=== PATIENT | female | born 1955 | race Caucasian/White ===

== ENCOUNTER 2018-10-18 16:36 | Inpatient (IN) | payer MEDICAID ==
[2018-10-18 16:42] VITALS: BMI 29.2
--- NOTE | 2018-10-18 17:07 | C.PDOC ---
History Of Present Illness 63 year old female with a history of HTN, HLD, and CABG presents to the emergency department with complaints of chest pain, cough, and congestion, which she describes as burning for the last 3 days. Patient denies fever and other com plaints. Patient reports a negative stress test two years ago, but [facility] recommended angiography as she has recurrent cp Time Seen by Provider: 10/18/18 16:49 Chief Complaint (Nursing): Chest Pain History Per: Patient History/Exam Limitations: no limitations Onset/Duration Of Symptoms: Days (3) Associated Symptoms: Cough, Nasal Congestion, Other (chest pain). denies: Fever, Chills Past Medical History Reviewed: Historical Data, Nursing Documentation, Vital Signs Vital Signs: Last Vital Signs Temp 98.2 F 10/18/18 16:42 Pulse 71 10/18/18 16:42 Resp 20 10/18/18 16:42 BP 140/79 10/18/18 16:42 Pulse Ox 99 10/18/18 16:42 - Medical History PMH: CAD, HTN, Hypercholesterolemia Denies: Chronic Kidney Disease Surgical History: CABG (Triple Bypass), Coronary Stent Family History: States: No Known Family Hx - Social History Hx Tobacco Use: No Hx Alcohol Use: No Hx Substance Use: No - Immunization History Hx Tetanus Toxoid Vaccination: No Hx Influenza Vaccination: No Hx Pneumococcal Vaccination: No Review Of Systems Except As Marked, All Systems Reviewed And Found Negative. Constitutional: Negative for: Fever, Chills ENT: Positive for: Nose Congestion Cardiovascular: Positive for: Chest Pain Respiratory: Positive for: Cough Gastrointestinal: Negative for: Nausea, Vomiting, Abdominal Pain Physical Exam - Physical Exam Appears: Non-toxic, No Acute Distress Skin: Normal Color, Warm, Dry Head: Atraumatic, Normacephalic Eye(s): bilateral: Normal Inspection, PERRL, EOMI Oral Mucosa: Moist Neck: Normal, Supple Chest: Symmetrical, No Tenderness Cardiovascular: Rhythm Regular, No Murmur Respiratory: Normal Breath Sounds, No Rales, No Rhonchi, No Wheezing Gastrointestinal/Abdominal: Soft, No Tenderness, No Guarding, No Rebound Extremity: Normal ROM Neurological/Psych: Oriented x3, Normal Speech, Normal Cognition ED Course And Treatment - Laboratory Results Result Diagrams: 10/18/18 17:13 10/18/18 17:13 ECG: Interpreted By Me Interpretation Of ECG: Normal sinus rhythm at 75bpm. Nonspecific ST/T wave changes, new from prior 2014 EKG. O2 Sat by Pulse Oximetry: 99 (RA) Pulse Ox Interpretation: Normal Medical Decision Making Medical Decision Making: Plan: EKG Chemistry Hematology CXR Flu Swab Urinalysis ekg with changes since previous. as per pt due for angiography- pain atypical, howver will obs given ekg changes and possible requirement for cath. accpeted dr langford. asa givne. Disposition - Disposition Disposition: HOSPITALIZED Disposition Time: 21:24 Condition: STABLE - Clinical Impression Clinical Impression: Chest pain - Scribe Statement The provider has reviewed the documentation as recorded by the Scribe (Jeffery [email or web address]) Provider Attestation: All medical record entries made by the Scribe were at my direction and personally dictated by me. I have reviewed the chart and agree that the record accurately reflects my personal performance of the history, physical exam, medical decision making, and the department course for this patient. I have also personally directed, reviewed, and agree with the discharge instructions and disposition.
[2018-10-18 17:20] LABS: BASO # 0.1 K/uL (0.0-0.2); BASO % 0.8 % (0.0-2.0); EOS # 0.1 K/uL (0.0-0.7); EOS % 1.3 % (0.0-4.0); HEMOGLOBIN 12.3 g/dL (11.0-16.0); LYMPH # 3.3 K/uL (1.0-4.3); LYMPH % 43.8 % (20.0-40.0); MEAN CELL VOLUME 89.2 fL (81.0-99.0); MEAN CORPUSCULAR HGB CONC 33.6 g/dL (33.0-37.0); MEAN PLATELET VOLUME 9.4 fL (7.2-11.7); MONO # 0.5 K/uL (0.0-0.8); MONO % 7.2 % (0.0-10.0); NEUT # 3.5 K/uL (1.8-7.0); NEUT % 46.9 % (50.0-75.0); NRBC % 0.1 % (0.0-2.0); RBC 4.08 Mil/uL (3.80-5.20); RED CELL DISTRIBUTION WIDTH 13.1 % (11.5-14.5); WHITE BLOOD COUNT 7.5 K/uL (4.8-10.8)
[2018-10-18 17:37] LABS: INR 1.1; PROTHROMBIN TIME 11.5 SECONDS (9.7-12.2)
[2018-10-18 18:04] LABS: ALB/GLOB RATIO 1.5 (1.0-2.1); ALBUMIN 4.5 g/dL (3.5-5.0); ALT/SGPT 25 U/L (9-52); AST/SGOT 22 U/L (14-36); B-TYPE NATRIURETIC PEPTIDE 227 pg/mL (0-900); BLOOD UREA NITROGEN 14 mg/dL (7-17); CALCIUM 9.2 mg/dl (8.6-10.4); GFR NON-AFRICAN AMERICAN > 60
[2018-10-18 18:13] LABS: SQUAMOUS EPITHIAL 3 /hpf (0-5); URINE AMORPHOUS SEDIMENT MODERATE /ul (<OCC); URINE BILIRUBIN NEGATIVE (NEGATIVE); URINE BLOOD NEGATIVE (NEGATIVE); URINE CLARITY Hazy (Clear); URINE COLOR Yellow (YELLOW); URINE GLUCOSE (UA) NORMAL (Normal); URINE LEUKOCYTE ESTERASE NEG Leu/uL (Negative); URINE PROTEIN NEGATIVE (NEGATIVE); URINE UROBILINOGEN NORMAL mg/dL (0.2-1.0)
--- NOTE | 2018-10-18 18:19 | RAD ---
Date of service: 10/18/2018 HISTORY: chest pain COMPARISON: Portable chest 05/20/2014. FINDINGS: LUNGS: No active pulmonary disease. PLEURA: No significant pleural effusion identified, no pneumothorax apparent. CARDIOVASCULAR: Post CABG changes reiterated. Cardiac silhouette appears stable. No pulmonary vascular congestion. Noncalcified aneurysmal thoracic aorta appreciated. OSSEOUS STRUCTURES: Scoliotic thoracic spinal deformity reiterated. VISUALIZED UPPER ABDOMEN: Normal. OTHER FINDINGS: None. IMPRESSION: No interval acute cardiopulmonary disease appreciated. Post CABG changes reiterated. Scoliotic thoracic spinal deformity again evident.
[2018-10-18] MEDS ORDERED: guaiFENesin 100 mg/5 ml Syrup UD PO STA (19:02)
[2018-10-18] MEDS ORDERED: guaiFENesin 100 mg/5 ml Syrup UD ONE (19:11)
[2018-10-18] MEDS ORDERED: Albuterol-Ipratrop 3 mg / 0.5 (3 ml) UD INH PRN (21:18)
[2018-10-18] MEDS ORDERED: Home Med 1 UNIT (Atorvastatin Calcium [Atorvastatin Calcium] 80 MG) PO SCH (22:00)
[2018-10-18 23:17] LABS: CK-MB 0.42 ng/mL (0.0-3.38)
[2018-10-19 07:58] LABS: CK-MB 0.42 ng/mL (0.0-3.38)
[2018-10-19] MEDS: Promethazine 12.5 mg/10 ml Syrup PO PRN (08:52)
[2018-10-19] MEDS: Oxycodone/Acetaminophen 5/325 mg Tab PO PRN ×2 (08:52→16:43)
[2018-10-19] MEDS: Enoxaparin 40 mg Syringe SC SCH (09:55)
--- NOTE | 2018-10-19 16:47 | CP.PCM.HP ---
Past Patient History - Infectious Disease Hx of Infectious Diseases: None - Past Medical History & Family History Past Medical History?: Yes - Past Social History Smoking Status: Never Smoked - CARDIAC Hx Hypercholesterolemia: Yes Hx Hypertension: Yes - PULMONARY Hx Respiratory Disorders: No - NEUROLOGICAL Hx Neurological Disorder: No - HEENT Hx HEENT Problems: No Other/Comment: Difficulty opening eyes once in a while but vision is fine - RENAL Hx Chronic Kidney Disease: No - ENDOCRINE/METABOLIC Hx Endocrine Disorders: No - HEMATOLOGICAL/ONCOLOGICAL Hx Blood Disorders: No - INTEGUMENTARY Hx Dermatological Problems: No - MUSCULOSKELETAL/RHEUMATOLOGICAL Hx Falls: No - GASTROINTESTINAL Hx Gastrointestinal Disorders: No - GENITOURINARY/GYNECOLOGICAL Hx Genitourinary Disorders: No - PSYCHIATRIC Hx Substance Use: No - SURGICAL HISTORY Hx Coronary Artery Bypass Graft: Yes (Triple Bypass) Hx Coronary Stent: Yes - ANESTHESIA Hx Anesthesia: Yes Hx Anesthesia Reactions: No Hx Malignant Hyperthermia: No Meds Allergies/Adverse Reactions: Allergies Allergy/AdvReac Type Severity Reaction Status Date / Time No Known Allergies Allergy Verified 10/18/18 16:42 Results - Vital Signs Recent Vital Signs: Last Vital Signs Temp 98.1 F 10/19/18 07:00 Pulse 63 10/19/18 07:40 Resp 20 10/19/18 07:00 BP 132/73 10/19/18 09:54 Pulse Ox 99 10/19/18 09:00 - Labs Result Diagrams: 10/18/18 17:13 10/18/18 17:13 Labs: Laboratory Results - last 24 hr 10/18/18 10/18/18 10/18/18 17:13 17:13 17:13 WBC 7.5 RBC 4.08 Hgb 12.3 Hct 36.4 MCV 89.2 MCH 30.0 MCHC 33.6 RDW 13.1 Plt Count 194 MPV 9.4 Neut % (Auto) 46.9 L Lymph % (Auto) 43.8 H [place] % (Auto) 7.2 Eos % (Auto) 1.3 Baso % (Auto) 0.8 Neut # (Auto) 3.5 Lymph # (Auto) 3.3 [place] # (Auto) 0.5 Eos # (Auto) 0.1 Baso # (Auto) 0.1 PT 11.5 INR 1.1 APTT 30 Sodium 140 Potassium 4.0 Chloride 107 Carbon Dioxide 24 Anion Gap 13 BUN 14 Creatinine 0.8 Est GFR ( Amer) > 60 Est GFR (Non-Af Amer) > 60 Random Glucose 90 Calcium 9.2 Total Bilirubin 0.3 AST 22 ALT 25 Alkaline Phosphatase 65 Total Creatine Kinase CK-MB (Mass) Troponin I < 0.0120 NT-Pro-B Natriuret Pep 227 Total Protein 7.4 Albumin 4.5 Globulin 2.9 Albumin/Globulin Ratio 1.5 Urine Color Urine Clarity Urine pH Ur Specific [place] Urine Protein Urine Glucose (UA) Urine Ketones Urine Blood Urine Nitrate Urine Bilirubin Urine Urobilinogen Ur Leukocyte Esterase Urine WBC (Auto) Urine RBC (Auto) Ur Squamous Epith Cells Amorphous Sediment Influenza Typ A,B (EIA) 10/18/18 10/18/18 10/18/18 17:29 17:29 22:49 WBC RBC Hgb Hct MCV MCH MCHC RDW Plt Count MPV Neut % (Auto) Lymph % (Auto) [place] % (Auto) Eos % (Auto) Baso % (Auto) Neut # (Auto) Lymph # (Auto) [place] # (Auto) Eos # (Auto) Baso # (Auto) PT INR APTT Sodium Potassium Chloride Carbon Dioxide Anion Gap BUN Creatinine Est GFR ( Amer) Est GFR (Non-Af Amer) Random Glucose Calcium Total Bilirubin AST ALT Alkaline Phosphatase Total Creatine Kinase 57 CK-MB (Mass) 0.42 Troponin I < 0.0120 NT-Pro-B Natriuret Pep Total Protein Albumin Globulin Albumin/Globulin Ratio Urine Color Yellow Urine Clarity Hazy Urine pH 7.0 Ur Specific [place] 1.020 Urine Protein Negative Urine Glucose (UA) Normal Urine Ketones Negative Urine Blood Negative Urine Nitrate Negative Urine Bilirubin Negative Urine Urobilinogen Normal Ur Leukocyte Esterase Neg Urine WBC (Auto) 2 Urine RBC (Auto) 1 Ur Squamous Epith Cells 3 Amorphous Sediment Moderate H Influenza Typ A,B (EIA) Negative for flu a/b 10/19/18 07:19 WBC RBC Hgb Hct MCV MCH MCHC RDW Plt Count MPV Neut % (Auto) Lymph % (Auto) [place] % (Auto) Eos % (Auto) Baso % (Auto) Neut # (Auto) Lymph # (Auto) [place] # (Auto) Eos # (Auto) Baso # (Auto) PT INR APTT Sodium Potassium Chloride Carbon Dioxide Anion Gap BUN Creatinine Est GFR ( Amer) Est GFR (Non-Af Amer) Random Glucose Calcium Total Bilirubin AST ALT Alkaline Phosphatase Total Creatine Kinase 61 CK-MB (Mass) 0.42 Troponin I < 0.0120 NT-Pro-B Natriuret Pep Total Protein Albumin Globulin Albumin/Globulin Ratio Urine Color Urine Clarity Urine pH Ur Specific [place] Urine Protein Urine Glucose (UA) Urine Ketones Urine Blood Urine Nitrate Urine Bilirubin Urine Urobilinogen Ur Leukocyte Esterase Urine WBC (Auto) Urine RBC (Auto) Ur Squamous Epith Cells Amorphous Sediment Influenza Typ A,B (EIA)
[2018-10-20] MEDS: Enoxaparin 40 mg Syringe SC SCH (10:41)
[2018-10-20] MEDS: Promethazine 12.5 mg/10 ml Syrup PO PRN (10:59)
--- NOTE | 2018-10-20 13:03 | CP.PCM.PN ---
Subjective - Date & Time of Evaluation Date of Evaluation: 10/20/18 Time of Evaluation: 13:03 Objective - Vital Signs/Intake and Output Vital Signs (last 24 hours): Temp Pulse Resp BP Pulse Ox 98.6 F 77 20 143/72 95 10/20/18 07:00 10/20/18 10:42 10/20/18 10:42 10/20/18 10:41 10/20/18 10:42 - Medications Medications: Current Medications Acetaminophen (Tylenol 325mg Tab) 650 mg PO Q6 PRN PRN Reason: Pain, mild to moderate (1-7) Last Admin: 10/19/18 21:20 Dose: 650 mg Albuterol/Ipratropium (Duoneb 3 Mg/0.5 Mg (3 Ml) Ud) 3 ml INH RQ6 PRN PRN Reason: Cough Aspirin (Aspirin Chewable) 81 mg PO DAILY [facility] Last Admin: 10/20/18 10:41 Dose: 81 mg Enoxaparin Sodium (Lovenox) 40 mg SC DAILY [facility] Last Admin: 10/20/18 10:41 Dose: 40 mg Fenofibrate (Tricor) 145 mg PO HS [facility] Last Admin: 10/19/18 21:17 Dose: 145 mg Isosorbide Mononitrate (Imdur Er) 30 mg PO DAILY [facility] Last Admin: 10/20/18 10:41 Dose: 30 mg Losartan Potassium (Cozaar) 25 mg PO DAILY [facility] Last Admin: 10/20/18 10:41 Dose: 25 mg Metoprolol Tartrate (Lopressor) 25 mg PO BID [facility] Last Admin: 10/20/18 10:41 Dose: 25 mg Oxycodone/Acetaminophen (Percocet 5/325 Mg Tab) 1 tab PO Q8H PRN PRN Reason: Pain, severe (8-10) Stop: 10/22/18 00:53 Last Admin: 10/19/18 16:43 Dose: 1 tab Promethazine HCl (Phenergan Syrup) 12.5 mg PO Q8 PRN PRN Reason: Cough Last Admin: 10/20/18 10:59 Dose: 12.5 mg Rosuvastatin Calcium (Crestor) 40 mg PO [facility] Last Admin: 10/19/18 21:17 Dose: 40 mg - Labs Labs: 10/18/18 17:13 10/18/18 17:13 PT 11.5 SECONDS (9.7-12.2) 10/18/18 17:13 INR 1.1 10/18/18 17:13 APTT 30 SECONDS (21-34) 10/18/18 17:13
[2018-10-20] MEDS: Oxycodone/Acetaminophen 5/325 mg Tab PO PRN (16:25)
--- NOTE | 2018-10-21 08:25 | CP.PCM.PN ---
Subjective - Date & Time of Evaluation Date of Evaluation: 10/21/18 Time of Evaluation: 23:43 - Subjective Subjective: Igor Adam DO PGY1 - Internal Medicine [employer] - Cardiology Note for Dr. Olguin 63F w/ a PMH of HTN, HLD, who presented w/ c/o Chest pain. Patient is describing that symptoms of chest pain are pressure-like sensation along with severe dyspnea on exertion with minimal activity of with radiation of discomfort radiating down her left arm. Symptoms according to her progressively worsened over the course of last 1 year Upon evaluation this morning, Pt. complaining of chest burning and epigastric pain w/ eating. Patient reported decreased appetite lately as well. Past Medical History : Glaucoma, Angina, Heart trouble, HTN, HLD Surgical History: Bypass surgery 1999 Family History Father: Mother: no family hx of [place] father- heart attack and passed at the age of 52 brother-heart attack and passed at the age of 38. Social History Tobacco Use: No Drugs/Alcohol: No Allergies N.K.D.A. Home Rx: [id number] QD, Toprol XL 25 QD, Vascepa, Imdur, Losartan 25 QD, Atorvastatin 80 QD, Fenofibrate 200mg QD Objective - Vital Signs/Intake and Output Vital Signs (last 24 hours): Temp Pulse Resp BP Pulse Ox 98 F 93 H 20 115/62 97 10/21/18 07:00 10/21/18 07:41 10/21/18 07:00 10/21/18 07:00 10/21/18 07:00 Intake and Output: 10/21/18 10/21/18 06:59 18:59 Intake Total 400 Balance 400 - Medications Medications: Current Medications Acetaminophen (Tylenol 325mg Tab) 650 mg PO Q6 PRN PRN Reason: Pain, mild to moderate (1-7) Last Admin: 10/19/18 21:20 Dose: 650 mg Albuterol/Ipratropium (Duoneb 3 Mg/0.5 Mg (3 Ml) Ud) 3 ml INH RQ6 PRN PRN Reason: Cough Aspirin (Aspirin Chewable) 81 mg PO DAILY [facility] Last Admin: 10/20/18 10:41 Dose: 81 mg Enoxaparin Sodium (Lovenox) 40 mg SC DAILY [facility] Last Admin: 10/20/18 10:41 Dose: 40 mg Fenofibrate (Tricor) 145 mg PO HS [facility] Last Admin: 10/20/18 21:17 Dose: 145 mg Isosorbide Mononitrate (Imdur Er) 30 mg PO DAILY [facility] Last Admin: 10/20/18 10:41 Dose: 30 mg Losartan Potassium (Cozaar) 25 mg PO DAILY [facility] Last Admin: 10/20/18 10:41 Dose: 25 mg Metoprolol Tartrate (Lopressor) 25 mg PO BID [facility] Last Admin: 10/20/18 17:52 Dose: Not Given Oxycodone/Acetaminophen (Percocet 5/325 Mg Tab) 1 tab PO Q8H PRN PRN Reason: Pain, severe (8-10) Stop: 10/22/18 00:53 Last Admin: 10/20/18 16:25 Dose: 1 tab Promethazine HCl (Phenergan Syrup) 12.5 mg PO Q8 PRN PRN Reason: Cough Last Admin: 10/20/18 10:59 Dose: 12.5 mg Rosuvastatin Calcium (Crestor) 40 mg PO [facility] Last Admin: 10/20/18 21:17 Dose: 40 mg - Labs Labs: 10/18/18 17:13 10/18/18 17:13 PT 11.5 SECONDS (9.7-12.2) 10/18/18 17:13 INR 1.1 10/18/18 17:13 APTT 30 SECONDS (21-34) 10/18/18 17:13 - Constitutional Appears: Well
[2018-10-21] MEDS: Omega-3-Acid Ethyl Esters 1 GM Cap PO SCH ×2 (09:38→18:27)
[2018-10-21] MEDS: Pantoprazole 40 mg EC Tab PO SCH (09:38)
[2018-10-21] MEDS: Enoxaparin 40 mg Syringe SC SCH (09:38)
[2018-10-21] MEDS: Promethazine 12.5 mg/10 ml Syrup PO PRN ×2 (09:43→21:04)
[2018-10-21 14:20] LABS: BLOOD UREA NITROGEN 14 mg/dL (7-17); CALCIUM 9.5 mg/dl (8.6-10.4); GFR NON-AFRICAN AMERICAN > 60
[2018-10-21 14:24] LABS: BASO % 0.6 % (0.0-2.0); EOS # 0.2 K/uL (0.0-0.7); EOS % 2.3 % (0.0-4.0); HEMOGLOBIN 12.2 g/dL (11.0-16.0); LYMPH # 3.6 K/uL (1.0-4.3); LYMPH % 47.6 % (20.0-40.0); MEAN CELL VOLUME 89.2 fL (81.0-99.0); MEAN CORPUSCULAR HEMOGLOBIN 29.4 pg (27.0-31.0); MEAN CORPUSCULAR HGB CONC 32.9 g/dL (33.0-37.0); MEAN PLATELET VOLUME 10.2 fL (7.2-11.7); MONO # 0.3 K/uL (0.0-0.8); MONO % 4.6 % (0.0-10.0); NEUT # 3.4 K/uL (1.8-7.0); NEUT % 44.9 % (50.0-75.0); RBC 4.17 Mil/uL (3.80-5.20); RED CELL DISTRIBUTION WIDTH 12.8 % (11.5-14.5); WHITE BLOOD COUNT 7.5 K/uL (4.8-10.8)
[2018-10-21] MEDS: Oxycodone/Acetaminophen 5/325 mg Tab PO PRN (18:28)
--- NOTE | 2018-10-21 19:12 | CP.PCM.PN ---
Subjective - Date & Time of Evaluation Date of Evaluation: 10/21/18 Time of Evaluation: 19:12 - Subjective Subjective: Patient is seen and examined No events overnight Complaints of cough and chest tightness Objective - Vital Signs/Intake and Output Vital Signs (last 24 hours): Temp Pulse Resp BP Pulse Ox 98.1 F 68 20 111/70 98 10/21/18 15:00 10/21/18 16:00 10/21/18 15:00 10/21/18 18:27 10/21/18 15:00 - Medications Medications: Current Medications Acetaminophen (Tylenol 325mg Tab) 650 mg PO Q6 PRN PRN Reason: Pain, mild to moderate (1-7) Last Admin: 10/19/18 21:20 Dose: 650 mg Albuterol/Ipratropium (Duoneb 3 Mg/0.5 Mg (3 Ml) Ud) 3 ml INH RQ6 PRN PRN Reason: Cough Aspirin (Aspirin Chewable) 81 mg PO DAILY [facility] Last Admin: 10/21/18 09:38 Dose: 81 mg Ezetimibe (Zetia) 10 mg PO DAILY [facility] Last Admin: 10/21/18 09:38 Dose: 10 mg Enoxaparin Sodium (Lovenox) 40 mg SC DAILY [facility] Last Admin: 10/21/18 09:38 Dose: 40 mg Influenza Virus Vaccine (Flucelvax Quad [id number] Syr) 60 mcg IM .ONCE ONE Stop: 10/23/18 12:01 Isosorbide Mononitrate (Imdur Er) 30 mg PO DAILY [facility] Last Admin: 10/21/18 09:38 Dose: 30 mg Losartan Potassium (Cozaar) 25 mg PO DAILY [facility] Last Admin: 10/21/18 09:38 Dose: 25 mg Metoprolol Tartrate (Lopressor) 25 mg PO BID [facility] Last Admin: 10/21/18 18:27 Dose: 25 mg [id number] Ethyl Esters (Lovaza) 1 gm PO BID [facility] Last Admin: 10/21/18 18:27 Dose: 1 gm Oxycodone/Acetaminophen (Percocet 5/325 Mg Tab) 1 tab PO Q8H PRN PRN Reason: Pain, severe (8-10) Stop: 10/22/18 00:53 Last Admin: 10/21/18 18:28 Dose: 1 tab Pantoprazole Sodium (Protonix Ec Tab) 40 mg PO DAILY [facility] Last Admin: 10/21/18 09:38 Dose: 40 mg Pneumococcal Polyvalent Vaccine (Pneumovax 23 Vaccine) 0.5 ml IM .ONCE ONE Stop: 10/23/18 12:01 Promethazine HCl (Phenergan Syrup) 12.5 mg PO Q8 PRN PRN Reason: Cough Last Admin: 10/21/18 09:43 Dose: 12.5 mg Rosuvastatin Calcium (Crestor) 40 mg PO HS [facility] Last Admin: 10/20/18 21:17 Dose: 40 mg - Labs Labs: 10/21/18 14:02 10/21/18 14:02 PT 11.5 SECONDS (9.7-12.2) 10/18/18 17:13 INR 1.1 10/18/18 17:13 APTT 30 SECONDS (21-34) 10/18/18 17:13 - Head Exam Head Exam: NORMAL INSPECTION - Eye Exam Eye Exam: Normal appearance - ENT Exam ENT Exam: Mucous Membranes Moist - Respiratory Exam Respiratory Exam: Clear to Ausculation Bilateral - Cardiovascular Exam Cardiovascular Exam: REGULAR RHYTHM, +S1, +S2 - GI/Abdominal Exam GI & Abdominal Exam: Soft, Normal Bowel Sounds - Extremities Exam Extremities Exam: Normal Inspection - Neurological Exam Neurological Exam: Alert, Oriented x3 - Psychiatric Exam Psychiatric exam: Normal Affect, Normal Mood Assessment and Plan (1) Asthma Status: Acute (2) Chest pain Status: Acute (3) HTN (hypertension) Status: Acute - Assessment and Plan (Free Text) Plan: Cardiac workup in progress BP control Continue current care DVT/GI prophylaxis
--- NOTE | 2018-10-22 00:03 | CP.PCM.CON ---
<Igor Adam - Last Filed: 10/22/18 00:04> History of Present Illness - History of Present Illness History of Present Illness: Igor Adam DO PGY1 - Internal Medicine Life Underwriter - Cardiology Note for Dr. Olguin 63F w/ a PMH of HTN, HLD, who presented w/ c/o Chest pain. Patient is describing that symptoms of chest pain are pressure-like sensation along with severe dyspnea on exertion with minimal activity of with radiation of discomfort radiating down her left arm. Symptoms according to her progressively worsened over the course of last 1 year Upon evaluation this morning, Pt. complaining of chest burning and epigastric pain w/ eating. Patient reported decreased appetite lately as well. No further complaints voiced on 12 system ROS Past Medical History : Glaucoma, Angina, Heart trouble, HTN, HLD Surgical History: Bypass surgery 1999 Family History Father: Mother: no family hx of [place] father- heart attack and passed at the age of 52 brother-heart attack and passed at the age of 38. Social History Tobacco Use: No Drugs/Alcohol: No Allergies N.K.D.A. Home Rx: asa81 QD, Toprol XL 25 QD, Vascepa, Imdur, Losartan 25 QD, Atorvastatin 80 QD, Fenofibrate 200mg QD Review of Systems - Review of Systems All systems: reviewed and no additional remarkable complaints except Review of Systems: as per HPI Past Patient History - Infectious Disease Hx of Infectious Diseases: None - Past Medical History & Family History Past Medical History?: Yes - Past Social History Smoking Status: Never Smoked - CARDIAC Hx Hypercholesterolemia: Yes Hx Hypertension: Yes - PULMONARY Hx Respiratory Disorders: No - NEUROLOGICAL Hx Neurological Disorder: No - HEENT Hx HEENT Problems: No Other/Comment: Difficulty opening eyes once in a while but vision is fine - RENAL Hx Chronic Kidney Disease: No - ENDOCRINE/METABOLIC Hx Endocrine Disorders: No - HEMATOLOGICAL/ONCOLOGICAL Hx Blood Disorders: No - INTEGUMENTARY Hx Dermatological Problems: No - MUSCULOSKELETAL/RHEUMATOLOGICAL Hx Falls: No - GASTROINTESTINAL Hx Gastrointestinal Disorders: No - GENITOURINARY/GYNECOLOGICAL Hx Genitourinary Disorders: No - PSYCHIATRIC Hx Substance Use: No - SURGICAL HISTORY Hx Coronary Artery Bypass Graft: Yes (Triple Bypass) Hx Coronary Stent: Yes - ANESTHESIA Hx Anesthesia: Yes Hx Anesthesia Reactions: No Hx Malignant Hyperthermia: No Meds Allergies/Adverse Reactions: Allergies Allergy/AdvReac Type Severity Reaction Status Date / Time No Known Allergies Allergy Verified 10/18/18 16:42 - Medications Medications: Current Medications Acetaminophen (Tylenol 325mg Tab) 650 mg PO Q6 PRN PRN Reason: Pain, mild to moderate (1-7) Last Admin: 10/19/18 21:20 Dose: 650 mg Albuterol/Ipratropium (Duoneb 3 Mg/0.5 Mg (3 Ml) Ud) 3 ml INH RQ6 PRN PRN Reason: Cough Aspirin (Aspirin Chewable) 81 mg PO DAILY [facility] Last Admin: 10/21/18 09:38 Dose: 81 mg Ezetimibe (Zetia) 10 mg PO DAILY [facility] Last Admin: 10/21/18 09:38 Dose: 10 mg Enoxaparin Sodium (Lovenox) 40 mg SC DAILY [facility] Last Admin: 10/21/18 09:38 Dose: 40 mg Influenza Virus Vaccine (Flucelvax Quad 4539-1342 Syr) 60 mcg IM .ONCE ONE Stop: 10/23/18 12:01 Isosorbide Mononitrate (Imdur Er) 30 mg PO DAILY [facility] Last Admin: 10/21/18 09:38 Dose: 30 mg Losartan Potassium (Cozaar) 25 mg PO DAILY [facility] Last Admin: 10/21/18 09:38 Dose: 25 mg Metoprolol Tartrate (Lopressor) 25 mg PO BID [facility] Last Admin: 10/21/18 18:27 Dose: 25 mg Hzmzg-3-Jvbg Ethyl Esters (Lovaza) 1 gm PO BID [facility] Last Admin: 10/21/18 18:27 Dose: 1 gm Oxycodone/Acetaminophen (Percocet 5/325 Mg Tab) 1 tab PO Q8H PRN PRN Reason: Pain, severe (8-10) Stop: 10/22/18 00:53 Last Admin: 10/21/18 18:28 Dose: 1 tab Pantoprazole Sodium (Protonix Ec Tab) 40 mg PO DAILY [facility] Last Admin: 10/21/18 09:38 Dose: 40 mg Pneumococcal Polyvalent Vaccine (Pneumovax 23 Vaccine) 0.5 ml IM .ONCE ONE Stop: 10/23/18 12:01 Promethazine HCl (Phenergan Syrup) 12.5 mg PO Q8 PRN PRN Reason: Cough Last Admin: 10/21/18 21:04 Dose: 12.5 mg Rosuvastatin Calcium (Crestor) 40 mg PO HS [facility] Last Admin: 10/21/18 21:04 Dose: 40 mg Physical Exam - Constitutional Appears: Well, Non-toxic, No Acute Distress - Head Exam Head Exam: ATRAUMATIC, NORMOCEPHALIC - Eye Exam Eye Exam: EOMI, Normal appearance, PERRL - ENT Exam ENT Exam: Mucous Membranes Moist - Respiratory Exam Respiratory Exam: Clear to Auscultation Bilateral, NORMAL BREATHING PATTERN - Cardiovascular Exam Cardiovascular Exam: REGULAR RHYTHM, RRR, +S1, +S2 - GI/Abdominal Exam GI & Abdominal Exam: Normal Bowel Sounds, Soft. absent: Tenderness - Extremities Exam Extremities exam: Positive for: normal inspection, pedal pulses present (2+ DP BL ). Negative for: pedal edema - Neurological Exam Neurological exam: Alert, CN II-XII Intact, Oriented x3 - Psychiatric Exam Psychiatric exam: Normal Affect, Normal Mood - Skin Skin Exam: Dry, Intact, Normal Color, Warm Results - Vital Signs Recent Vital Signs: Last Vital Signs Temp 98.1 F 10/21/18 15:00 Pulse 68 10/21/18 16:00 Resp 20 10/21/18 15:00 BP 111/70 10/21/18 18:27 Pulse Ox 98 10/21/18 15:00 - Labs Result Diagrams: 10/21/18 14:02 10/21/18 14:02 Labs: Laboratory Results - last 24 hr 10/21/18 10/21/18 10/21/18 11:02 14:02 14:02 WBC 7.5 RBC 4.17 Hgb 12.2 Hct 37.2 MCV 89.2 MCH 29.4 MCHC 32.9 L RDW 12.8 Plt Count 204 MPV 10.2 Neut % (Auto) 44.9 L Lymph % (Auto) 47.6 H Mccracken % (Auto) 4.6 Eos % (Auto) 2.3 Baso % (Auto) 0.6 Neut # (Auto) 3.4 Lymph # (Auto) 3.6 Mccracken # (Auto) 0.3 Eos # (Auto) 0.2 Baso # (Auto) 0.0 Sodium 138 Potassium 4.0 Chloride 104 Carbon Dioxide 25 Anion Gap 14 BUN 14 Creatinine 0.8 Est GFR ( Amer) > 60 Est GFR (Non-Af Amer) > 60 Random Glucose 127 H D Hemoglobin A1c 6.4 Calcium 9.5 Assessment & Plan (1) HTN (hypertension) Status: Acute (2) Chest pain Status: Acute Priority: Medium (3) Coronary artery disease Status: Chronic Priority: Low (4) Hx of CABG Status: Chronic Priority: Low - Assessment and Plan (Free Text) Assessment: 63F w/ a PMH of HTN, HLD, who presented w/ c/o chest pain; chest pain has ischemic properties however patient is also exhibiting s/s acid reflux /gerd. Plan: Patient will require cardiac catheterization in future however given that her symptoms are concerning for acid reflux at this time; GI workup would be appreciated to r/o any ulceration. Patient can continue on Aspirin Zetia Cozaar Imdur Toprol Crestor Lovaza <Zachery Olguin - Last Filed: 10/29/18 23:18> Meds - Medications Medications: Current Medications Acetaminophen (Tylenol 325mg Tab) 650 mg PO Q6 PRN PRN Reason: Pain, mild to moderate (1-7) Last Admin: 10/26/18 15:43 Dose: 650 mg Amoxicillin (Amoxil 500 Mg Cap) 1,000 mg PO BID [facility]; Protocol Last Admin: 10/29/18 10:15 Dose: 1,000 mg Aspirin (Aspirin Chewable) 81 mg PO DAILY [facility] Last Admin: 10/29/18 10:15 Dose: 81 mg Clarithromycin (Biaxin Filmtab) 500 mg PO Q12H [facility]; Protocol Last Admin: 10/29/18 05:02 Dose: 500 mg Ezetimibe (Zetia) 10 mg PO DAILY [facility] Last Admin: 10/29/18 10:14 Dose: 10 mg Fluticasone/Vilanterol (Breo Ellipta 200-25 Mcg Inh) 1 puff INH RQD [facility] Last Admin: 10/29/18 07:46 Dose: 1 puff Isosorbide Mononitrate (Imdur Er) 30 mg PO DAILY [facility] Last Admin: 10/29/18 10:20 Dose: 30 mg Losartan Potassium (Cozaar) 25 mg PO DAILY [facility] Last Admin: 10/29/18 10:15 Dose: 25 mg Metoprolol Tartrate (Lopressor) 25 mg PO BID [facility] Last Admin: 10/29/18 10:14 Dose: 25 mg Nbnyt-9-Isqv Ethyl Esters (Lovaza) 1 gm PO BID [facility] Last Admin: 10/29/18 10:13 Dose: Not Given Pantoprazole Sodium (Protonix Ec Tab) 40 mg PO DAILY [facility] Last Admin: 10/29/18 10:13 Dose: 40 mg Potassium Chloride (K-Dur 20 Meq Er Tab) 40 meq PO BRK [facility] Last Admin: 10/29/18 08:04 Dose: 40 meq Promethazine HCl/Codeine (Phenergan/Codeine Oral Syrup) 10 ml PO Q8H PRN PRN Reason: Cough Last Admin: 10/29/18 10:15 Dose: 10 ml Rosuvastatin Calcium (Crestor) 40 mg PO HS [facility] Last Admin: 10/28/18 21:31 Dose: 40 mg Results - Vital Signs Recent Vital Signs: Last Vital Signs Temp 97.9 F 10/29/18 08:40 Pulse 89 10/29/18 08:40 Resp 20 10/29/18 08:40 BP 118/78 10/29/18 10:14 Pulse Ox 98 10/29/18 08:40 - Labs Result Diagrams: 10/26/18 08:00 10/26/18 08:00 Attending/Attestation - Attestation I have personally seen and examined this patient.: Yes I have fully participated in the care of the patient.: Yes I have reviewed all pertinent clinical information: Yes
[2018-10-22] MEDS: Enoxaparin 40 mg Syringe SC SCH (10:23)
[2018-10-22] MEDS: Omega-3-Acid Ethyl Esters 1 GM Cap PO SCH ×2 (10:23→17:53)
[2018-10-22] MEDS: Promethazine 12.5 mg/10 ml Syrup PO PRN (10:23)
[2018-10-22] MEDS: Pantoprazole 40 mg EC Tab PO SCH (10:24)
[2018-10-22] MEDS: Promethazine/Cod 6.25mg-10mg/5ml Syr UD PO PRN ×2 (13:18→21:36)
--- NOTE | 2018-10-22 15:31 | CP.PCM.PN ---
Subjective - Date & Time of Evaluation Date of Evaluation: 10/22/18 Time of Evaluation: 15:30 - Subjective Subjective: Patient is seen and examined No events overnight Complaints of cough and chest tightness Objective - Vital Signs/Intake and Output Vital Signs (last 24 hours): Temp Pulse Resp BP Pulse Ox 99.2 F 86 20 123/73 100 10/22/18 07:00 10/22/18 07:29 10/22/18 07:00 10/22/18 10:23 10/22/18 07:00 Intake and Output: 10/22/18 10/22/18 06:59 18:59 Intake Total 480 Balance 480 - Medications Medications: Current Medications Acetaminophen (Tylenol 325mg Tab) 650 mg PO Q6 PRN PRN Reason: Pain, mild to moderate (1-7) Last Admin: 10/22/18 10:28 Dose: 650 mg Albuterol/Ipratropium (Duoneb 3 Mg/0.5 Mg (3 Ml) Ud) 3 ml INH RQ6 PRN PRN Reason: Cough Aspirin (Aspirin Chewable) 81 mg PO DAILY [facility] Last Admin: 10/22/18 10:23 Dose: 81 mg Ezetimibe (Zetia) 10 mg PO DAILY [facility] Last Admin: 10/22/18 10:23 Dose: 10 mg Enoxaparin Sodium (Lovenox) 40 mg SC DAILY [facility] Last Admin: 10/22/18 10:23 Dose: 40 mg Fluticasone/Vilanterol (Breo Ellipta 200-25 Mcg Inh) 1 puff INH RQD [facility] Influenza Virus Vaccine (Flucelvax Quad 9900-1376 Syr) 60 mcg IM .ONCE ONE Stop: 10/23/18 12:01 Isosorbide Mononitrate (Imdur Er) 30 mg PO DAILY [facility] Last Admin: 10/22/18 10:23 Dose: 30 mg Losartan Potassium (Cozaar) 25 mg PO DAILY [facility] Last Admin: 10/22/18 10:23 Dose: 25 mg Metoclopramide HCl (Reglan) 5 mg IVP Q6H [facility] Last Admin: 10/22/18 13:18 Dose: 5 mg Metoprolol Tartrate (Lopressor) 25 mg PO BID [facility] Last Admin: 10/22/18 10:23 Dose: 25 mg Gcjcr-5-Nrxq Ethyl Esters (Lovaza) 1 gm PO BID [facility] Last Admin: 10/22/18 10:23 Dose: 1 gm Pantoprazole Sodium (Protonix Inj) 40 mg IVP Q12H [facility] Last Admin: 10/22/18 13:15 Dose: Not Given Pneumococcal Polyvalent Vaccine (Pneumovax 23 Vaccine) 0.5 ml IM .ONCE ONE Stop: 10/23/18 12:01 Promethazine HCl/Codeine (Phenergan/Codeine Oral Syrup) 10 ml PO Q8H PRN PRN Reason: Cough Last Admin: 10/22/18 13:18 Dose: 10 ml Rosuvastatin Calcium (Crestor) 40 mg PO HS [facility] Last Admin: 10/21/18 21:04 Dose: 40 mg - Labs Labs: 10/21/18 14:02 10/21/18 14:02 PT 11.5 SECONDS (9.7-12.2) 10/18/18 17:13 INR 1.1 10/18/18 17:13 APTT 30 SECONDS (21-34) 10/18/18 17:13 - Head Exam Head Exam: NORMAL INSPECTION - Eye Exam Eye Exam: Normal appearance - ENT Exam ENT Exam: Mucous Membranes Moist - Respiratory Exam Respiratory Exam: Clear to Ausculation Bilateral - Cardiovascular Exam Cardiovascular Exam: REGULAR RHYTHM, +S1, +S2 - GI/Abdominal Exam GI & Abdominal Exam: Soft, Normal Bowel Sounds - Extremities Exam Extremities Exam: Normal Inspection Assessment and Plan (1) Asthma Status: Acute (2) Chest pain Status: Acute (3) HTN (hypertension) Status: Acute - Assessment and Plan (Free Text) Plan: Cardiac workup in progress Peptic ulcer disease workup in progress And Brio Ellipta 200/25 mcg 1 puff daily Bronchodilators as needed DVT/GI prophylaxis
[2018-10-22 17:11] LABS: AMYLASE 79 U/L (30-110); LIPASE 134 U/L (23-300)
[2018-10-22 17:17] LABS: INR 1.2; PROTHROMBIN TIME 12.9 SECONDS (9.7-12.2)
--- NOTE | 2018-10-22 18:44 | CP.PCM.PN ---
Subjective - Date & Time of Evaluation Date of Evaluation: 10/22/18 Time of Evaluation: 09:00 - Subjective Subjective: clinically same Objective - Vital Signs/Intake and Output Vital Signs (last 24 hours): Temp Pulse Resp BP Pulse Ox 99.2 F 76 20 123/73 100 10/22/18 07:00 10/22/18 16:00 10/22/18 07:00 10/22/18 10:23 10/22/18 07:00 Intake and Output: 10/22/18 10/22/18 06:59 18:59 Intake Total 480 Balance 480 - Medications Medications: Current Medications Acetaminophen (Tylenol 325mg Tab) 650 mg PO Q6 PRN PRN Reason: Pain, mild to moderate (1-7) Last Admin: 10/22/18 10:28 Dose: 650 mg Albuterol/Ipratropium (Duoneb 3 Mg/0.5 Mg (3 Ml) Ud) 3 ml INH RQ6 PRN PRN Reason: Cough Aspirin (Aspirin Chewable) 81 mg PO DAILY [facility] Last Admin: 10/22/18 10:23 Dose: 81 mg Ezetimibe (Zetia) 10 mg PO DAILY [facility] Last Admin: 10/22/18 10:23 Dose: 10 mg Enoxaparin Sodium (Lovenox) 40 mg SC DAILY [facility] Last Admin: 10/22/18 10:23 Dose: 40 mg Fluticasone/Vilanterol (Breo Ellipta 200-25 Mcg Inh) 1 puff INH RQD [facility] Influenza Virus Vaccine (Flucelvax Quad 2674-2191 Syr) 60 mcg IM .ONCE ONE Stop: 10/23/18 12:01 Isosorbide Mononitrate (Imdur Er) 30 mg PO DAILY [facility] Last Admin: 10/22/18 10:23 Dose: 30 mg Losartan Potassium (Cozaar) 25 mg PO DAILY [facility] Last Admin: 10/22/18 10:23 Dose: 25 mg Metoclopramide HCl (Reglan) 5 mg IVP Q6H [facility] Last Admin: 10/22/18 17:53 Dose: 5 mg Metoprolol Tartrate (Lopressor) 25 mg PO BID [facility] Last Admin: 10/22/18 17:54 Dose: Not Given Itnqx-5-Ibgb Ethyl Esters (Lovaza) 1 gm PO BID [facility] Last Admin: 10/22/18 17:53 Dose: 1 gm Pantoprazole Sodium (Protonix Inj) 40 mg IVP Q12H [facility] Last Admin: 10/22/18 13:15 Dose: Not Given Pneumococcal Polyvalent Vaccine (Pneumovax 23 Vaccine) 0.5 ml IM .ONCE ONE Stop: 10/23/18 12:01 Promethazine HCl/Codeine (Phenergan/Codeine Oral Syrup) 10 ml PO Q8H PRN PRN Reason: Cough Last Admin: 10/22/18 13:18 Dose: 10 ml Rosuvastatin Calcium (Crestor) 40 mg PO HS [facility] Last Admin: 10/21/18 21:04 Dose: 40 mg - Labs Labs: 10/21/18 14:02 10/21/18 14:02 PT 12.9 SECONDS (9.7-12.2) H 10/22/18 16:50 INR 1.2 10/22/18 16:50 APTT 28 SECONDS (21-34) 10/22/18 16:50 - Constitutional Appears: Well - Head Exam Head Exam: ATRAUMATIC, NORMAL INSPECTION, NORMOCEPHALIC - Eye Exam Eye Exam: EOMI, Normal appearance, PERRL Pupil Exam: NORMAL ACCOMODATION, PERRL - ENT Exam ENT Exam: Mucous Membranes Moist, Normal Exam - Neck Exam Neck Exam: Full ROM, Normal Inspection. absent: Lymphadenopathy - Respiratory Exam Respiratory Exam: Decreased Breath Sounds - Cardiovascular Exam Cardiovascular Exam: REGULAR RHYTHM, +S1, +S2 - GI/Abdominal Exam GI & Abdominal Exam: Soft, Diminished Bowel Sounds - Rectal Exam Rectal Exam: Deferred
--- NOTE | 2018-10-22 19:47 | CARD ---
APPROVED REPORT Date of service: 10/18/2018 EKG Measurement Heart [id number] FL 130P13 [id number] <Conclusion> Normal sinus rhythm Incomplete right bundle branch block ST & T wave abnormality, consider lateral ischemia Abnormal ECG
--- NOTE | 2018-10-22 19:54 | CP.PCM.CON ---
History of Present Illness - History of Present Illness History of Present Illness: GI Fellow PGY4, Consult note. Patient is a 63F who speaks [place] only presenting with cough, congestion, vomiting, chest pain, acid reflux. She complains of these symptoms x 1 week. She states the vomiting is worst 10-15mins after she eats. She is constantly coughing during my exam. She denies taking NSAIDs, PPI. She does admit more dyspnea on exertion and diaphoresis recently. PMHx - CAD PSHx - CABG. Denies previous EGD, colonoscopy. FMHx - Denies GI related cancers. SocHx - Denies alcohol, smoking. 12pt ROS completed and negative except for above. Past Patient History - Infectious Disease Hx of Infectious Diseases: None - Past Medical History & Family History Past Medical History?: Yes - Past Social History Smoking Status: Never Smoked - CARDIAC Hx Hypercholesterolemia: Yes Hx Hypertension: Yes - PULMONARY Hx Respiratory Disorders: No - NEUROLOGICAL Hx Neurological Disorder: No - HEENT Hx HEENT Problems: No Other/Comment: Difficulty opening eyes once in a while but vision is fine - RENAL Hx Chronic Kidney Disease: No - ENDOCRINE/METABOLIC Hx Endocrine Disorders: No - HEMATOLOGICAL/ONCOLOGICAL Hx Blood Disorders: No - INTEGUMENTARY Hx Dermatological Problems: No - MUSCULOSKELETAL/RHEUMATOLOGICAL Hx Falls: No - GASTROINTESTINAL Hx Gastrointestinal Disorders: No - GENITOURINARY/GYNECOLOGICAL Hx Genitourinary Disorders: No - PSYCHIATRIC Hx Substance Use: No - SURGICAL HISTORY Hx Coronary Artery Bypass Graft: Yes (Triple Bypass) Hx Coronary Stent: Yes - ANESTHESIA Hx Anesthesia: Yes Hx Anesthesia Reactions: No Hx Malignant Hyperthermia: No Meds Allergies/Adverse Reactions: Allergies Allergy/AdvReac Type Severity Reaction Status Date / Time No Known Allergies Allergy Verified 10/18/18 16:42 - Medications Medications: Current Medications Acetaminophen (Tylenol 325mg Tab) 650 mg PO Q6 PRN PRN Reason: Pain, mild to moderate (1-7) Last Admin: 10/22/18 10:28 Dose: 650 mg Albuterol/Ipratropium (Duoneb 3 Mg/0.5 Mg (3 Ml) Ud) 3 ml INH RQ6 PRN PRN Reason: Cough Aspirin (Aspirin Chewable) 81 mg PO DAILY [facility] Last Admin: 10/22/18 10:23 Dose: 81 mg Ezetimibe (Zetia) 10 mg PO DAILY [facility] Last Admin: 10/22/18 10:23 Dose: 10 mg Enoxaparin Sodium (Lovenox) 40 mg SC DAILY [facility] Last Admin: 10/22/18 10:23 Dose: 40 mg Fluticasone/Vilanterol (Breo Ellipta 200-25 Mcg Inh) 1 puff INH RQD [facility] Influenza Virus Vaccine (Flucelvax Quad 2401-2628 Syr) 60 mcg IM .ONCE ONE Stop: 10/23/18 12:01 Isosorbide Mononitrate (Imdur Er) 30 mg PO DAILY [facility] Last Admin: 10/22/18 10:23 Dose: 30 mg Losartan Potassium (Cozaar) 25 mg PO DAILY [facility] Last Admin: 10/22/18 10:23 Dose: 25 mg Metoclopramide HCl (Reglan) 5 mg IVP Q6H [facility] Last Admin: 10/22/18 17:53 Dose: 5 mg Metoprolol Tartrate (Lopressor) 25 mg PO BID [facility] Last Admin: 10/22/18 17:54 Dose: Not Given Cvvzc-5-Tmcg Ethyl Esters (Lovaza) 1 gm PO BID [facility] Last Admin: 10/22/18 17:53 Dose: 1 gm Pantoprazole Sodium (Protonix Inj) 40 mg IVP Q12H [facility] Last Admin: 10/22/18 13:15 Dose: Not Given Pneumococcal Polyvalent Vaccine (Pneumovax 23 Vaccine) 0.5 ml IM .ONCE ONE Stop: 10/23/18 12:01 Promethazine HCl/Codeine (Phenergan/Codeine Oral Syrup) 10 ml PO Q8H PRN PRN Reason: Cough Last Admin: 10/22/18 13:18 Dose: 10 ml Rosuvastatin Calcium (Crestor) 40 mg PO HS [facility] Last Admin: 10/21/18 21:04 Dose: 40 mg Physical Exam - Constitutional Appears: Non-toxic, No Acute Distress - Head Exam Head Exam: ATRAUMATIC, NORMAL INSPECTION - ENT Exam ENT Exam: Mucous Membranes Moist, Normal Exam - Respiratory Exam Respiratory Exam: Clear to Auscultation Bilateral, NORMAL BREATHING PATTERN - Cardiovascular Exam Cardiovascular Exam: REGULAR RHYTHM, +S1, +S2 - GI/Abdominal Exam GI & Abdominal Exam: Normal Bowel Sounds, Soft. absent: Tenderness - Neurological Exam Neurological exam: Alert, Oriented x3 - Psychiatric Exam Psychiatric exam: Normal Affect, Normal Mood - Skin Skin Exam: Normal Color, Warm Results - Vital Signs Recent Vital Signs: Last Vital Signs Temp 99.2 F 10/22/18 07:00 Pulse 76 10/22/18 16:00 Resp 20 10/22/18 07:00 BP 123/73 10/22/18 10:23 Pulse Ox 100 10/22/18 07:00 - Labs Result Diagrams: 10/21/18 14:02 10/21/18 14:02 Labs: Laboratory Results - last 24 hr 10/22/18 10/22/18 16:50 16:50 PT 12.9 H INR 1.2 APTT 28 Amylase 79 Lipase 134 Assessment & Plan - Assessment and Plan (Free Text) Assessment: #Chest pain, SOB #GERD #Possible viral URI #CAD s/p CABG PLAN: -Labs reviewed. -I suspect viral URI given symptoms and acute onset. -Recommend symptom management, supportive care -Given history and complaints of chest pain, SOB, would agree with eventual cardiac evaluation. -Recommend EGD when respiratory status more stable and after cardiac evaluation. This can be done as an outpatient. -PPI for symptom management of GERD -Antiemetics -NPO, reassess tomorrow Case discussed with Dr. Powers - Date & Time Date: 10/22/18 Time: 19:56
--- NOTE | 2018-10-22 22:21 | CP.PCM.PN ---
<Igor Adam - Last Filed: 10/22/18 22:18> Subjective - Date & Time of Evaluation Date of Evaluation: 10/22/18 Time of Evaluation: 22:18 - Subjective Subjective: Igor Adam DO PGY1 - Internal Medicine Coordinator Of Placement - Cardiology Note for Dr. Olguin Patient was seen and examined at bedside this evening. Risks/Benefits of Cardiac Cath discussed w/ patient and son at bedside. Patient and son both agree and understand to risks of Cardiac Cath under conscious sedation. Patient has complaints of cough upon evaluation; GI considering to postpone endoscopy if patient does not improve. Objective - Vital Signs/Intake and Output Vital Signs (last 24 hours): Temp Pulse Resp BP Pulse Ox 99.2 F 76 20 123/73 100 10/22/18 07:00 10/22/18 16:00 10/22/18 07:00 10/22/18 10:23 10/22/18 07:00 - Medications Medications: Current Medications Acetaminophen (Tylenol 325mg Tab) 650 mg PO Q6 PRN PRN Reason: Pain, mild to moderate (1-7) Last Admin: 10/22/18 10:28 Dose: 650 mg Albuterol/Ipratropium (Duoneb 3 Mg/0.5 Mg (3 Ml) Ud) 3 ml INH RQ6 PRN PRN Reason: Cough Aspirin (Aspirin Chewable) 81 mg PO DAILY [facility] Last Admin: 10/22/18 10:23 Dose: 81 mg Ezetimibe (Zetia) 10 mg PO DAILY [facility] Last Admin: 10/22/18 10:23 Dose: 10 mg Enoxaparin Sodium (Lovenox) 40 mg SC DAILY [facility] Last Admin: 10/22/18 10:23 Dose: 40 mg Fluticasone/Vilanterol (Breo Ellipta 200-25 Mcg Inh) 1 puff INH RQD [facility] Influenza Virus Vaccine (Flucelvax Quad [id number] Syr) 60 mcg IM .ONCE ONE Stop: 10/23/18 12:01 Isosorbide Mononitrate (Imdur Er) 30 mg PO DAILY [facility] Last Admin: 10/22/18 10:23 Dose: 30 mg Losartan Potassium (Cozaar) 25 mg PO DAILY [facility] Last Admin: 10/22/18 10:23 Dose: 25 mg Metoclopramide HCl (Reglan) 5 mg IVP Q6H [facility] Last Admin: 10/22/18 17:53 Dose: 5 mg Metoprolol Tartrate (Lopressor) 25 mg PO BID [facility] Last Admin: 10/22/18 17:54 Dose: Not Given Eqjzm-8-Bioz Ethyl Esters (Lovaza) 1 gm PO BID [facility] Last Admin: 10/22/18 17:53 Dose: 1 gm Pantoprazole Sodium (Protonix Inj) 40 mg IVP DAILY [facility] Pneumococcal Polyvalent Vaccine (Pneumovax 23 Vaccine) 0.5 ml IM .ONCE ONE Stop: 10/23/18 12:01 Promethazine HCl/Codeine (Phenergan/Codeine Oral Syrup) 10 ml PO Q8H PRN PRN Reason: Cough Last Admin: 10/22/18 21:36 Dose: 10 ml Rosuvastatin Calcium (Crestor) 40 mg PO HS [facility] Last Admin: 10/22/18 21:36 Dose: 40 mg - Labs Labs: 10/21/18 14:02 10/21/18 14:02 PT 12.9 SECONDS (9.7-12.2) H 10/22/18 16:50 INR 1.2 10/22/18 16:50 APTT 28 SECONDS (21-34) 10/22/18 16:50 - Constitutional Appears: Well, Non-toxic, No Acute Distress - Head Exam Head Exam: ATRAUMATIC, NORMOCEPHALIC - Eye Exam Eye Exam: EOMI, Normal appearance, PERRL - ENT Exam ENT Exam: Mucous Membranes Moist - Respiratory Exam Respiratory Exam: Clear to Auscultation Bilateral, NORMAL BREATHING PATTERN - Cardiovascular Exam Cardiovascular Exam: REGULAR RHYTHM, RRR, +S1, +S2 - GI/Abdominal Exam GI & Abdominal Exam: Normal Bowel Sounds, Soft. absent: Tenderness - Extremities Exam Extremities exam: Positive for: normal inspection, pedal pulses present (2+ DP BL ). Negative for: pedal edema - Neurological Exam Neurological exam: Alert, CN II-XII Intact, Oriented x3 - Psychiatric Exam Psychiatric exam: Normal Affect, Normal Mood - Skin Skin Exam: Dry, Intact, Normal Color, Warm Assessment and Plan (1) HTN (hypertension) Status: Acute (2) Chest pain Status: Acute (3) Coronary artery disease Status: Chronic (4) Hx of CABG Status: Chronic - Assessment and Plan (Free Text) Plan: Will plan to have patient undergo cardiac cath if GI has NO FINDINGS of ACTIVE BLEEDING ULCER on endoscopy tomorrow morning Continue monitoring for s/s of cardiac ischemia Patient can continue on Aspirin Zetia Cozaar Imdur Toprol Crestor Lovaza <Zachery Olguin - Last Filed: 10/29/18 23:17> Objective - Vital Signs/Intake and Output Vital Signs (last 24 hours): Temp Pulse Resp BP Pulse Ox 97.9 F 89 20 118/78 98 10/29/18 08:40 10/29/18 08:40 10/29/18 08:40 10/29/18 10:14 10/29/18 08:40 - Medications Medications: Current Medications Acetaminophen (Tylenol 325mg Tab) 650 mg PO Q6 PRN PRN Reason: Pain, mild to moderate (1-7) Last Admin: 10/26/18 15:43 Dose: 650 mg Amoxicillin (Amoxil 500 Mg Cap) 1,000 mg PO BID [facility]; Protocol Last Admin: 10/29/18 10:15 Dose: 1,000 mg Aspirin (Aspirin Chewable) 81 mg PO DAILY [facility] Last Admin: 10/29/18 10:15 Dose: 81 mg Clarithromycin (Biaxin Filmtab) 500 mg PO Q12H [facility]; Protocol Last Admin: 10/29/18 05:02 Dose: 500 mg Ezetimibe (Zetia) 10 mg PO DAILY [facility] Last Admin: 10/29/18 10:14 Dose: 10 mg Fluticasone/Vilanterol (Breo Ellipta 200-25 Mcg Inh) 1 puff INH RQD [facility] Last Admin: 10/29/18 07:46 Dose: 1 puff Isosorbide Mononitrate (Imdur Er) 30 mg PO DAILY [facility] Last Admin: 10/29/18 10:20 Dose: 30 mg Losartan Potassium (Cozaar) 25 mg PO DAILY [facility] Last Admin: 10/29/18 10:15 Dose: 25 mg Metoprolol Tartrate (Lopressor) 25 mg PO BID [facility] Last Admin: 10/29/18 10:14 Dose: 25 mg Swluc-4-Ozsj Ethyl Esters (Lovaza) 1 gm PO BID [facility] Last Admin: 10/29/18 10:13 Dose: Not Given Pantoprazole Sodium (Protonix Ec Tab) 40 mg PO DAILY [facility] Last Admin: 10/29/18 10:13 Dose: 40 mg Potassium Chloride (K-Dur 20 Meq Er Tab) 40 meq PO BRK [facility] Last Admin: 10/29/18 08:04 Dose: 40 meq Promethazine HCl/Codeine (Phenergan/Codeine Oral Syrup) 10 ml PO Q8H PRN PRN Reason: Cough Last Admin: 10/29/18 10:15 Dose: 10 ml Rosuvastatin Calcium (Crestor) 40 mg PO HS [facility] Last Admin: 10/28/18 21:31 Dose: 40 mg - Labs Labs: 10/26/18 08:00 10/26/18 08:00 PT 12.9 SECONDS (9.7-12.2) H 10/22/18 16:50 INR 1.2 10/22/18 16:50 APTT 28 SECONDS (21-34) 10/22/18 16:50 Attending/Attestation - Attestation I have personally seen and examined this patient.: Yes I have fully participated in the care of the patient.: Yes I have reviewed all pertinent clinical information, including history, physical exam and plan: Yes
[2018-10-23] MEDS: Fluticasone-Vilanterol 200/25mcg Diskus INH SCH (08:27)
[2018-10-23] MEDS: Omega-3-Acid Ethyl Esters 1 GM Cap PO SCH ×2 (09:22→17:18)
[2018-10-23] MEDS: Enoxaparin 40 mg Syringe SC SCH (09:22)
[2018-10-23] MEDS ORDERED: Propofol 10 mg/ml Inj (20 ML) ONE (10:01)
[2018-10-23] MEDS ORDERED: Lidocaine Hydrochloride 5 ML INJ ONE (10:03)
[2018-10-23] MEDS: Lactated Ringer's 500 ML IV SCH ×2 (11:34→18:33)
[2018-10-23] MEDS ORDERED: Influenza Vaccine 60 mcg/0.5 mL SYR (4YR UP) IM ONE (12:00)
[2018-10-23] MEDS ORDERED: Pneumococcal 23-Valent Vaccine IM ONE (12:00)
[2018-10-23] MEDS ORDERED: metroNIDAZOLE IV 500 mg/100 ml 500 MG/100 ML BAG IVPB ONE (12:00)
--- NOTE | 2018-10-23 15:12 | CP.PCM.PN ---
Objective - Vital Signs/Intake and Output Vital Signs (last 24 hours): Temp Pulse Resp BP Pulse Ox 99.1 F 84 20 125/73 99 10/23/18 12:00 10/23/18 12:00 10/23/18 12:00 10/23/18 12:00 10/23/18 12:00 Intake and Output: 10/23/18 10/23/18 06:59 18:59 Intake Total 240 500 Balance 240 500 - Medications Medications: Current Medications Acetaminophen (Tylenol 325mg Tab) 650 mg PO Q6 PRN PRN Reason: Pain, mild to moderate (1-7) Last Admin: 10/23/18 00:12 Dose: 650 mg Albuterol/Ipratropium (Duoneb 3 Mg/0.5 Mg (3 Ml) Ud) 3 ml INH RQ6 PRN PRN Reason: Cough Aspirin (Aspirin Chewable) 81 mg PO DAILY [facility] Last Admin: 10/23/18 09:21 Dose: Not Given Ezetimibe (Zetia) 10 mg PO DAILY [facility] Last Admin: 10/23/18 09:22 Dose: Not Given Enoxaparin Sodium (Lovenox) 40 mg SC DAILY [facility] Last Admin: 10/23/18 09:22 Dose: Not Given Fluticasone/Vilanterol (Breo Ellipta 200-25 Mcg Inh) 1 puff INH RQD [facility] Last Admin: 10/23/18 08:27 Dose: 1 puff Lactated Ringer's (Lactated Ringer's 500ml) 500 mls @ 75 mls/hr IV .Q6H40M [facility] Last Admin: 10/23/18 11:34 Dose: 75 mls/hr Ceftriaxone Sodium 1 gm/ (Sodium Chloride) 100 mls @ 100 mls/hr IVPB ONCE ONE; Protocol Stop: 10/24/18 12:29 Isosorbide Mononitrate (Imdur Er) 30 mg PO DAILY [facility] Last Admin: 10/23/18 09:21 Dose: Not Given Losartan Potassium (Cozaar) 25 mg PO DAILY [facility] Last Admin: 10/23/18 09:21 Dose: Not Given Metoclopramide HCl (Reglan) 5 mg IVP Q6H [facility] Last Admin: 10/23/18 11:36 Dose: Not Given Metoprolol Tartrate (Lopressor) 25 mg PO BID [facility] Last Admin: 10/23/18 09:21 Dose: Not Given Tzlay-4-Lehj Ethyl Esters (Lovaza) 1 gm PO BID [facility] Last Admin: 10/23/18 09:22 Dose: Not Given Pantoprazole Sodium (Protonix Inj) 40 mg IVP DAILY [facility] Last Admin: 10/23/18 09:59 Dose: Not Given Pneumococcal Polyvalent Vaccine (Pneumovax 23 Vaccine) 0.5 ml IM .ONCE ONE Stop: 10/24/18 12:01 Promethazine HCl/Codeine (Phenergan/Codeine Oral Syrup) 10 ml PO Q8H PRN PRN Reason: Cough Last Admin: 10/22/18 21:36 Dose: 10 ml Rosuvastatin Calcium (Crestor) 40 mg PO HS [facility] Last Admin: 10/22/18 21:36 Dose: 40 mg - Labs Labs: 10/21/18 14:02 10/21/18 14:02 PT 12.9 SECONDS (9.7-12.2) H 10/22/18 16:50 INR 1.2 10/22/18 16:50 APTT 28 SECONDS (21-34) 10/22/18 16:50 Assessment and Plan (1) Asthma Status: Acute (2) Chest pain Status: Acute (3) HTN (hypertension) Status: Acute
[2018-10-23 16:11] LABS: BASO # 0.1 K/uL (0.0-0.2); BASO % 1.2 % (0.0-2.0); EOS % 0.1 % (0.0-4.0); HEMOGLOBIN 11.8 g/dL (11.0-16.0); LYMPH # 1.4 K/uL (1.0-4.3); LYMPH % 31.2 % (20.0-40.0); MEAN CELL VOLUME 88.8 fL (81.0-99.0); MEAN CORPUSCULAR HEMOGLOBIN 29.2 pg (27.0-31.0); MEAN CORPUSCULAR HGB CONC 32.9 g/dL (33.0-37.0); MEAN PLATELET VOLUME 9.4 fL (7.2-11.7); MONO # 0.4 K/uL (0.0-0.8); NEUT # 2.7 K/uL (1.8-7.0); NEUT % 59.5 % (50.0-75.0); NRBC % 0.1 % (0.0-2.0); RBC 4.04 Mil/uL (3.80-5.20); RED CELL DISTRIBUTION WIDTH 12.7 % (11.5-14.5); WHITE BLOOD COUNT 4.5 K/uL (4.8-10.8)
[2018-10-23 16:15] LABS: VENOUS BLOOD GAS BASE EXCESS -0.5 mmol/L (0.0-2.0); VENOUS BLOOD GAS PCO2 34 mmHg (40-60); VENOUS BLOOD GAS PO2 45 mm/Hg (30-55); VENOUS BLOOD PH 7.44 (7.32-7.43)
--- NOTE | 2018-10-23 16:39 | RAD ---
Date of service: 10/23/2018 PROCEDURE: CHEST RADIOGRAPH, 1 VIEW HISTORY: febrile COMPARISON: 10/18/2018 FINDINGS: LUNGS: Clear. PLEURA: No pneumothorax or pleural fluid seen. CARDIOVASCULAR: There is atherosclerotic calcification of the thoracic aorta normal heart size. Status post CABG. OSSEOUS STRUCTURES: Thoracic dextroscoliosis. VISUALIZED UPPER ABDOMEN: Normal. OTHER FINDINGS: None. IMPRESSION: No active disease.
[2018-10-23 17:17] LABS: ALB/GLOB RATIO 1.4 (1.0-2.1); ALBUMIN 4.3 g/dL (3.5-5.0); ALT/SGPT 37 U/L (9-52); AST/SGOT 47 U/L (14-36); BLOOD UREA NITROGEN 14 mg/dL (7-17); CALCIUM 8.9 mg/dl (8.6-10.4); GFR NON-AFRICAN AMERICAN > 60
[2018-10-23 19:28] LABS: SQUAMOUS EPITHIAL 3 /hpf (0-5); URINE BILIRUBIN NEGATIVE (NEGATIVE); URINE BLOOD NEGATIVE (NEGATIVE); URINE CLARITY Clear (Clear); URINE GLUCOSE (UA) NORMAL (Normal); URINE LEUKOCYTE ESTERASE NEG Leu/uL (Negative); URINE PROTEIN 1+ mg/dL (NEGATIVE)
[2018-10-23 19:29] LABS: URINE COLOR YELLOW (YELLOW)
--- NOTE | 2018-10-23 20:20 | CP.PCM.PN ---
Subjective - Date & Time of Evaluation Date of Evaluation: 10/23/18 Time of Evaluation: 09:45 - Subjective Subjective: clinically same Objective - Vital Signs/Intake and Output Vital Signs (last 24 hours): Temp Pulse Resp BP Pulse Ox 99.1 F 96 H 20 122/62 97 10/23/18 18:34 10/23/18 18:34 10/23/18 15:13 10/23/18 17:18 10/23/18 15:13 Intake and Output: 10/23/18 10/24/18 18:59 06:59 Intake Total 500 Balance 500 - Medications Medications: Current Medications Acetaminophen (Tylenol 325mg Tab) 650 mg PO Q6 PRN PRN Reason: Pain, mild to moderate (1-7) Last Admin: 10/23/18 15:23 Dose: 650 mg Albuterol/Ipratropium (Duoneb 3 Mg/0.5 Mg (3 Ml) Ud) 3 ml INH RQ6 PRN PRN Reason: Cough Aspirin (Aspirin Chewable) 81 mg PO DAILY [facility] Last Admin: 10/23/18 09:21 Dose: Not Given Ezetimibe (Zetia) 10 mg PO DAILY [facility] Last Admin: 10/23/18 09:22 Dose: Not Given Enoxaparin Sodium (Lovenox) 40 mg SC DAILY [facility] Last Admin: 10/23/18 09:22 Dose: Not Given Fluticasone/Vilanterol (Breo Ellipta 200-25 Mcg Inh) 1 puff INH RQD [facility] Last Admin: 10/23/18 08:27 Dose: 1 puff Lactated Ringer's (Lactated Ringer's 500ml) 500 mls @ 75 mls/hr IV .Q6H40M [facility] Last Admin: 10/23/18 18:33 Dose: Not Given Ceftriaxone Sodium 1 gm/ (Sodium Chloride) 100 mls @ 100 mls/hr IVPB ONCE ONE; Protocol Stop: 10/24/18 12:29 Isosorbide Mononitrate (Imdur Er) 30 mg PO DAILY [facility] Last Admin: 10/23/18 09:21 Dose: Not Given Losartan Potassium (Cozaar) 25 mg PO DAILY [facility] Last Admin: 10/23/18 09:21 Dose: Not Given Metoclopramide HCl (Reglan) 5 mg IVP Q6H [facility] Last Admin: 10/23/18 17:19 Dose: 5 mg Metoprolol Tartrate (Lopressor) 25 mg PO BID [facility] Last Admin: 10/23/18 17:18 Dose: 25 mg Jfisv-3-Fgxq Ethyl Esters (Lovaza) 1 gm PO BID [facility] Last Admin: 10/23/18 17:18 Dose: 1 gm Pantoprazole Sodium (Protonix Inj) 40 mg IVP DAILY [facility] Last Admin: 10/23/18 09:59 Dose: Not Given Pneumococcal Polyvalent Vaccine (Pneumovax 23 Vaccine) 0.5 ml IM .ONCE ONE Stop: 10/24/18 12:01 Promethazine HCl/Codeine (Phenergan/Codeine Oral Syrup) 10 ml PO Q8H PRN PRN Reason: Cough Last Admin: 10/22/18 21:36 Dose: 10 ml Rosuvastatin Calcium (Crestor) 40 mg PO HS [facility] Last Admin: 10/22/18 21:36 Dose: 40 mg - Labs Labs: 10/23/18 15:59 10/23/18 15:59 PT 12.9 SECONDS (9.7-12.2) H 10/22/18 16:50 INR 1.2 10/22/18 16:50 APTT 28 SECONDS (21-34) 10/22/18 16:50 - Constitutional Appears: Well - Head Exam Head Exam: ATRAUMATIC, NORMAL INSPECTION, NORMOCEPHALIC - Eye Exam Eye Exam: EOMI, Normal appearance, PERRL Pupil Exam: NORMAL ACCOMODATION, PERRL - ENT Exam ENT Exam: Mucous Membranes Moist, Normal Exam - Neck Exam Neck Exam: Full ROM, Normal Inspection. absent: Lymphadenopathy - Respiratory Exam Respiratory Exam: Decreased Breath Sounds - Cardiovascular Exam Cardiovascular Exam: REGULAR RHYTHM, +S1, +S2 - GI/Abdominal Exam GI & Abdominal Exam: Soft, Diminished Bowel Sounds - Rectal Exam Rectal Exam: Deferred
[2018-10-24] MEDS: Promethazine/Cod 6.25mg-10mg/5ml Syr UD PO PRN ×3 (00:25→18:17)
--- NOTE | 2018-10-24 00:40 | CP.PCM.PN ---
<Igor Adam - Last Filed: 10/24/18 00:37> Subjective - Date & Time of Evaluation Date of Evaluation: 10/24/18 Time of Evaluation: 00:37 - Subjective Subjective: Igor Adam DO PGY1 - Internal Medicine Supervisor Blasting - Cardiology Note for Dr. Olguin Patient seen this evening at bedside; son at bedside as well. patient underwent EGD this AM; overnight patient febrile; continued to spike fevers throughout the day. Upon evaluation at bedside patient complaining of cough/fevers/chills and fatigue. Has complaint of N/V w/ eating as well. No CP / SOB voiced during evaluation. Objective - Vital Signs/Intake and Output Vital Signs (last 24 hours): Temp Pulse Resp BP Pulse Ox 99.2 F 96 H 20 122/62 97 10/23/18 21:16 10/23/18 18:34 10/23/18 15:13 10/23/18 17:18 10/23/18 15:13 Intake and Output: 10/23/18 10/24/18 18:59 06:59 Intake Total 500 1100 Balance 500 1100 - Medications Medications: Current Medications Acetaminophen (Tylenol 325mg Tab) 650 mg PO Q6 PRN PRN Reason: Pain, mild to moderate (1-7) Last Admin: 10/23/18 15:23 Dose: 650 mg Aspirin (Aspirin Chewable) 81 mg PO DAILY [facility] Last Admin: 10/23/18 09:21 Dose: Not Given Ezetimibe (Zetia) 10 mg PO DAILY [facility] Last Admin: 10/23/18 09:22 Dose: Not Given Enoxaparin Sodium (Lovenox) 40 mg SC DAILY [facility] Last Admin: 10/23/18 09:22 Dose: Not Given Fluticasone/Vilanterol (Breo Ellipta 200-25 Mcg Inh) 1 puff INH RQD [facility] Last Admin: 10/23/18 08:27 Dose: 1 puff Lactated Ringer's (Lactated Ringer's 500ml) 500 mls @ 75 mls/hr IV .Q6H40M [facility] Last Admin: 10/23/18 18:33 Dose: Not Given Ceftriaxone Sodium 1 gm/ (Sodium Chloride) 100 mls @ 100 mls/hr IVPB ONCE ONE; Protocol Stop: 10/24/18 12:29 Isosorbide Mononitrate (Imdur Er) 30 mg PO DAILY [facility] Last Admin: 10/23/18 09:21 Dose: Not Given Losartan Potassium (Cozaar) 25 mg PO DAILY [facility] Last Admin: 10/23/18 09:21 Dose: Not Given Metoclopramide HCl (Reglan) 5 mg IVP Q6H [facility] Last Admin: 10/24/18 00:24 Dose: 5 mg Metoprolol Tartrate (Lopressor) 25 mg PO BID [facility] Last Admin: 10/23/18 17:18 Dose: 25 mg Cdubc-0-Qwsr Ethyl Esters (Lovaza) 1 gm PO BID [facility] Last Admin: 10/23/18 17:18 Dose: 1 gm Pantoprazole Sodium (Protonix Inj) 40 mg IVP DAILY [facility] Last Admin: 10/23/18 09:59 Dose: Not Given Pneumococcal Polyvalent Vaccine (Pneumovax 23 Vaccine) 0.5 ml IM .ONCE ONE Stop: 10/24/18 12:01 Promethazine HCl/Codeine (Phenergan/Codeine Oral Syrup) 10 ml PO Q8H PRN PRN Reason: Cough Last Admin: 10/24/18 00:25 Dose: 10 ml Rosuvastatin Calcium (Crestor) 40 mg PO HS [facility] Last Admin: 10/23/18 21:10 Dose: 40 mg - Labs Labs: 10/23/18 15:59 10/23/18 15:59 PT 12.9 SECONDS (9.7-12.2) H 10/22/18 16:50 INR 1.2 10/22/18 16:50 APTT 28 SECONDS (21-34) 10/22/18 16:50 - Constitutional Appears: Well, Non-toxic, No Acute Distress - Head Exam Head Exam: ATRAUMATIC, NORMOCEPHALIC - Eye Exam Eye Exam: EOMI, Normal appearance, PERRL - ENT Exam ENT Exam: Mucous Membranes Moist - Respiratory Exam Respiratory Exam: RML/RLL w/ diminished breath sounds; crackles on audculation - Cardiovascular Exam Cardiovascular Exam: REGULAR RHYTHM, RRR, +S1, +S2 - GI/Abdominal Exam GI & Abdominal Exam: Normal Bowel Sounds, Soft. absent: Tenderness - Extremities Exam Extremities exam: Positive for: normal inspection, pedal pulses present (2+ DP BL ). Negative for: pedal edema - Neurological Exam Neurological exam: Alert, CN II-XII Intact, Oriented x3 - Psychiatric Exam Psychiatric exam: Normal Affect, Normal Mood - Skin Skin Exam: Dry, Intact, Normal Color, Warm Assessment and Plan (1) HTN (hypertension) Status: Acute (2) Chest pain Status: Acute (3) Coronary artery disease Status: Chronic (4) Hx of CABG Status: Chronic - Assessment and Plan (Free Text) Plan: EGD showed no findings of active ulceration however unable to catheterize patient given fever w/ no clear source; Will postopone catheterization until Wednesday 10/25 Continue monitoring for s/s of cardiac ischemia Patient can continue on Aspirin Zetia Cozaar Imdur Toprol Crestor [facility] <Sharif,Zachery - Last Filed: 10/29/18 23:17> Objective - Vital Signs/Intake and Output Vital Signs (last 24 hours): Temp Pulse Resp BP Pulse Ox 97.9 F 89 20 118/78 98 10/29/18 08:40 10/29/18 08:40 10/29/18 08:40 10/29/18 10:14 10/29/18 08:40 - Medications Medications: Current Medications Acetaminophen (Tylenol 325mg Tab) 650 mg PO Q6 PRN PRN Reason: Pain, mild to moderate (1-7) Last Admin: 10/26/18 15:43 Dose: 650 mg Amoxicillin (Amoxil 500 Mg Cap) 1,000 mg PO BID [facility]; Protocol Last Admin: 10/29/18 10:15 Dose: 1,000 mg Aspirin (Aspirin Chewable) 81 mg PO DAILY [facility] Last Admin: 10/29/18 10:15 Dose: 81 mg Clarithromycin (Biaxin Filmtab) 500 mg PO Q12H [facility]; Protocol Last Admin: 10/29/18 05:02 Dose: 500 mg Ezetimibe (Zetia) 10 mg PO DAILY [facility] Last Admin: 10/29/18 10:14 Dose: 10 mg Fluticasone/Vilanterol (Breo Ellipta 200-25 Mcg Inh) 1 puff INH RQD [facility] Last Admin: 10/29/18 07:46 Dose: 1 puff Isosorbide Mononitrate (Imdur Er) 30 mg PO DAILY [facility] Last Admin: 10/29/18 10:20 Dose: 30 mg Losartan Potassium (Cozaar) 25 mg PO DAILY [facility] Last Admin: 10/29/18 10:15 Dose: 25 mg Metoprolol Tartrate (Lopressor) 25 mg PO BID [facility] Last Admin: 10/29/18 10:14 Dose: 25 mg Lldmk-6-Shke Ethyl Esters (Lovaza) 1 gm PO BID [facility] Last Admin: 10/29/18 10:13 Dose: Not Given Pantoprazole Sodium (Protonix Ec Tab) 40 mg PO DAILY [facility] Last Admin: 10/29/18 10:13 Dose: 40 mg Potassium Chloride (K-Dur 20 Meq Er Tab) 40 meq PO BRK [facility] Last Admin: 10/29/18 08:04 Dose: 40 meq Promethazine HCl/Codeine (Phenergan/Codeine Oral Syrup) 10 ml PO Q8H PRN PRN Reason: Cough Last Admin: 10/29/18 10:15 Dose: 10 ml Rosuvastatin Calcium (Crestor) 40 mg PO HS [facility] Last Admin: 10/28/18 21:31 Dose: 40 mg - Labs Labs: 10/26/18 08:00 10/26/18 08:00 PT 12.9 SECONDS (9.7-12.2) H 10/22/18 16:50 INR 1.2 10/22/18 16:50 APTT 28 SECONDS (21-34) 10/22/18 16:50 Attending/Attestation - Attestation I have personally seen and examined this patient.: Yes I have fully participated in the care of the patient.: Yes I have reviewed all pertinent clinical information, including history, physical exam and plan: Yes
[2018-10-24] MEDS: Lactated Ringer's 500 ML IV SCH ×2 (04:43→08:21)
[2018-10-24] MEDS: Fluticasone-Vilanterol 200/25mcg Diskus INH SCH (07:57)
--- NOTE | 2018-10-24 08:21 | CP.PCM.PN ---
<Igor Adam - Last Filed: 10/24/18 21:54> Subjective - Date & Time of Evaluation Date of Evaluation: 10/24/18 Time of Evaluation: 08:21 - Subjective Subjective: Igor Adam DO PGY1 - Internal Medicine Filler Spreader - Cardiology Note for Dr. Olguin Patient was seen and examined at bedside this morning Patient febrile overnight Cont complain of cough/ fatigue/ malaise and dec. appetite No complaint of CP/ SOB Objective - Vital Signs/Intake and Output Vital Signs (last 24 hours): Temp Pulse Resp BP Pulse Ox 98.5 F 73 20 129/72 96 10/24/18 07:00 10/24/18 07:00 10/24/18 07:00 10/24/18 07:00 10/24/18 07:00 Intake and Output: 10/24/18 10/24/18 06:59 18:59 Intake Total 1820 Balance 1820 - Medications Medications: Current Medications Acetaminophen (Tylenol 325mg Tab) 650 mg PO Q6 PRN PRN Reason: Pain, mild to moderate (1-7) Last Admin: 10/24/18 04:42 Dose: 650 mg Aspirin (Aspirin Chewable) 81 mg PO DAILY [facility] Last Admin: 10/23/18 09:21 Dose: Not Given Ezetimibe (Zetia) 10 mg PO DAILY [facility] Last Admin: 10/23/18 09:22 Dose: Not Given Enoxaparin Sodium (Lovenox) 40 mg SC DAILY [facility] Last Admin: 10/23/18 09:22 Dose: Not Given Fluticasone/Vilanterol (Breo Ellipta 200-25 Mcg Inh) 1 puff INH RQD [facility] Last Admin: 10/24/18 07:57 Dose: Not Given Lactated Ringer's (Lactated Ringer's 500ml) 500 mls @ 75 mls/hr IV .Q6H40M [facility] Last Admin: 10/24/18 08:21 Dose: Not Given Ceftriaxone Sodium 1 gm/ (Sodium Chloride) 100 mls @ 100 mls/hr IVPB ONCE ONE; Protocol Stop: 10/24/18 12:29 Isosorbide Mononitrate (Imdur Er) 30 mg PO DAILY [facility] Last Admin: 10/23/18 09:21 Dose: Not Given Losartan Potassium (Cozaar) 25 mg PO DAILY [facility] Last Admin: 10/23/18 09:21 Dose: Not Given Metoclopramide HCl (Reglan) 5 mg IVP Q6H [facility] Last Admin: 10/24/18 06:50 Dose: 5 mg Metoprolol Tartrate (Lopressor) 25 mg PO BID [facility] Last Admin: 10/23/18 17:18 Dose: 25 mg Ifagz-4-Ulos Ethyl Esters (Lovaza) 1 gm PO BID [facility] Last Admin: 10/23/18 17:18 Dose: 1 gm Pantoprazole Sodium (Protonix Inj) 40 mg IVP DAILY [facility] Last Admin: 10/23/18 09:59 Dose: Not Given Pneumococcal Polyvalent Vaccine (Pneumovax 23 Vaccine) 0.5 ml IM .ONCE ONE Stop: 10/24/18 12:01 Promethazine HCl/Codeine (Phenergan/Codeine Oral Syrup) 10 ml PO Q8H PRN PRN Reason: Cough Last Admin: 10/24/18 00:25 Dose: 10 ml Rosuvastatin Calcium (Crestor) 40 mg PO HS [facility] Last Admin: 10/23/18 21:10 Dose: 40 mg - Labs Labs: 10/23/18 15:59 10/23/18 15:59 PT 12.9 SECONDS (9.7-12.2) H 10/22/18 16:50 INR 1.2 10/22/18 16:50 APTT 28 SECONDS (21-34) 10/22/18 16:50 - Constitutional Appears: Well, Non-toxic, No Acute Distress - Head Exam Head Exam: ATRAUMATIC, NORMOCEPHALIC - Eye Exam Eye Exam: EOMI, Normal appearance, PERRL - ENT Exam ENT Exam: Mucous Membranes Moist - Respiratory Exam Respiratory Exam: RML/RLL w/ diminished breath sounds; crackles on auscultation - Cardiovascular Exam Cardiovascular Exam: REGULAR RHYTHM, RRR, +S1, +S2 - GI/Abdominal Exam GI & Abdominal Exam: Normal Bowel Sounds, Soft. absent: Tenderness - Extremities Exam Extremities exam: Positive for: normal inspection, pedal pulses present (2+ DP BL ). Negative for: pedal edema - Neurological Exam Neurological exam: Alert, CN II-XII Intact, Oriented x3 - Psychiatric Exam Psychiatric exam: Normal Affect, Normal Mood - Skin Skin Exam: Dry, Intact, Normal Color, Warm Assessment and Plan (1) HTN (hypertension) Status: Acute (2) Chest pain Status: Acute (3) Coronary artery disease Status: Chronic (4) Hx of CABG Status: Chronic - Assessment and Plan (Free Text) Plan: Blood Cx 2/2 negative x1 day UA w/o pyuria + squamous cells Afebrile throughout the day today ; no white count or lactic acid elevation yesterday Will plan for catheterization tomorrow (10/25) at 1500 if patient continues to show improvement Continue monitoring for s/s of cardiac ischemia Patient can continue on Aspirin Zetia Cozaar Imdur Toprol Crestor Josué <SharifZachery - Last Filed: 10/29/18 23:16> Objective - Vital Signs/Intake and Output Vital Signs (last 24 hours): Temp Pulse Resp BP Pulse Ox 97.9 F 89 20 118/78 98 10/29/18 08:40 10/29/18 08:40 10/29/18 08:40 10/29/18 10:14 10/29/18 08:40 - Medications Medications: Current Medications Acetaminophen (Tylenol 325mg Tab) 650 mg PO Q6 PRN PRN Reason: Pain, mild to moderate (1-7) Last Admin: 10/26/18 15:43 Dose: 650 mg Amoxicillin (Amoxil 500 Mg Cap) 1,000 mg PO BID [facility]; Protocol Last Admin: 10/29/18 10:15 Dose: 1,000 mg Aspirin (Aspirin Chewable) 81 mg PO DAILY [facility] Last Admin: 10/29/18 10:15 Dose: 81 mg Clarithromycin (Biaxin Filmtab) 500 mg PO Q12H [facility]; Protocol Last Admin: 10/29/18 05:02 Dose: 500 mg Ezetimibe (Zetia) 10 mg PO DAILY [facility] Last Admin: 10/29/18 10:14 Dose: 10 mg Fluticasone/Vilanterol (Breo Ellipta 200-25 Mcg Inh) 1 puff INH RQD [facility] Last Admin: 10/29/18 07:46 Dose: 1 puff Isosorbide Mononitrate (Imdur Er) 30 mg PO DAILY [facility] Last Admin: 10/29/18 10:20 Dose: 30 mg Losartan Potassium (Cozaar) 25 mg PO DAILY [facility] Last Admin: 10/29/18 10:15 Dose: 25 mg Metoprolol Tartrate (Lopressor) 25 mg PO BID [facility] Last Admin: 10/29/18 10:14 Dose: 25 mg Wuafk-7-Kffb Ethyl Esters (Lovaza) 1 gm PO BID [facility] Last Admin: 10/29/18 10:13 Dose: Not Given Pantoprazole Sodium (Protonix Ec Tab) 40 mg PO DAILY [facility] Last Admin: 10/29/18 10:13 Dose: 40 mg Potassium Chloride (K-Dur 20 Meq Er Tab) 40 meq PO BRK [facility] Last Admin: 10/29/18 08:04 Dose: 40 meq Promethazine HCl/Codeine (Phenergan/Codeine Oral Syrup) 10 ml PO Q8H PRN PRN Reason: Cough Last Admin: 10/29/18 10:15 Dose: 10 ml Rosuvastatin Calcium (Crestor) 40 mg PO HS [facility] Last Admin: 10/28/18 21:31 Dose: 40 mg - Labs Labs: 10/26/18 08:00 10/26/18 08:00 PT 12.9 SECONDS (9.7-12.2) H 10/22/18 16:50 INR 1.2 10/22/18 16:50 APTT 28 SECONDS (21-34) 10/22/18 16:50 Attending/Attestation - Attestation I have personally seen and examined this patient.: Yes I have fully participated in the care of the patient.: Yes I have reviewed all pertinent clinical information, including history, physical exam and plan: Yes
[2018-10-24] MEDS: Omega-3-Acid Ethyl Esters 1 GM Cap PO SCH (10:06)
[2018-10-24] MEDS: Enoxaparin 40 mg Syringe SC SCH (10:25)
--- NOTE | 2018-10-24 11:02 | PN ---
DATE: 10/24/2018 SUBJECTIVE: This 63-year-old female seen and examined in rounds post upper endoscopy without reported significant clinical changes. Reported active bleeding with left chest pain and discomfort. The patient was scheduled for cardiac with reported low grade fever before. No reported nausea, vomiting, or active GI bleeding. No significant complaint of shortness of breath, chest pain or palpitation. Entire chart is reviewed and most recent lab result showed normal CBC with AST of 47, CO2 content of 21. PHYSICAL EXAMINATION: GENERAL: A 63-year-old female with low grade temperature of 101.8, pulse 80, respiratory rate 20 to 22, blood pressure 118/70. HEENT: Showed mild dry oral mucoid membrane. Nonicteric sclerae. LUNGS: Few scattered crepitation. Decreased air entry at bases. HEART: S1 and S2. ABDOMEN: Soft with mild generalized tenderness. No mass or organomegaly. No rebound tenderness or guarding. EXTREMITIES: No significant clubbing, cyanosis or edema. STUDIO OPERATIONS MANAGER: No reported new neurological deficits, sensory or motor. IMPRESSION: 1. Chest pain. Cardiac versus noncardiac. 2. Recently diagnosed peptic ulcer disease with gastritis, distal esophagitis and medium size hiatus hernia, by upper endoscopy. 3. Fever of unknown origin. 4. Known history of hypertension, coronary artery disease, hyperlipidemia status post cardiac stent insertion as well as status post coronary artery bypass grafting. SUGGESTIONS: 1. I agree with your plan. 2. Blood culture x2. 3. Carafate liquid p.o. 4. Further recommendation to follow and cancer markers to be ordered including but not limited to CEA and CA-125. Ole Flores MD
[2018-10-24] MEDS ORDERED: Pneumococcal 23-Valent Vaccine IM ONE (12:00)
--- NOTE | 2018-10-24 14:58 | CP.PCM.PN ---
Subjective - Date & Time of Evaluation Date of Evaluation: 10/24/18 Time of Evaluation: 14:58 Objective - Vital Signs/Intake and Output Vital Signs (last 24 hours): Temp Pulse Resp BP Pulse Ox 98.5 F 96 H 20 130/70 96 10/24/18 07:00 10/24/18 09:03 10/24/18 07:00 10/24/18 10:08 10/24/18 07:00 Intake and Output: 10/24/18 10/24/18 06:59 18:59 Intake Total 1820 Balance 1820 - Medications Medications: Current Medications Acetaminophen (Tylenol 325mg Tab) 650 mg PO Q6 PRN PRN Reason: Pain, mild to moderate (1-7) Last Admin: 10/24/18 04:42 Dose: 650 mg Aspirin (Aspirin Chewable) 81 mg PO DAILY [facility] Last Admin: 10/24/18 10:07 Dose: 81 mg Ezetimibe (Zetia) 10 mg PO DAILY [facility] Last Admin: 10/24/18 10:25 Dose: 10 mg Enoxaparin Sodium (Lovenox) 40 mg SC DAILY [facility] Last Admin: 10/24/18 10:25 Dose: 40 mg Fluticasone/Vilanterol (Breo Ellipta 200-25 Mcg Inh) 1 puff INH RQD [facility] Last Admin: 10/24/18 07:57 Dose: Not Given Lactated Ringer's (Lactated Ringer's 500ml) 500 mls @ 75 mls/hr IV .Q6H40M [facility] Last Admin: 10/24/18 08:21 Dose: Not Given Isosorbide Mononitrate (Imdur Er) 30 mg PO DAILY [facility] Last Admin: 10/24/18 10:26 Dose: 30 mg Losartan Potassium (Cozaar) 25 mg PO DAILY [facility] Last Admin: 10/24/18 10:08 Dose: 25 mg Metoclopramide HCl (Reglan) 5 mg IVP Q6H [facility] Last Admin: 10/24/18 12:21 Dose: 5 mg Metoprolol Tartrate (Lopressor) 25 mg PO BID [facility] Last Admin: 10/24/18 10:08 Dose: 25 mg Rwvav-5-Jrch Ethyl Esters (Lovaza) 1 gm PO BID [facility] Last Admin: 10/24/18 10:06 Dose: 1 gm Pantoprazole Sodium (Protonix Inj) 40 mg IVP DAILY [facility] Last Admin: 10/24/18 10:06 Dose: 40 mg Promethazine HCl/Codeine (Phenergan/Codeine Oral Syrup) 10 ml PO Q8H PRN PRN Reason: Cough Last Admin: 10/24/18 10:07 Dose: 10 ml Rosuvastatin Calcium (Crestor) 40 mg PO HS [facility] Last Admin: 10/23/18 21:10 Dose: 40 mg - Labs Labs: 10/23/18 15:59 10/23/18 15:59 PT 12.9 SECONDS (9.7-12.2) H 10/22/18 16:50 INR 1.2 10/22/18 16:50 APTT 28 SECONDS (21-34) 10/22/18 16:50 Assessment and Plan (1) Asthma Status: Acute (2) Chest pain Status: Acute (3) HTN (hypertension) Status: Acute
--- NOTE | 2018-10-24 17:21 | CP.PCM.PN ---
Subjective - Date & Time of Evaluation Date of Evaluation: 10/24/18 Time of Evaluation: 10:00 - Subjective Subjective: clinically same Objective - Vital Signs/Intake and Output Vital Signs (last 24 hours): Temp Pulse Resp BP Pulse Ox 98.9 F 66 20 108/62 96 10/24/18 15:10 10/24/18 15:10 10/24/18 15:10 10/24/18 15:10 10/24/18 15:10 Intake and Output: 10/24/18 10/24/18 06:59 18:59 Intake Total 1820 Balance 1820 - Medications Medications: Current Medications Acetaminophen (Tylenol 325mg Tab) 650 mg PO Q6 PRN PRN Reason: Pain, mild to moderate (1-7) Last Admin: 10/24/18 04:42 Dose: 650 mg Aspirin (Aspirin Chewable) 81 mg PO DAILY [facility] Last Admin: 10/24/18 10:07 Dose: 81 mg Ezetimibe (Zetia) 10 mg PO DAILY [facility] Last Admin: 10/24/18 10:25 Dose: 10 mg Enoxaparin Sodium (Lovenox) 40 mg SC DAILY [facility] Last Admin: 10/24/18 10:25 Dose: 40 mg Fluticasone/Vilanterol (Breo Ellipta 200-25 Mcg Inh) 1 puff INH RQD [facility] Last Admin: 10/24/18 07:57 Dose: Not Given Lactated Ringer's (Lactated Ringer's 500ml) 500 mls @ 75 mls/hr IV .Q6H40M [facility] Last Admin: 10/24/18 08:21 Dose: Not Given Isosorbide Mononitrate (Imdur Er) 30 mg PO DAILY [facility] Last Admin: 10/24/18 10:26 Dose: 30 mg Losartan Potassium (Cozaar) 25 mg PO DAILY [facility] Last Admin: 10/24/18 10:08 Dose: 25 mg Metoclopramide HCl (Reglan) 5 mg IVP Q6H [facility] Last Admin: 10/24/18 12:21 Dose: 5 mg Metoprolol Tartrate (Lopressor) 25 mg PO BID [facility] Last Admin: 10/24/18 10:08 Dose: 25 mg Doxdo-9-Njyw Ethyl Esters (Lovaza) 1 gm PO BID [facility] Last Admin: 10/24/18 10:06 Dose: 1 gm Pantoprazole Sodium (Protonix Inj) 40 mg IVP DAILY [facility] Last Admin: 10/24/18 10:06 Dose: 40 mg Promethazine HCl/Codeine (Phenergan/Codeine Oral Syrup) 10 ml PO Q8H PRN PRN Reason: Cough Last Admin: 10/24/18 10:07 Dose: 10 ml Rosuvastatin Calcium (Crestor) 40 mg PO HS [facility] Last Admin: 10/23/18 21:10 Dose: 40 mg - Labs Labs: 10/23/18 15:59 10/23/18 15:59 PT 12.9 SECONDS (9.7-12.2) H 10/22/18 16:50 INR 1.2 10/22/18 16:50 APTT 28 SECONDS (21-34) 10/22/18 16:50 - Constitutional Appears: Well - Head Exam Head Exam: ATRAUMATIC, NORMAL INSPECTION, NORMOCEPHALIC - Eye Exam Eye Exam: EOMI, Normal appearance, PERRL Pupil Exam: NORMAL ACCOMODATION, PERRL - ENT Exam ENT Exam: Mucous Membranes Moist, Normal Exam - Neck Exam Neck Exam: Full ROM, Normal Inspection. absent: Lymphadenopathy - Respiratory Exam Respiratory Exam: Decreased Breath Sounds - Cardiovascular Exam Cardiovascular Exam: REGULAR RHYTHM, +S1, +S2 - GI/Abdominal Exam GI & Abdominal Exam: Soft, Diminished Bowel Sounds - Rectal Exam Rectal Exam: Deferred
--- NOTE | 2018-10-24 17:42 | CP.PCM.PN ---
Subjective - Date & Time of Evaluation Date of Evaluation: 10/24/18 Time of Evaluation: 17:37 - Subjective Subjective: Patient looking much better today. Less coughing. Tolerating diet. Objective - Vital Signs/Intake and Output Vital Signs (last 24 hours): Temp Pulse Resp BP Pulse Ox 98.9 F 66 20 108/62 96 10/24/18 15:10 10/24/18 15:10 10/24/18 15:10 10/24/18 15:10 10/24/18 15:10 Intake and Output: 10/24/18 10/24/18 06:59 18:59 Intake Total 1820 Balance 1820 - Medications Medications: Current Medications Acetaminophen (Tylenol 325mg Tab) 650 mg PO Q6 PRN PRN Reason: Pain, mild to moderate (1-7) Last Admin: 10/24/18 04:42 Dose: 650 mg Amoxicillin (Amoxil 500 Mg Cap) 1,000 mg PO BID [facility]; Protocol Aspirin (Aspirin Chewable) 81 mg PO DAILY [facility] Last Admin: 10/24/18 10:07 Dose: 81 mg Clarithromycin (Biaxin Filmtab) 500 mg PO Q12H [facility]; Protocol Ezetimibe (Zetia) 10 mg PO DAILY [facility] Last Admin: 10/24/18 10:25 Dose: 10 mg Enoxaparin Sodium (Lovenox) 40 mg SC DAILY [facility] Last Admin: 10/24/18 10:25 Dose: 40 mg Fluticasone/Vilanterol (Breo Ellipta 200-25 Mcg Inh) 1 puff INH RQD [facility] Last Admin: 10/24/18 07:57 Dose: Not Given Lactated Ringer's (Lactated Ringer's 500ml) 500 mls @ 75 mls/hr IV .Q6H40M [facility] Last Admin: 10/24/18 08:21 Dose: Not Given Isosorbide Mononitrate (Imdur Er) 30 mg PO DAILY [facility] Last Admin: 10/24/18 10:26 Dose: 30 mg Losartan Potassium (Cozaar) 25 mg PO DAILY [facility] Last Admin: 10/24/18 10:08 Dose: 25 mg Metoprolol Tartrate (Lopressor) 25 mg PO BID [facility] Last Admin: 10/24/18 10:08 Dose: 25 mg Zeult-8-Lslg Ethyl Esters (Lovaza) 1 gm PO BID [facility] Last Admin: 10/24/18 10:06 Dose: 1 gm Pantoprazole Sodium (Protonix Ec Tab) 40 mg PO DAILY [facility] Promethazine HCl/Codeine (Phenergan/Codeine Oral Syrup) 10 ml PO Q8H PRN PRN Reason: Cough Last Admin: 10/24/18 10:07 Dose: 10 ml Rosuvastatin Calcium (Crestor) 40 mg PO HS [facility] Last Admin: 10/23/18 21:10 Dose: 40 mg - Labs Labs: 10/23/18 15:59 10/23/18 15:59 PT 12.9 SECONDS (9.7-12.2) H 10/22/18 16:50 INR 1.2 10/22/18 16:50 APTT 28 SECONDS (21-34) 10/22/18 16:50 - Constitutional Appears: Non-toxic, No Acute Distress - Eye Exam Eye Exam: EOMI - Respiratory Exam Respiratory Exam: Clear to Ausculation Bilateral, NORMAL BREATHING PATTERN - Cardiovascular Exam Cardiovascular Exam: REGULAR RHYTHM, +S1, +S2 - GI/Abdominal Exam GI & Abdominal Exam: Soft, Normal Bowel Sounds. absent: Tenderness - Extremities Exam Extremities Exam: Normal Inspection. absent: Pedal Edema - Psychiatric Exam Psychiatric exam: Normal Affect, Normal Mood - Skin Skin Exam: Normal Color, Warm Assessment and Plan - Assessment and Plan (Free Text) Assessment: #H. Pylori #Chest pain, SOB #GERD #Possible viral URI #CAD s/p CABG PLAN: -s/p EGD 10/23/18. -Labs reviewed. -I suspect viral URI given symptoms and acute onset. -Recommend symptom management, supportive care -START triple therapy: amoxicillin, clarithromycin and PPI x 14 days. -H. pylori eradication testing 4 weeks after completion of Abx. Must be off PPI for at least 2 weeks. Case discussed with Dr. Powers
[2018-10-24] MEDS ORDERED: Bismuth Subsalicylate 262 mg Chew Tab PO SCH (18:00)
[2018-10-25] MEDS: Lactated Ringer's 500 ML IV SCH ×4 (02:00→15:20)
[2018-10-25] MEDS: Promethazine/Cod 6.25mg-10mg/5ml Syr UD PO PRN (09:52)
[2018-10-25] MEDS: Enoxaparin 40 mg Syringe SC SCH (09:53)
[2018-10-25] MEDS: Pantoprazole 40 mg EC Tab PO SCH (09:53)
[2018-10-25] MEDS: Omega-3-Acid Ethyl Esters 1 GM Cap PO SCH ×3 (09:55→19:24)
[2018-10-25] MEDS: Fluticasone-Vilanterol 200/25mcg Diskus INH SCH (11:06)
--- NOTE | 2018-10-25 14:48 | CP.PCM.PN ---
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 I was planning on speaking with her about her diagnosis of H. pylori, but this will have to wait until tomorrow. She appeared non distressed. She had no acute comlaints. She is tolerating diet. Objective - Vital Signs/Intake and Output Vital Signs (last 24 hours): Temp Pulse Resp BP Pulse Ox 98.6 F 71 20 104/60 98 10/25/18 07:00 10/25/18 08:45 10/25/18 07:00 10/25/18 09:54 10/25/18 07:00 - Medications Medications: Current Medications Acetaminophen (Tylenol 325mg Tab) 650 mg PO Q6 PRN PRN Reason: Pain, mild to moderate (1-7) Last Admin: 10/25/18 10:00 Dose: 650 mg Amoxicillin (Amoxil 500 Mg Cap) 1,000 mg PO BID [facility]; Protocol Last Admin: 10/25/18 09:54 Dose: 1,000 mg Aspirin (Aspirin Chewable) 81 mg PO DAILY [facility] Last Admin: 10/25/18 09:53 Dose: 81 mg Clarithromycin (Biaxin Filmtab) 500 mg PO Q12H [facility]; Protocol Last Admin: 10/25/18 05:45 Dose: 500 mg Ezetimibe (Zetia) 10 mg PO DAILY [facility] Last Admin: 10/25/18 09:53 Dose: 10 mg Enoxaparin Sodium (Lovenox) 40 mg SC DAILY [facility] Last Admin: 10/25/18 09:53 Dose: 40 mg Fluticasone/Vilanterol (Breo Ellipta 200-25 Mcg Inh) 1 puff INH RQD [facility] Last Admin: 10/25/18 11:06 Dose: 1 puff Lactated Ringer's (Lactated Ringer's 500ml) 500 mls @ 75 mls/hr IV .Q6H40M [facility] Last Admin: 10/25/18 10:03 Dose: Not Given Isosorbide Mononitrate (Imdur Er) 30 mg PO DAILY [facility] Last Admin: 10/25/18 09:55 Dose: 30 mg Losartan Potassium (Cozaar) 25 mg PO DAILY [facility] Last Admin: 10/25/18 09:56 Dose: 25 mg Metoprolol Tartrate (Lopressor) 25 mg PO BID [facility] Last Admin: 10/25/18 09:54 Dose: Not Given Unzua-3-Ztjo Ethyl Esters (Lovaza) 1 gm PO BID [facility] Last Admin: 10/25/18 09:55 Dose: 1 gm Pantoprazole Sodium (Protonix Ec Tab) 40 mg PO DAILY [facility] Last Admin: 10/25/18 09:53 Dose: 40 mg Promethazine HCl/Codeine (Phenergan/Codeine Oral Syrup) 10 ml PO Q8H PRN PRN Reason: Cough Last Admin: 10/25/18 09:52 Dose: 10 ml Rosuvastatin Calcium (Crestor) 40 mg PO HS [facility] Last Admin: 10/24/18 23:00 Dose: 40 mg - Labs Labs: 10/23/18 15:59 10/23/18 15:59 PT 12.9 SECONDS (9.7-12.2) H 10/22/18 16:50 INR 1.2 10/22/18 16:50 APTT 28 SECONDS (21-34) 10/22/18 16:50 - Constitutional Appears: Non-toxic, No Acute Distress - Eye Exam Eye Exam: EOMI, Normal appearance - Respiratory Exam Respiratory Exam: Clear to Ausculation Bilateral, NORMAL BREATHING PATTERN - Cardiovascular Exam Cardiovascular Exam: REGULAR RHYTHM, +S1, +S2 - GI/Abdominal Exam GI & Abdominal Exam: Soft, Normal Bowel Sounds. absent: Tenderness - Neurological Exam Neurological Exam: Alert, Awake, Oriented x3 - Psychiatric Exam Psychiatric exam: Normal Affect, Normal Mood Assessment and Plan - Assessment and Plan (Free Text) Assessment: #H. Pylori #Chest pain, SOB #GERD #Possible viral URI #CAD s/p CABG PLAN: -s/p EGD 10/23/18. H. pylori positive -Labs reviewed. -I suspect viral URI given symptoms and acute onset. -Recommend symptom management, supportive care -Triple therapy: amoxicillin, clarithromycin and PPI x 14 days. -H. pylori eradication testing 4 weeks after completion of Abx. Must be off PPI for at least 2 weeks. -Going for cath today. Case discussed with Dr. Powers
[2018-10-25] MEDS ORDERED: Verapamil 2 ML ONE (15:05)
[2018-10-25] MEDS ORDERED: Nitroglycerin 50mg in D5W 50 MG/250 ML BOTTLE IV ONE (15:06)
[2018-10-25] MEDS ORDERED: Midazolam 2 MG/2 ML VIAL ONE ×2 (15:15→15:28)
[2018-10-25] MEDS ORDERED: Iodixanol 320 MG/ML 100 ML BOTTLE IV ONE ×2 (15:31→15:33)
--- NOTE | 2018-10-25 17:45 | CP.PCM.PN ---
Subjective - Date & Time of Evaluation Date of Evaluation: 10/25/18 Time of Evaluation: 17:45 Objective - Vital Signs/Intake and Output Vital Signs (last 24 hours): Temp Pulse Resp BP Pulse Ox 98.6 F 71 20 104/60 98 10/25/18 07:00 10/25/18 08:45 10/25/18 07:00 10/25/18 09:54 10/25/18 07:00 - Medications Medications: Current Medications Acetaminophen (Tylenol 325mg Tab) 650 mg PO Q6 PRN PRN Reason: Pain, mild to moderate (1-7) Last Admin: 10/25/18 10:00 Dose: 650 mg Amoxicillin (Amoxil 500 Mg Cap) 1,000 mg PO BID [facility]; Protocol Last Admin: 10/25/18 09:54 Dose: 1,000 mg Aspirin (Aspirin Chewable) 81 mg PO DAILY [facility] Last Admin: 10/25/18 09:53 Dose: 81 mg Clarithromycin (Biaxin Filmtab) 500 mg PO Q12H [facility]; Protocol Last Admin: 10/25/18 05:45 Dose: 500 mg Ezetimibe (Zetia) 10 mg PO DAILY [facility] Last Admin: 10/25/18 09:53 Dose: 10 mg Enoxaparin Sodium (Lovenox) 40 mg SC DAILY [facility] Last Admin: 10/25/18 09:53 Dose: 40 mg Fluticasone/Vilanterol (Breo Ellipta 200-25 Mcg Inh) 1 puff INH RQD [facility] Last Admin: 10/25/18 11:06 Dose: 1 puff Lactated Ringer's (Lactated Ringer's 500ml) 500 mls @ 75 mls/hr IV .Q6H40M [facility] Last Admin: 10/25/18 15:20 Dose: Not Given Sodium Chloride (Sodium Chloride 0.9%) 1,000 mls @ 75 mls/hr IV .[id number] [facility] Isosorbide Mononitrate (Imdur Er) 30 mg PO DAILY [facility] Last Admin: 10/25/18 09:55 Dose: 30 mg Losartan Potassium (Cozaar) 25 mg PO DAILY [facility] Last Admin: 10/25/18 09:56 Dose: 25 mg Metoprolol Tartrate (Lopressor) 25 mg PO BID [facility] Last Admin: 10/25/18 09:54 Dose: Not Given Ahnzq-2-Nkge Ethyl Esters (Lovaza) 1 gm PO BID [facility] Last Admin: 10/25/18 09:55 Dose: 1 gm Pantoprazole Sodium (Protonix Ec Tab) 40 mg PO DAILY [facility] Last Admin: 10/25/18 09:53 Dose: 40 mg Promethazine HCl/Codeine (Phenergan/Codeine Oral Syrup) 10 ml PO Q8H PRN PRN Reason: Cough Last Admin: 10/25/18 09:52 Dose: 10 ml Rosuvastatin Calcium (Crestor) 40 mg PO HS [facility] Last Admin: 10/24/18 23:00 Dose: 40 mg - Labs Labs: 10/23/18 15:59 10/23/18 15:59 PT 12.9 SECONDS (9.7-12.2) H 10/22/18 16:50 INR 1.2 10/22/18 16:50 APTT 28 SECONDS (21-34) 10/22/18 16:50 Assessment and Plan (1) Asthma Status: Acute (2) Chest pain Status: Acute (3) HTN (hypertension) Status: Acute
--- NOTE | 2018-10-25 20:12 | CP.PCM.PN ---
Subjective - Date & Time of Evaluation Date of Evaluation: 10/25/18 Time of Evaluation: 09:45 - Subjective Subjective: clinically same Objective - Vital Signs/Intake and Output Vital Signs (last 24 hours): Temp Pulse Resp BP Pulse Ox 98.0 F 78 12 158/78 H 98 10/25/18 19:33 10/25/18 19:46 10/25/18 19:33 10/25/18 19:33 10/25/18 19:33 - Medications Medications: Current Medications Acetaminophen (Tylenol 325mg Tab) 650 mg PO Q6 PRN PRN Reason: Pain, mild to moderate (1-7) Last Admin: 10/25/18 10:00 Dose: 650 mg Amoxicillin (Amoxil 500 Mg Cap) 1,000 mg PO BID [facility]; Protocol Last Admin: 10/25/18 19:24 Dose: 1,000 mg Aspirin (Aspirin Chewable) 81 mg PO DAILY [facility] Last Admin: 10/25/18 09:53 Dose: 81 mg Clarithromycin (Biaxin Filmtab) 500 mg PO Q12H [facility]; Protocol Last Admin: 10/25/18 19:24 Dose: 500 mg Ezetimibe (Zetia) 10 mg PO DAILY [facility] Last Admin: 10/25/18 09:53 Dose: 10 mg Enoxaparin Sodium (Lovenox) 40 mg SC DAILY [facility] Last Admin: 10/25/18 09:53 Dose: 40 mg Fluticasone/Vilanterol (Breo Ellipta 200-25 Mcg Inh) 1 puff INH RQD [facility] Last Admin: 10/25/18 11:06 Dose: 1 puff Lactated Ringer's (Lactated Ringer's 500ml) 500 mls @ 75 mls/hr IV .[id number] [facility] Last Admin: 10/25/18 15:20 Dose: Not Given Sodium Chloride (Sodium Chloride 0.9%) 1,000 mls @ 75 mls/hr IV .[id number] [facility] Isosorbide Mononitrate (Imdur Er) 30 mg PO DAILY [facility] Last Admin: 10/25/18 09:55 Dose: 30 mg Losartan Potassium (Cozaar) 25 mg PO DAILY [facility] Last Admin: 10/25/18 09:56 Dose: 25 mg Metoprolol Tartrate (Lopressor) 25 mg PO BID [facility] Last Admin: 10/25/18 19:24 Dose: 25 mg Ipesh-2-Fwdd Ethyl Esters (Lovaza) 1 gm PO BID [facility] Last Admin: 10/25/18 19:24 Dose: 1 gm Pantoprazole Sodium (Protonix Ec Tab) 40 mg PO DAILY [facility] Last Admin: 10/25/18 09:53 Dose: 40 mg Promethazine HCl/Codeine (Phenergan/Codeine Oral Syrup) 10 ml PO Q8H PRN PRN Reason: Cough Last Admin: 10/25/18 09:52 Dose: 10 ml Rosuvastatin Calcium (Crestor) 40 mg PO HS [facility] Last Admin: 10/24/18 23:00 Dose: 40 mg - Labs Labs: 10/23/18 15:59 10/23/18 15:59 PT 12.9 SECONDS (9.7-12.2) H 10/22/18 16:50 INR 1.2 10/22/18 16:50 APTT 28 SECONDS (21-34) 10/22/18 16:50 - Constitutional Appears: Well - Head Exam Head Exam: ATRAUMATIC, NORMAL INSPECTION, NORMOCEPHALIC - Eye Exam Eye Exam: EOMI, Normal appearance, PERRL Pupil Exam: NORMAL ACCOMODATION, PERRL - ENT Exam ENT Exam: Mucous Membranes Moist, Normal Exam - Neck Exam Neck Exam: Full ROM, Normal Inspection. absent: Lymphadenopathy - Respiratory Exam Respiratory Exam: Decreased Breath Sounds - Cardiovascular Exam Cardiovascular Exam: REGULAR RHYTHM, +S1, +S2 - GI/Abdominal Exam GI & Abdominal Exam: Soft, Diminished Bowel Sounds - Rectal Exam Rectal Exam: Deferred
[2018-10-26] MEDS: Promethazine/Cod 6.25mg-10mg/5ml Syr UD PO PRN ×2 (00:29→17:32)
[2018-10-26] MEDS: Lactated Ringer's 500 ML IV SCH (05:20)
[2018-10-26] MEDS: Sodium Chloride 0.9% 1,000 ML IV SCH ×3 (06:28→19:00)
[2018-10-26] MEDS: Fluticasone-Vilanterol 200/25mcg Diskus INH SCH (08:02)
[2018-10-26 08:15] LABS: BASO % 0.3 % (0.0-2.0); EOS % 0.5 % (0.0-4.0); HEMOGLOBIN 11.1 g/dL (11.0-16.0); LYMPH % 54.4 % (20.0-40.0); MEAN CORPUSCULAR HEMOGLOBIN 30.4 pg (27.0-31.0); MEAN CORPUSCULAR HGB CONC 33.4 g/dL (33.0-37.0); MEAN PLATELET VOLUME 10.2 fL (7.2-11.7); MONO # 0.2 K/uL (0.0-0.8); MONO % 5.5 % (0.0-10.0); NEUT # 1.5 K/uL (1.8-7.0); NEUT % 39.3 % (50.0-75.0); NRBC % 0.1 % (0.0-2.0); RBC 3.64 Mil/uL (3.80-5.20); RED CELL DISTRIBUTION WIDTH 12.8 % (11.5-14.5); WHITE BLOOD COUNT 3.7 K/uL (4.8-10.8)
[2018-10-26 08:21] LABS: MEAN CELL VOLUME 90.9 fL (81.0-99.0)
[2018-10-26 08:22] LABS: ALB/GLOB RATIO 1.4 (1.0-2.1); ALBUMIN 3.6 g/dL (3.5-5.0); ALT/SGPT 31 U/L (9-52); AST/SGOT 38 U/L (14-36); BLOOD UREA NITROGEN 4 mg/dL (7-17); CALCIUM 8.3 mg/dl (8.6-10.4); GFR NON-AFRICAN AMERICAN > 60
--- NOTE | 2018-10-26 08:36 | VAS ---
DATE: 10/25/2018 INDICATIONS: Ms. Webber is a 63-year-old female, admitted for evaluation of symptoms of unstable angina. The patient has history of CABG, underwent a cardiac catheterization for evaluation of ongoing episodes of chest pain, unstable angina. PROCEDURE PERFORMED: Left catheterization with selective left and right coronary angiogram, left ventriculogram, selective LEVIN to LAD angiogram, left ventriculogram, 6-Congolese left radial arterial access, wrist band for hemostasis. ANGIOGRAPHIC FINDINGS: Left main artery is a large-sized that bifurcates into left anterior descending and left circumflex coronary artery. Left anterior descending artery is proximally 100% occluded. Left circumflex runs in the AV groove with a large-sized vessel proximal 50% stenosis and distal 85% , obtuse marginal branch has a proximal 90% stenosis, has collateralized flow feeding the right PDA vessel. RCA large-sized vessel has a proximal 95% stenosis and mid two tandem lesions 80% to 90% stenosis. Vein graft to the RCA and OM and diagonal are occluded. LEVIN is patent to left anterior descending artery. Left ventricular ejection fraction is about 50% to 55%. 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 All vein grafts are occluded. RECOMMENDATIONS: The patient is to undergo staged intervention of the distal circ and RCA in a staged fashion. Continue the patient on dual antiplatelet therapy. Guideline directed therapy for CAD. Zachery Olguin MD [facility]
[2018-10-26] MEDS: Pantoprazole 40 mg EC Tab PO SCH (10:39)
[2018-10-26] MEDS: Omega-3-Acid Ethyl Esters 1 GM Cap PO SCH ×2 (10:39→17:20)
[2018-10-26] MEDS: Enoxaparin 40 mg Syringe SC SCH (10:39)
--- NOTE | 2018-10-26 11:49 | CP.PCM.PN ---
Subjective - Date & Time of Evaluation Date of Evaluation: 10/26/18 Time of Evaluation: 10:00 - Subjective Subjective: clinically same Objective - Vital Signs/Intake and Output Vital Signs (last 24 hours): Temp Pulse Resp BP Pulse Ox 98.4 F 76 18 130/74 97 10/26/18 08:00 10/26/18 10:36 10/26/18 08:00 10/26/18 10:38 10/26/18 08:00 Intake and Output: 10/26/18 10/26/18 06:59 18:59 Intake Total 720 Balance 720 - Medications Medications: Current Medications Acetaminophen (Tylenol 325mg Tab) 650 mg PO Q6 PRN PRN Reason: Pain, mild to moderate (1-7) Last Admin: 10/25/18 10:00 Dose: 650 mg Amoxicillin (Amoxil 500 Mg Cap) 1,000 mg PO BID [facility]; Protocol Last Admin: 10/26/18 10:37 Dose: 1,000 mg Aspirin (Aspirin Chewable) 81 mg PO DAILY [facility] Last Admin: 10/26/18 10:38 Dose: 81 mg Clarithromycin (Biaxin Filmtab) 500 mg PO Q12H [facility]; Protocol Last Admin: 10/26/18 06:26 Dose: 500 mg Ezetimibe (Zetia) 10 mg PO DAILY [facility] Last Admin: 10/26/18 10:39 Dose: 10 mg Fluticasone/Vilanterol (Breo Ellipta 200-25 Mcg Inh) 1 puff INH RQD [facility] Last Admin: 10/26/18 08:02 Dose: 1 puff Sodium Chloride (Sodium Chloride 0.9%) 1,000 mls @ 75 mls/hr IV .[id number] [facility] Last Admin: 10/26/18 10:40 Dose: 75 mls/hr Isosorbide Mononitrate (Imdur Er) 30 mg PO DAILY [facility] Last Admin: 10/26/18 10:38 Dose: 30 mg Losartan Potassium (Cozaar) 25 mg PO DAILY [facility] Last Admin: 10/26/18 10:38 Dose: 25 mg Metoprolol Tartrate (Lopressor) 25 mg PO BID [facility] Last Admin: 10/26/18 10:38 Dose: 25 mg Thaef-1-Xusn Ethyl Esters (Lovaza) 1 gm PO BID [facility] Last Admin: 01/26/19 10:39 Dose: 1 gm Pantoprazole Sodium (Protonix Ec Tab) 40 mg PO DAILY [facility] Last Admin: 10/26/18 10:39 Dose: 40 mg Promethazine HCl/Codeine (Phenergan/Codeine Oral Syrup) 10 ml PO Q8H PRN PRN Reason: Cough Last Admin: 10/26/18 00:29 Dose: 10 ml Rosuvastatin Calcium (Crestor) 40 mg PO HS [facility] Last Admin: 10/25/18 21:58 Dose: 40 mg - Labs Labs: 10/26/18 08:00 10/26/18 08:00 PT 12.9 SECONDS (9.7-12.2) H 10/22/18 16:50 INR 1.2 10/22/18 16:50 APTT 28 SECONDS (21-34) 10/22/18 16:50 - Constitutional Appears: Well - Head Exam Head Exam: ATRAUMATIC, NORMAL INSPECTION, NORMOCEPHALIC - Eye Exam Eye Exam: EOMI, Normal appearance, PERRL Pupil Exam: NORMAL ACCOMODATION, PERRL - ENT Exam ENT Exam: Mucous Membranes Moist, Normal Exam - Neck Exam Neck Exam: Full ROM, Normal Inspection. absent: Lymphadenopathy - Respiratory Exam Respiratory Exam: Decreased Breath Sounds - Cardiovascular Exam Cardiovascular Exam: REGULAR RHYTHM, +S1, +S2 - GI/Abdominal Exam GI & Abdominal Exam: Soft, Diminished Bowel Sounds - Rectal Exam Rectal Exam: Deferred
[2018-10-26] MEDS: Potassium Chloride 20 mEq ER Tab PO SCH (15:43)
--- NOTE | 2018-10-26 19:33 | CP.PCM.PN ---
Subjective - Date & Time of Evaluation Date of Evaluation: 10/26/18 Time of Evaluation: 19:33 Objective - Vital Signs/Intake and Output Vital Signs (last 24 hours): Temp Pulse Resp BP Pulse Ox 98.4 F 76 18 94/60 L 97 10/26/18 08:00 10/26/18 10:36 10/26/18 08:00 10/26/18 19:15 10/26/18 08:00 - Medications Medications: Current Medications Acetaminophen (Tylenol 325mg Tab) 650 mg PO Q6 PRN PRN Reason: Pain, mild to moderate (1-7) Last Admin: 10/26/18 15:43 Dose: 650 mg Amoxicillin (Amoxil 500 Mg Cap) 1,000 mg PO BID [facility]; Protocol Last Admin: 10/26/18 17:21 Dose: 1,000 mg Aspirin (Aspirin Chewable) 81 mg PO DAILY [facility] Last Admin: 10/26/18 10:38 Dose: 81 mg Clarithromycin (Biaxin Filmtab) 500 mg PO Q12H [facility]; Protocol Last Admin: 10/26/18 17:21 Dose: 500 mg Ezetimibe (Zetia) 10 mg PO DAILY [facility] Last Admin: 10/26/18 10:39 Dose: 10 mg Fluticasone/Vilanterol (Breo Ellipta 200-25 Mcg Inh) 1 puff INH RQD [facility] Last Admin: 10/26/18 08:02 Dose: 1 puff Sodium Chloride (Sodium Chloride 0.9%) 1,000 mls @ 75 mls/hr IV .[id number] [facility] Last Admin: 10/26/18 10:40 Dose: 75 mls/hr Isosorbide Mononitrate (Imdur Er) 30 mg PO DAILY [facility] Last Admin: 10/26/18 10:38 Dose: 30 mg Losartan Potassium (Cozaar) 25 mg PO DAILY [facility] Last Admin: 10/26/18 10:38 Dose: 25 mg Metoprolol Tartrate (Lopressor) 25 mg PO BID [facility] Last Admin: 10/26/18 19:15 Dose: Not Given Kjgwd-1-Dpkw Ethyl Esters (Lovaza) 1 gm PO BID [facility] Last Admin: 10/26/18 17:20 Dose: 1 gm Pantoprazole Sodium (Protonix Ec Tab) 40 mg PO DAILY [facility] Last Admin: 10/26/18 10:39 Dose: 40 mg Potassium Chloride (K-Dur 20 Meq Er Tab) 40 meq PO BRK [facility] Last Admin: 10/26/18 15:43 Dose: 40 meq Promethazine HCl/Codeine (Phenergan/Codeine Oral Syrup) 10 ml PO Q8H PRN PRN Reason: Cough Last Admin: 10/26/18 17:32 Dose: 10 ml Rosuvastatin Calcium (Crestor) 40 mg PO HS [facility] Last Admin: 10/25/18 21:58 Dose: 40 mg - Labs Labs: 10/26/18 08:00 10/26/18 08:00 PT 12.9 SECONDS (9.7-12.2) H 10/22/18 16:50 INR 1.2 10/22/18 16:50 APTT 28 SECONDS (21-34) 10/22/18 16:50 Assessment and Plan (1) Asthma Status: Acute (2) Chest pain Status: Acute (3) HTN (hypertension) Status: Acute
[2018-10-27] MEDS: Potassium Chloride 20 mEq ER Tab PO SCH (07:46)
[2018-10-27] MEDS: Promethazine/Cod 6.25mg-10mg/5ml Syr UD PO PRN ×2 (07:46→21:55)
[2018-10-27] MEDS: Fluticasone-Vilanterol 200/25mcg Diskus INH SCH (08:46)
[2018-10-27] MEDS: Omega-3-Acid Ethyl Esters 1 GM Cap PO SCH ×2 (09:33→18:02)
[2018-10-27] MEDS: Pantoprazole 40 mg EC Tab PO SCH (09:33)
--- NOTE | 2018-10-27 10:45 | PN ---
DATE: 10/27/2018 LOCATION: 664, bed B. SUBJECTIVE: The patient is a 63-year-old female seen and examined early in rounds with recurrent complaint of productive cough, status post cardiac catheterization without actual chest pain, palpitation, significant shortness of breath, and no reported chills or fever. The entire chart is reviewed and today's lab results still pending; however, the patient had low white blood cells, low hematocrit with normal platelet count with low creatinine, low calcium as well as low total protein. Cancer markers are reported to be normal. PHYSICAL EXAMINATION: GENERAL: A 63-year-old female. VITAL SIGNS: Afebrile with pulse of 58, respiratory rate 20-22, blood pressure 108/64. HEENT: Showed pale dry oral mucous membrane. Nonicteric sclerae. LUNGS: Few scattered crepitation. Decreased air entry at bases. HEART: Positive S1 and S2. ABDOMEN: Soft with mild generalized tenderness. No mass or organomegaly. No rebound tenderness or guarding. EXTREMITIES: Without edema, clubbing, or cyanosis. IMPRESSION: 1. Re-exacerbation of peptic ulcer disease with esophagitis, small hiatal hernia and gastritis, postoperative Helicobacter pylori infection. 2. Re-exacerbation of bronchitis with known history of bronchial asthma and hypertension. 3. Mild anemia. SUGGESTION: 1. Agree with your plan. 2. May add Carafate p.o. 3. Guaiac occult stool daily x3. 4. Further recommendation to follow. Ole Flores MD
--- NOTE | 2018-10-27 14:16 | CP.PCM.PN ---
Subjective - Date & Time of Evaluation Date of Evaluation: 10/27/18 Time of Evaluation: 10:00 - Subjective Subjective: clinically same Objective - Vital Signs/Intake and Output Vital Signs (last 24 hours): Temp Pulse Resp BP Pulse Ox 98.3 F 79 18 118/75 98 10/27/18 07:55 10/27/18 11:16 10/27/18 07:55 10/27/18 11:16 10/27/18 07:55 - Medications Medications: Current Medications Acetaminophen (Tylenol 325mg Tab) 650 mg PO Q6 PRN PRN Reason: Pain, mild to moderate (1-7) Last Admin: 10/26/18 15:43 Dose: 650 mg Amoxicillin (Amoxil 500 Mg Cap) 1,000 mg PO BID [facility]; Protocol Last Admin: 10/27/18 09:32 Dose: 1,000 mg Aspirin (Aspirin Chewable) 81 mg PO DAILY [facility] Last Admin: 10/27/18 09:32 Dose: 81 mg Clarithromycin (Biaxin Filmtab) 500 mg PO Q12H [facility]; Protocol Last Admin: 10/27/18 05:48 Dose: 500 mg Ezetimibe (Zetia) 10 mg PO DAILY [facility] Last Admin: 10/27/18 09:34 Dose: 10 mg Fluticasone/Vilanterol (Breo Ellipta 200-25 Mcg Inh) 1 puff INH RQD [facility] Last Admin: 10/27/18 08:46 Dose: 1 puff Sodium Chloride (Sodium Chloride 0.9%) 1,000 mls @ 75 mls/hr IV .[id number] [facility] Last Admin: 10/26/18 19:00 Dose: Not Given Isosorbide Mononitrate (Imdur Er) 30 mg PO DAILY [facility] Last Admin: 10/27/18 11:17 Dose: 30 mg Losartan Potassium (Cozaar) 25 mg PO DAILY [facility] Last Admin: 10/27/18 11:17 Dose: 25 mg Metoprolol Tartrate (Lopressor) 25 mg PO BID [facility] Last Admin: 10/27/18 09:33 Dose: Not Given Osekc-1-Agup Ethyl Esters (Lovaza) 1 gm PO BID [facility] Last Admin: 10/27/18 09:33 Dose: 1 gm Pantoprazole Sodium (Protonix Ec Tab) 40 mg PO DAILY [facility] Last Admin: 10/27/18 09:33 Dose: 40 mg Potassium Chloride (K-Dur 20 Meq Er Tab) 40 meq PO BRK [facility] Last Admin: 10/27/18 07:46 Dose: 40 meq Promethazine HCl/Codeine (Phenergan/Codeine Oral Syrup) 10 ml PO Q8H PRN PRN Reason: Cough Last Admin: 10/27/18 07:46 Dose: 10 ml Rosuvastatin Calcium (Crestor) 40 mg PO HS [facility] Last Admin: 10/26/18 21:07 Dose: 40 mg - Labs Labs: 10/26/18 08:00 10/26/18 08:00 PT 12.9 SECONDS (9.7-12.2) H 10/22/18 16:50 INR 1.2 10/22/18 16:50 APTT 28 SECONDS (21-34) 10/22/18 16:50 - Constitutional Appears: Well - Head Exam Head Exam: ATRAUMATIC, NORMAL INSPECTION, NORMOCEPHALIC - Eye Exam Eye Exam: EOMI, Normal appearance, PERRL Pupil Exam: NORMAL ACCOMODATION, PERRL - ENT Exam ENT Exam: Mucous Membranes Moist, Normal Exam - Neck Exam Neck Exam: Full ROM, Normal Inspection. absent: Lymphadenopathy - Respiratory Exam Respiratory Exam: Decreased Breath Sounds - Cardiovascular Exam Cardiovascular Exam: REGULAR RHYTHM, +S1, +S2 - GI/Abdominal Exam GI & Abdominal Exam: Soft, Diminished Bowel Sounds - Rectal Exam Rectal Exam: Deferred
[2018-10-27 17:12] VITALS: RESP 20
[2018-10-27] MEDS: Sodium Chloride 0.9% 1,000 ML IV SCH (22:50)
[2018-10-28] MEDS: Potassium Chloride 20 mEq ER Tab PO SCH (08:32)
[2018-10-28] MEDS: Fluticasone-Vilanterol 200/25mcg Diskus INH SCH (10:08)
[2018-10-28] MEDS: Omega-3-Acid Ethyl Esters 1 GM Cap PO SCH ×2 (10:20→17:10)
[2018-10-28] MEDS: Pantoprazole 40 mg EC Tab PO SCH (10:22)
--- NOTE | 2018-10-28 18:11 | CP.PCM.PN ---
Subjective - Date & Time of Evaluation Date of Evaluation: 10/28/18 Time of Evaluation: 09:45 - Subjective Subjective: clinically same Objective - Vital Signs/Intake and Output Vital Signs (last 24 hours): Temp Pulse Resp BP Pulse Ox 98 F 75 20 110/63 97 10/28/18 15:00 10/28/18 15:00 10/28/18 15:00 10/28/18 17:11 10/28/18 15:00 - Medications Medications: Current Medications Acetaminophen (Tylenol 325mg Tab) 650 mg PO Q6 PRN PRN Reason: Pain, mild to moderate (1-7) Last Admin: 10/26/18 15:43 Dose: 650 mg Amoxicillin (Amoxil 500 Mg Cap) 1,000 mg PO BID [facility]; Protocol Last Admin: 10/28/18 17:09 Dose: 1,000 mg Aspirin (Aspirin Chewable) 81 mg PO DAILY [facility] Last Admin: 10/28/18 10:20 Dose: 81 mg Clarithromycin (Biaxin Filmtab) 500 mg PO Q12H [facility]; Protocol Last Admin: 10/28/18 17:11 Dose: 500 mg Ezetimibe (Zetia) 10 mg PO DAILY [facility] Last Admin: 10/28/18 10:20 Dose: 10 mg Fluticasone/Vilanterol (Breo Ellipta 200-25 Mcg Inh) 1 puff INH RQD [facility] Last Admin: 10/28/18 10:08 Dose: 1 puff Isosorbide Mononitrate (Imdur Er) 30 mg PO DAILY [facility] Last Admin: 10/28/18 10:20 Dose: 30 mg Losartan Potassium (Cozaar) 25 mg PO DAILY [facility] Last Admin: 10/28/18 10:22 Dose: 25 mg Metoprolol Tartrate (Lopressor) 25 mg PO BID [facility] Last Admin: 10/28/18 17:11 Dose: 25 mg Jiyra-7-Iclv Ethyl Esters (Lovaza) 1 gm PO BID [facility] Last Admin: 10/28/18 17:10 Dose: 1 gm Pantoprazole Sodium (Protonix Ec Tab) 40 mg PO DAILY [facility] Last Admin: 10/28/18 10:22 Dose: 40 mg Potassium Chloride (K-Dur 20 Meq Er Tab) 40 meq PO BRK [facility] Last Admin: 10/28/18 08:32 Dose: 40 meq Promethazine HCl/Codeine (Phenergan/Codeine Oral Syrup) 10 ml PO Q8H PRN PRN Reason: Cough Last Admin: 10/27/18 21:55 Dose: 10 ml Rosuvastatin Calcium (Crestor) 40 mg PO HS [facility] Last Admin: 10/27/18 21:55 Dose: 40 mg - Labs Labs: 10/26/18 08:00 10/26/18 08:00 PT 12.9 SECONDS (9.7-12.2) H 10/22/18 16:50 INR 1.2 10/22/18 16:50 APTT 28 SECONDS (21-34) 10/22/18 16:50
--- NOTE | 2018-10-28 21:45 | CP.PCM.PN ---
<Igor Adam - Last Filed: 10/28/18 21:48> Subjective - Date & Time of Evaluation Date of Evaluation: 10/28/18 Time of Evaluation: 21:39 - Subjective Subjective: Igor Adam DO PGY1 - Internal Medicine Propagation Worker - Cardiology Note for Dr. Olguin Patient was seen and examine at bedside this morning. No acute events reported overnight. Vitals and labs reviewed. Patient reports she is feeling much better today, she is only complaining of a mild cough at this time. Denied fevers, chills, chest pain and sob. Objective - Vital Signs/Intake and Output Vital Signs (last 24 hours): Temp Pulse Resp BP Pulse Ox 98 F 85 20 110/63 97 10/28/18 15:00 10/28/18 20:00 10/28/18 15:00 10/28/18 17:11 10/28/18 15:00 - Medications Medications: Current Medications Acetaminophen (Tylenol 325mg Tab) 650 mg PO Q6 PRN PRN Reason: Pain, mild to moderate (1-7) Last Admin: 10/26/18 15:43 Dose: 650 mg Amoxicillin (Amoxil 500 Mg Cap) 1,000 mg PO BID [facility]; Protocol Last Admin: 10/28/18 17:09 Dose: 1,000 mg Aspirin (Aspirin Chewable) 81 mg PO DAILY [facility] Last Admin: 10/28/18 10:20 Dose: 81 mg Clarithromycin (Biaxin Filmtab) 500 mg PO Q12H [facility]; Protocol Last Admin: 10/28/18 17:11 Dose: 500 mg Ezetimibe (Zetia) 10 mg PO DAILY [facility] Last Admin: 10/28/18 10:20 Dose: 10 mg Fluticasone/Vilanterol (Breo Ellipta 200-25 Mcg Inh) 1 puff INH RQD [facility] Last Admin: 10/28/18 10:08 Dose: 1 puff Isosorbide Mononitrate (Imdur Er) 30 mg PO DAILY [facility] Last Admin: 10/28/18 10:20 Dose: 30 mg Losartan Potassium (Cozaar) 25 mg PO DAILY [facility] Last Admin: 10/28/18 10:22 Dose: 25 mg Metoprolol Tartrate (Lopressor) 25 mg PO BID [facility] Last Admin: 10/28/18 17:11 Dose: 25 mg Lbduc-2-Uzma Ethyl Esters (Lovaza) 1 gm PO BID [facility] Last Admin: 10/28/18 17:10 Dose: 1 gm Pantoprazole Sodium (Protonix Ec Tab) 40 mg PO DAILY [facility] Last Admin: 10/28/18 10:22 Dose: 40 mg Potassium Chloride (K-Dur 20 Meq Er Tab) 40 meq PO BRK [facility] Last Admin: 10/28/18 08:32 Dose: 40 meq Promethazine HCl/Codeine (Phenergan/Codeine Oral Syrup) 10 ml PO Q8H PRN PRN Reason: Cough Last Admin: 10/27/18 21:55 Dose: 10 ml Rosuvastatin Calcium (Crestor) 40 mg PO HS [facility] Last Admin: 10/28/18 21:31 Dose: 40 mg - Labs Labs: 10/26/18 08:00 10/26/18 08:00 PT 12.9 SECONDS (9.7-12.2) H 10/22/18 16:50 INR 1.2 10/22/18 16:50 APTT 28 SECONDS (21-34) 10/22/18 16:50 - Constitutional Appears: Well, Non-toxic, No Acute Distress - Head Exam Head Exam: ATRAUMATIC, NORMOCEPHALIC - Eye Exam Eye Exam: EOMI, Normal appearance, PERRL - ENT Exam ENT Exam: Mucous Membranes Moist - Respiratory Exam Respiratory Exam: rml/rll/lll diminished with crackles - Cardiovascular Exam Cardiovascular Exam: REGULAR RHYTHM, RRR, +S1, +S2 - GI/Abdominal Exam GI & Abdominal Exam: Normal Bowel Sounds, Soft. absent: Tenderness - Extremities Exam Extremities exam: Positive for: normal inspection, pedal pulses present (2+ DP BL ). Negative for: pedal edema - Neurological Exam Neurological exam: Alert, CN II-XII Intact, Oriented x3 - Psychiatric Exam Psychiatric exam: Normal Affect, Normal Mood - Skin Skin Exam: Dry, Intact, Normal Color, Warm Assessment and Plan (1) HTN (hypertension) Status: Acute (2) Chest pain Status: Acute (3) Coronary artery disease Status: Chronic (4) Hx of CABG Status: Chronic - Assessment and Plan (Free Text) Plan: During cardiac cath on 10/25, patient was found to have severe [place] triple vessel disease w/ a patent graft from LEVIN to LAD She was determined to undergo staged intervention of RCA. Patient will be made NPO past MN except meds for staged cardiac cath of RCA on 10/29 w/ Dr. Olguin Continue monitoring for s/s of cardiac ischemia Patient can continue on Aspirin Zetia Cozaar Imdur Toprol Crestor Lovaza <Zachery Olguin - Last Filed: 10/29/18 23:16> Objective - Vital Signs/Intake and Output Vital Signs (last 24 hours): Temp Pulse Resp BP Pulse Ox 97.9 F 89 20 118/78 98 10/29/18 08:40 10/29/18 08:40 10/29/18 08:40 10/29/18 10:14 10/29/18 08:40 - Medications Medications: Current Medications Acetaminophen (Tylenol 325mg Tab) 650 mg PO Q6 PRN PRN Reason: Pain, mild to moderate (1-7) Last Admin: 10/26/18 15:43 Dose: 650 mg Amoxicillin (Amoxil 500 Mg Cap) 1,000 mg PO BID [facility]; Protocol Last Admin: 10/29/18 10:15 Dose: 1,000 mg Aspirin (Aspirin Chewable) 81 mg PO DAILY [facility] Last Admin: 10/29/18 10:15 Dose: 81 mg Clarithromycin (Biaxin Filmtab) 500 mg PO Q12H [facility]; Protocol Last Admin: 10/29/18 05:02 Dose: 500 mg Ezetimibe (Zetia) 10 mg PO DAILY [facility] Last Admin: 10/29/18 10:14 Dose: 10 mg Fluticasone/Vilanterol (Breo Ellipta 200-25 Mcg Inh) 1 puff INH RQD [facility] Last Admin: 10/29/18 07:46 Dose: 1 puff Isosorbide Mononitrate (Imdur Er) 30 mg PO DAILY [facility] Last Admin: 10/29/18 10:20 Dose: 30 mg Losartan Potassium (Cozaar) 25 mg PO DAILY [facility] Last Admin: 10/29/18 10:15 Dose: 25 mg Metoprolol Tartrate (Lopressor) 25 mg PO BID [facility] Last Admin: 10/29/18 10:14 Dose: 25 mg Tscya-0-Dwsn Ethyl Esters (Lovaza) 1 gm PO BID [facility] Last Admin: 10/29/18 10:13 Dose: Not Given Pantoprazole Sodium (Protonix Ec Tab) 40 mg PO DAILY [facility] Last Admin: 10/29/18 10:13 Dose: 40 mg Potassium Chloride (K-Dur 20 Meq Er Tab) 40 meq PO BRK [facility] Last Admin: 10/29/18 08:04 Dose: 40 meq Promethazine HCl/Codeine (Phenergan/Codeine Oral Syrup) 10 ml PO Q8H PRN PRN Reason: Cough Last Admin: 10/29/18 10:15 Dose: 10 ml Rosuvastatin Calcium (Crestor) 40 mg PO HS MIREYA Last Admin: 10/28/18 21:31 Dose: 40 mg - Labs Labs: 10/26/18 08:00 10/26/18 08:00 PT 12.9 SECONDS (9.7-12.2) H 10/22/18 16:50 INR 1.2 10/22/18 16:50 APTT 28 SECONDS (21-34) 10/22/18 16:50 Attending/Attestation - Attestation I have personally seen and examined this patient.: Yes I have fully participated in the care of the patient.: Yes I have reviewed all pertinent clinical information, including history, physical exam and plan: Yes
[2018-10-29] MEDS: Fluticasone-Vilanterol 200/25mcg Diskus INH SCH (07:46)
[2018-10-29] MEDS: Potassium Chloride 20 mEq ER Tab PO SCH (08:04)
[2018-10-29] MEDS: Pantoprazole 40 mg EC Tab PO SCH (10:13)
[2018-10-29] MEDS: Omega-3-Acid Ethyl Esters 1 GM Cap PO SCH (10:13)
[2018-10-29] MEDS: Promethazine/Cod 6.25mg-10mg/5ml Syr UD PO PRN (10:15)
--- NOTE | 2018-10-29 14:27 | CP.PCM.PN ---
Subjective - Date & Time of Evaluation Date of Evaluation: 10/29/18 Time of Evaluation: 10:00 - Subjective Subjective: clinically same Objective - Vital Signs/Intake and Output Vital Signs (last 24 hours): Temp Pulse Resp BP Pulse Ox 97.9 F 89 20 118/78 98 10/29/18 08:40 10/29/18 08:40 10/29/18 08:40 10/29/18 10:14 10/29/18 08:40 Intake and Output: 10/29/18 10/29/18 06:59 18:59 Intake Total 300 Balance 300 - Medications Medications: Current Medications Acetaminophen (Tylenol 325mg Tab) 650 mg PO Q6 PRN PRN Reason: Pain, mild to moderate (1-7) Last Admin: 10/26/18 15:43 Dose: 650 mg Amoxicillin (Amoxil 500 Mg Cap) 1,000 mg PO BID [facility]; Protocol Last Admin: 10/29/18 10:15 Dose: 1,000 mg Aspirin (Aspirin Chewable) 81 mg PO DAILY COUNT [facility]CLUDES [facility] Last Admin: 10/29/18 10:15 Dose: 81 mg Clarithromycin (Biaxin Filmtab) 500 mg PO Q12H COUNT [facility]CLUDES [facility]; Protocol Last Admin: 10/29/18 05:02 Dose: 500 mg Ezetimibe (Zetia) 10 mg PO DAILY COUNT [facility]CLUD[facility] Last Admin: 10/29/18 10:14 Dose: 10 mg Fluticasone/Vilanterol (Breo Ellipta 200-25 Mcg Inh) 1 puff INH RQD COUNT [facility]CLUDES [facility] Last Admin: 10/29/18 07:46 Dose: 1 puff Isosorbide Mononitrate (Imdur Er) 30 mg PO DAILY COUNT [facility]CLUD[facility] Last Admin: 10/29/18 10:20 Dose: 30 mg Losartan Potassium (Cozaar) 25 mg PO DAILY COUNT [facility] Last Admin: 10/29/18 10:15 Dose: 25 mg Metoprolol Tartrate (Lopressor) 25 mg PO BID COUNT [facility]CLUD[facility] Last Admin: 10/29/18 10:14 Dose: 25 mg Hovdq-1-Wdwb Ethyl Esters (Lovaza) 1 gm PO BID COUNT [facility]CLUDES [facility] Last Admin: 10/29/18 10:13 Dose: Not Given Pantoprazole Sodium (Protonix Ec Tab) 40 mg PO DAILY COUNT [facility]CLUDES [facility] Last Admin: 10/29/18 10:13 Dose: 40 mg Potassium Chloride (K-Dur 20 Meq Er Tab) 40 meq PO BRK COUNT [facility]CLUDES [facility] Last Admin: 10/29/18 08:04 Dose: 40 meq Promethazine HCl/Codeine (Phenergan/Codeine Oral Syrup) 10 ml PO Q8H PRN PRN Reason: Cough Last Admin: 10/29/18 10:15 Dose: 10 ml Rosuvastatin Calcium (Crestor) 40 mg PO HS COUNT [facility]CLUDES [facility] Last Admin: 10/28/18 21:31 Dose: 40 mg - Labs Labs: 10/26/18 08:00 10/26/18 08:00 PT 12.9 SECONDS (9.7-12.2) H 10/22/18 16:50 INR 1.2 10/22/18 16:50 APTT 28 SECONDS (21-34) 10/22/18 16:50 - Constitutional Appears: Well - Head Exam Head Exam: ATRAUMATIC, NORMAL INSPECTION, NORMOCEPHALIC - Eye Exam Eye Exam: EOMI, Normal appearance, PERRL Pupil Exam: NORMAL ACCOMODATION, PERRL - ENT Exam ENT Exam: Mucous Membranes Moist, Normal Exam - Neck Exam Neck Exam: Full ROM, Normal Inspection. absent: Lymphadenopathy - Respiratory Exam Respiratory Exam: Decreased Breath Sounds - Cardiovascular Exam Cardiovascular Exam: REGULAR RHYTHM, +S1, +S2 - GI/Abdominal Exam GI & Abdominal Exam: Soft, Diminished Bowel Sounds - Rectal Exam Rectal Exam: Deferred
[2018-10-30] MEDS: Fluticasone-Vilanterol 200/25mcg Diskus INH SCH (07:46)
[2018-10-30] MEDS: Potassium Chloride 20 mEq ER Tab PO SCH (08:30)
--- NOTE | 2018-10-30 09:58 | CP.PCM.PN ---
<Igor Adam - Last Filed: 10/30/18 14:26> Subjective - Date & Time of Evaluation Date of Evaluation: 10/30/18 Time of Evaluation: 12:00 - Subjective Subjective: Igor Adam DO PGY1 - Cardiology Note for Dr. Olguin Seen and evaluated bedside Patient tolerated cardiac cath well, no complaints voiced on examination. Vital signs stable Objective - Vital Signs/Intake and Output Vital Signs (last 24 hours): Temp Pulse Resp BP Pulse Ox 97.9 F 70 20 121/71 97 10/30/18 07:15 10/30/18 07:15 10/30/18 07:15 10/30/18 07:15 10/30/18 07:15 - Medications Medications: Current Medications Acetaminophen (Tylenol 325mg Tab) 650 mg PO Q6 PRN PRN Reason: Pain, mild to moderate (1-7) Last Admin: 10/26/18 15:43 Dose: 650 mg Amoxicillin (Amoxil 500 Mg Cap) 1,000 mg PO BID [facility]; Protocol Last Admin: 10/29/18 10:15 Dose: 1,000 mg Aspirin (Aspirin Chewable) 81 mg PO DAILY [facility] Last Admin: 10/29/18 10:15 Dose: 81 mg Clarithromycin (Biaxin Filmtab) 500 mg PO Q12H [facility]; Protocol Last Admin: 10/30/18 05:24 Dose: 500 mg Ezetimibe (Zetia) 10 mg PO DAILY [facility] Last Admin: 10/29/18 10:14 Dose: 10 mg Fluticasone/Vilanterol (Breo Ellipta 200-25 Mcg Inh) 1 puff INH RQD [facility] Last Admin: 10/30/18 07:46 Dose: 1 puff Isosorbide Mononitrate (Imdur Er) 30 mg PO DAILY [facility] Last Admin: 10/29/18 10:20 Dose: 30 mg Losartan Potassium (Cozaar) 25 mg PO DAILY [facility] Last Admin: 10/29/18 10:15 Dose: 25 mg Metoprolol Tartrate (Lopressor) 25 mg PO BID [facility] Last Admin: 10/29/18 10:14 Dose: 25 mg Qikaz-5-Vihp Ethyl Esters (Lovaza) 1 gm PO BID [facility] Last Admin: 10/29/18 10:13 Dose: Not Given Pantoprazole Sodium (Protonix Ec Tab) 40 mg PO DAILY [facility] Last Admin: 10/29/18 10:13 Dose: 40 mg Potassium Chloride (K-Dur 20 Meq Er Tab) 40 meq PO BRK [facility] Last Admin: 10/29/18 08:04 Dose: 40 meq Promethazine HCl/Codeine (Phenergan/Codeine Oral Syrup) 10 ml PO Q8H PRN PRN Reason: Cough Last Admin: 10/29/18 10:15 Dose: 10 ml Rosuvastatin Calcium (Crestor) 40 mg PO HS [facility] Last Admin: 10/28/18 21:31 Dose: 40 mg - Labs Labs: 10/26/18 08:00 10/26/18 08:00 PT 12.9 SECONDS (9.7-12.2) H 10/22/18 16:50 INR 1.2 10/22/18 16:50 APTT 28 SECONDS (21-34) 10/22/18 16:50 - Constitutional Appears: Well, Non-toxic, No Acute Distress - Head Exam Head Exam: ATRAUMATIC, NORMOCEPHALIC - Eye Exam Eye Exam: EOMI, PERRL Pupil Exam: NORMAL ACCOMODATION, PERRL - ENT Exam ENT Exam: Mucous Membranes Moist - Respiratory Exam Additional comments: diminished breath sounds in rml/ rll - Cardiovascular Exam Cardiovascular Exam: RRR, +S1, +S2 - GI/Abdominal Exam GI & Abdominal Exam: Soft. absent: Tenderness - Extremities Exam Extremities Exam: Normal Capillary Refill. absent: Pedal Edema - Neurological Exam Neurological Exam: Alert, Awake, Oriented x3 - Psychiatric Exam Psychiatric exam: Normal Affect, Normal Mood - Skin Skin Exam: Dry, Intact, Normal Color, Warm Assessment and Plan (1) HTN (hypertension) Status: Acute (2) Chest pain Status: Acute (3) Coronary artery disease Status: Chronic (4) Hx of CABG Status: Chronic - Assessment and Plan (Free Text) Plan: Tolerated cath well; no bleeding from R groin access site Continue aspirin Zetia Cozaar imdur Toprol Crestor Lovaza Once discharged she can follow up with Dr. Olguin as outpt in 1-2 weeks Further reccs per Dr. Olguin pending <Zachery Olguin - Last Filed: 10/30/18 19:14> Objective - Vital Signs/Intake and Output Vital Signs (last 24 hours): Temp Pulse Resp BP Pulse Ox 98.3 F 86 20 101/59 L 96 10/30/18 15:00 10/30/18 16:00 10/30/18 15:00 10/30/18 15:00 10/30/18 15:00 - Labs Labs: 10/30/18 13:50 10/30/18 13:50 PT 12.9 SECONDS (9.7-12.2) H 10/22/18 16:50 INR 1.2 10/22/18 16:50 APTT 28 SECONDS (21-34) 10/22/18 16:50 Attending/Attestation - Attestation I have personally seen and examined this patient.: Yes I have fully participated in the care of the patient.: Yes I have reviewed all pertinent clinical information, including history, physical exam and plan: Yes Notes (Text): 10/30/18 19:14 s/p LHCx with PCI of augustine LCx/OM bifurcation with V-stenting cont dapt cont bb,arb,statins outpt f/u for staged PCI of RCA in 2-3 weeks
[2018-10-30] MEDS: Omega-3-Acid Ethyl Esters 1 GM Cap PO SCH (10:09)
[2018-10-30] MEDS: Pantoprazole 40 mg EC Tab PO SCH (10:09)
[2018-10-30 13:58] LABS: BASO % 0.4 % (0.0-2.0); EOS # 0.1 K/uL (0.0-0.7); EOS % 0.8 % (0.0-4.0); HEMOGLOBIN 10.5 g/dL (11.0-16.0); LYMPH # 2.6 K/uL (1.0-4.3); LYMPH % 38.3 % (20.0-40.0); MEAN CELL VOLUME 91.7 fL (81.0-99.0); MEAN CORPUSCULAR HEMOGLOBIN 30.7 pg (27.0-31.0); MEAN CORPUSCULAR HGB CONC 33.4 g/dL (33.0-37.0); MEAN PLATELET VOLUME 10.2 fL (7.2-11.7); MONO # 0.8 K/uL (0.0-0.8); MONO % 12.2 % (0.0-10.0); NEUT # 3.2 K/uL (1.8-7.0); NEUT % 48.3 % (50.0-75.0); RBC 3.41 Mil/uL (3.80-5.20); RED CELL DISTRIBUTION WIDTH 12.7 % (11.5-14.5)
[2018-10-30 13:59] LABS: WHITE BLOOD COUNT 6.7 K/uL (4.8-10.8)
[2018-10-30 14:18] LABS: BLOOD UREA NITROGEN 10 mg/dL (7-17); CALCIUM 8.9 mg/dl (8.6-10.4); GFR NON-AFRICAN AMERICAN > 60
--- NOTE | 2018-10-30 16:29 | CP.PCM.PN ---
Subjective - Date & Time of Evaluation Date of Evaluation: 10/30/18 Time of Evaluation: 13:00 Objective - Vital Signs/Intake and Output Vital Signs (last 24 hours): Temp Pulse Resp BP Pulse Ox 97.9 F 70 20 121/67 97 10/30/18 07:15 10/30/18 07:15 10/30/18 07:15 10/30/18 10:09 10/30/18 07:15 - Medications Medications: Current Medications Acetaminophen (Tylenol 325mg Tab) 650 mg PO Q6 PRN PRN Reason: Pain, mild to moderate (1-7) Last Admin: 10/26/18 15:43 Dose: 650 mg Amoxicillin (Amoxil 500 Mg Cap) 1,000 mg PO BID [facility]; Protocol Last Admin: 10/30/18 10:10 Dose: 1,000 mg Aspirin (Aspirin Chewable) 81 mg PO DAILY [facility] Last Admin: 10/30/18 10:09 Dose: 81 mg Clarithromycin (Biaxin Filmtab) 500 mg PO Q12H [facility]; Protocol Last Admin: 10/30/18 05:24 Dose: 500 mg Ezetimibe (Zetia) 10 mg PO DAILY [facility] Last Admin: 10/30/18 10:11 Dose: 10 mg Fluticasone/Vilanterol (Breo Ellipta 200-25 Mcg Inh) 1 puff INH RQD [facility] Last Admin: 10/30/18 07:46 Dose: 1 puff Isosorbide Mononitrate (Imdur Er) 30 mg PO DAILY [facility] Last Admin: 10/30/18 10:09 Dose: 30 mg Losartan Potassium (Cozaar) 25 mg PO DAILY [facility] Last Admin: 10/30/18 10:09 Dose: 25 mg Metoprolol Tartrate (Lopressor) 25 mg PO BID [facility] Last Admin: 10/30/18 10:09 Dose: 25 mg Jjkhd-2-Wayl Ethyl Esters (Lovaza) 1 gm PO BID [facility] Last Admin: 10/30/18 10:09 Dose: 1 gm Pantoprazole Sodium (Protonix Ec Tab) 40 mg PO DAILY [facility] Last Admin: 10/30/18 10:09 Dose: 40 mg Potassium Chloride (K-Dur 20 Meq Er Tab) 40 meq PO BRK [facility] Last Admin: 10/30/18 08:30 Dose: 40 meq Promethazine HCl/Codeine (Phenergan/Codeine Oral Syrup) 10 ml PO Q8H PRN PRN Reason: Cough Last Admin: 10/29/18 10:15 Dose: 10 ml Rosuvastatin Calcium (Crestor) 40 mg PO HS [facility] Last Admin: 10/28/18 21:31 Dose: 40 mg - Labs Labs: 10/30/18 13:50 10/30/18 13:50 PT 12.9 SECONDS (9.7-12.2) H 10/22/18 16:50 INR 1.2 10/22/18 16:50 APTT 28 SECONDS (21-34) 10/22/18 16:50
[2018-10-30 16:44] VITALS: PULSE 86
[2018-10-30 17:46] VITALS: BP 101/59; TEMP 98.3; O2SAT 96
== END 2018-10-30 18:07 | disposition home or self-care (01) | DRG 125 ==
LOC: C.ER 16:36 → C.9E 18:09 → C.6T 22:12 → OBSVTOIN 10-20 11:30 → C.6T 10-23 22:58
PROVIDERS: ADMIT Internal Medicine Nephrology; ATTEND Internal Medicine Nephrology
PROC: 0DB88ZX Excision of Small Intestine, Via Natural or Artificial Opening Endoscopic, Diagnostic (ICD-10-PCS; 2018-10-23)
PROC: 4A023N7 Measurement of Cardiac Sampling and Pressure, Left Heart, Percutaneous Approach (ICD-10-PCS; principal; 2018-10-25)
PROC: B2111ZZ Fluoroscopy of Multiple Coronary Arteries using Low Osmolar Contrast (ICD-10-PCS; 2018-10-25)
PROC: B2151ZZ Fluoroscopy of Left Heart using Low Osmolar Contrast (ICD-10-PCS; 2018-10-25)
DX: I25.10 Atherosclerotic heart disease of native coronary artery without angina pectoris (principal); J20.9 Acute bronchitis, unspecified; D64.9 Anemia, unspecified; I10 Essential (primary) hypertension; E78.00 Pure hypercholesterolemia, unspecified; Z95.1 Presence of aortocoronary bypass graft; K44.9 Diaphragmatic hernia without obstruction or gangrene; K21.0 Gastro-esophageal reflux disease with esophagitis; K27.9 Peptic ulcer, site unspecified, unspecified as acute or chronic, without hemorrhage or perforation; B96.81 Helicobacter pylori [H. pylori] as the cause of diseases classified elsewhere; K29.70 Gastritis, unspecified, without bleeding; J45.909 Unspecified asthma, uncomplicated

== ENCOUNTER 2018-11-03 12:31 | Inpatient (IN) | payer MEDICAID, OTHER ==
[2018-11-03 12:31] VITALS: BMI 29.2
[2018-11-03] MEDS ORDERED: Nitroglycerin 2% Ointment Foilpak UD TOP STA ×2 (12:37→13:50)
[2018-11-03] MEDS ORDERED: Aspirin 325 mg EC Tablets PO STA (12:37)
[2018-11-03] MEDS ORDERED: Sodium Chloride 0.9% 500 ML IV ONE ×4 (12:52→18:45)
[2018-11-03 13:08] LABS: BASO % 0.6 % (0.0-2.0); EOS % 0.6 % (0.0-4.0); HEMOGLOBIN 11.2 g/dL (11.0-16.0); LYMPH % 35.9 % (20.0-40.0); MEAN CELL VOLUME 91.2 fL (81.0-99.0); MEAN CORPUSCULAR HEMOGLOBIN 30.1 pg (27.0-31.0); MEAN PLATELET VOLUME 9.9 fL (7.2-11.7); MONO # 0.7 K/uL (0.0-0.8); MONO % 8.1 % (0.0-10.0); NEUT # 4.5 K/uL (1.8-7.0); NEUT % 54.8 % (50.0-75.0); RBC 3.71 Mil/uL (3.80-5.20); RED CELL DISTRIBUTION WIDTH 13.3 % (11.5-14.5); WHITE BLOOD COUNT 8.2 K/uL (4.8-10.8)
[2018-11-03 13:10] LABS: INR 1.2; PROTHROMBIN TIME 12.6 SECONDS (9.7-12.2)
--- NOTE | 2018-11-03 13:22 | C.PDOC ---
History Of Present Illness 63 years old female with PMHx of CABG (20 years ago) and stent placement (1 week ago) presents to ED for complaints of left sided chest pain that began 1 hour ago. Patient describes pain as squeezing and radiating to neck. Denies SOB or any other complaints. Time Seen by Provider: 11/03/18 12:37 Chief Complaint (Nursing): Chest Pain History Per: Patient History/Exam Limitations: no limitations Onset/Duration Of Symptoms: Hrs Current Symptoms Are (Timing): Still Present Quality: Squeezing Modifying Factors: None Exacerbating Factors: None Alleviating Factors: None Recent travel outside of the [place]: No Past Medical History Reviewed: Historical Data, Nursing Documentation, Vital Signs Vital Signs: Last Vital Signs Temp 98.4 F 11/03/18 12:35 Pulse 71 11/03/18 12:35 Resp 14 11/03/18 12:55 BP 104/59 L 11/03/18 12:35 Pulse Ox 98 11/03/18 12:35 - Medical History PMH: CAD, HTN, Hypercholesterolemia Surgical History: CABG (Triple Bypass), Coronary Stent - [facility] Procedures EXCISION OF SMALL INTESTINE, ENDO, DIAGN (10/20/18) FLUOROSCOPY OF LEFT HEART USING LOW OSMOLAR CONTRAST (10/20/18) FLUOROSCOPY OF MULT COR ART USING L OSM CONTRAST (10/20/18) MEASURE OF CARDIAC SAMPL & PRESSURE, L HEART, PERC APPROACH (10/20/18) Family History: States: Unknown Family Hx - Social History Hx Tobacco Use: No Hx Alcohol Use: No Hx Substance Use: No - Immunization History Hx Tetanus Toxoid Vaccination: No Hx Influenza Vaccination: No Hx Pneumococcal Vaccination: Yes Review Of Systems Except As Marked, All Systems Reviewed And Found Negative. Constitutional: Negative for: Fever, Chills Cardiovascular: Positive for: Chest Pain (Left sided ) Respiratory: Negative for: Cough, Shortness of Breath Gastrointestinal: Negative for: Nausea, Vomiting, Abdominal Pain, Diarrhea Skin: Negative for: Rash Neurological: Negative for: Weakness, Numbness Physical Exam - Physical Exam Appears: Non-toxic, No Acute Distress, Other (Generalized weakness ) Skin: Normal Color, Warm, Dry, No Rash Head: Atraumatic, Normacephalic Eye(s): bilateral: Normal Inspection, PERRL, EOMI Oral Mucosa: Moist Neck: Normal ROM, Supple Chest: Symmetrical, No Tenderness Cardiovascular: Rhythm Regular, No Murmur Respiratory: Normal Breath Sounds, No Rales, No Rhonchi, No Wheezing Gastrointestinal/Abdominal: Bowel Sounds (ACtive ), Soft, No Tenderness, No Guarding, No Rebound Extremity: Normal ROM Extremity: Bilateral: Atraumatic, Normal Color And Temperature, Normal ROM Pulses: Left Radial: Normal, Right Radial: Normal Neurological/Psych: Oriented x3, Normal Speech, Other (No focal deficits ) Gait: Steady ED Course And Treatment - Laboratory Results Result Diagrams: 11/03/18 13:03 11/03/18 12:58 Lab Results: PT 12.6 SECONDS (9.7-12.2) H 11/03/18 12:58 INR 1.2 11/03/18 12:58 APTT 29 SECONDS (21-34) 11/03/18 12:58 O2 Sat by Pulse Oximetry: 98 (RA) Pulse Ox Interpretation: Normal - Other Rad CXR X-Ray: Viewed By Me, Read By Radiologist Interpretation: Date of service: 11/03/2018. HISTORY: chest pain. COMPARISON: Portable chest 10/23/2018. FINDINGS: LUNGS: No active pulmonary disease. PLEURA: No significant pleural effusion identified, no pneumothorax apparent. CARDIOVASCULAR: No aortic atherosclerotic calcification present. Cardiac silhouette stable in size with post CABG changes reiterated. No pulmonary vascular congestion. OSSEOUS STRUCTURES: Scoliotic thoracolumbar spinal deformity. VISUALIZED UPPER ABDOMEN: Normal. OTHER FINDINGS: None. IMPRESSION: No active disease. Medical Decision Making Medical Decision Making: Plan: * Aspirin * Nitroglycerine * IV Fluids * EKG * CXR * Blood work * O2 via nasal cannula EKG: * Normal sinus rhythm at 70 bpm * Incomplete Rbbb * T-wave inversions in v1 & v3 Progress: Spoke with Dr. Olguin which recommended to admit to PMD with chest pain. 14:00: Discussed with Dr. Olguin: aware of elevated troponin and patient having pain, states will admit for observation and no heparin drip for now. Disposition Discussed With : Ramirez Adam Doctor Will See Patient In The: Hospital Counseled Patient/Family Regarding: Studies Performed, Diagnosis - Disposition Disposition: HOSPITALIZED Disposition Time: 14:33 Condition: STABLE - Clinical Impression Clinical Impression: Chest pain, Coronary artery disease - Scribe Statement The provider has reviewed the documentation as recorded by the Roland Golden All medical record entries made by the Roland were at my direction and personally dictated by me. I have reviewed the chart and agree that the record accurately reflects my personal performance of the history, physical exam, medical decision making, and the department course for this patient. I have also personally directed, reviewed, and agree with the discharge instructions and disposition.
[2018-11-03 13:29] LABS: LDL CHOLESTEROL 114 mg/dL (0-129)
[2018-11-03 13:32] LABS: B-TYPE NATRIURETIC PEPTIDE 90.7 pg/mL (0-900)
[2018-11-03 13:41] LABS: ALB/GLOB RATIO 1.4 (1.0-2.1); ALBUMIN 4.3 g/dL (3.5-5.0); ALT/SGPT 41 U/L (9-52); AST/SGOT 49 U/L (14-36); BLOOD UREA NITROGEN 14 mg/dL (7-17); CALCIUM 9.8 mg/dl (8.6-10.4); GFR NON-AFRICAN AMERICAN > 60; HDL CHOLESTEROL 26 mg/dL (30-70)
[2018-11-03] MEDS ORDERED: Nitroglycerin 2% Ointment Foilpak UD TOP ONE (13:41)
--- NOTE | 2018-11-03 14:26 | RAD ---
Date of service: 11/03/2018 HISTORY: chest pain COMPARISON: Portable chest 10/23/2018. FINDINGS: LUNGS: No active pulmonary disease. PLEURA: No significant pleural effusion identified, no pneumothorax apparent. CARDIOVASCULAR: No aortic atherosclerotic calcification present. Cardiac silhouette stable in size with post CABG changes reiterated. No pulmonary vascular congestion. OSSEOUS STRUCTURES: Scoliotic thoracolumbar spinal deformity. VISUALIZED UPPER ABDOMEN: Normal. OTHER FINDINGS: None. IMPRESSION: No active disease.
--- NOTE | 2018-11-03 17:10 | CP.PCM.HP ---
Past Patient History - Infectious Disease Hx of Infectious Diseases: None - Past Medical History & Family History Past Medical History?: Yes - Past Social History Smoking Status: Never Smoked - CARDIAC Hx Hypercholesterolemia: Yes Hx Hypertension: Yes - PULMONARY Hx Respiratory Disorders: No - NEUROLOGICAL Hx Neurological Disorder: No - HEENT Hx HEENT Problems: No Other/Comment: Difficulty opening eyes once in a while but vision is fine - RENAL Hx Chronic Kidney Disease: No - ENDOCRINE/METABOLIC Hx Endocrine Disorders: No - HEMATOLOGICAL/ONCOLOGICAL Hx Blood Disorders: No - INTEGUMENTARY Hx Dermatological Problems: No - MUSCULOSKELETAL/RHEUMATOLOGICAL Hx Falls: No - GASTROINTESTINAL Hx Gastrointestinal Disorders: No - GENITOURINARY/GYNECOLOGICAL Hx Genitourinary Disorders: No - PSYCHIATRIC Hx Substance Use: No - SURGICAL HISTORY Hx Coronary Artery Bypass Graft: Yes (Triple Bypass) Hx Coronary Stent: Yes - ANESTHESIA Hx Anesthesia: Yes Hx Anesthesia Reactions: No Hx Malignant Hyperthermia: No Meds Allergies/Adverse Reactions: Allergies Allergy/AdvReac Type Severity Reaction Status Date / Time No Known Allergies Allergy Verified 10/18/18 16:42 Physical Exam - Constitutional Appears: Well - Head Exam Head Exam: ATRAUMATIC, NORMAL INSPECTION, NORMOCEPHALIC - Eye Exam Eye Exam: EOMI, Normal appearance, PERRL Pupil Exam: NORMAL ACCOMODATION, PERRL - ENT Exam ENT Exam: Mucous Membranes Moist, Normal Exam - Neck Exam Neck exam: Positive for: Normal Inspection - Respiratory Exam Respiratory Exam: Decreased Breath Sounds - Cardiovascular Exam Cardiovascular Exam: REGULAR RHYTHM, +S1, +S2 - GI/Abdominal Exam GI & Abdominal Exam: Diminished Bowel Sounds, Soft - Rectal Exam Rectal Exam: Deferred Results - Vital Signs Recent Vital Signs: Last Vital Signs Temp 98.4 F 11/03/18 12:35 Pulse 65 11/03/18 15:34 Resp 14 11/03/18 12:55 BP 114/62 11/03/18 15:34 Pulse Ox 97 11/03/18 15:34 - Labs Result Diagrams: 11/03/18 13:03 11/03/18 12:58 Labs: Laboratory Results - last 24 hr 11/03/18 11/03/18 11/03/18 12:58 12:58 13:03 WBC 8.2 RBC 3.71 L Hgb 11.2 Hct 33.8 L MCV 91.2 MCH 30.1 MCHC 33.0 RDW 13.3 Plt Count 269 MPV 9.9 Neut % (Auto) 54.8 Lymph % (Auto) 35.9 Carlton % (Auto) 8.1 Eos % (Auto) 0.6 Baso % (Auto) 0.6 Neut # (Auto) 4.5 Lymph # (Auto) 3.0 Carlton # (Auto) 0.7 Eos # (Auto) 0.0 Baso # (Auto) 0.0 PT 12.6 H INR 1.2 APTT 29 Sodium 136 Potassium 3.9 Chloride 101 Carbon Dioxide 25 Anion Gap 14 BUN 14 Creatinine 0.6 L Est GFR ( Amer) > 60 Est GFR (Non-Af Amer) > 60 Random Glucose 153 H Calcium 9.8 Total Bilirubin 1.3 AST 49 H D ALT 41 Alkaline Phosphatase 66 Troponin I 0.0760 NT-Pro-B Natriuret Pep 90.7 Total Protein 7.3 Albumin 4.3 Globulin 3.1 Albumin/Globulin Ratio 1.4 Triglycerides 153 H D Cholesterol 158 LDL Cholesterol Direct 114 HDL Cholesterol 26 L
[2018-11-03 20:35] LABS: CK-MB 33.5 ng/mL (0.0-3.38); TROPONIN I 2.54 ng/mL (0.00-0.120)
[2018-11-03] MEDS ORDERED: Heparin25000 units/250ml 1/2NS 25,000 UNITS/250 ML BAG IV PRN ×2 (20:50→21:01)
[2018-11-03] MEDS ORDERED: Home Med 1 UNIT (Atorvastatin Calcium [Atorvastatin Calcium] 80 MG) PO SCH (22:00)
[2018-11-04] MEDS ORDERED: Sodium Chloride 0.9% 500 ML IV STA (01:58)
[2018-11-04] MEDS ORDERED: Sodium Chloride 0.9% 500 ML IV SCH (02:00)
--- NOTE | 2018-11-04 02:00 | PCM.RRT ---
SENIOR CYTOGENETIC TECHNOLOGIST Nurses Assessment - Situation Date: 11/04/18 Time SENIOR CYTOGENETIC TECHNOLOGIST was called: 01:35 SENIOR CYTOGENETIC TECHNOLOGIST Responder Arrival Time:: 01:37 SENIOR CYTOGENETIC TECHNOLOGIST Location:: Med/Surg Room Number: 551A SENIOR CYTOGENETIC TECHNOLOGIST Reason for Call: Chest Pain (diaphoresis, vomiting x1. I was called to evaluate the pt for these symptoms. Pt complaining of back pain>chest pain. ), Looks Sicker SENIOR CYTOGENETIC TECHNOLOGIST Called By: RN, Patient/Family Request - IV IV Inserted during SENIOR CYTOGENETIC TECHNOLOGIST?: No IV Fluids Initiated During SENIOR CYTOGENETIC TECHNOLOGIST?: 1000mL NS bolus - Respiratory SENIOR CYTOGENETIC TECHNOLOGIST Delivery Method: Nasal Cannula @L/min (100% on 3L NC) - Diagnostic Test Ordered CT Scan: Yes (Chest/Abd/Pelv CTA) - Vital Signs Vital Signs: right arm BP 115/75 mmHg, left arm 96/61 mmHg. HR is 65, 100% spo2 on 3L NC. RR is 18 - Inés Coma Scale Coma Scale Eye Opening: Spontaneous Coma Scale Motor: Obeys Commands Movement Coma Scale Verbal: Oriented Coma Scale Total: 15 - Vital Signs at end of SENIOR CYTOGENETIC TECHNOLOGIST Vital Signs at end of SENIOR CYTOGENETIC TECHNOLOGIST: BP is 126/76. HR is 71. 100% on 3L NC. RR is 18 - Recommendations 5) SENIOR CYTOGENETIC TECHNOLOGIST Level of Care Recommendations: Transfer to ICU Notifications: Consultations (ICU, Dr. Missael Adam, will accept the pt.)
[2018-11-04 02:37] LABS: CK-MB 94.9 ng/mL (0.0-3.38); TROPONIN I 8.76 ng/mL (0.00-0.120)
[2018-11-04] MEDS ORDERED: Iodixanol 320 MG/ML 100 ML BOTTLE IV ONE (02:40)
[2018-11-04] MEDS ORDERED: Lactated Ringer's 1,000 ML IV ONE (02:57)
[2018-11-04] MEDS ORDERED: Sodium Chloride 0.9% 1,000 ML IV SCH (03:00)
[2018-11-04] MEDS ORDERED: Nitroglycerin 50mg in D5W 50 MG/250 ML BOTTLE IV SCH (03:15)
--- NOTE | 2018-11-04 03:30 | CP.PCM.CON ---
History of Present Illness - History of Present Illness History of Present Illness: Patient noted to have severe chest pain with diaphoresis. Chest pain described as sharp to dull, waxing and waning, no radiation, associated with nausea/vomitting. Patient was seen and examined at bedside. This is a 63 y/o female with recent h/o chest pain s/p PCI presents again with c/o chest pain. Patient has h/o CABG and suspect severe ASHD. EKG reveals ST wave inversion in V2, V3, V4, central supply manager was informed of the EKG changes. Code heart was called. PMHx - CAD PSHx - CABG. Denies previous EGD, colonoscopy. FMHx - Denies GI related cancers. SocHx - Denies alcohol, smoking. ROS: severe chest pain as per HPI, all other systems negative Review of Systems - Constitutional Constitutional: As Per HPI - Cardiovascular Cardiovascular: Chest Pain, Chest Pain at Rest, Chest Pain with Activity, Dyspnea. absent: Edema, Irregular Heart Rhythm, Leg Edema, Lightheadedness, Palpitations, Paroxysmal Nocturnal Dyspnea, Rapid Heart Rate, Slow Heart Rate, Syncope - Respiratory Respiratory: As Per HPI. absent: Wheezing, Pain on Inspiration, Excessive Mucous Production, Change in Mucous Color Past Patient History - Infectious Disease Hx of Infectious Diseases: None - Past Medical History & Family History Past Medical History?: Yes - Past Social History Smoking Status: Never Smoked - CARDIAC Hx Hypercholesterolemia: Yes Hx Hypertension: Yes - PULMONARY Hx Respiratory Disorders: No - NEUROLOGICAL Hx Neurological Disorder: No - HEENT Hx HEENT Problems: No Other/Comment: Difficulty opening eyes once in a while but vision is fine - RENAL Hx Chronic Kidney Disease: No - ENDOCRINE/METABOLIC Hx Endocrine Disorders: No - HEMATOLOGICAL/ONCOLOGICAL Hx Blood Disorders: No - INTEGUMENTARY Hx Dermatological Problems: No - MUSCULOSKELETAL/RHEUMATOLOGICAL Hx Falls: No - GASTROINTESTINAL Hx Gastrointestinal Disorders: No - GENITOURINARY/GYNECOLOGICAL Hx Genitourinary Disorders: No - PSYCHIATRIC Hx Substance Use: No - SURGICAL HISTORY Hx Coronary Artery Bypass Graft: Yes (Triple Bypass) Hx Coronary Stent: Yes - ANESTHESIA Hx Anesthesia: Yes Hx Anesthesia Reactions: No Hx Malignant Hyperthermia: No Meds Allergies/Adverse Reactions: Allergies Allergy/AdvReac Type Severity Reaction Status Date / Time No Known Allergies Allergy Verified 10/18/18 16:42 - Medications Medications: Current Medications Aspirin (Ecotrin) 325 mg PO DAILY [facility] Ezetimibe (Zetia) 10 mg PO DAILY [facility] Fluticasone/Vilanterol (Breo Ellipta 200-25 Mcg Inh) 1 puff INH RQD [facility] Heparin Sodium/Sodium Chloride (Heparin 11941 Units/250ml 1/2 Normal Saline) 25,000 units in 250 mls @ 8.709 mls/hr IV .Q24H PRN; Protocol PRN Reason: PROTOCOL Last Admin: 11/03/18 21:22 Dose: 12 units/kg/hr, 8.709 mls/hr Sodium Chloride (Sodium Chloride 0.9%) 500 mls @ 1,000 mls/hr IV .Q30M [facility] Sodium Chloride (Sodium Chloride 0.9%) 1,000 mls @ 75 mls/hr IV .[id number] [facility] Lactated Ringer's (Lactated Ringer's) 1,000 mls @ 1,000 mls/hr IV .Q1H ONE Stop: 11/04/18 03:56 Nitroglycerin/Dextrose (Nitroglycerin 50 Mg/250 Ml D5w) 50 mg in 250 mls @ 1.5 mls/hr IV .Q24H [facility]REYA; Protocol Metoprolol Tartrate (Lopressor) 25 mg PO BID [facility] Stheg-1-Ablx Ethyl Esters (Lovaza) 1 gm PO BID [facility] Pantoprazole Sodium (Protonix Ec Tab) 40 mg PO DAILY [facility] Rosuvastatin Calcium (Crestor) 40 mg PO HS [facility] Last Admin: 11/03/18 22:54 Dose: 40 mg Ticagrelor (Brilinta) 90 mg PO BID [facility] Physical Exam - Head Exam Head Exam: ATRAUMATIC, NORMAL INSPECTION, NORMOCEPHALIC - Eye Exam Eye Exam: EOMI - Respiratory Exam Respiratory Exam: Clear to Auscultation Bilateral, NORMAL BREATHING PATTERN - Cardiovascular Exam Cardiovascular Exam: REGULAR RHYTHM, +S1, +S2, Systolic Murmur - GI/Abdominal Exam GI & Abdominal Exam: Normal Bowel Sounds, Soft - Extremities Exam Extremities exam: Positive for: normal inspection - Neurological Exam Neurological exam: Alert, Oriented x3 - Skin Skin Exam: Normal Color, Warm Results - Vital Signs Recent Vital Signs: Last Vital Signs Temp 98.0 F 11/04/18 02:00 Pulse 71 11/04/18 02:00 Resp 18 11/04/18 02:00 BP 126/76 11/04/18 02:00 Pulse Ox 100 11/04/18 02:00 - Labs Result Diagrams: 11/03/18 13:03 11/03/18 12:58 Labs: Laboratory Results - last 24 hr 11/03/18 11/03/18 11/03/18 12:58 12:58 13:03 WBC 8.2 RBC 3.71 L Hgb 11.2 Hct 33.8 L MCV 91.2 MCH 30.1 MCHC 33.0 RDW 13.3 Plt Count 269 MPV 9.9 Neut % (Auto) 54.8 Lymph % (Auto) 35.9 Whitfield % (Auto) 8.1 Eos % (Auto) 0.6 Baso % (Auto) 0.6 Neut # (Auto) 4.5 Lymph # (Auto) 3.0 Whitfield # (Auto) 0.7 Eos # (Auto) 0.0 Baso # (Auto) 0.0 PT 12.6 H INR 1.2 APTT 29 Sodium 136 Potassium 3.9 Chloride 101 Carbon Dioxide 25 Anion Gap 14 BUN 14 Creatinine 0.6 L Est GFR ( Amer) > 60 Est GFR (Non-Af Amer) > 60 POC Glucose (mg/dL) Random Glucose 153 H Calcium 9.8 Total Bilirubin 1.3 AST 49 H D ALT 41 Alkaline Phosphatase 66 Total Creatine Kinase CK-MB (Mass) Troponin I 0.0760 NT-Pro-B Natriuret Pep 90.7 Total Protein 7.3 Albumin 4.3 Globulin 3.1 Albumin/Globulin Ratio 1.4 Triglycerides 153 H D Cholesterol 158 LDL Cholesterol Direct 114 HDL Cholesterol 26 L 11/03/18 11/03/18 11/04/18 18:46 19:41 01:39 WBC RBC Hgb Hct MCV MCH MCHC RDW Plt Count MPV Neut % (Auto) Lymph % (Auto) Whitfield % (Auto) Eos % (Auto) Baso % (Auto) Neut # (Auto) Lymph # (Auto) Whitfield # (Auto) Eos # (Auto) Baso # (Auto) PT INR APTT Sodium Potassium Chloride Carbon Dioxide Anion Gap BUN Creatinine Est GFR ( Amer) Est GFR (Non-Af Amer) POC Glucose (mg/dL) 135 H 174 H Random Glucose Calcium Total Bilirubin AST ALT Alkaline Phosphatase Total Creatine Kinase 459 H CK-MB (Mass) 33.5 H Troponin I 2.5400 H* NT-Pro-B Natriuret Pep Total Protein Albumin Globulin Albumin/Globulin Ratio Triglycerides Cholesterol LDL Cholesterol Direct HDL Cholesterol 11/04/18 11/04/18 02:02 02:47 WBC RBC Hgb Hct MCV MCH MCHC RDW Plt Count MPV Neut % (Auto) Lymph % (Auto) Whitfield % (Auto) Eos % (Auto) Baso % (Auto) Neut # (Auto) Lymph # (Auto) Whitfield # (Auto) Eos # (Auto) Baso # (Auto) PT INR APTT 87 H D Sodium Potassium Chloride Carbon Dioxide Anion Gap BUN Creatinine Est GFR ( Amer) Est GFR (Non-Af Amer) POC Glucose (mg/dL) Random Glucose Calcium Total Bilirubin AST ALT Alkaline Phosphatase Total Creatine Kinase 1050 H CK-MB (Mass) 94.9 H Troponin I 8.7600 H* NT-Pro-B Natriuret Pep Total Protein Albumin Globulin Albumin/Globulin Ratio Triglycerides Cholesterol LDL Cholesterol Direct HDL Cholesterol - EKG Data When Compared to Previous EKG: Significant Changes Interpretation: Acute Ischemia Assessment & Plan - Assessment and Plan (Free Text) Assessment: Acute Myocardial Infarction: etiology LAD/obtuse/Posterior descending, will benefit from early interventional, Dr. Olguin, notified, Code heart called -Brillinta loading, asa, loading, IV heparin last ptt 87, nitro ggt for pain free -monitor in ICU setting -PAtient's last bnp 90 -hold cozaar -continue lopressor -continue pud ppx -CT angio pending r/o dissection -Prognosis guarded as patient with severe ASHD. -CXR reveals slight congestion -continue to monitor -keep spo2 >92 -Keep MAP >65 -no indication for central line or intubation. -continue to monitor in ICU setting cc time 37 minutes d/w sons at bedside. - Date & Time Date: 11/04/18 Time: 03:36
[2018-11-04] MEDS ORDERED: Iodixanol 320 MG/ML 200 ML BOTTLE IV ONE ×2 (04:03→05:31)
[2018-11-04] MEDS ORDERED: Midazolam 2 MG/2 ML VIAL ONE ×2 (04:26→05:00)
[2018-11-04] MEDS ORDERED: Morphine 4 MG/ML VIAL ONE (04:50)
[2018-11-04] MEDS ORDERED: Amiodarone 150mg/3 ml vial ONE (05:15)
[2018-11-04] MEDS ORDERED: Eptifibatide 20 mg/10mL Inj IVP ONE (05:36)
[2018-11-04] MEDS: Nitroglycerin 50mg in D5W 50 MG/250 ML BOTTLE IV ONE (06:00)
[2018-11-04] MEDS ORDERED: Eptifibatide 0.75 mg/ml 75 MG/100 ML BOTTLE IV ONE (06:02)
[2018-11-04] MEDS: Fluticasone-Vilanterol 200/25mcg Diskus INH SCH (08:00)
[2018-11-04] MEDS ORDERED: Eptifibatide 0.75 mg/ml 75 MG/100 ML BOTTLE IV SCH (08:00)
--- NOTE | 2018-11-04 09:12 | RAD ---
Chest x-ray single frontal view HISTORY: Chest pain. COMPARISON: 11/03/2018 Findings: Biapical pleural thickening with upper lobe granulomatous changes. Diffuse increased interstitial lung markings. Moderate venous congestion. Status post median sternotomy and CABG. Multiple overlying wires and tubings. Cardiomegaly. Degenerative changes in the spine and shoulders. Impression: Biapical pleural thickening with upper lobe granulomatous changes. Diffuse increased interstitial lung markings. Moderate venous congestion. Status post median sternotomy and CABG. Multiple overlying wires and tubings. Cardiomegaly.
[2018-11-04] MEDS ORDERED: Losartan 12.5 MG TAB PO SCH (10:00)
[2018-11-04] MEDS ORDERED: Racepinephrine 2.25% Inhal Soln 0.5 ML UD INH ONE (10:11)
[2018-11-04 10:29] LABS: BASO % 0.1 % (0.0-2.0); EOS % 0.1 % (0.0-4.0); HEMOGLOBIN 10.1 g/dL (11.0-16.0); LYMPH # 0.9 K/uL (1.0-4.3); LYMPH % 9.3 % (20.0-40.0); MEAN CELL VOLUME 91.1 fL (81.0-99.0); MEAN CORPUSCULAR HEMOGLOBIN 30.8 pg (27.0-31.0); MEAN CORPUSCULAR HGB CONC 33.9 g/dL (33.0-37.0); MEAN PLATELET VOLUME 9.9 fL (7.2-11.7); MONO # 0.6 K/uL (0.0-0.8); MONO % 6.1 % (0.0-10.0); NEUT # 8.2 K/uL (1.8-7.0); NEUT % 84.4 % (50.0-75.0); PLATELET COUNT 195 K/uL (130-400); RBC 3.29 Mil/uL (3.80-5.20); RED CELL DISTRIBUTION WIDTH 13.1 % (11.5-14.5); WHITE BLOOD COUNT 9.8 K/uL (4.8-10.8)
[2018-11-04] MEDS: Pantoprazole 40 mg EC Tab PO SCH (10:30)
[2018-11-04] MEDS: Aspirin 325 mg EC Tablets PO SCH (10:55)
[2018-11-04 10:57] LABS: INR 1.2; PROTHROMBIN TIME 13.5 SECONDS (9.7-12.2)
[2018-11-04] MEDS: Omega-3-Acid Ethyl Esters 1 GM Cap PO SCH ×2 (10:57→18:46)
[2018-11-04 11:10] LABS: ALB/GLOB RATIO 1.3 (1.0-2.1); ALBUMIN 3.3 g/dL (3.5-5.0); ALT/SGPT 93 U/L (9-52); AST/SGOT 568 U/L (14-36); BLOOD UREA NITROGEN 15 mg/dL (7-17); CALCIUM 8.1 mg/dl (8.6-10.4); GFR NON-AFRICAN AMERICAN > 60
[2018-11-04 11:53] LABS: ANISOCYTOSIS SLIGHT; BANDS 1 % (0-2); LYMPHOCYTE 10 % (20-40); MONOCYTE 6 % (0-10); NEUTROPHIL 83 % (50-75); PLATELET ESTIMATE NORMAL (NORMAL); POIKILOCYTOSIS SLIGHT; TOTAL CELLS COUNTED 100
[2018-11-04 11:54] LABS: BURR CELLS SLIGHT; GIANT PLATELETS PRESENT; HYPOCHROMIC SLIGHT; LARGE PLATELETS PRESENT; OVALOCYTES SLIGHT; TARGET CELLS SLIGHT
[2018-11-04] MEDS ORDERED: Heparin25000 units/250ml 1/2NS 25,000 UNITS/250 ML BAG IV PRN (13:30)
--- NOTE | 2018-11-04 14:32 | RAD ---
Date of service: 11/04/2018 HISTORY: hemoptysis COMPARISON: 11/04/2018 at 3:22 a.m. FINDINGS: LUNGS: Ill-defined opacity right perihilar, representing interval change from earlier examination. Given the short time interval since the earlier examination, consider pulmonary edema. No left-sided infiltrate. PLEURA: Possible small right pleural effusion. No left pleural effusion. No pneumothorax. CARDIOVASCULAR: No aortic atherosclerotic calcification present. Normal heart size. Status post CABG. No definite congestive change. No pulmonary vascular congestion. OSSEOUS STRUCTURES: No significant abnormalities. VISUALIZED UPPER ABDOMEN: Normal. OTHER FINDINGS: None. IMPRESSION: Ill-defined opacity right perihilar. Possible small right pleural effusion. Possible pneumonia. Follow-up advised.
--- NOTE | 2018-11-04 16:16 | CP.CCUPN ---
CCU Subjective - Physician Review Subjective (Free Text): PGY-[address] Milvia Morris service Patient is seen and examined at bedside. Patient reports coughing blood, inside of mouth with bloody mucous observed. As per family, patient had previously vomited blood since she came to ICU bed. Patient denies shortness of breath, chest pain, abdominal pain. Patient on heparin drip and integrillin Critical Care Time Spent (in minutes): 40 CCU Objective - Vital Signs / Intake & Output Vital Signs (Last 4 hours): Vital Signs Temp Pulse Resp BP Pulse Ox 11/04/18 15:18 144/94 H 11/04/18 15:16 82 20 95 11/04/18 15:10 76 27 H 96 11/04/18 15:00 98.6 F 83 30 H 134/87 93 L 11/04/18 14:50 79 20 94 L 11/04/18 14:48 85 18 148/85 94 L 11/04/18 14:40 89 16 94 L 11/04/18 14:30 98.6 F 80 22 134/87 98 11/04/18 14:20 76 27 H 96 11/04/18 14:18 77 28 H 138/77 96 11/04/18 14:10 76 26 H 98 11/04/18 14:00 98.5 F 72 24 134/87 97 11/04/18 13:54 79 11/04/18 13:50 73 30 H 96 11/04/18 13:48 76 25 H 134/87 96 11/04/18 13:40 75 28 H 95 11/04/18 13:30 98.5 F 82 12 140/87 90 L 11/04/18 13:20 76 28 H 96 11/04/18 13:18 78 19 132/85 97 11/04/18 13:10 78 34 H 96 11/04/18 13:00 98.5 F 77 27 H 140/85 95 11/04/18 12:50 75 28 H 95 11/04/18 12:48 76 28 H 140/85 93 L 11/04/18 12:40 78 27 H 91 L 11/04/18 12:30 98.5 F 92 H 19 144/83 91 L 11/04/18 12:20 85 14 93 L 11/04/18 12:18 84 14 141/74 94 L Intake and Output (Last 8hrs): Intake & Output 11/04/18 11/04/18 11/04/18 06:59 14:59 22:59 Intake Total 146.6 418.2 124.2 Output Total 0 400 Balance 146.6 18.2 124.2 Weight 170 lb 154 lb 5.177 oz Intake: Intake, IV Amount 26.6 58.2 4.2 Left Antecubital 5 23.4 4.2 Left Wrist 11.6 34.8 Right Antecubital 10 Oral 120 360 120 Output: Urine 0 250 Urine, Voided 0 250 Stool 0 Emesis 150 Other: Voiding Method Bedpan # Voids Urine, Voided 1 - Physical Exam Head: Positive for: Atraumatic, Normocephalic Pupils: Positive for: PERRL Extroacular Muscles: Positive for: EOMI Conjunctiva: Positive for: Normal Mouth: Positive for: Moist Mucous Membranes, Other (bloody mucous observed on soft pallate ) Neck: Positive for: Normal Range of Motion Respiratory/Chest: Positive for: Good Air Exchange Cardiovascular: Positive for: Regular Rate and Rhythm, Normal S1, S2 Abdomen: Positive for: Normal Bowel Sounds Upper Extremity: Positive for: Normal Inspection. Negative for: Edema Lower Extremity: Positive for: Normal Inspection. Negative for: Edema Neurological: Positive for: CN II-XII Intact, Speech Normal Skin: Positive for: Warm, Dry, Normal Color Psychiatric: Positive for: Alert, Oriented x 3, Normal Insight, Normal Concentration, Anxious - Medications Active Medications: Active Medications Generic Name Dose Route Start Last Admin Trade Name Freq PRN Reason Stop Dose Admin Aspirin 325 mg 11/04/18 10:00 11/04/18 10:55 Ecotrin PO Not Given DAILY [facility] Ezetimibe 10 mg 11/04/18 10:00 11/04/18 10:40 Zetia PO Not Given DAILY [facility] Fluticasone/Vilanterol 1 puff 11/04/18 08:00 11/04/18 08:00 Breo Ellipta 200-25 Mcg Inh INH Not Given RQD [facility] Heparin Sodium/Sodium Chloride 25,000 units in 250 mls @ 8.709 mls/hr 11/03/18 21:01 11/03/18 21:22 Heparin 44199 Units/250ml 1/2 Normal Saline IV 12 units/kg/hr .Q24H PRN 8.709 mls/hr PROTOCOL Administration Protocol 12 UNITS/KG/HR Heparin Sodium/Sodium Chloride 25,000 units in 250 mls @ 4.2 mls/hr 11/04/18 13:30 11/04/18 13:00 Heparin 10788 Units/250ml 1/2 Normal Saline IV 6 units/kg/hr .Q24H PRN 4.2 mls/hr ADJUST RATE PER PROTOCOL Administration Protocol 6 UNITS/KG/HR Metoprolol Tartrate 25 mg 11/04/18 10:00 11/04/18 10:30 Lopressor PO Not Given BID MIREYA Hdvuz-8-Tuwk Ethyl Esters 1 gm 11/04/18 10:00 11/04/18 10:57 Lovaza PO Not Given BID [facility] Pantoprazole Sodium 40 mg 11/04/18 10:00 11/04/18 10:30 Protonix Ec Tab PO Not Given DAILY [facility] Rosuvastatin Calcium 40 mg 11/03/18 22:45 11/03/18 22:54 Crestor PO 40 mg HS [facility]REYA Administration Ticagrelor 90 mg 11/04/18 10:00 11/04/18 10:53 Brilinta PO Not Given BID MIREYA - Patient Studies Lab Studies: Lab Studies 11/04/18 11/04/18 11/04/18 Range/Units 10:17 10:17 10:17 WBC 9.8 (4.8-10.8) K/uL RBC 3.29 L (3.80-5.20) Mil/uL Hgb 10.1 L (11.0-16.0) g/dL Hct 29.9 L (34.0-47.0) % MCV 91.1 (81.0-99.0) fL MCH 30.8 (27.0-31.0) pg MCHC 33.9 (33.0-37.0) g/dL RDW 13.1 (11.5-14.5) % Plt Count 195 (130-400) K/uL MPV 9.9 (7.2-11.7) fL Neut % (Auto) 84.4 H (50.0-75.0) % Lymph % (Auto) 9.3 L (20.0-40.0) % Curry % (Auto) 6.1 (0.0-10.0) % Eos % (Auto) 0.1 (0.0-4.0) % Baso % (Auto) 0.1 (0.0-2.0) % Neut # (Auto) 8.2 H (1.8-7.0) K/uL Lymph # (Auto) 0.9 L (1.0-4.3) K/uL Curry # (Auto) 0.6 (0.0-0.8) K/uL Eos # (Auto) 0.0 (0.0-0.7) K/uL Baso # (Auto) 0.0 (0.0-0.2) K/uL Neutrophils % (Manual) 83 H (50-75) % Band Neutrophils % 1 (0-2) % Lymphocytes % (Manual) 10 L (20-40) % Monocytes % (Manual) 6 (0-10) % Platelet Estimate Normal (NORMAL) Large Platelets Present Giant Platelets Present Hypochromasia (manual) Slight Poikilocytosis (manual Slight Anisocytosis (manual) Slight Target Cells Slight Ovalocytes Slight Han Cells Slight PT 13.5 H (9.7-12.2) SECONDS INR 1.2 APTT 130 H* D (21-34) SECONDS Sodium 134 (132-148) mmol/L Potassium 3.9 (3.6-5.2) mmol/L Chloride 106 (98-107) mmol/L Carbon Dioxide 17 L (22-30) mmol/L Anion Gap 14 (10-20) BUN 15 (7-17) mg/dL Creatinine 0.6 L (0.7-1.2) mg/dL Est GFR ( Amer) > 60 Est GFR (Non-Af Amer) > 60 POC Glucose (mg/dL) (65-110) mg/dL Random Glucose 155 H (65-105) mg/dL Calcium 8.1 L (8.6-10.4) mg/dl Phosphorus 4.3 (2.5-4.5) mg/dL Magnesium 1.7 (1.6-2.3) mg/dL Total Bilirubin 0.9 (0.2-1.3) mg/dL AST 568 H D (14-36) U/L ALT 93 H D (9-52) U/L Alkaline Phosphatase 64 (38-126) U/L Total Creatine Kinase (30-135) U/L CK-MB (Mass) (0.0-3.38) ng/mL Troponin I (0.00-0.120) ng/mL Total Protein 5.8 L (6.3-8.3) g/dL Albumin 3.3 L D (3.5-5.0) g/dL Globulin 2.5 (2.2-3.9) gm/dL Albumin/Globulin Ratio 1.3 (1.0-2.1) 11/04/18 11/04/18 11/04/18 Range/Units 02:47 02:02 01:39 WBC (4.8-10.8) K/uL RBC (3.80-5.20) Mil/uL Hgb (11.0-16.0) g/dL Hct (34.0-47.0) % MCV (81.0-99.0) fL MCH (27.0-31.0) pg MCHC (33.0-37.0) g/dL RDW (11.5-14.5) % Plt Count (130-400) K/uL MPV (7.2-11.7) fL Neut % (Auto) (50.0-75.0) % Lymph % (Auto) (20.0-40.0) % Curry % (Auto) (0.0-10.0) % Eos % (Auto) (0.0-4.0) % Baso % (Auto) (0.0-2.0) % Neut # (Auto) (1.8-7.0) K/uL Lymph # (Auto) (1.0-4.3) K/uL Curry # (Auto) (0.0-0.8) K/uL Eos # (Auto) (0.0-0.7) K/uL Baso # (Auto) (0.0-0.2) K/uL Neutrophils % (Manual) (50-75) % Band Neutrophils % (0-2) % Lymphocytes % (Manual) (20-40) % Monocytes % (Manual) (0-10) % Platelet Estimate (NORMAL) Large Platelets Giant Platelets Hypochromasia (manual) Poikilocytosis (manual Anisocytosis (manual) Target Cells Ovalocytes Adams Cells PT (9.7-12.2) SECONDS INR APTT 87 H D (21-34) SECONDS Sodium (132-148) mmol/L Potassium (3.6-5.2) mmol/L Chloride (98-107) mmol/L Carbon Dioxide (22-30) mmol/L Anion Gap (10-20) BUN (7-17) mg/dL Creatinine (0.7-1.2) mg/dL Est GFR ( Amer) Est GFR (Non-Af Amer) POC Glucose (mg/dL) 174 H (65-110) mg/dL Random Glucose (65-105) mg/dL Calcium (8.6-10.4) mg/dl Phosphorus (2.5-4.5) mg/dL Magnesium (1.6-2.3) mg/dL Total Bilirubin (0.2-1.3) mg/dL AST (14-36) U/L ALT (9-52) U/L Alkaline Phosphatase (38-126) U/L Total Creatine Kinase 1050 H (30-135) U/L CK-MB (Mass) 94.9 H (0.0-3.38) ng/mL Troponin I 8.7600 H* (0.00-0.120) ng/mL Total Protein (6.3-8.3) g/dL Albumin (3.5-5.0) g/dL Globulin (2.2-3.9) gm/dL Albumin/Globulin Ratio (1.0-2.1) 11/03/18 11/03/18 Range/Units 19:41 18:46 WBC (4.8-10.8) K/uL RBC (3.80-5.20) Mil/uL Hgb (11.0-16.0) g/dL Hct (34.0-47.0) % MCV (81.0-99.0) fL MCH (27.0-31.0) pg MCHC (33.0-37.0) g/dL RDW (11.5-14.5) % Plt Count (130-400) K/uL MPV (7.2-11.7) fL Neut % (Auto) (50.0-75.0) % Lymph % (Auto) (20.0-40.0) % Curry % (Auto) (0.0-10.0) % Eos % (Auto) (0.0-4.0) % Baso % (Auto) (0.0-2.0) % Neut # (Auto) (1.8-7.0) K/uL Lymph # (Auto) (1.0-4.3) K/uL Curry # (Auto) (0.0-0.8) K/uL Eos # (Auto) (0.0-0.7) K/uL Baso # (Auto) (0.0-0.2) K/uL Neutrophils % (Manual) (50-75) % Band Neutrophils % (0-2) % Lymphocytes % (Manual) (20-40) % Monocytes % (Manual) (0-10) % Platelet Estimate (NORMAL) Large Platelets Giant Platelets Hypochromasia (manual) Poikilocytosis (manual Anisocytosis (manual) Target Cells Ovalocytes Adams Cells PT (9.7-12.2) SECONDS INR APTT (21-34) SECONDS Sodium (132-148) mmol/L Potassium (3.6-5.2) mmol/L Chloride (98-107) mmol/L Carbon Dioxide (22-30) mmol/L Anion Gap (10-20) BUN (7-17) mg/dL Creatinine (0.7-1.2) mg/dL Est GFR ( Amer) Est GFR (Non-Af Amer) POC Glucose (mg/dL) 135 H (65-110) mg/dL Random Glucose (65-105) mg/dL Calcium (8.6-10.4) mg/dl Phosphorus (2.5-4.5) mg/dL Magnesium (1.6-2.3) mg/dL Total Bilirubin (0.2-1.3) mg/dL AST (14-36) U/L ALT (9-52) U/L Alkaline Phosphatase (38-126) U/L Total Creatine Kinase 459 H (30-135) U/L CK-MB (Mass) 33.5 H (0.0-3.38) ng/mL Troponin I 2.5400 H* (0.00-0.120) ng/mL Total Protein (6.3-8.3) g/dL Albumin (3.5-5.0) g/dL Globulin (2.2-3.9) gm/dL Albumin/Globulin Ratio (1.0-2.1) Laboratory Results - last 24 hr 11/03/18 11/03/18 11/04/18 18:46 19:41 01:39 WBC RBC Hgb Hct MCV MCH MCHC RDW Plt Count MPV Neut % (Auto) Lymph % (Auto) Curry % (Auto) Eos % (Auto) Baso % (Auto) Neut # (Auto) Lymph # (Auto) Curry # (Auto) Eos # (Auto) Baso # (Auto) Neutrophils % (Manual) Band Neutrophils % Lymphocytes % (Manual) Monocytes % (Manual) Platelet Estimate Large Platelets Giant Platelets Hypochromasia (manual) Poikilocytosis (manual Anisocytosis (manual) Target Cells Ovalocytes Han Cells PT INR APTT Sodium Potassium Chloride Carbon Dioxide Anion Gap BUN Creatinine Est GFR ( Amer) Est GFR (Non-Af Amer) POC Glucose (mg/dL) 135 H 174 H Random Glucose Calcium Phosphorus Magnesium Total Bilirubin AST ALT Alkaline Phosphatase Total Creatine Kinase 459 H CK-MB (Mass) 33.5 H Troponin I 2.5400 H* Total Protein Albumin Globulin Albumin/Globulin Ratio 11/04/18 11/04/18 11/04/18 02:02 02:47 10:17 WBC 9.8 RBC 3.29 L Hgb 10.1 L Hct 29.9 L MCV 91.1 MCH 30.8 MCHC 33.9 RDW 13.1 Plt Count 195 MPV 9.9 Neut % (Auto) 84.4 H Lymph % (Auto) 9.3 L Curry % (Auto) 6.1 Eos % (Auto) 0.1 Baso % (Auto) 0.1 Neut # (Auto) 8.2 H Lymph # (Auto) 0.9 L Curry # (Auto) 0.6 Eos # (Auto) 0.0 Baso # (Auto) 0.0 Neutrophils % (Manual) 83 H Band Neutrophils % 1 Lymphocytes % (Manual) 10 L Monocytes % (Manual) 6 Platelet Estimate Normal Large Platelets Present Giant Platelets Present Hypochromasia (manual) Slight Poikilocytosis (manual Slight Anisocytosis (manual) Slight Target Cells Slight Ovalocytes Slight Adams Cells Slight PT INR APTT 87 H D Sodium Potassium Chloride Carbon Dioxide Anion Gap BUN Creatinine Est GFR ( Amer) Est GFR (Non-Af Amer) POC Glucose (mg/dL) Random Glucose Calcium Phosphorus Magnesium Total Bilirubin AST ALT Alkaline Phosphatase Total Creatine Kinase 1050 H CK-MB (Mass) 94.9 H Troponin I 8.7600 H* Total Protein Albumin Globulin Albumin/Globulin Ratio 11/04/18 11/04/18 10:17 10:17 WBC RBC Hgb Hct MCV MCH MCHC RDW Plt Count MPV Neut % (Auto) Lymph % (Auto) Curry % (Auto) Eos % (Auto) Baso % (Auto) Neut # (Auto) Lymph # (Auto) Curry # (Auto) Eos # (Auto) Baso # (Auto) Neutrophils % (Manual) Band Neutrophils % Lymphocytes % (Manual) Monocytes % (Manual) Platelet Estimate Large Platelets Giant Platelets Hypochromasia (manual) Poikilocytosis (manual Anisocytosis (manual) Target Cells Ovalocytes Adams Cells PT 13.5 H INR 1.2 APTT 130 H* D Sodium 134 Potassium 3.9 Chloride 106 Carbon Dioxide 17 L Anion Gap 14 BUN 15 Creatinine 0.6 L Est GFR ( Amer) > 60 Est GFR (Non-Af Amer) > 60 POC Glucose (mg/dL) Random Glucose 155 H Calcium 8.1 L Phosphorus 4.3 Magnesium 1.7 Total Bilirubin 0.9 AST 568 H D ALT 93 H D Alkaline Phosphatase 64 Total Creatine Kinase CK-MB (Mass) Troponin I Total Protein 5.8 L Albumin 3.3 L D Globulin 2.5 Albumin/Globulin Ratio 1.3 Radiology Impressions: Radiology Impressions Chest X-Ray 11/04/18 03:16 Impression: Biapical pleural thickening with upper lobe granulomatous changes. Diffuse increased interstitial lung markings. Moderate venous congestion. Status post median sternotomy and CABG. Multiple overlying wires and tubings. Cardiomegaly. Chest X-Ray 11/04/18 10:06 IMPRESSION: Ill-defined opacity right perihilar. Possible small right pleural effusion. Possible pneumonia. Follow-up advised. EKG/Cardiology Studies: Cardiology / EKG Studies 11/03/18 18:45 EKG [ELECTROCARDIOGRAM] Routine Comment: Mode Of Transportation: AMBULATORY Reason For Exam: chest 11/04/18 00:28 EKG [ELECTROCARDIOGRAM] Stat Comment: Mode Of Transportation: Reason For Exam: cp nstemi 11/04/18 02:48 EKG [ELECTROCARDIOGRAM] Stat Comment: Mode Of Transportation: Reason For Exam: chest pain Fingerstick Blood Sugar Results: 135 Critical Care Progress Note - Nutrition Nutrition: Nutrition Category Date Time Status 2gram [Heart Healthy Diet] [DIET] Diets 11/03/18 Dinner Active Assessment/Plan - Assessment and Plan (Free Text) Plan: Patient is a 63 year old female with pmhx of CABG (20 years ago), Stent a week ago, HTN, HLD, presenting with chest pain on left side, radiating to neck for 1 hour, elevated troponins, persistent CP, diaphoretic, vomiting, code HEART called, cardiac cath done, patient reported hemoptosys earlier today, held heparin, d/c integrilin. Neuro AAO x3 no acute issues Cardio troponin - 1st negative, 2nd and 3rd elevated 2.5 - 8.7 EKG - ST wave inversion in V2, V3, V4 most likely STEMI - CODE HEART cardiac cath early this morning - f/u official results placed on heparin gtt - held for 2 hours from 11am- 1pm heparin gtt low dose afterwards integrillin D/C f/u coags continue home meds - zetia, metoprolol, statin, ASA Dr Olguin- will follow up recs Resp hemoptysis, 2/2 to anticoagulation therapy held heparin - restarted on lower dose Racepinephrine x 1 dose continue Breo ellipta portable cxray 2/4- opacity right perihilar, possible small right pleural effusion rocephin 1gm Qdaily Promethecin for cough Duonebs Q8H GI protonix heart healthy diet Nephro no acute issues Heme Ptt 130 repeat coags held heparin for 2 hours restarted heparin again PPX DVT - heparin drip GI- protonix Plan discussed with Dr Alexandra Pope, PGY-1 - Date & Time Date: 11/04/18 Time: 09:00
[2018-11-04] MEDS: Promethazine 12.5 mg/10 ml Syrup PO PRN (18:02)
[2018-11-04] MEDS: Albuterol-Ipratrop 3 mg / 0.5 (3 ml) UD INH SCH (18:11)
[2018-11-04] MEDS: Heparin25000 units/250ml 1/2NS 25,000 UNITS/250 ML BAG IV PRN (19:00)
--- NOTE | 2018-11-04 19:59 | CARDCATH ---
PROCEDURE DATE: 11/04/2018 INDICATIONS: Ms. Webber is a 63-year-old female with history of CAD, CABG, status post angioplasty, stenting on the left circumflex OM last week at [facility] who presented with complaints of chest pain yesterday afternoon, she was ruled in for non-STEMI. The patient's initial EKG was electrically silent. Subsequently, at midnight she had a repeat EKG which again did not show any ST changes. Subsequently, a repeat EKG was done at 03:00 in the morning, at which time she had dynamic ST changes for which she was emergently brought to the lab intern for further evaluation and treatment for possible ST-elevation HI. PROCEDURE PERFORMED: Left heart catheterization with selective left and right coronary angiogram, left ventriculogram, PTCA of occluded left circumflex OM, in-sent acute stent thrombosis with use of 2.0 and 2.25 balloons, using balloon angioplasty of left circumflex OM in-stent acute stent thrombosis, intraaortic balloon pump placement. ANGIOGRAPHIC FINDINGS: Left main is a large-sized vessel, bifurcates into LAD and left circ. LAD is proximal 100% occluded with known patent LEVIN to LAD from prior cath last week. Left circumflex runs in AV groove has proximal stent 100% occlusion due to the collateral flow branch feeding into the distal right PDA. RCA proximal 80%, mid 90%, distal 100% occluded. Left ventricular ejection fraction was 40% to 45% with inferolateral hypokinesis. Left ventricular end-diastolic pressure was 40 mmHg. TECHNICAL INTERVENTION: An XB 3.5 guiding catheter was used to engage the left coronary system. Prowater wire used to negotiate into the obtuse marginal branch. Subsequently, a Runthrough wire was used to negotiate into the [place] left circumflex coronary artery. Successful balloon angioplasties of the OM, left circumflex arteries were done with tenriism of flow. EDP was obtained and intraaortic balloon pump was placed for unloading of the heart and diastolic augmentation of coronary flow. IMPRESSION: Successful balloon angioplasty, acute stent thrombosis of the circumflex obtuse marginal branch stent, intraaortic balloon pump placement. RECOMMENDATION: The patient is to be kept in the ICU for 24 to 48 hours. Balloon pump unloading of the heart. Continue dual-antiplatelet therapy 24 hours, Integrilin therapy. Zachery Olguin MD cc: Gian Adam MD MTDJose Guadalupe
--- NOTE | 2018-11-04 22:09 | CP.PCM.CON ---
History of Present Illness - History of Present Illness History of Present Illness: Consultation for evaluation of ACS / STEMI HPI: 63-year-old female with past medical history significant for CAD coronary artery bypass grafting who presented on Sunday afternoon with complaints of chest pain pressure-like sensation she was initially ruled in for non-ST elevation NM with electrically silent EKG. She continued to have intermittent bouts of chest pain a repeat EKG done at midnight on Sunday showed no dynamic ST changes subsequently she started becoming diaphoretic on 3 AM on Sunday morning at which time a repeat EKG showed diffuse ST depressions which were new and dynamic in nature for which she was emergently taken to the cardiac Systems Mgr because of recent history of stenting of the left circumflex and obtuse marginal branch last week at [facility]. On emergently taken to the catheter she wa s noted to have acute stent thrombosis which was successfully opened with a balloon angioplasty she was had because of an acute myocardial infarction and acutely damaged heart injury patient had left elevated left ventricular end- diastolic pressure for which intra-aortic balloon pump was used for unloading of the LV. Post IABP placement patient was transferred to the ICU at which time she was kept on IV heparin and IV Integrilin drip she was noted to have some bouts of hemoptysis with bright red blood and questionable hematemesis at which time Integrilin was DC'd coagulation profile was checked and PTT was noted to be high at 180 for which heparin was held for 2 hours and subsequently after the heparin had normalized down to 37 PTT heparin was restarted. Patient remained hemodynamically stable on the intra-aortic balloon pump with no need for pressor support. Review of Systems - Review of Systems Systems not reviewed;Unavailable: Acuity of Condition - Constitutional Constitutional: As Per HPI - EENT Eyes: As Per HPI Ears: As Per HPI Nose/Mouth/Throat: As Per HPI - Breasts Breasts: As Per HPI - Cardiovascular Cardiovascular: As Per HPI - Respiratory Respiratory: As Per HPI - Gastrointestinal Gastrointestinal: As Per HPI - Genitourinary Genitourinary: As Per HPI - Reproductive: Female Reproductive:Female: As Per HPI - Menstruation Menstruation: As Per HPI - Musculoskeletal Musculoskeletal: As Per HPI - Integumentary Integumentary: As Per HPI - Neurological Neurological: As Per HPI - Psychiatric Psychiatric: As Per HPI - Endocrine Endocrine: As Per HPI - Hematologic/Lymphatic Hematologic: As Per HPI Past Patient History - Infectious Disease Hx of Infectious Diseases: None - Past Medical History & Family History Past Medical History?: Yes - Past Social History Smoking Status: Never Smoked - CARDIAC Hx Hypercholesterolemia: Yes Hx Hypertension: Yes - PULMONARY Hx Respiratory Disorders: No - NEUROLOGICAL Hx Neurological Disorder: No - HEENT Hx HEENT Problems: No Other/Comment: Difficulty opening eyes once in a while but vision is fine - RENAL Hx Chronic Kidney Disease: No - ENDOCRINE/METABOLIC Hx Endocrine Disorders: No - HEMATOLOGICAL/ONCOLOGICAL Hx Blood Disorders: No - INTEGUMENTARY Hx Dermatological Problems: No - MUSCULOSKELETAL/RHEUMATOLOGICAL Hx Falls: No - GASTROINTESTINAL Hx Gastrointestinal Disorders: No - GENITOURINARY/GYNECOLOGICAL Hx Genitourinary Disorders: No - PSYCHIATRIC Hx Substance Use: No - SURGICAL HISTORY Hx Coronary Artery Bypass Graft: Yes (Triple Bypass) Hx Coronary Stent: Yes - ANESTHESIA Hx Anesthesia: Yes Hx Anesthesia Reactions: No Hx Malignant Hyperthermia: No Meds Allergies/Adverse Reactions: Allergies Allergy/AdvReac Type Severity Reaction Status Date / Time No Known Allergies Allergy Verified 10/18/18 16:42 - Medications Medications: Current Medications Albuterol/Ipratropium (Duoneb 3 Mg/0.5 Mg (3 Ml) Ud) 3 ml INH RQ8 [facility] Last Admin: 11/04/18 18:11 Dose: 3 ml Aspirin (Ecotrin) 325 mg PO DAILY [facility] Last Admin: 11/04/18 10:55 Dose: Not Given Ezetimibe (Zetia) 10 mg PO DAILY [facility] Last Admin: 11/04/18 10:40 Dose: Not Given Fluticasone/Vilanterol (Breo Ellipta 200-25 Mcg Inh) 1 puff INH RQD [facility] Last Admin: 11/04/18 08:00 Dose: Not Given Ceftriaxone Sodium 1 gm/ (Sodium Chloride) 100 mls @ 100 mls/hr IVPB Q24H [facility]; Protocol Last Admin: 11/04/18 18:00 Dose: 100 mls/hr Heparin Sodium/Sodium Chloride (Heparin 34078 Units/250ml 1/2 Normal Saline) 25,000 units in 250 mls @ 5.6 mls/hr IV .Q24H PRN; Protocol PRN Reason: ADJUST RATE PER PROTOCOL Metoprolol Tartrate (Lopressor) 25 mg PO BID [facility] Last Admin: 11/04/18 18:45 Dose: 25 mg Ybtjd-2-Gvfq Ethyl Esters (Lovaza) 1 gm PO BID [facility] Last Admin: 11/04/18 18:46 Dose: Not Given Pantoprazole Sodium (Protonix Ec Tab) 40 mg PO DAILY [facility] Last Admin: 11/04/18 10:30 Dose: Not Given Promethazine HCl (Phenergan Syrup) 12.5 mg PO Q6 PRN PRN Reason: Cough Last Admin: 11/04/18 18:02 Dose: 12.5 mg Rosuvastatin Calcium (Crestor) 40 mg PO HS [facility] Last Admin: 11/04/18 21:58 Dose: Not Given Ticagrelor (Brilinta) 90 mg PO BID [facility] Last Admin: 11/04/18 18:46 Dose: 90 mg Physical Exam - Constitutional Appears: Well - Head Exam Head Exam: ATRAUMATIC, NORMAL INSPECTION, NORMOCEPHALIC - Eye Exam Eye Exam: EOMI, Normal appearance, PERRL Pupil Exam: NORMAL ACCOMODATION, PERRL - ENT Exam ENT Exam: Mucous Membranes Moist, Normal Exam - Neck Exam Neck exam: Positive for: Normal Inspection - Respiratory Exam Respiratory Exam: Clear to Auscultation Bilateral, Rales, NORMAL BREATHING PATTERN - Cardiovascular Exam Cardiovascular Exam: REGULAR RHYTHM, RRR, +S1, +S2, Systolic Murmur - GI/Abdominal Exam GI & Abdominal Exam: Normal Bowel Sounds, Soft. absent: Tenderness - Extremities Exam Extremities exam: Positive for: normal inspection - Back Exam Back exam: NORMAL INSPECTION - Neurological Exam Neurological exam: Alert, CN II-XII Intact, Normal Gait, Oriented x3, Reflexes Normal - Psychiatric Exam Psychiatric exam: Normal Affect, Normal Mood - Skin Skin Exam: Dry, Intact, Normal Color, Warm Results - Vital Signs Recent Vital Signs: Last Vital Signs Temp 98.7 F 11/04/18 17:00 Pulse 80 11/04/18 21:48 Resp 38 H 11/04/18 22:02 BP 148/82 11/04/18 21:48 Pulse Ox 99 11/04/18 21:48 - Labs Result Diagrams: 11/04/18 10:17 11/04/18 10:17 Labs: Laboratory Results - last 24 hr 11/04/18 11/04/18 11/04/18 01:39 02:02 02:47 WBC RBC Hgb Hct MCV MCH MCHC RDW Plt Count MPV Neut % (Auto) Lymph % (Auto) Tift % (Auto) Eos % (Auto) Baso % (Auto) Neut # (Auto) Lymph # (Auto) Tift # (Auto) Eos # (Auto) Baso # (Auto) Neutrophils % (Manual) Band Neutrophils % Lymphocytes % (Manual) Monocytes % (Manual) Platelet Estimate Large Platelets Giant Platelets Hypochromasia (manual) Poikilocytosis (manual Anisocytosis (manual) Target Cells Ovalocytes [place] Cells PT INR APTT 87 H D Sodium Potassium Chloride Carbon Dioxide Anion Gap BUN Creatinine Est GFR ( Amer) Est GFR (Non-Af Amer) POC Glucose (mg/dL) 174 H Random Glucose Calcium Phosphorus Magnesium Total Bilirubin AST ALT Alkaline Phosphatase Total Creatine Kinase 1050 H CK-MB (Mass) 94.9 H Troponin I 8.7600 H* Total Protein Albumin Globulin Albumin/Globulin Ratio 11/04/18 11/04/18 11/04/18 10:17 10:17 10:17 WBC 9.8 RBC 3.29 L Hgb 10.1 L Hct 29.9 L MCV 91.1 MCH 30.8 MCHC 33.9 RDW 13.1 Plt Count 195 MPV 9.9 Neut % (Auto) 84.4 H Lymph % (Auto) 9.3 L Tift % (Auto) 6.1 Eos % (Auto) 0.1 Baso % (Auto) 0.1 Neut # (Auto) 8.2 H Lymph # (Auto) 0.9 L Tift # (Auto) 0.6 Eos # (Auto) 0.0 Baso # (Auto) 0.0 Neutrophils % (Manual) 83 H Band Neutrophils % 1 Lymphocytes % (Manual) 10 L Monocytes % (Manual) 6 Platelet Estimate Normal Large Platelets Present Giant Platelets Present Hypochromasia (manual) Slight Poikilocytosis (manual Slight Anisocytosis (manual) Slight Target Cells Slight Ovalocytes Slight [place] Cells Slight PT 13.5 H INR 1.2 APTT 130 H* D Sodium 134 Potassium 3.9 Chloride 106 Carbon Dioxide 17 L Anion Gap 14 BUN 15 Creatinine 0.6 L Est GFR ( Amer) > 60 Est GFR (Non-Af Amer) > 60 POC Glucose (mg/dL) Random Glucose 155 H Calcium 8.1 L Phosphorus 4.3 Magnesium 1.7 Total Bilirubin 0.9 AST 568 H D ALT 93 H D Alkaline Phosphatase 64 Total Creatine Kinase CK-MB (Mass) Troponin I Total Protein 5.8 L Albumin 3.3 L D Globulin 2.5 Albumin/Globulin Ratio 1.3 11/04/18 16:14 WBC RBC Hgb Hct MCV MCH MCHC RDW Plt Count MPV Neut % (Auto) Lymph % (Auto) Tift % (Auto) Eos % (Auto) Baso % (Auto) Neut # (Auto) Lymph # (Auto) Tift # (Auto) Eos # (Auto) Baso # (Auto) Neutrophils % (Manual) Band Neutrophils % Lymphocytes % (Manual) Monocytes % (Manual) Platelet Estimate Large Platelets Giant Platelets Hypochromasia (manual) Poikilocytosis (manual Anisocytosis (manual) Target Cells Ovalocytes [place] Cells PT INR APTT 37 H D Sodium Potassium Chloride Carbon Dioxide Anion Gap BUN Creatinine Est GFR ( Amer) Est GFR (Non-Af Amer) POC Glucose (mg/dL) Random Glucose Calcium Phosphorus Magnesium Total Bilirubin AST ALT Alkaline Phosphatase Total Creatine Kinase CK-MB (Mass) Troponin I Total Protein Albumin Globulin Albumin/Globulin Ratio Assessment & Plan (1) STEMI (ST elevation myocardial infarction) Assessment and Plan: integrilling dced 2' to hemoptysis cont IABP cont DAPT cont BB ICU monitoring x 24-48 hours Status: Acute (2) Cardiogenic shock Assessment and Plan: IABP support for LV unloading x 48 hours Status: Acute (3) Dyslipidemia Assessment and Plan: statins zetia vascepa Status: Acute (4) Hemoptysis Status: Acute (5) Coronary artery disease Status: Chronic Priority: Low (6) HTN (hypertension) Status: Acute (7) Hx of CABG Status: Chronic Priority: Low
[2018-11-05] MEDS: Albuterol-Ipratrop 3 mg / 0.5 (3 ml) UD INH SCH ×4 (00:15→23:40)
[2018-11-05] MEDS ORDERED: DiphenhydrAMINE 50 mg/ml Inj IVP STA (01:42)
[2018-11-05] MEDS: Promethazine 12.5 mg/10 ml Syrup PO PRN ×2 (02:24→09:00)
[2018-11-05 05:35] LABS: BASO % 0.3 % (0.0-2.0); HEMOGLOBIN 9.3 g/dL (11.0-16.0); LYMPH # 0.8 K/uL (1.0-4.3); LYMPH % 8.6 % (20.0-40.0); MEAN CELL VOLUME 90.7 fL (81.0-99.0); MEAN CORPUSCULAR HEMOGLOBIN 30.4 pg (27.0-31.0); MEAN CORPUSCULAR HGB CONC 33.6 g/dL (33.0-37.0); MEAN PLATELET VOLUME 10.1 fL (7.2-11.7); MONO # 0.4 K/uL (0.0-0.8); MONO % 4.3 % (0.0-10.0); NEUT # 8.4 K/uL (1.8-7.0); NEUT % 86.8 % (50.0-75.0); PLATELET COUNT 197 K/uL (130-400); RBC 3.05 Mil/uL (3.80-5.20); RED CELL DISTRIBUTION WIDTH 13.3 % (11.5-14.5); WHITE BLOOD COUNT 9.7 K/uL (4.8-10.8)
[2018-11-05 06:01] LABS: ALB/GLOB RATIO 1.4 (1.0-2.1); ALBUMIN 3.2 g/dL (3.5-5.0); ALT/SGPT 85 U/L (9-52); AST/SGOT 356 U/L (14-36); BLOOD UREA NITROGEN 27 mg/dL (7-17); CALCIUM 8.4 mg/dl (8.6-10.4); GFR NON-AFRICAN AMERICAN 56
[2018-11-05 06:27] LABS: LYMPHOCYTE 6 % (20-40); MONOCYTE 6 % (0-10); NEUTROPHIL 88 % (50-75); PLATELET ESTIMATE NORMAL (NORMAL); TOTAL CELLS COUNTED 100
[2018-11-05] MEDS: Fluticasone-Vilanterol 200/25mcg Diskus INH SCH (07:50)
[2018-11-05] MEDS: Pantoprazole 40 mg EC Tab PO SCH (09:01)
[2018-11-05] MEDS: Aspirin 325 mg EC Tablets PO SCH (09:01)
--- NOTE | 2018-11-05 09:59 | CARD ---
APPROVED REPORT Date of service: 11/03/2018 EKG Measurement Heart [id number] <Conclusion> Normal sinus rhythm Incomplete right bundle branch block Nonspecific ST and T wave abnormality Abnormal ECG
[2018-11-05] MEDS ORDERED: Sodium Chloride 0.9% 500 ML IV ONE (10:01)
[2018-11-05] MEDS: Omega-3-Acid Ethyl Esters 1 GM Cap PO SCH ×2 (10:20→18:17)
[2018-11-05] MEDS ORDERED: Etomidate 20 mg/10ml Inj IV ONE (11:35)
[2018-11-05] MEDS ORDERED: Propofol 10 mg/ml Inj (100 ml) IV ONE (11:35)
[2018-11-05] MEDS ORDERED: Propofol 10 mg/ml Inj (20 ML) ONE (11:49)
--- NOTE | 2018-11-05 12:02 | CARD ---
APPROVED REPORT Date of service: 11/04/2018 EXAM: Two-dimensional and M-mode echocardiogram with Doppler and color Doppler. INDICATION Chest Pain RISK FACTORS Hypertension Hyperlipidemia 2D DIMENSIONS IVSd0.7 (0.7-1.1cm)LVDd4.8 (3.9-5.9cm) PWd1.0 (0.7-1.1cm)LA Mkwqiz12 (18-58mL) LVDs3.6 (2.5-4.0cm)FS (%) 24.5 % LVEF (%)57.0 (>50%)LVEF (Kerr's)63.68 % M-Mode DIMENSIONS Left Atrium (MM)3.56 (2.5-4.0cm)IVSd0.91 (0.7-1.1cm) Aortic Root3.45 (2.2-3.7cm)LVDd5.27 (4.0-5.6cm) Aortic Cusp Exc.2.04 (1.5-2.0cm)PWd0.86 (0.7-1.1cm) FS (%) 30 %LVDs3.68 (2.0-3.8cm) LVEF (%)57 (>50%) Mitral Valve MV E Zkxfhayo42.5cm/sMV A Knskhfnc88.8cm/sE/A ratio1.8 TDI Lateral E' Peak V4.87cm/sMedial E' Peak V8.55cm/sE/Lateral E'13.9 E/Medial E'7.9 Tricuspid Valve TR Peak Zkjjcnzk864yt/sTR Peak [id number] <Conclusion> Technically very limited study Left ventricle: thickness: normal; size: normal; overall ejection fraction: 45%: diastolic filling pressures: normal Mitral valve: annulus: normal: leaflets: normal: excursion: normal; no significant trans-mitral gradient: mild incompetence: left atrium: normal Aortic valve: leaflets: normal: excursion: normal; no significant trans-aortic gradient: mild incompetence: aortic root: normal Right sided Structures: Pulmonary valve: normal; moderate incompetence; Tricuspid valve: normal; moderate incompetence: Intra-cardiac hemodynamics: pulmonary systolic pressures: 50mmHg; central venous pressures: normal No pericardial effusion
[2018-11-05] MEDS: Propofol 10 mg/ml 1,000 MG/100 ML VIAL IV PRN ×2 (12:51→18:23)
[2018-11-05 13:06] LABS: ABG ALLEN TEST POS; ARTERIAL BLOOD GAS HCO3 19.1 mmol/L (21-28); ARTERIAL BLOOD GAS O2 SAT 98.8 % (95-98); ARTERIAL BLOOD GAS PCO2 24 mm/Hg (35-45); ARTERIAL BLOOD GAS PH 7.41 (7.35-7.45); ARTERIAL BLOOD GAS PO2 187 mm/Hg (80-100); ARTERIAL BLOOD GAS TCO2 15.9 mmol/L (22-28)
[2018-11-05 13:45] LABS: TROPONIN I 74.9 ng/mL (0.00-0.120)
--- NOTE | 2018-11-05 14:05 | CP.PCM.PN ---
<Igor Adam - Last Filed: 11/05/18 14:02> Subjective - Date & Time of Evaluation Date of Evaluation: 11/05/18 Time of Evaluation: 14:02 - Subjective Subjective: Igor Adam DO PGY1 - Internal Medicine [employer] - Cardiology Note for Dr. Olguin Patient was seen and examined at bedside in ICU this afternoon. Patient reportedly anxious overnight w/ productive cough thick creamy secretion throughout night. This afternoon patient began showing s/s of hypoxemia. Intubated by ICU team; No HD instability noted; Pressures well maintained w/o use of pressors. IABP in place. Objective - Vital Signs/Intake and Output Vital Signs (last 24 hours): Temp Pulse Resp BP Pulse Ox 98.1 F 83 47 H 150/80 96 11/05/18 08:00 11/05/18 11:00 11/05/18 07:50 11/05/18 12:53 11/05/18 08:00 Intake and Output: 11/05/18 11/05/18 06:59 18:59 Intake Total 375.6 64 Output Total 2 0 Balance 373.6 64 - Medications Medications: Current Medications Albuterol/Ipratropium (Duoneb 3 Mg/0.5 Mg (3 Ml) Ud) 3 ml INH RQ8 [facility] Last Admin: 11/05/18 07:50 Dose: 3 ml Aspirin (Ecotrin) 325 mg PO DAILY [facility] Last Admin: 11/05/18 09:01 Dose: 325 mg Ezetimibe (Zetia) 10 mg PO DAILY [facility] Last Admin: 11/05/18 10:20 Dose: 10 mg Fluticasone/Vilanterol (Breo Ellipta 200-25 Mcg Inh) 1 puff INH RQD [facility] Last Admin: 11/05/18 07:50 Dose: 1 puff Furosemide (Lasix) 40 mg IVP Q12 [facility] Ceftriaxone Sodium 1 gm/ (Sodium Chloride) 100 mls @ 100 mls/hr IVPB Q24H [facility]; Protocol Last Admin: 11/04/18 18:00 Dose: 100 mls/hr Heparin Sodium/Sodium Chloride (Heparin 41840 Units/250ml 1/2 Normal Saline) 25,000 units in 250 mls @ 5.6 mls/hr IV .Q24H PRN; Protocol PRN Reason: ADJUST RATE PER PROTOCOL Last Titration: 11/05/18 00:00 Dose: 10 units/kg/hr, 7 mls/hr Propofol (Diprivan) 1,000 mg in 100 mls @ 2.1 mls/hr IV .Q24H PRN; Protocol PRN Reason: TITRATE PER MD ORDER Last Admin: 11/05/18 12:51 Dose: 30 mcg/kg/min, 12.6 mls/hr Metoprolol Tartrate (Lopressor) 25 mg PO BID [facility] Last Admin: 11/05/18 09:01 Dose: 25 mg Ztsto-5-Safr Ethyl Esters (Lovaza) 1 gm PO BID [facility] Last Admin: 11/05/18 10:20 Dose: 1 gm Pantoprazole Sodium (Protonix Ec Tab) 40 mg PO DAILY [facility] Last Admin: 11/05/18 09:01 Dose: 40 mg Promethazine HCl (Phenergan Syrup) 12.5 mg PO Q6 PRN PRN Reason: Cough Last Admin: 11/05/18 09:00 Dose: 12.5 mg Ticagrelor (Brilinta) 90 mg PO BID [facility] Last Admin: 11/05/18 09:01 Dose: 90 mg - Labs Labs: 11/05/18 05:31 11/05/18 05:31 PT 13.5 SECONDS (9.7-12.2) H 11/04/18 10:17 INR 1.2 11/04/18 10:17 APTT 45 SECONDS (21-34) H 11/05/18 12:44 - Constitutional Appears: Other (Sedated) - Head Exam Head Exam: ATRAUMATIC, NORMOCEPHALIC - Eye Exam Eye Exam: PERRL - ENT Exam Additional comments: ET tube in place - Respiratory Exam Respiratory Exam: Rhonchi - Cardiovascular Exam Cardiovascular Exam: +S1, +S2 - GI/Abdominal Exam GI & Abdominal Exam: Soft. absent: Tenderness - Extremities Exam Extremities Exam: Normal Capillary Refill - Neurological Exam Neurological Exam: absent: Awake - Skin Skin Exam: Dry, Intact, Warm Assessment and Plan (1) Cardiogenic shock Status: Acute (2) Dyslipidemia Status: Acute (3) STEMI (ST elevation myocardial infarction) Status: Acute (4) Coronary artery disease Status: Chronic (5) HTN (hypertension) Status: Acute (6) Hx of CABG Status: Chronic - Assessment and Plan (Free Text) Plan: Will continue to keep patient intubated at this time BNP ordered for 11/04 1999 ; Will trend w/ follow up BNP on 11/05 AM Will plan for removal of IABP tomorrow 11/05 pending BNP results ; and eventual extubation Start Lasix 40mg Q12 Continue Zetia Lovaza Metoprolol ASA Brilinta Heparin Drip Further reccs per Dr. Olguin <Zachery Olguin - Last Filed: 11/05/18 15:05> Objective - Vital Signs/Intake and Output Vital Signs (last 24 hours): Temp Pulse Resp BP Pulse Ox 99 F 79 23 132/60 100 11/05/18 12:00 11/05/18 14:18 11/05/18 14:18 11/05/18 14:18 11/05/18 14:18 Intake and Output: 11/05/18 11/05/18 06:59 18:59 Intake Total 375.6 359.6 Output Total 2 115 Balance 373.6 244.6 - Medications Medications: Current Medications Albuterol/Ipratropium (Duoneb 3 Mg/0.5 Mg (3 Ml) Ud) 3 ml INH RQ8 [facility] Last Admin: 11/05/18 07:50 Dose: 3 ml Aspirin (Ecotrin) 325 mg PO DAILY [facility] Last Admin: 11/05/18 09:01 Dose: 325 mg Ezetimibe (Zetia) 10 mg PO DAILY [facility] Last Admin: 11/05/18 10:20 Dose: 10 mg Fluticasone/Vilanterol (Breo Ellipta 200-25 Mcg Inh) 1 puff INH RQD [facility] Last Admin: 11/05/18 07:50 Dose: 1 puff Furosemide (Lasix) 40 mg IVP Q12 [facility] Ceftriaxone Sodium 1 gm/ (Sodium Chloride) 100 mls @ 100 mls/hr IVPB Q24H [facility]; Protocol Last Admin: 11/04/18 18:00 Dose: 100 mls/hr Heparin Sodium/Sodium Chloride (Heparin 76837 Units/250ml 1/2 Normal Saline) 25,000 units in 250 mls @ 5.6 mls/hr IV .Q24H PRN; Protocol PRN Reason: ADJUST RATE PER PROTOCOL Last Titration: 11/05/18 00:00 Dose: 10 units/kg/hr, 7 mls/hr Propofol (Diprivan) 1,000 mg in 100 mls @ 2.1 mls/hr IV .Q24H PRN; Protocol PRN Reason: TITRATE PER MD ORDER Last Titration: 11/05/18 14:12 Dose: 20 mcg/kg/min, 8.4 mls/hr Metoprolol Tartrate (Lopressor) 25 mg PO BID [facility] Last Admin: 11/05/18 09:01 Dose: 25 mg Iwmky-8-Suvc Ethyl Esters (Lovaza) 1 gm PO BID [facility] Last Admin: 11/05/18 10:20 Dose: 1 gm Pantoprazole Sodium (Protonix Ec Tab) 40 mg PO DAILY [facility] Last Admin: 11/05/18 09:01 Dose: 40 mg Promethazine HCl (Phenergan Syrup) 12.5 mg PO Q6 PRN PRN Reason: Cough Last Admin: 11/05/18 09:00 Dose: 12.5 mg Ticagrelor (Brilinta) 90 mg PO BID [facility] Last Admin: 11/05/18 09:01 Dose: 90 mg - Labs Labs: 11/05/18 05:31 11/05/18 05:31 PT 13.5 SECONDS (9.7-12.2) H 11/04/18 10:17 INR 1.2 11/04/18 10:17 APTT 45 SECONDS (21-34) H 11/05/18 12:44 Assessment and Plan (1) STEMI (ST elevation myocardial infarction) Status: Acute (2) Cardiogenic shock Status: Acute (3) Dyslipidemia Status: Acute (4) Hemoptysis Status: Acute (5) Coronary artery disease Status: Chronic (6) HTN (hypertension) Status: Acute (7) Hx of CABG Status: Chronic Attending/Attestation - Attestation I have personally seen and examined this patient.: Yes I have fully participated in the care of the patient.: Yes I have reviewed all pertinent clinical information, including history, physical exam and plan: Yes Notes (Text): 11/05/18 15:04 Respiratory failure requiring intubation cont vent support BP stable cont IABP cont dapt cont bb IV diuretic will wean off IABP tomorrow and plan for extubation Thurs/Fridday
--- NOTE | 2018-11-05 14:27 | RAD ---
Date of service: 11/05/2018 HISTORY: intubated COMPARISON: 11/04/2018 FINDINGS: LUNGS: Interval increase density and interval increase extension of the prior right perihilar airspace pathology; now right perihilar to right upper lobe affected. The pulmonary venous congestion believed present previously appears more confluent now with interval left upper lobe coalescent pulmonary edema as well. In each lung concomitant patchy infiltrates-part of the faint consolidative airspace process process also needs to be considered. Interval endotracheal tube insertion tip - approximately 3.5 to 4 cm cephalad to the ofelia PLEURA: No significant pleural effusion identified, no pneumothorax apparent. CARDIOVASCULAR: There is presence of aortic atherosclerotic calcification on x-ray. Cardiomegaly-similar Pulmonary venous congestion present-increased bilaterally Sternotomy and coronary artery bypass surgery OSSEOUS STRUCTURES: Dextroscoliosis similar. Midline sternotomy VISUALIZED UPPER ABDOMEN: Normal. OTHER FINDINGS: None IMPRESSION: Interval increasing pulmonary edema right lung greater than left. Interval insertion of endotracheal tube-tip appears satisfactory. Other findings as above.
--- NOTE | 2018-11-05 15:01 | CP.PCM.PN ---
Subjective - Date & Time of Evaluation Date of Evaluation: 11/05/18 Time of Evaluation: 13:00 - Subjective Subjective: clinically same Objective - Vital Signs/Intake and Output Vital Signs (last 24 hours): Temp Pulse Resp BP Pulse Ox 99 F 79 23 132/60 100 11/05/18 12:00 11/05/18 14:18 11/05/18 14:18 11/05/18 14:18 11/05/18 14:18 Intake and Output: 11/05/18 11/05/18 06:59 18:59 Intake Total 375.6 359.6 Output Total 2 115 Balance 373.6 244.6 - Medications Medications: Current Medications Albuterol/Ipratropium (Duoneb 3 Mg/0.5 Mg (3 Ml) Ud) 3 ml INH RQ8 [facility] Last Admin: 11/05/18 07:50 Dose: 3 ml Aspirin (Ecotrin) 325 mg PO DAILY [facility] Last Admin: 11/05/18 09:01 Dose: 325 mg Ezetimibe (Zetia) 10 mg PO DAILY [facility] Last Admin: 11/05/18 10:20 Dose: 10 mg Fluticasone/Vilanterol (Breo Ellipta 200-25 Mcg Inh) 1 puff INH RQD [facility] Last Admin: 11/05/18 07:50 Dose: 1 puff Furosemide (Lasix) 40 mg IVP Q12 [facility] Ceftriaxone Sodium 1 gm/ (Sodium Chloride) 100 mls @ 100 mls/hr IVPB Q24H MIREYA; Protocol Last Admin: 11/04/18 18:00 Dose: 100 mls/hr Heparin Sodium/Sodium Chloride (Heparin 40903 Units/250ml 1/2 Normal Saline) 25,000 units in 250 mls @ 5.6 mls/hr IV .Q24H PRN; Protocol PRN Reason: ADJUST RATE PER PROTOCOL Last Titration: 11/05/18 00:00 Dose: 10 units/kg/hr, 7 mls/hr Propofol (Diprivan) 1,000 mg in 100 mls @ 2.1 mls/hr IV .Q24H PRN; Protocol PRN Reason: TITRATE PER MD ORDER Last Titration: 11/05/18 14:12 Dose: 20 mcg/kg/min, 8.4 mls/hr Metoprolol Tartrate (Lopressor) 25 mg PO BID [facility] Last Admin: 11/05/18 09:01 Dose: 25 mg Nezgl-7-Daxl Ethyl Esters (Lovaza) 1 gm PO BID [facility] Last Admin: 11/05/18 10:20 Dose: 1 gm Pantoprazole Sodium (Protonix Ec Tab) 40 mg PO DAILY [facility] Last Admin: 11/05/18 09:01 Dose: 40 mg Promethazine HCl (Phenergan Syrup) 12.5 mg PO Q6 PRN PRN Reason: Cough Last Admin: 11/05/18 09:00 Dose: 12.5 mg Ticagrelor (Brilinta) 90 mg PO BID [facility] Last Admin: 11/05/18 09:01 Dose: 90 mg - Labs Labs: 11/05/18 05:31 11/05/18 05:31 PT 13.5 SECONDS (9.7-12.2) H 11/04/18 10:17 INR 1.2 11/04/18 10:17 APTT 45 SECONDS (21-34) H 11/05/18 12:44 - Constitutional Appears: Well - Head Exam Head Exam: ATRAUMATIC, NORMAL INSPECTION, NORMOCEPHALIC - Eye Exam Eye Exam: EOMI, Normal appearance, PERRL Pupil Exam: NORMAL ACCOMODATION, PERRL - ENT Exam ENT Exam: Mucous Membranes Moist, Normal Exam - Neck Exam Neck Exam: Full ROM, Normal Inspection. absent: Lymphadenopathy - Respiratory Exam Respiratory Exam: Decreased Breath Sounds - Cardiovascular Exam Cardiovascular Exam: REGULAR RHYTHM, +S1, +S2 - GI/Abdominal Exam GI & Abdominal Exam: Soft, Diminished Bowel Sounds - Rectal Exam Rectal Exam: Deferred
[2018-11-05 15:30] LABS: SQUAMOUS EPITHIAL 1 /hpf (0-5); URINE BILIRUBIN NEGATIVE (NEGATIVE); URINE CLARITY Clear (Clear); URINE COLOR Yellow (YELLOW); URINE GLUCOSE (UA) NORMAL (Normal); URINE LEUKOCYTE ESTERASE NEG Leu/uL (Negative); URINE PROTEIN NEGATIVE (NEGATIVE); URINE UROBILINOGEN NORMAL mg/dL (0.2-1.0)
[2018-11-05 15:33] LABS: URINE BLOOD 1+ (NEGATIVE)
--- NOTE | 2018-11-05 16:05 | CP.CCUPN ---
<Justin Mccauley S - Last Filed: 11/05/18 18:06> CCU Subjective - Physician Review Critical Care Time Spent (in minutes): 60 CCU Objective - Vital Signs / Intake & Output Vital Signs (Last 4 hours): Vital Signs Temp Pulse Resp BP Pulse Ox 11/05/18 17:00 90 11/05/18 16:00 100 F H 88 100 11/05/18 15:18 89 22 121/49 L 100 11/05/18 15:00 86 11/05/18 14:48 83 26 H 118/55 L 100 11/05/18 14:18 79 23 132/60 100 Intake and Output (Last 8hrs): Intake & Output 11/05/18 11/05/18 11/05/18 06:59 14:59 22:59 Intake Total 303.2 359.6 51.8 Output Total 1 115 40 Balance 302.2 244.6 11.8 Intake: IV 50 12.6 16.8 Intake, IV Amount 53.2 177.0 35.0 Left Antecubital 53.2 128.0 21.0 Left Wrist 49 14 Oral 200 170 Output: Urine 115 40 Urethral (Kelsey) 115 40 Urine, Voided 0 Urine/Stool Mix 1 Other: # Voids Urine, Voided 1 # Bowel Movements 1 1 - Medications Active Medications: Active Medications Generic Name Dose Route Start Last Admin Trade Name Freq PRN Reason Stop Dose Admin Albuterol/Ipratropium 3 ml 11/04/18 17:01 11/05/18 07:50 Duoneb 3 Mg/0.5 Mg (3 Ml) Ud INH 3 ml RQ8 MIREYA Administration Aspirin 325 mg 11/04/18 10:00 11/05/18 09:01 Ecotrin PO 325 mg DAILY MIREYA Administration Ezetimibe 10 mg 11/04/18 10:00 11/05/18 10:20 Zetia PO 10 mg DAILY MIREYA Administration Fluticasone/Vilanterol 1 puff 11/04/18 08:00 11/05/18 07:50 Breo Ellipta 200-25 Mcg Inh INH 1 puff RQD MIREYA Administration Furosemide 40 mg 11/05/18 22:00 Lasix IVP Q12 MIREYA Heparin Sodium/Sodium Chloride 25,000 units in 250 mls @ 5.6 mls/hr 11/04/18 17:03 11/05/18 00:00 Heparin 97993 Units/250ml 1/2 Normal Saline IV 10 units/kg/hr .Q24H PRN 7 mls/hr ADJUST RATE PER PROTOCOL Titration Protocol 8 UNITS/KG/HR Propofol 1,000 mg in 100 mls @ 2.1 mls/hr 11/05/18 11:52 11/05/18 16:47 Diprivan IV 30 mcg/kg/min .Q24H PRN 12.6 mls/hr TITRATE PER MD ORDER Titration Protocol 5 MCG/KG/MIN Metoprolol Tartrate 25 mg 11/04/18 10:00 11/05/18 09:01 Lopressor PO 25 mg BID MIREYA Administration Rxvyd-4-Kkna Ethyl Esters 1 gm 11/04/18 10:00 11/05/18 10:20 Lovaza PO 1 gm BID MIREYA Administration Pantoprazole Sodium 40 mg 11/04/18 10:00 11/05/18 09:01 Protonix Ec Tab PO 40 mg DAILY MIREYA Administration Promethazine HCl 12.5 mg 11/04/18 16:59 11/05/18 09:00 Phenergan Syrup PO 12.5 mg Q6 PRN Administration Cough Ticagrelor 90 mg 11/04/18 10:00 11/05/18 09:01 Brilinta PO 90 mg BID MIREYA Administration - Patient Studies Lab Studies: Microbiology Studies 11/04/18 05:55 MRSA Culture (Admit) - Final Nose MRSA NOT DETECTED Lab Studies 11/05/18 11/05/18 11/05/18 Range/Units 17:38 15:10 13:00 WBC 8.5 (4.8-10.8) K/uL RBC 2.84 L (3.80-5.20) Mil/uL Hgb 8.6 L (11.0-16.0) g/dL Hct 25.6 L (34.0-47.0) % MCV 90.4 (81.0-99.0) fL MCH 30.2 (27.0-31.0) pg MCHC 33.4 (33.0-37.0) g/dL RDW 13.5 (11.5-14.5) % Plt Count 172 (130-400) K/uL MPV 9.9 (7.2-11.7) fL Neut % (Auto) 71.3 (50.0-75.0) % Lymph % (Auto) 21.3 (20.0-40.0) % Slope % (Auto) 6.1 (0.0-10.0) % Eos % (Auto) 0.4 (0.0-4.0) % Baso % (Auto) 0.9 (0.0-2.0) % Neut # (Auto) 6.0 (1.8-7.0) K/uL Lymph # (Auto) 1.8 (1.0-4.3) K/uL [place] # (Auto) 0.5 (0.0-0.8) K/uL Eos # (Auto) 0.0 (0.0-0.7) K/uL Baso # (Auto) 0.1 (0.0-0.2) K/uL Neutrophils % (Manual) (50-75) % Lymphocytes % (Manual) (20-40) % Monocytes % (Manual) (0-10) % Platelet Estimate (NORMAL) APTT (21-34) SECONDS Puncture Site R/r pCO2 24 L (35-45) mm/Hg pO2 187 H (80-100) mm/Hg HCO3 19.1 L (21-28) mmol/L ABG pH 7.41 (7.35-7.45) ABG Total CO2 15.9 L (22-28) mmol/L ABG O2 Saturation 98.8 H (95-98) % ABG Base Excess -7.6 L (-2.0-3.0) mmol/L Mario Test Pos ABG Potassium 3.3 L (3.6-5.2) mmol/L A-a O2 Difference 496.0 mm/Hg Respiratory Index 2.7 Glucose 175 H (65-105) mg/dl Lactate 2.8 H (0.7-2.1) mmol/L Mechanical Rate 16 FiO2 100.0 % Tidal Volume 500 PEEP 5 Sodium 135.0 (132-148) mmol/L Potassium (3.6-5.2) mmol/L Chloride 107.0 (98-107) mmol/L Carbon Dioxide (22-30) mmol/L Anion Gap (10-20) BUN (7-17) mg/dL Creatinine (0.7-1.2) mg/dL Est GFR ( Amer) Est GFR (Non-Af Amer) Random Glucose (65-105) mg/dL Calcium (8.6-10.4) mg/dl Phosphorus (2.5-4.5) mg/dL Magnesium (1.6-2.3) mg/dL Total Bilirubin (0.2-1.3) mg/dL AST (14-36) U/L ALT (9-52) U/L Alkaline Phosphatase (38-126) U/L Troponin I (0.00-0.120) ng/mL NT-Pro-B Natriuret Pep (0-900) pg/mL Total Protein (6.3-8.3) g/dL Albumin (3.5-5.0) g/dL Globulin (2.2-3.9) gm/dL Albumin/Globulin Ratio (1.0-2.1) Arterial Blood Potassium 3.3 L (3.6-5.2) mmol/L Urine Color Yellow (YELLOW) Urine Clarity Clear (Clear) Urine pH 5.0 (5.0-8.0) Ur Specific [place] 1.014 (1.003-1.030) Urine Protein Negative (NEGATIVE) mg/dL Urine Glucose (UA) Normal (Normal) mg/dL Urine Ketones Negative (NEGATIVE) mg/dL Urine Blood 1+ H (NEGATIVE) Urine Nitrate Negative (NEGATIVE) Urine Bilirubin Negative (NEGATIVE) Urine Urobilinogen Normal (0.2-1.0) mg/dL Ur Leukocyte Esterase Neg (Negative) Elena/uL Urine WBC (Auto) 2 (0-5) /hpf Urine RBC (Auto) 4 H (0-3) /hpf Ur Squamous Epith Cells 1 (0-5) /hpf Hyaline Casts 3-5 H (0-2) /lpf 11/05/18 11/05/18 11/05/18 Range/Units 12:44 12:44 05:31 WBC (4.8-10.8) K/uL RBC (3.80-5.20) Mil/uL Hgb (11.0-16.0) g/dL Hct (34.0-47.0) % MCV (81.0-99.0) fL MCH (27.0-31.0) pg MCHC (33.0-37.0) g/dL RDW (11.5-14.5) % Plt Count (130-400) K/uL MPV (7.2-11.7) fL Neut % (Auto) (50.0-75.0) % Lymph % (Auto) (20.0-40.0) % Slope % (Auto) (0.0-10.0) % Eos % (Auto) (0.0-4.0) % Baso % (Auto) (0.0-2.0) % Neut # (Auto) (1.8-7.0) K/uL Lymph # (Auto) (1.0-4.3) K/uL [place] # (Auto) (0.0-0.8) K/uL Eos # (Auto) (0.0-0.7) K/uL Baso # (Auto) (0.0-0.2) K/uL Neutrophils % (Manual) (50-75) % Lymphocytes % (Manual) (20-40) % Monocytes % (Manual) (0-10) % Platelet Estimate (NORMAL) APTT 45 H 46 H D (21-34) SECONDS Puncture Site pCO2 (35-45) mm/Hg pO2 (80-100) mm/Hg HCO3 (21-28) mmol/L ABG pH (7.35-7.45) ABG Total CO2 (22-28) mmol/L ABG O2 Saturation (95-98) % ABG Base Excess (-2.0-3.0) mmol/L Mario Test ABG Potassium (3.6-5.2) mmol/L A-a O2 Difference mm/Hg Respiratory Index Glucose (65-105) mg/dl Lactate (0.7-2.1) mmol/L Mechanical Rate FiO2 % Tidal Volume PEEP Sodium (132-148) mmol/L Potassium (3.6-5.2) mmol/L Chloride (98-107) mmol/L Carbon Dioxide (22-30) mmol/L Anion Gap (10-20) BUN (7-17) mg/dL Creatinine (0.7-1.2) mg/dL Est GFR ( Amer) Est GFR (Non-Af Amer) Random Glucose (65-105) mg/dL Calcium (8.6-10.4) mg/dl Phosphorus (2.5-4.5) mg/dL Magnesium (1.6-2.3) mg/dL Total Bilirubin (0.2-1.3) mg/dL AST (14-36) U/L ALT (9-52) U/L Alkaline Phosphatase (38-126) U/L Troponin I 74.9000 H* (0.00-0.120) ng/mL NT-Pro-B Natriuret Pep 59121 H (0-900) pg/mL Total Protein (6.3-8.3) g/dL Albumin (3.5-5.0) g/dL Globulin (2.2-3.9) gm/dL Albumin/Globulin Ratio (1.0-2.1) Arterial Blood Potassium (3.6-5.2) mmol/L Urine Color (YELLOW) Urine Clarity (Clear) Urine pH (5.0-8.0) Ur Specific [place] (1.003-1.030) Urine Protein (NEGATIVE) mg/dL Urine Glucose (UA) (Normal) mg/dL Urine Ketones (NEGATIVE) mg/dL Urine Blood (NEGATIVE) Urine Nitrate (NEGATIVE) Urine Bilirubin (NEGATIVE) Urine Urobilinogen (0.2-1.0) mg/dL Ur Leukocyte Esterase (Negative) Elena/uL Urine WBC (Auto) (0-5) /hpf Urine RBC (Auto) (0-3) /hpf Ur Squamous Epith Cells (0-5) /hpf Hyaline Casts (0-2) /lpf 11/05/18 11/05/18 11/04/18 Range/Units 05:31 05:31 23:29 WBC 9.7 (4.8-10.8) K/uL RBC 3.05 L (3.80-5.20) Mil/uL Hgb 9.3 L (11.0-16.0) g/dL Hct 27.7 L (34.0-47.0) % MCV 90.7 (81.0-99.0) fL MCH 30.4 (27.0-31.0) pg MCHC 33.6 (33.0-37.0) g/dL RDW 13.3 (11.5-14.5) % Plt Count 197 (130-400) K/uL MPV 10.1 (7.2-11.7) fL Neut % (Auto) 86.8 H (50.0-75.0) % Lymph % (Auto) 8.6 L (20.0-40.0) % Slope % (Auto) 4.3 (0.0-10.0) % Eos % (Auto) 0.0 (0.0-4.0) % Baso % (Auto) 0.3 (0.0-2.0) % Neut # (Auto) 8.4 H (1.8-7.0) K/uL Lymph # (Auto) 0.8 L (1.0-4.3) K/uL [place] # (Auto) 0.4 (0.0-0.8) K/uL Eos # (Auto) 0.0 (0.0-0.7) K/uL Baso # (Auto) 0.0 (0.0-0.2) K/uL Neutrophils % (Manual) 88 H (50-75) % Lymphocytes % (Manual) 6 L (20-40) % Monocytes % (Manual) 6 (0-10) % Platelet Estimate Normal (NORMAL) APTT 38 H (21-34) SECONDS Puncture Site pCO2 (35-45) mm/Hg pO2 (80-100) mm/Hg HCO3 (21-28) mmol/L ABG pH (7.35-7.45) ABG Total CO2 (22-28) mmol/L ABG O2 Saturation (95-98) % ABG Base Excess (-2.0-3.0) mmol/L Mario Test ABG Potassium (3.6-5.2) mmol/L A-a O2 Difference mm/Hg Respiratory Index Glucose (65-105) mg/dl Lactate (0.7-2.1) mmol/L Mechanical Rate FiO2 % Tidal Volume PEEP Sodium 134 (132-148) mmol/L Potassium 3.9 (3.6-5.2) mmol/L Chloride 107 (98-107) mmol/L Carbon Dioxide 18 L (22-30) mmol/L Anion Gap 14 (10-20) BUN 27 H (7-17) mg/dL Creatinine 1.0 (0.7-1.2) mg/dL Est GFR ( Amer) > 60 Est GFR (Non-Af Amer) 56 Random Glucose 192 H D (65-105) mg/dL Calcium 8.4 L (8.6-10.4) mg/dl Phosphorus 3.8 (2.5-4.5) mg/dL Magnesium 1.7 (1.6-2.3) mg/dL Total Bilirubin 0.7 (0.2-1.3) mg/dL AST 356 H D (14-36) U/L ALT 85 H (9-52) U/L Alkaline Phosphatase 56 (38-126) U/L Troponin I (0.00-0.120) ng/mL NT-Pro-B Natriuret Pep (0-900) pg/mL Total Protein 5.6 L (6.3-8.3) g/dL Albumin 3.2 L (3.5-5.0) g/dL Globulin 2.4 (2.2-3.9) gm/dL Albumin/Globulin Ratio 1.4 (1.0-2.1) Arterial Blood Potassium (3.6-5.2) mmol/L Urine Color (YELLOW) Urine Clarity (Clear) Urine pH (5.0-8.0) Ur Specific [place] (1.003-1.030) Urine Protein (NEGATIVE) mg/dL Urine Glucose (UA) (Normal) mg/dL Urine Ketones (NEGATIVE) mg/dL Urine Blood (NEGATIVE) Urine Nitrate (NEGATIVE) Urine Bilirubin (NEGATIVE) Urine Urobilinogen (0.2-1.0) mg/dL Ur Leukocyte Esterase (Negative) Elena/uL Urine WBC (Auto) (0-5) /hpf Urine RBC (Auto) (0-3) /hpf Ur Squamous Epith Cells (0-5) /hpf Hyaline Casts (0-2) /lpf Laboratory Results - last 24 hr 11/04/18 11/05/18 11/05/18 23:29 05:31 05:31 WBC 9.7 RBC 3.05 L Hgb 9.3 L Hct 27.7 L MCV 90.7 MCH 30.4 MCHC 33.6 RDW 13.3 Plt Count 197 MPV 10.1 Neut % (Auto) 86.8 H Lymph % (Auto) 8.6 L [place] % (Auto) 4.3 Eos % (Auto) 0.0 Baso % (Auto) 0.3 Neut # (Auto) 8.4 H Lymph # (Auto) 0.8 L [place] # (Auto) 0.4 Eos # (Auto) 0.0 Baso # (Auto) 0.0 Neutrophils % (Manual) 88 H Lymphocytes % (Manual) 6 L Monocytes % (Manual) 6 Platelet Estimate Normal APTT 38 H Puncture Site pCO2 pO2 HCO3 ABG pH ABG Total CO2 ABG O2 Saturation ABG Base Excess Mario Test ABG Potassium A-a O2 Difference Respiratory Index Glucose Lactate Mechanical Rate FiO2 Tidal Volume PEEP Sodium 134 Potassium 3.9 Chloride 107 Carbon Dioxide 18 L Anion Gap 14 BUN 27 H Creatinine 1.0 Est GFR ( Amer) > 60 Est GFR (Non-Af Amer) 56 Random Glucose 192 H D Calcium 8.4 L Phosphorus 3.8 Magnesium 1.7 Total Bilirubin 0.7 AST 356 H D ALT 85 H Alkaline Phosphatase 56 Troponin I NT-Pro-B Natriuret Pep Total Protein 5.6 L Albumin 3.2 L Globulin 2.4 Albumin/Globulin Ratio 1.4 Arterial Blood Potassium Urine Color Urine Clarity Urine pH Ur Specific [place] Urine Protein Urine Glucose (UA) Urine Ketones Urine Blood Urine Nitrate Urine Bilirubin Urine Urobilinogen Ur Leukocyte Esterase Urine WBC (Auto) Urine RBC (Auto) Ur Squamous Epith Cells Hyaline Casts 11/05/18 11/05/18 11/05/18 05:31 12:44 12:44 WBC RBC Hgb Hct MCV MCH MCHC RDW Plt Count MPV Neut % (Auto) Lymph % (Auto) [place] % (Auto) Eos % (Auto) Baso % (Auto) Neut # (Auto) Lymph # (Auto) [place] # (Auto) Eos # (Auto) Baso # (Auto) Neutrophils % (Manual) Lymphocytes % (Manual) Monocytes % (Manual) Platelet Estimate APTT 46 H D 45 H Puncture Site pCO2 pO2 HCO3 ABG pH ABG Total CO2 ABG O2 Saturation ABG Base Excess Mario Test ABG Potassium A-a O2 Difference Respiratory Index Glucose Lactate Mechanical Rate FiO2 Tidal Volume PEEP Sodium Potassium Chloride Carbon Dioxide Anion Gap BUN Creatinine Est GFR ( Amer) Est GFR (Non-Af Amer) Random Glucose Calcium Phosphorus Magnesium Total Bilirubin AST ALT Alkaline Phosphatase Troponin I 74.9000 H* NT-Pro-B Natriuret Pep 89520 H Total Protein Albumin Globulin Albumin/Globulin Ratio Arterial Blood Potassium Urine Color Urine Clarity Urine pH Ur Specific [place] Urine Protein Urine Glucose (UA) Urine Ketones Urine Blood Urine Nitrate Urine Bilirubin Urine Urobilinogen Ur Leukocyte Esterase Urine WBC (Auto) Urine RBC (Auto) Ur Squamous Epith Cells Hyaline Casts 11/05/18 11/05/18 11/05/18 13:00 15:10 17:38 WBC 8.5 RBC 2.84 L Hgb 8.6 L Hct 25.6 L MCV 90.4 MCH 30.2 MCHC 33.4 RDW 13.5 Plt Count 172 MPV 9.9 Neut % (Auto) 71.3 Lymph % (Auto) 21.3 [place] % (Auto) 6.1 Eos % (Auto) 0.4 Baso % (Auto) 0.9 Neut # (Auto) 6.0 Lymph # (Auto) 1.8 [place] # (Auto) 0.5 Eos # (Auto) 0.0 Baso # (Auto) 0.1 Neutrophils % (Manual) Lymphocytes % (Manual) Monocytes % (Manual) Platelet Estimate APTT Puncture Site R/r pCO2 24 L pO2 187 H HCO3 19.1 L ABG pH 7.41 ABG Total CO2 15.9 L ABG O2 Saturation 98.8 H ABG Base Excess -7.6 L Mario Test Pos ABG Potassium 3.3 L A-a O2 Difference 496.0 Respiratory Index 2.7 Glucose 175 H Lactate 2.8 H Mechanical Rate 16 FiO2 100.0 Tidal Volume 500 PEEP 5 Sodium 135.0 Potassium Chloride 107.0 Carbon Dioxide Anion Gap BUN Creatinine Est GFR ( Amer) Est GFR (Non-Af Amer) Random Glucose Calcium Phosphorus Magnesium Total Bilirubin AST ALT Alkaline Phosphatase Troponin I NT-Pro-B Natriuret Pep Total Protein Albumin Globulin Albumin/Globulin Ratio Arterial Blood Potassium 3.3 L Urine Color Yellow Urine Clarity Clear Urine pH 5.0 Ur Specific [place] 1.014 Urine Protein Negative Urine Glucose (UA) Normal Urine Ketones Negative Urine Blood 1+ H Urine Nitrate Negative Urine Bilirubin Negative Urine Urobilinogen Normal Ur Leukocyte Esterase Neg Urine WBC (Auto) 2 Urine RBC (Auto) 4 H Ur Squamous Epith Cells 1 Hyaline Casts 3-5 H Radiology Impressions: Radiology Impressions Chest X-Ray 11/05/18 12:00 IMPRESSION: Interval increasing pulmonary edema right lung greater than left. Interval insertion of endotracheal tube-tip appears satisfactory. Other findings as above. EKG/Cardiology Studies: Cardiology / EKG Studies 11/05/18 12:05 EKG [ELECTROCARDIOGRAM] Stat Comment: Mode Of Transportation: Reason For Exam: r/o st depressions Critical Care Progress Note - Nutrition Nutrition: Nutrition Category Date Time Status 2gram [Heart Healthy Diet] [DIET] Diets 11/03/18 Dinner Active Attending/Attestation - Attestation I have personally seen and examined this patient.: Yes I have fully participated in the care of the patient.: Yes I have reviewed all pertinent clinical information: Yes Notes (Text): 11/05/18 18:07 Patient seen and examined in the intensive care unit. Patient went into respiratory distress and hypoxemia/tachycardia and was immediately intubated and placed on ventilatory support [place]ton frothy secretions through the ET tube consistent with pulmonary edema Started on IV Lasix IV sedation and ventilatory support Reduce FiO2 as tolerated Case discussed with cardiology and continue balloon pump Continue present treatment for now <Gordon Pope - Last Filed: 11/05/18 20:45> CCU Subjective - Physician Review Subjective (Free Text): PGY-[address] Mccauley service Patient is seen and examined at bedside. PAtient was reported to have anxiety overnight, in the am, patient observed to desaturate to high 80s and tachycardic at 150s, patient intubated at bedside, saturation levels improved, pinkish fluid secretion observed on tubing. ROS unattainable due to patient's having been intubated earlier. 11/05/18 20:24 CCU Objective - Vital Signs / Intake & Output Vital Signs (Last 4 hours): Vital Signs Pulse Resp BP Pulse Ox 11/05/18 15:18 89 22 121/49 L 100 11/05/18 14:48 83 26 H 118/55 L 100 11/05/18 14:18 79 23 132/60 100 11/05/18 14:00 28 L 11/05/18 13:48 79 24 122/69 99 11/05/18 13:18 84 29 H 123/66 100 11/05/18 13:00 83 11/05/18 12:53 150/80 11/05/18 12:48 92 H 31 H 123/60 100 11/05/18 12:26 99 H 35 H 150/80 100 11/05/18 12:19 103 H 30 H 190/152 H 98 11/05/18 12:08 99 H 16 118/63 100 Intake and Output (Last 8hrs): Intake & Output 11/05/18 11/05/18 11/05/18 06:59 14:59 22:59 Intake Total 303.2 359.6 Output Total 1 115 Balance 302.2 244.6 Intake: IV 50 12.6 Intake, IV Amount 53.2 177.0 Left Antecubital 53.2 128.0 Left Wrist 49 Oral 200 170 Output: Urine 115 Urethral (Kelsey) 115 Urine, Voided 0 Urine/Stool Mix 1 Other: # Voids Urine, Voided 1 # Bowel Movements 1 1 - Physical Exam Head: Positive for: Atraumatic, Normocephalic Pupils: Positive for: PERRL Extroacular Muscles: Positive for: EOMI Conjunctiva: Positive for: Normal Neck: Positive for: Other (intubated ) Respiratory/Chest: Positive for: Good Air Exchange Cardiovascular: Positive for: Regular Rate and Rhythm, Normal S1, S2 Abdomen: Positive for: Normal Bowel Sounds Upper Extremity: Positive for: Normal Inspection. Negative for: Edema Lower Extremity: Positive for: Normal Inspection. Negative for: Edema Neurological: Positive for: CN II-XII Intact, Speech Normal Skin: Positive for: Warm, Dry, Normal Color Psychiatric: Positive for: Alert, Oriented x 3, Normal Insight, Normal Concentration, Anxious - Medications Active Medications: Active Medications Generic Name Dose Route Start Last Admin Trade Name Freq PRN Reason Stop Dose Admin Albuterol/Ipratropium 3 ml 11/04/18 17:01 11/05/18 07:50 Duoneb 3 Mg/0.5 Mg (3 Ml) Ud INH 3 ml RQ8 MIREYA Administration Aspirin 325 mg 11/04/18 10:00 11/05/18 09:01 Ecotrin PO 325 mg DAILY MIREYA Administration Ezetimibe 10 mg 11/04/18 10:00 11/05/18 10:20 Zetia PO 10 mg DAILY MIREYA Administration Fluticasone/Vilanterol 1 puff 11/04/18 08:00 11/05/18 07:50 Breo Ellipta 200-25 Mcg Inh INH 1 puff RQD MIREYA Administration Furosemide 40 mg 11/05/18 22:00 Lasix IVP Q12 MIREYA Ceftriaxone Sodium 1 gm/ 100 mls @ 100 mls/hr 11/04/18 17:00 11/04/18 18:00 Sodium Chloride IVPB 100 mls/hr Q24H MIREYA Administration Protocol Heparin Sodium/Sodium Chloride 25,000 units in 250 mls @ 5.6 mls/hr 11/04/18 17:03 11/05/18 00:00 Heparin 02667 Units/250ml 1/2 Normal Saline IV 10 units/kg/hr .Q24H PRN 7 mls/hr ADJUST RATE PER PROTOCOL Titration Protocol 8 UNITS/KG/HR Propofol 1,000 mg in 100 mls @ 2.1 mls/hr 11/05/18 11:52 11/05/18 14:12 Diprivan IV 20 mcg/kg/min .Q24H PRN 8.4 mls/hr TITRATE PER MD ORDER Titration Protocol 5 MCG/KG/MIN Metoprolol Tartrate 25 mg 11/04/18 10:00 11/05/18 09:01 Lopressor PO 25 mg BID MIREYA Administration Qkwlm-4-Tzec Ethyl Esters 1 gm 11/04/18 10:00 11/05/18 10:20 Lovaza PO 1 gm BID MIREYA Administration Pantoprazole Sodium 40 mg 11/04/18 10:00 11/05/18 09:01 Protonix Ec Tab PO 40 mg DAILY MIREYA Administration Promethazine HCl 12.5 mg 11/04/18 16:59 11/05/18 09:00 Phenergan Syrup PO 12.5 mg Q6 PRN Administration Cough Ticagrelor 90 mg 11/04/18 10:00 11/05/18 09:01 Brilinta PO 90 mg BID MIREYA Administration - Patient Studies Lab Studies: Microbiology Studies 11/04/18 05:55 MRSA Culture (Admit) - Final Nose MRSA NOT DETECTED Lab Studies 11/05/18 11/05/18 11/05/18 Range/Units 15:10 13:00 12:44 WBC (4.8-10.8) K/uL RBC (3.80-5.20) Mil/uL Hgb (11.0-16.0) g/dL Hct (34.0-47.0) % MCV (81.0-99.0) fL MCH (27.0-31.0) pg MCHC (33.0-37.0) g/dL RDW (11.5-14.5) % Plt Count (130-400) K/uL MPV (7.2-11.7) fL Neut % (Auto) (50.0-75.0) % Lymph % (Auto) (20.0-40.0) % [place] % (Auto) (0.0-10.0) % Eos % (Auto) (0.0-4.0) % Baso % (Auto) (0.0-2.0) % Neut # (Auto) (1.8-7.0) K/uL Lymph # (Auto) (1.0-4.3) K/uL [place] # (Auto) (0.0-0.8) K/uL Eos # (Auto) (0.0-0.7) K/uL Baso # (Auto) (0.0-0.2) K/uL Neutrophils % (Manual) (50-75) % Lymphocytes % (Manual) (20-40) % Monocytes % (Manual) (0-10) % Platelet Estimate (NORMAL) APTT (21-34) SECONDS Puncture Site R/r pCO2 24 L (35-45) mm/Hg pO2 187 H (80-100) mm/Hg HCO3 19.1 L (21-28) mmol/L ABG pH 7.41 (7.35-7.45) ABG Total CO2 15.9 L (22-28) mmol/L ABG O2 Saturation 98.8 H (95-98) % ABG Base Excess -7.6 L (-2.0-3.0) mmol/L Mario Test Pos ABG Potassium 3.3 L (3.6-5.2) mmol/L A-a O2 Difference 496.0 mm/Hg Respiratory Index 2.7 Glucose 175 H (65-105) mg/dl Lactate 2.8 H (0.7-2.1) mmol/L Mechanical Rate 16 FiO2 100.0 % Tidal Volume 500 PEEP 5 Sodium 135.0 (132-148) mmol/L Potassium (3.6-5.2) mmol/L Chloride 107.0 (98-107) mmol/L Carbon Dioxide (22-30) mmol/L Anion Gap (10-20) BUN (7-17) mg/dL Creatinine (0.7-1.2) mg/dL Est GFR ( Amer) Est GFR (Non-Af Amer) Random Glucose (65-105) mg/dL Calcium (8.6-10.4) mg/dl Phosphorus (2.5-4.5) mg/dL Magnesium (1.6-2.3) mg/dL Total Bilirubin (0.2-1.3) mg/dL AST (14-36) U/L ALT (9-52) U/L Alkaline Phosphatase (38-126) U/L Troponin I 74.9000 H* (0.00-0.120) ng/mL NT-Pro-B Natriuret Pep 79728 H (0-900) pg/mL Total Protein (6.3-8.3) g/dL Albumin (3.5-5.0) g/dL Globulin (2.2-3.9) gm/dL Albumin/Globulin Ratio (1.0-2.1) Arterial Blood Potassium 3.3 L (3.6-5.2) mmol/L Urine Color Yellow (YELLOW) Urine Clarity Clear (Clear) Urine pH 5.0 (5.0-8.0) Ur Specific [place] 1.014 (1.003-1.030) Urine Protein Negative (NEGATIVE) mg/dL Urine Glucose (UA) Normal (Normal) mg/dL Urine Ketones Negative (NEGATIVE) mg/dL Urine Blood 1+ H (NEGATIVE) Urine Nitrate Negative (NEGATIVE) Urine Bilirubin Negative (NEGATIVE) Urine Urobilinogen Normal (0.2-1.0) mg/dL Ur Leukocyte Esterase Neg (Negative) Elena/uL Urine WBC (Auto) 2 (0-5) /hpf Urine RBC (Auto) 4 H (0-3) /hpf Ur Squamous Epith Cells 1 (0-5) /hpf Hyaline Casts 3-5 H (0-2) /lpf 11/05/18 11/05/18 11/05/18 Range/Units 12:44 05:31 05:31 WBC (4.8-10.8) K/uL RBC (3.80-5.20) Mil/uL Hgb (11.0-16.0) g/dL Hct (34.0-47.0) % MCV (81.0-99.0) fL MCH (27.0-31.0) pg MCHC (33.0-37.0) g/dL RDW (11.5-14.5) % Plt Count (130-400) K/uL MPV (7.2-11.7) fL Neut % (Auto) (50.0-75.0) % Lymph % (Auto) (20.0-40.0) % [place] % (Auto) (0.0-10.0) % Eos % (Auto) (0.0-4.0) % Baso % (Auto) (0.0-2.0) % Neut # (Auto) (1.8-7.0) K/uL Lymph # (Auto) (1.0-4.3) K/uL [place] # (Auto) (0.0-0.8) K/uL Eos # (Auto) (0.0-0.7) K/uL Baso # (Auto) (0.0-0.2) K/uL Neutrophils % (Manual) (50-75) % Lymphocytes % (Manual) (20-40) % Monocytes % (Manual) (0-10) % Platelet Estimate (NORMAL) APTT 45 H 46 H D (21-34) SECONDS Puncture Site pCO2 (35-45) mm/Hg pO2 (80-100) mm/Hg HCO3 (21-28) mmol/L ABG pH (7.35-7.45) ABG Total CO2 (22-28) mmol/L ABG O2 Saturation (95-98) % ABG Base Excess (-2.0-3.0) mmol/L Mario Test ABG Potassium (3.6-5.2) mmol/L A-a O2 Difference mm/Hg Respiratory Index Glucose (65-105) mg/dl Lactate (0.7-2.1) mmol/L Mechanical Rate FiO2 % Tidal Volume PEEP Sodium 134 (132-148) mmol/L Potassium 3.9 (3.6-5.2) mmol/L Chloride 107 (98-107) mmol/L Carbon Dioxide 18 L (22-30) mmol/L Anion Gap 14 (10-20) BUN 27 H (7-17) mg/dL Creatinine 1.0 (0.7-1.2) mg/dL Est GFR ( Amer) > 60 Est GFR (Non-Af Amer) 56 Random Glucose 192 H D (65-105) mg/dL Calcium 8.4 L (8.6-10.4) mg/dl Phosphorus 3.8 (2.5-4.5) mg/dL Magnesium 1.7 (1.6-2.3) mg/dL Total Bilirubin 0.7 (0.2-1.3) mg/dL AST 356 H D (14-36) U/L ALT 85 H (9-52) U/L Alkaline Phosphatase 56 (38-126) U/L Troponin I (0.00-0.120) ng/mL NT-Pro-B Natriuret Pep (0-900) pg/mL Total Protein 5.6 L (6.3-8.3) g/dL Albumin 3.2 L (3.5-5.0) g/dL Globulin 2.4 (2.2-3.9) gm/dL Albumin/Globulin Ratio 1.4 (1.0-2.1) Arterial Blood Potassium (3.6-5.2) mmol/L Urine Color (YELLOW) Urine Clarity (Clear) Urine pH (5.0-8.0) Ur Specific [place] (1.003-1.030) Urine Protein (NEGATIVE) mg/dL Urine Glucose (UA) (Normal) mg/dL Urine Ketones (NEGATIVE) mg/dL Urine Blood (NEGATIVE) Urine Nitrate (NEGATIVE) Urine Bilirubin (NEGATIVE) Urine Urobilinogen (0.2-1.0) mg/dL Ur Leukocyte Esterase (Negative) Elena/uL Urine WBC (Auto) (0-5) /hpf Urine RBC (Auto) (0-3) /hpf Ur Squamous Epith Cells (0-5) /hpf Hyaline Casts (0-2) /lpf 11/05/18 11/04/18 11/04/18 Range/Units 05:31 23:29 16:14 WBC 9.7 (4.8-10.8) K/uL RBC 3.05 L (3.80-5.20) Mil/uL Hgb 9.3 L (11.0-16.0) g/dL Hct 27.7 L (34.0-47.0) % MCV 90.7 (81.0-99.0) fL MCH 30.4 (27.0-31.0) pg MCHC 33.6 (33.0-37.0) g/dL RDW 13.3 (11.5-14.5) % Plt Count 197 (130-400) K/uL MPV 10.1 (7.2-11.7) fL Neut % (Auto) 86.8 H (50.0-75.0) % Lymph % (Auto) 8.6 L (20.0-40.0) % [place] % (Auto) 4.3 (0.0-10.0) % Eos % (Auto) 0.0 (0.0-4.0) % Baso % (Auto) 0.3 (0.0-2.0) % Neut # (Auto) 8.4 H (1.8-7.0) K/uL Lymph # (Auto) 0.8 L (1.0-4.3) K/uL [place] # (Auto) 0.4 (0.0-0.8) K/uL Eos # (Auto) 0.0 (0.0-0.7) K/uL Baso # (Auto) 0.0 (0.0-0.2) K/uL Neutrophils % (Manual) 88 H (50-75) % Lymphocytes % (Manual) 6 L (20-40) % Monocytes % (Manual) 6 (0-10) % Platelet Estimate Normal (NORMAL) APTT 38 H 37 H D (21-34) SECONDS Puncture Site pCO2 (35-45) mm/Hg pO2 (80-100) mm/Hg HCO3 (21-28) mmol/L ABG pH (7.35-7.45) ABG Total CO2 (22-28) mmol/L ABG O2 Saturation (95-98) % ABG Base Excess (-2.0-3.0) mmol/L Mario Test ABG Potassium (3.6-5.2) mmol/L A-a O2 Difference mm/Hg Respiratory Index Glucose (65-105) mg/dl Lactate (0.7-2.1) mmol/L Mechanical Rate FiO2 % Tidal Volume PEEP Sodium (132-148) mmol/L Potassium (3.6-5.2) mmol/L Chloride (98-107) mmol/L Carbon Dioxide (22-30) mmol/L Anion Gap (10-20) BUN (7-17) mg/dL Creatinine (0.7-1.2) mg/dL Est GFR ( Amer) Est GFR (Non-Af Amer) Random Glucose (65-105) mg/dL Calcium (8.6-10.4) mg/dl Phosphorus (2.5-4.5) mg/dL Magnesium (1.6-2.3) mg/dL Total Bilirubin (0.2-1.3) mg/dL AST (14-36) U/L ALT (9-52) U/L Alkaline Phosphatase (38-126) U/L Troponin I (0.00-0.120) ng/mL NT-Pro-B Natriuret Pep (0-900) pg/mL Total Protein (6.3-8.3) g/dL Albumin (3.5-5.0) g/dL Globulin (2.2-3.9) gm/dL Albumin/Globulin Ratio (1.0-2.1) Arterial Blood Potassium (3.6-5.2) mmol/L Urine Color (YELLOW) Urine Clarity (Clear) Urine pH (5.0-8.0) Ur Specific [place] (1.003-1.030) Urine Protein (NEGATIVE) mg/dL Urine Glucose (UA) (Normal) mg/dL Urine Ketones (NEGATIVE) mg/dL Urine Blood (NEGATIVE) Urine Nitrate (NEGATIVE) Urine Bilirubin (NEGATIVE) Urine Urobilinogen (0.2-1.0) mg/dL Ur Leukocyte Esterase (Negative) Elena/uL Urine WBC (Auto) (0-5) /hpf Urine RBC (Auto) (0-3) /hpf Ur Squamous Epith Cells (0-5) /hpf Hyaline Casts (0-2) /lpf Laboratory Results - last 24 hr 11/04/18 11/04/18 11/05/18 16:14 23:29 05:31 WBC 9.7 RBC 3.05 L Hgb 9.3 L Hct 27.7 L MCV 90.7 MCH 30.4 MCHC 33.6 RDW 13.3 Plt Count 197 MPV 10.1 Neut % (Auto) 86.8 H Lymph % (Auto) 8.6 L [place] % (Auto) 4.3 Eos % (Auto) 0.0 Baso % (Auto) 0.3 Neut # (Auto) 8.4 H Lymph # (Auto) 0.8 L [place] # (Auto) 0.4 Eos # (Auto) 0.0 Baso # (Auto) 0.0 Neutrophils % (Manual) 88 H Lymphocytes % (Manual) 6 L Monocytes % (Manual) 6 Platelet Estimate Normal APTT 37 H D 38 H Puncture Site pCO2 pO2 HCO3 ABG pH ABG Total CO2 ABG O2 Saturation ABG Base Excess Mario Test ABG Potassium A-a O2 Difference Respiratory Index Glucose Lactate Mechanical Rate FiO2 Tidal Volume PEEP Sodium Potassium Chloride Carbon Dioxide Anion Gap BUN Creatinine Est GFR ( Amer) Est GFR (Non-Af Amer) Random Glucose Calcium Phosphorus Magnesium Total Bilirubin AST ALT Alkaline Phosphatase Troponin I NT-Pro-B Natriuret Pep Total Protein Albumin Globulin Albumin/Globulin Ratio Arterial Blood Potassium Urine Color Urine Clarity Urine pH Ur Specific [place] Urine Protein Urine Glucose (UA) Urine Ketones Urine Blood Urine Nitrate Urine Bilirubin Urine Urobilinogen Ur Leukocyte Esterase Urine WBC (Auto) Urine RBC (Auto) Ur Squamous Epith Cells Hyaline Casts 11/05/18 11/05/18 11/05/18 05:31 05:31 12:44 WBC RBC Hgb Hct MCV MCH MCHC RDW Plt Count MPV Neut % (Auto) Lymph % (Auto) Slope % (Auto) Eos % (Auto) Baso % (Auto) Neut # (Auto) Lymph # (Auto) Slope # (Auto) Eos # (Auto) Baso # (Auto) Neutrophils % (Manual) Lymphocytes % (Manual) Monocytes % (Manual) Platelet Estimate APTT 46 H D 45 H Puncture Site pCO2 pO2 HCO3 ABG pH ABG Total CO2 ABG O2 Saturation ABG Base Excess Mario Test ABG Potassium A-a O2 Difference Respiratory Index Glucose Lactate Mechanical Rate FiO2 Tidal Volume PEEP Sodium 134 Potassium 3.9 Chloride 107 Carbon Dioxide 18 L Anion Gap 14 BUN 27 H Creatinine 1.0 Est GFR ( Amer) > 60 Est GFR (Non-Af Amer) 56 Random Glucose 192 H D Calcium 8.4 L Phosphorus 3.8 Magnesium 1.7 Total Bilirubin 0.7 AST 356 H D ALT 85 H Alkaline Phosphatase 56 Troponin I NT-Pro-B Natriuret Pep Total Protein 5.6 L Albumin 3.2 L Globulin 2.4 Albumin/Globulin Ratio 1.4 Arterial Blood Potassium Urine Color Urine Clarity Urine pH Ur Specific [place] Urine Protein Urine Glucose (UA) Urine Ketones Urine Blood Urine Nitrate Urine Bilirubin Urine Urobilinogen Ur Leukocyte Esterase Urine WBC (Auto) Urine RBC (Auto) Ur Squamous Epith Cells Hyaline Casts 11/05/18 11/05/18 11/05/18 12:44 13:00 15:10 WBC RBC Hgb Hct MCV MCH MCHC RDW Plt Count MPV Neut % (Auto) Lymph % (Auto) Slope % (Auto) Eos % (Auto) Baso % (Auto) Neut # (Auto) Lymph # (Auto) [place] # (Auto) Eos # (Auto) Baso # (Auto) Neutrophils % (Manual) Lymphocytes % (Manual) Monocytes % (Manual) Platelet Estimate APTT Puncture Site R/r pCO2 24 L pO2 187 H HCO3 19.1 L ABG pH 7.41 ABG Total CO2 15.9 L ABG O2 Saturation 98.8 H ABG Base Excess -7.6 L Mario Test Pos ABG Potassium 3.3 L A-a O2 Difference 496.0 Respiratory Index 2.7 Glucose 175 H Lactate 2.8 H Mechanical Rate 16 FiO2 100.0 Tidal Volume 500 PEEP 5 Sodium 135.0 Potassium Chloride 107.0 Carbon Dioxide Anion Gap BUN Creatinine Est GFR ( Amer) Est GFR (Non-Af Amer) Random Glucose Calcium Phosphorus Magnesium Total Bilirubin AST ALT Alkaline Phosphatase Troponin I 74.9000 H* NT-Pro-B Natriuret Pep 90922 H Total Protein Albumin Globulin Albumin/Globulin Ratio Arterial Blood Potassium 3.3 L Urine Color Yellow Urine Clarity Clear Urine pH 5.0 Ur Specific [place] 1.014 Urine Protein Negative Urine Glucose (UA) Normal Urine Ketones Negative Urine Blood 1+ H Urine Nitrate Negative Urine Bilirubin Negative Urine Urobilinogen Normal Ur Leukocyte Esterase Neg Urine WBC (Auto) 2 Urine RBC (Auto) 4 H Ur Squamous Epith Cells 1 Hyaline Casts 3-5 H Radiology Impressions: Radiology Impressions Chest X-Ray 11/05/18 12:00 IMPRESSION: Interval increasing pulmonary edema right lung greater than left. Interval insertion of endotracheal tube-tip appears satisfactory. Other findings as above. EKG/Cardiology Studies: Cardiology / EKG Studies 11/05/18 12:05 EKG [ELECTROCARDIOGRAM] Stat Comment: Mode Of Transportation: Reason For Exam: r/o st depressions Fingerstick Blood Sugar Results: 175 Critical Care Progress Note - Ventilator Checklist Head of Bed 30 Degrees: Yes Daily Assessment of Readiness to Wean: Yes PUD Prophalyxis: Yes DVT Prophylaxis: Yes Oral Care with Chlorhexidine Gluconate {CHG}: Yes - Vent Settings MODE:: PRVC TIDAL VOLUME:: 500 RESP RATE:: 16 FIO2:: 60 - Prophylaxis GI Prophylaxis GI: PPI - Nutrition Nutrition: Nutrition Category Date Time Status 2gram [Heart Healthy Diet] [DIET] Diets 11/03/18 Dinner Active Assessment/Plan - Assessment and Plan (Free Text) Plan: Patient is a 63 year old female with 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 Neuro under sedation, not awake, not alert or oriented at this time propofol drip Cardio EKG - ST wave inversion in V2, V3, V4, elevated trops most likely STEMI - CODE HEART cardiac cath early this morning - f/u official results heparin drip on IABP Tachycardia observed during intubation stat EKG - NSR continue Zetia Lovaza Metoprolol ASA Brilinta Dr Olguin- BNP ordered for 11/04 1999 ; Will trend w/ follow up BNP on 11/05 AM, Will plan for removal of IABP tomorrow 11/05 or following day pending BNP results ; and eventual extubation Resp Hypoxemia, respiratory distress patient intubated today - placed on PRVC 500/16/60 sedated frothy pink secretion noticed on ETT - possible pulm edema IV lasix 40 IVP Q12H will reduce FiO2 as tolerated before planning to extubate repeat chest xray s/p intubation - increasing pulmonary edema right lung greater than left GI NPO Nephro no acute issues Heme repeat am labs follow up BNP PPX DVT - heparin drip, SCD c/i due to IABP GI- protonix Plan discussed with Dr Garrick Pope - Date & Time Date: 11/05/18 Time: 12:00
[2018-11-05 17:41] LABS: BASO # 0.1 K/uL (0.0-0.2); BASO % 0.9 % (0.0-2.0); EOS % 0.4 % (0.0-4.0); HEMOGLOBIN 8.6 g/dL (11.0-16.0); LYMPH # 1.8 K/uL (1.0-4.3); LYMPH % 21.3 % (20.0-40.0); MEAN CELL VOLUME 90.4 fL (81.0-99.0); MEAN CORPUSCULAR HEMOGLOBIN 30.2 pg (27.0-31.0); MEAN CORPUSCULAR HGB CONC 33.4 g/dL (33.0-37.0); MEAN PLATELET VOLUME 9.9 fL (7.2-11.7); MONO # 0.5 K/uL (0.0-0.8); MONO % 6.1 % (0.0-10.0); NEUT % 71.3 % (50.0-75.0); RBC 2.84 Mil/uL (3.80-5.20); RED CELL DISTRIBUTION WIDTH 13.5 % (11.5-14.5); WHITE BLOOD COUNT 8.5 K/uL (4.8-10.8)
[2018-11-05] MEDS ORDERED: Acetaminophen 160 mg/5 ml UD PO ONE (17:49)
--- NOTE | 2018-11-05 18:13 | PCM.PROC ---
Procedures Attestation:: I certify that I have explained the specified Operation(s) or Procedure(s), risks, benefits and reasonable alternatives to the Patient and/or other person responsible. The opportunity was given to ask questions and all questions answered - Intubation Time Out Performed: Yes Sedative: Etomidate Mg Given: 20 Laryngoscope: Lisa ET Tube Size: 7.5 ET Tube Secured at Depth: 22 ET Tube Secured Locarion: Lips ET Tube Placement Confirmation: Visualized Passing Through Cords, Breath Sounds Equal Bilaterally, No Breath Sounds Over Epigastrum, Confirmation w/Capnometry Patient Tolerated Procedure: Well Procedure Immediate Complications: None
[2018-11-05 18:15] LABS: BASO # 0.1 K/uL (0.0-0.2); BASO % 0.9 % (0.0-2.0); HEMOGLOBIN 8.3 g/dL (11.0-16.0); LYMPH # 1.7 K/uL (1.0-4.3); LYMPH % 21.4 % (20.0-40.0); MEAN CORPUSCULAR HEMOGLOBIN 29.9 pg (27.0-31.0); MEAN CORPUSCULAR HGB CONC 33.2 g/dL (33.0-37.0); MEAN PLATELET VOLUME 9.9 fL (7.2-11.7); MONO # 0.5 K/uL (0.0-0.8); MONO % 6.7 % (0.0-10.0); NEUT # 5.6 K/uL (1.8-7.0); RBC 2.79 Mil/uL (3.80-5.20); RED CELL DISTRIBUTION WIDTH 13.5 % (11.5-14.5); WHITE BLOOD COUNT 7.9 K/uL (4.8-10.8)
[2018-11-05] MEDS ORDERED: Acetaminophen 650mg/20.3ml solution UD PO ONE (18:15)
[2018-11-05 18:44] LABS: ALB/GLOB RATIO 1.2 (1.0-2.1); ALBUMIN 3.1 g/dL (3.5-5.0); CALCIUM 8.2 mg/dl (8.6-10.4)
[2018-11-05] MEDS ORDERED: Potassium Chloride 20 mEq/15 ml LIQ UD PO STA (20:13)
[2018-11-05] MEDS ORDERED: Amiodarone 360 mg/D5W 200 ml 360 MG/200 ML BAG IV SCH (22:00)
[2018-11-06] MEDS: Propofol 10 mg/ml 1,000 MG/100 ML VIAL IV PRN ×4 (02:30→18:52)
[2018-11-06] MEDS ORDERED: Amiodarone 540 MG in Dextrose 5% In Water 289.2 ML IV SCH (03:37)
[2018-11-06 04:21] LABS: ARTERIAL BLOOD GAS HCO3 21.6 mmol/L (21-28); ARTERIAL BLOOD GAS O2 SAT 96.5 % (95-98); ARTERIAL BLOOD GAS PCO2 23 mm/Hg (35-45); ARTERIAL BLOOD GAS PO2 75 mm/Hg (80-100); ARTERIAL BLOOD GAS TCO2 18.6 mmol/L (22-28)
[2018-11-06] MEDS ORDERED: Amiodarone 540 MG in Dextrose 5% In Water 289.2 ML IV ONE (05:00)
[2018-11-06 06:15] LABS: BASO % 0.4 % (0.0-2.0); EOS % 0.2 % (0.0-4.0); HEMOGLOBIN 8.8 g/dL (11.0-16.0); LYMPH # 1.5 K/uL (1.0-4.3); LYMPH % 17.5 % (20.0-40.0); MEAN CELL VOLUME 91.2 fL (81.0-99.0); MEAN CORPUSCULAR HEMOGLOBIN 30.9 pg (27.0-31.0); MEAN CORPUSCULAR HGB CONC 33.9 g/dL (33.0-37.0); MEAN PLATELET VOLUME 10.5 fL (7.2-11.7); MONO # 0.4 K/uL (0.0-0.8); MONO % 4.9 % (0.0-10.0); NEUT # 6.6 K/uL (1.8-7.0); RBC 2.84 Mil/uL (3.80-5.20); RED CELL DISTRIBUTION WIDTH 13.8 % (11.5-14.5); WHITE BLOOD COUNT 8.6 K/uL (4.8-10.8)
[2018-11-06 06:31] LABS: ALB/GLOB RATIO 1.1 (1.0-2.1); ALBUMIN 3.2 g/dL (3.5-5.0); ALT/SGPT 69 U/L (9-52); AST/SGOT 179 U/L (14-36); BLOOD UREA NITROGEN 36 mg/dL (7-17); CALCIUM 8.1 mg/dl (8.6-10.4); GFR NON-AFRICAN AMERICAN 56
[2018-11-06 06:36] LABS: B-TYPE NATRIURETIC PEPTIDE 6330 pg/mL (0-900)
[2018-11-06] MEDS: Albuterol-Ipratrop 3 mg / 0.5 (3 ml) UD INH SCH ×2 (07:47→16:18)
[2018-11-06] MEDS: Fluticasone-Vilanterol 200/25mcg Diskus INH SCH (08:00)
[2018-11-06] MEDS: Heparin25000 units/250ml 1/2NS 25,000 UNITS/250 ML BAG IV PRN (08:15)
[2018-11-06] MEDS: Omega-3-Acid Ethyl Esters 1 GM Cap PO SCH ×2 (09:24→17:39)
[2018-11-06] MEDS: Pantoprazole 40 mg Susp UD GT SCH (09:25)
[2018-11-06] MEDS: Aspirin 325 mg EC Tablets PO SCH (09:26)
--- NOTE | 2018-11-06 09:30 | RAD ---
Date of service: 11/05/2018 HISTORY: Tachycardic/Follow up Acute CHF COMPARISON: Portable chest 11/05/2018 1208 p.m.. FINDINGS: LUNGS: Endotracheal tube is unchanged in position. Interval nasogastric tube is in place with the tip coiled at the left upper quadrant abdomen. Bilateral perihilar and medial apical patchy infiltrates not excluded. PLEURA: No significant pleural effusion identified, no pneumothorax apparent. CARDIOVASCULAR: No aortic atherosclerotic calcification present. Normal cardiac size. Pulmonary vascular congestion persists with underlying bilateral infiltrates not excluded. Post CABG changes reiterated. External pacemaker again identified. OSSEOUS STRUCTURES: No significant abnormalities. VISUALIZED UPPER ABDOMEN: Normal. OTHER FINDINGS: None. IMPRESSION: Interval nasogastric tube deployment identified in good apparent position. ET tube stable in position. Pulmonary edema pattern stable with underlying bilateral hilar/medial basilar infiltrates not excluded.
--- NOTE | 2018-11-06 11:00 | CP.PCM.PN ---
<Igor Adam - Last Filed: 11/06/18 15:46> Subjective - Date & Time of Evaluation Date of Evaluation: 11/06/18 Time of Evaluation: 10:57 - Subjective Subjective: Igor Adam DO PGY1 - Cardiology Note for Dr. Olguin Seen and examined at bedside in ICU this morning Nursing notes reviewed - patient febrile + afib overnight Started on AMIO last night Pressures maintained w/o pressor support. Objective - Vital Signs/Intake and Output Vital Signs (last 24 hours): Temp Pulse Resp BP Pulse Ox 99.1 F 72 18 141/92 H 100 11/06/18 08:00 11/06/18 10:00 11/06/18 10:00 11/06/18 10:00 11/06/18 10:00 Intake and Output: 11/06/18 11/06/18 06:59 18:59 Intake Total 752.3 600.6 Output Total 730 349 Balance 22.3 251.6 - Medications Medications: Current Medications Albuterol/Ipratropium (Duoneb 3 Mg/0.5 Mg (3 Ml) Ud) 3 ml INH RQ8 [facility] Last Admin: 11/06/18 07:47 Dose: 3 ml Aspirin (Ecotrin) 325 mg PO DAILY [facility] Last Admin: 11/06/18 09:26 Dose: 325 mg Ezetimibe (Zetia) 10 mg PO DAILY [facility] Last Admin: 11/06/18 09:25 Dose: 10 mg Fluticasone/Vilanterol (Breo Ellipta 200-25 Mcg Inh) 1 puff INH RQD [facility] Last Admin: 11/05/18 07:50 Dose: 1 puff Furosemide (Lasix) 40 mg IVP Q12 MIRE[facility] Last Admin: 11/06/18 09:24 Dose: 40 mg Heparin Sodium/Sodium Chloride (Heparin 90721 Units/250ml 1/2 Normal Saline) 25,000 units in 250 mls @ 5.6 mls/hr IV .Q24H PRN; Protocol PRN Reason: ADJUST RATE PER PROTOCOL Last Admin: 11/06/18 08:15 Dose: 12 units/kg/hr, 8.4 mls/hr Propofol (Diprivan) 1,000 mg in 100 mls @ 2.1 mls/hr IV .Q24H PRN; Protocol PRN Reason: TITRATE PER MD ORDER Last Admin: 11/06/18 10:00 Dose: 30 mcg/kg/min, 12.6 mls/hr Amiodarone HCl 540 mg/ (Dextrose) 300 mls @ 17 mls/hr IV ONCE ONE Stop: 11/06/18 22:38 Last Admin: 11/06/18 04:45 Dose: Not Given Heparin Sodium (Porcine) 1,000 (units/ Sodium Chloride) 1,000 mls @ 1 mls/hr IV ONCE ONE Stop: 12/18/18 02:34 Metoprolol Tartrate (Lopressor) 25 mg PO BID [facility] Last Admin: 11/06/18 09:25 Dose: 25 mg Tmfhy-1-Iaef Ethyl Esters (Lovaza) 1 gm PO BID [facility] Last Admin: 11/06/18 09:24 Dose: 1 gm Pantoprazole Sodium (Protonix Susp) 40 mg GT DAILY [facility] Last Admin: 11/06/18 09:25 Dose: 40 mg Promethazine HCl (Phenergan Syrup) 12.5 mg PO Q6 PRN PRN Reason: Cough Last Admin: 11/05/18 09:00 Dose: 12.5 mg Ticagrelor (Brilinta) 90 mg PO BID [facility] Last Admin: 11/06/18 09:25 Dose: 90 mg - Labs Labs: 11/06/18 06:08 11/06/18 06:07 PT 13.5 SECONDS (9.7-12.2) H 11/04/18 10:17 INR 1.2 11/04/18 10:17 APTT 39 SECONDS (21-34) H D 11/06/18 06:08 - Constitutional Appears: Other (Sedated) - Head Exam Head Exam: ATRAUMATIC, NORMOCEPHALIC - Eye Exam Eye Exam: PERRL - ENT Exam Additional comments: ET tube in place - Respiratory Exam Respiratory Exam: Rhonchi - Cardiovascular Exam Cardiovascular Exam: +S1, +S2 - GI/Abdominal Exam GI & Abdominal Exam: Soft. absent: Tenderness - Extremities Exam Extremities Exam: Normal Capillary Refill - Neurological Exam Neurological Exam: absent: Awake - Skin Skin Exam: Dry, Intact, Warm Assessment and Plan (1) Cardiogenic shock Status: Acute (2) Dyslipidemia Status: Acute (3) STEMI (ST elevation myocardial infarction) Status: Acute (4) Coronary artery disease Status: Chronic (5) HTN (hypertension) Status: Acute (6) Hx of CABG Status: Chronic - Assessment and Plan (Free Text) Plan: IABP stepped down to 1:2 BNP improving Will repeat BNP in AM Started AMIO yesterday; HR stable at time of evaluation CXR from this AM reviewed ; Appears to show worsening pulmonary congestion. Continue AMIO Lasix Drip Continue Zetia Lovaza Metoprolol ASA Brilinta Heparin Drip Further reccs per Dr. Olguin <Zachery Olguin - Last Filed: 11/07/18 19:17> Objective - Vital Signs/Intake and Output Vital Signs (last 24 hours): Temp Pulse Resp BP Pulse Ox 97.9 F 80 24 98/55 L 100 11/07/18 16:30 11/07/18 19:00 11/07/18 19:00 11/07/18 18:27 11/07/18 19:00 Intake and Output: 11/07/18 11/08/18 18:59 06:59 Intake Total 1026.0 77.1 Output Total 3025 200 Balance -1999.0 -122.9 - Medications Medications: Current Medications Acetaminophen (Tylenol 650mg/20.3ml Solution Ud) 650 mg PO Q6 PRN PRN Reason: Temperature Last Admin: 11/06/18 21:41 Dose: 650 mg Acetazolamide (Diamox 500 Mg Inj) 500 mg IV Q12H [facility] Last Admin: 11/07/18 13:37 Dose: 500 mg Albumin Human (Albumin Human 5% (12.5 Gm/250 Ml)) 12.5 gm IV Q10H [facility] Stop: 11/07/18 23:31 Last Admin: 11/07/18 13:37 Dose: 12.5 gm Albuterol/Ipratropium (Duoneb 3 Mg/0.5 Mg (3 Ml) Ud) 3 ml INH RQ8 [facility] Last Admin: 11/07/18 15:54 Dose: 3 ml Amiodarone HCl (Cordarone) 200 mg PO Q12H [facility] Last Admin: 11/07/18 10:32 Dose: 200 mg Aspirin (Ecotrin) 325 mg PO DAILY [facility] Last Admin: 11/07/18 10:29 Dose: 325 mg Ezetimibe (Zetia) 10 mg PO DAILY [facility] Last Admin: 11/07/18 10:29 Dose: 10 mg Enoxaparin Sodium (Lovenox) 40 mg SC DAILY [facility] Fluticasone/Vilanterol (Breo Ellipta 200-25 Mcg Inh) 1 puff INH RQD [facility] Last Admin: 11/07/18 09:56 Dose: Not Given Propofol (Diprivan) 1,000 mg in 100 mls @ 2.1 mls/hr IV .Q24H PRN; Protocol PRN Reason: TITRATE PER MD ORDER Last Titration: 11/07/18 10:47 Dose: 5 mcg/kg/min, 2.1 mls/hr Heparin Sodium (Porcine) 1,000 (units/ Sodium Chloride) 1,000 mls @ 1 mls/hr IV ONCE ONE Stop: 12/18/18 02:34 Last Admin: 11/06/18 11:27 Dose: 1 mls/hr Furosemide 100 mg/ Sodium (Chloride) 100 mls @ 10 mls/hr IV .Q10H [facility] Last Admin: 11/07/18 12:00 Dose: Not Given Metoprolol Tartrate (Lopressor) 25 mg PO BID [facility] Last Admin: 11/07/18 17:10 Dose: 25 mg Zxmph-0-Iwnm Ethyl Esters (Lovaza) 1 gm PO BID [facility] Last Admin: 11/07/18 17:10 Dose: 1 gm Pantoprazole Sodium (Protonix Susp) 40 mg GT DAILY [facility] Last Admin: 11/07/18 10:28 Dose: 40 mg Promethazine HCl (Phenergan Syrup) 12.5 mg PO Q6 PRN PRN Reason: Cough Last Admin: 11/05/18 09:00 Dose: 12.5 mg Ticagrelor (Brilinta) 90 mg PO BID [facility] Last Admin: 11/07/18 17:10 Dose: 90 mg - Labs Labs: 11/07/18 05:49 11/07/18 05:47 PT 13.5 SECONDS (9.7-12.2) H 11/07/18 05:49 INR 1.2 11/07/18 05:49 APTT 53 SECONDS (21-34) H 11/07/18 08:59 Assessment and Plan (1) STEMI (ST elevation myocardial infarction) Status: Acute (2) Cardiogenic shock Status: Acute (3) Dyslipidemia Status: Acute (4) Hemoptysis Status: Acute (5) Coronary artery disease Status: Chronic (6) HTN (hypertension) Status: Acute (7) Hx of CABG Status: Chronic Attending/Attestation - Attestation I have personally seen and examined this patient.: Yes I have fully participated in the care of the patient.: Yes I have reviewed all pertinent clinical information, including history, physical exam and plan: Yes
[2018-11-06] MEDS ORDERED: Vancomycin 1 gm/NS 200 ml 1 GM/200 ML BAG IVPB ONE (12:00)
[2018-11-06] MEDS ORDERED: Furosemide 100 MG in Sodium Chloride 0.9% 90 ML IVP PRN (12:15)
[2018-11-06] MEDS ORDERED: Furosemide 100 MG in Sodium Chloride 0.9% 90 ML IV PRN (12:15)
[2018-11-06] MEDS: Cefepime IV 1 gm in Dextrose 1 GM/50 ML BAG IVPB SCH (12:39)
--- NOTE | 2018-11-06 14:51 | CARD ---
APPROVED REPORT Date of service: 11/04/2018 EKG Measurement Heart [id number] 140P19 [id number] <Conclusion> Normal sinus rhythm Nonspecific ST and T wave abnormality Abnormal ECG
--- NOTE | 2018-11-06 14:51 | CARD ---
APPROVED REPORT Date of service: 11/04/2018 EKG Measurement Heart [id number] HI 130P37 [id number] <Conclusion> Normal sinus rhythm Marked ST abnormality, possible inferior subendocardial injury Marked ST abnormality, possible anteroseptal subendocardial injury Abnormal ECG
--- NOTE | 2018-11-06 14:52 | CARD ---
APPROVED REPORT Date of service: 11/03/2018 EKG Measurement Heart [id number] IN 132P20 [id number] <Conclusion> Normal sinus rhythm Nonspecific ST and T wave abnormality Abnormal ECG
--- NOTE | 2018-11-06 15:23 | RAD ---
Date of service: 11/06/2018 HISTORY: vented COMPARISON: Portable chest 11/05/2018 10:09 p.m.. FINDINGS: LUNGS: Endotracheal tube unchanged in position. Nasogastric tube stable in appearance overall. Bilateral bat wing patchy opacity persists suspicious for potential underlying infiltrates bilaterally. Will change. Air bronchograms identified at the left, borderline at the right. PLEURA: No significant pleural effusion identified, no pneumothorax apparent. CARDIOVASCULAR: No aortic atherosclerotic calcification present. CHF pattern persists without significant interval change. Post CABG changes reiterated. External pacemaker again in position. OSSEOUS STRUCTURES: No significant abnormalities. VISUALIZED UPPER ABDOMEN: Normal. OTHER FINDINGS: None. IMPRESSION: No interval change in pulmonary vascular congestion and potential underlying bilateral hilar infiltrates. Continuing clinical and radiographic monitor advised.
--- NOTE | 2018-11-06 15:52 | CP.CCUPN ---
<Justin Mccauley S - Last Filed: 11/06/18 17:09> CCU Subjective - Physician Review Critical Care Time Spent (in minutes): 55 CCU Objective - Vital Signs / Intake & Output Vital Signs (Last 4 hours): Vital Signs Temp Pulse Resp BP Pulse Ox 11/06/18 16:01 132/93 H 11/06/18 16:00 99.5 F 78 22 132/93 H 98 11/06/18 15:38 75 19 132/93 H 96 11/06/18 15:37 80 19 94 L 11/06/18 15:30 79 20 94 L 11/06/18 15:00 80 23 98 11/06/18 14:39 82 23 140/83 99 11/06/18 14:30 84 25 H 99 11/06/18 14:00 96 H 24 100 11/06/18 13:38 76 24 145/99 H 100 11/06/18 13:30 76 14 100 Intake and Output (Last 8hrs): Intake & Output 11/06/18 11/06/18 11/06/18 06:59 14:59 22:59 Intake Total 490.6 1173.5 421.0 Output Total 520 574 80 Balance -29.4 599.5 341.0 Weight 169 lb Intake: IV 100 447 34 Intake, IV Amount 390.6 576.5 97.0 Left Antecubital 100.8 107.1 21 Left Distal Port 266 Antecubital Left Distal Port Wrist 10 5 Left Wrist 56 57.4 8.4 Right Distal Port 18.9 Internal Jugular Right Forearm 233.8 136 17 Right Medial Port 16.7 Internal Jugular Right Proximal Port 10 Internal Jugular Oral 0 Tube Feeding 40 Other 150 250 Output: Urine 520 574 80 Urethral (Kelsey) 520 574 80 Stool 0 0 0 - Medications Active Medications: Active Medications Generic Name Dose Route Start Last Admin Trade Name Freq PRN Reason Stop Dose Admin Albuterol/Ipratropium 3 ml 11/04/18 17:01 11/06/18 16:18 Duoneb 3 Mg/0.5 Mg (3 Ml) Ud INH 3 ml RQ8 MIREYA Administration Aspirin 325 mg 11/04/18 10:00 11/06/18 09:26 Ecotrin PO 325 mg DAILY MIREYA Administration Ezetimibe 10 mg 11/04/18 10:00 11/06/18 09:25 Zetia PO 10 mg DAILY MIREYA Administration Fluticasone/Vilanterol 1 puff 11/04/18 08:00 11/05/18 07:50 Breo Ellipta 200-25 Mcg Inh INH 1 puff RQD MIREYA Administration Heparin Sodium/Sodium Chloride 25,000 units in 250 mls @ 5.6 mls/hr 11/04/18 17:03 11/06/18 14:00 Heparin 59923 Units/250ml 1/2 Normal Saline IV 0 units/kg/hr .Q24H PRN 0 mls/hr ADJUST RATE PER PROTOCOL Titration Protocol 8 UNITS/KG/HR Propofol 1,000 mg in 100 mls @ 2.1 mls/hr 11/05/18 11:52 11/06/18 15:59 Diprivan IV 45 mcg/kg/min .Q24H PRN 18.9 mls/hr TITRATE PER MD ORDER Titration Protocol 5 MCG/KG/MIN Amiodarone HCl 540 mg/ 300 mls @ 17 mls/hr 11/06/18 05:00 11/06/18 04:45 Dextrose IV 11/06/18 22:38 Not Given ONCE ONE Heparin Sodium (Porcine) 1,000 1,000 mls @ 1 mls/hr 11/06/18 10:35 11/06/18 11:27 units/ Sodium Chloride IV 12/18/18 02:34 1 mls/hr ONCE ONE Administration Cefepime HCl 1 gm in 50 mls @ 100 mls/hr 11/06/18 12:30 11/06/18 12:39 Maxipime Iv 1 Gm Premix IVPB 100 mls/hr Q12H MIREYA Administration Protocol Furosemide 100 mg/ Sodium 100 mls @ 10 mls/hr 11/06/18 16:00 11/06/18 16:01 Chloride IV Not Given .Q10H MIREYA 10 MG/HR Metoprolol Tartrate 25 mg 11/04/18 10:00 11/06/18 09:25 Lopressor PO 25 mg BID MIREYA Administration [id number] Ethyl Esters 1 gm 11/04/18 10:00 11/06/18 09:24 Lovaza PO 1 gm BID MIREYA Administration Pantoprazole Sodium 40 mg 11/06/18 10:00 11/06/18 09:25 Protonix Susp GT 40 mg DAILY MIREYA Administration Promethazine HCl 12.5 mg 11/04/18 16:59 11/05/18 09:00 Phenergan Syrup PO 12.5 mg Q6 PRN Administration Cough Ticagrelor 90 mg 11/04/18 10:00 11/06/18 09:25 Brilinta PO 90 mg BID MIREYA Administration - Patient Studies Lab Studies: Lab Studies 11/06/18 11/06/18 11/06/18 Range/Units 07:31 06:08 06:08 WBC 8.6 (4.8-10.8) K/uL RBC 2.84 L (3.80-5.20) Mil/uL Hgb 8.8 L (11.0-16.0) g/dL Hct 25.8 L (34.0-47.0) % MCV 91.2 (81.0-99.0) fL MCH 30.9 (27.0-31.0) pg MCHC 33.9 (33.0-37.0) g/dL RDW 13.8 (11.5-14.5) % Plt Count 152 (130-400) K/uL MPV 10.5 (7.2-11.7) fL Neut % (Auto) 77.0 H (50.0-75.0) % Lymph % (Auto) 17.5 L (20.0-40.0) % [place] % (Auto) 4.9 (0.0-10.0) % Eos % (Auto) 0.2 (0.0-4.0) % Baso % (Auto) 0.4 (0.0-2.0) % Neut # (Auto) 6.6 (1.8-7.0) K/uL Lymph # (Auto) 1.5 (1.0-4.3) K/uL [place] # (Auto) 0.4 (0.0-0.8) K/uL Eos # (Auto) 0.0 (0.0-0.7) K/uL Baso # (Auto) 0.0 (0.0-0.2) K/uL APTT 39 H D (21-34) SECONDS Puncture Site pCO2 (35-45) mm/Hg pO2 (80-100) mm/Hg HCO3 (21-28) mmol/L ABG pH (7.35-7.45) ABG Total CO2 (22-28) mmol/L ABG O2 Saturation (95-98) % ABG Base Excess (-2.0-3.0) mmol/L ABG Hemoglobin (11.7-17.4) g/dL ABG Carboxyhemoglobin (0.5-1.5) % POC ABG HHb (Measured) (0.0-5.0) % ABG Methemoglobin (0.0-3.0) % Mario Test A-a O2 Difference mm/Hg Respiratory Index Hgb O2 Saturation (95.0-98.0) % Vent Mode Mechanical Rate FiO2 % Tidal Volume PEEP Sodium (132-148) mmol/L Potassium (3.6-5.2) mmol/L Chloride (98-107) mmol/L Carbon Dioxide (22-30) mmol/L Anion Gap (10-20) BUN (7-17) mg/dL Creatinine (0.7-1.2) mg/dL Est GFR ( Amer) Est GFR (Non-Af Amer) POC Glucose (mg/dL) 141 H (65-110) mg/dL Random Glucose (65-105) mg/dL Calcium (8.6-10.4) mg/dl Phosphorus (2.5-4.5) mg/dL Magnesium (1.6-2.3) mg/dL Total Bilirubin (0.2-1.3) mg/dL AST (14-36) U/L ALT (9-52) U/L Alkaline Phosphatase (38-126) U/L NT-Pro-B Natriuret Pep (0-900) pg/mL Total Protein (6.3-8.3) g/dL Albumin (3.5-5.0) g/dL Globulin (2.2-3.9) gm/dL Albumin/Globulin Ratio (1.0-2.1) 11/06/18 11/06/18 11/05/18 Range/Units 06:07 04:15 20:16 WBC (4.8-10.8) K/uL RBC (3.80-5.20) Mil/uL Hgb (11.0-16.0) g/dL Hct (34.0-47.0) % MCV (81.0-99.0) fL MCH (27.0-31.0) pg MCHC (33.0-37.0) g/dL RDW (11.5-14.5) % Plt Count (130-400) K/uL MPV (7.2-11.7) fL Neut % (Auto) (50.0-75.0) % Lymph % (Auto) (20.0-40.0) % [place] % (Auto) (0.0-10.0) % Eos % (Auto) (0.0-4.0) % Baso % (Auto) (0.0-2.0) % Neut # (Auto) (1.8-7.0) K/uL Lymph # (Auto) (1.0-4.3) K/uL [place] # (Auto) (0.0-0.8) K/uL Eos # (Auto) (0.0-0.7) K/uL Baso # (Auto) (0.0-0.2) K/uL APTT (21-34) SECONDS Puncture Site Rb pCO2 23 L (35-45) mm/Hg pO2 75 L (80-100) mm/Hg HCO3 21.6 (21-28) mmol/L ABG pH 7.50 H (7.35-7.45) ABG Total CO2 18.6 L (22-28) mmol/L ABG O2 Saturation 96.5 (95-98) % ABG Base Excess -4.2 L (-2.0-3.0) mmol/L ABG Hemoglobin 9.0 L (11.7-17.4) g/dL ABG Carboxyhemoglobin 0.6 (0.5-1.5) % POC ABG HHb (Measured) 3.5 (0.0-5.0) % ABG Methemoglobin 0.5 (0.0-3.0) % Mario Test Na A-a O2 Difference 324.0 mm/Hg Respiratory Index 4.3 Hgb O2 Saturation 95.4 (95.0-98.0) % Vent Mode Prvc Mechanical Rate 16 FiO2 60.0 % Tidal Volume 500 PEEP 5 Sodium 134 (132-148) mmol/L Potassium 3.7 (3.6-5.2) mmol/L Chloride 105 (98-107) mmol/L Carbon Dioxide 20 L (22-30) mmol/L Anion Gap 13 (10-20) BUN 36 H (7-17) mg/dL Creatinine 1.0 (0.7-1.2) mg/dL Est GFR ( Amer) > 60 Est GFR (Non-Af Amer) 56 POC Glucose (mg/dL) (65-110) mg/dL Random Glucose 140 H (65-105) mg/dL Calcium 8.1 L (8.6-10.4) mg/dl Phosphorus 3.2 (2.5-4.5) mg/dL Magnesium 2.1 (1.6-2.3) mg/dL Total Bilirubin 0.8 (0.2-1.3) mg/dL AST 179 H D (14-36) U/L ALT 69 H (9-52) U/L Alkaline Phosphatase 62 (38-126) U/L NT-Pro-B Natriuret Pep 6330 H 14333 H (0-900) pg/mL Total Protein 6.0 L (6.3-8.3) g/dL Albumin 3.2 L (3.5-5.0) g/dL Globulin 2.8 (2.2-3.9) gm/dL Albumin/Globulin Ratio 1.1 (1.0-2.1) 11/05/18 11/05/18 11/05/18 Range/Units 18:10 18:10 18:02 WBC 7.9 (4.8-10.8) K/uL RBC 2.79 L (3.80-5.20) Mil/uL Hgb 8.3 L (11.0-16.0) g/dL Hct 25.1 L (34.0-47.0) % MCV 90.0 (81.0-99.0) fL MCH 29.9 (27.0-31.0) pg MCHC 33.2 (33.0-37.0) g/dL RDW 13.5 (11.5-14.5) % Plt Count 175 (130-400) K/uL MPV 9.9 (7.2-11.7) fL Neut % (Auto) 71.0 (50.0-75.0) % Lymph % (Auto) 21.4 (20.0-40.0) % [place] % (Auto) 6.7 (0.0-10.0) % Eos % (Auto) 0.0 (0.0-4.0) % Baso % (Auto) 0.9 (0.0-2.0) % Neut # (Auto) 5.6 (1.8-7.0) K/uL Lymph # (Auto) 1.7 (1.0-4.3) K/uL [place] # (Auto) 0.5 (0.0-0.8) K/uL Eos # (Auto) 0.0 (0.0-0.7) K/uL Baso # (Auto) 0.1 (0.0-0.2) K/uL APTT (21-34) SECONDS Puncture Site pCO2 (35-45) mm/Hg pO2 (80-100) mm/Hg HCO3 (21-28) mmol/L ABG pH (7.35-7.45) ABG Total CO2 (22-28) mmol/L ABG O2 Saturation (95-98) % ABG Base Excess (-2.0-3.0) mmol/L ABG Hemoglobin (11.7-17.4) g/dL ABG Carboxyhemoglobin (0.5-1.5) % POC ABG HHb (Measured) (0.0-5.0) % ABG Methemoglobin (0.0-3.0) % Mario Test A-a O2 Difference mm/Hg Respiratory Index Hgb O2 Saturation (95.0-98.0) % Vent Mode Mechanical Rate FiO2 % Tidal Volume PEEP Sodium 135 (132-148) mmol/L Potassium 3.6 (3.6-5.2) mmol/L Chloride 107 (98-107) mmol/L Carbon Dioxide 20 L (22-30) mmol/L Anion Gap 11 (10-20) BUN 37 H (7-17) mg/dL Creatinine 1.2 (0.7-1.2) mg/dL Est GFR ( Amer) 55 Est GFR (Non-Af Amer) 45 POC Glucose (mg/dL) 121 H (65-110) mg/dL Random Glucose 122 H D (65-105) mg/dL Calcium 8.2 L (8.6-10.4) mg/dl Phosphorus 3.0 (2.5-4.5) mg/dL Magnesium 2.0 (1.6-2.3) mg/dL Total Bilirubin 0.8 (0.2-1.3) mg/dL AST 259 H D (14-36) U/L ALT 75 H (9-52) U/L Alkaline Phosphatase 53 (38-126) U/L NT-Pro-B Natriuret Pep (0-900) pg/mL Total Protein 5.6 L (6.3-8.3) g/dL Albumin 3.1 L (3.5-5.0) g/dL Globulin 2.6 (2.2-3.9) gm/dL Albumin/Globulin Ratio 1.2 (1.0-2.1) 11/05/18 Range/Units 17:38 WBC 8.5 (4.8-10.8) K/uL RBC 2.84 L (3.80-5.20) Mil/uL Hgb 8.6 L (11.0-16.0) g/dL Hct 25.6 L (34.0-47.0) % MCV 90.4 (81.0-99.0) fL MCH 30.2 (27.0-31.0) pg MCHC 33.4 (33.0-37.0) g/dL RDW 13.5 (11.5-14.5) % Plt Count 172 (130-400) K/uL MPV 9.9 (7.2-11.7) fL Neut % (Auto) 71.3 (50.0-75.0) % Lymph % (Auto) 21.3 (20.0-40.0) % [place] % (Auto) 6.1 (0.0-10.0) % Eos % (Auto) 0.4 (0.0-4.0) % Baso % (Auto) 0.9 (0.0-2.0) % Neut # (Auto) 6.0 (1.8-7.0) K/uL Lymph # (Auto) 1.8 (1.0-4.3) K/uL [place] # (Auto) 0.5 (0.0-0.8) K/uL Eos # (Auto) 0.0 (0.0-0.7) K/uL Baso # (Auto) 0.1 (0.0-0.2) K/uL APTT (21-34) SECONDS Puncture Site pCO2 (35-45) mm/Hg pO2 (80-100) mm/Hg HCO3 (21-28) mmol/L ABG pH (7.35-7.45) ABG Total CO2 (22-28) mmol/L ABG O2 Saturation (95-98) % ABG Base Excess (-2.0-3.0) mmol/L ABG Hemoglobin (11.7-17.4) g/dL ABG Carboxyhemoglobin (0.5-1.5) % POC ABG HHb (Measured) (0.0-5.0) % ABG Methemoglobin (0.0-3.0) % Mario Test A-a O2 Difference mm/Hg Respiratory Index Hgb O2 Saturation (95.0-98.0) % Vent Mode Mechanical Rate FiO2 % Tidal Volume PEEP Sodium (132-148) mmol/L Potassium (3.6-5.2) mmol/L Chloride (98-107) mmol/L Carbon Dioxide (22-30) mmol/L Anion Gap (10-20) BUN (7-17) mg/dL Creatinine (0.7-1.2) mg/dL Est GFR ( Amer) Est GFR (Non-Af Amer) POC Glucose (mg/dL) (65-110) mg/dL Random Glucose (65-105) mg/dL Calcium (8.6-10.4) mg/dl Phosphorus (2.5-4.5) mg/dL Magnesium (1.6-2.3) mg/dL Total Bilirubin (0.2-1.3) mg/dL AST (14-36) U/L ALT (9-52) U/L Alkaline Phosphatase (38-126) U/L NT-Pro-B Natriuret Pep (0-900) pg/mL Total Protein (6.3-8.3) g/dL Albumin (3.5-5.0) g/dL Globulin (2.2-3.9) gm/dL Albumin/Globulin Ratio (1.0-2.1) Laboratory Results - last 24 hr 11/05/18 11/05/18 11/05/18 17:38 18:02 18:10 WBC 8.5 7.9 RBC 2.84 L 2.79 L Hgb 8.6 L 8.3 L Hct 25.6 L 25.1 L MCV 90.4 90.0 MCH 30.2 29.9 MCHC 33.4 33.2 RDW 13.5 13.5 Plt Count 172 175 MPV 9.9 9.9 Neut % (Auto) 71.3 71.0 Lymph % (Auto) 21.3 21.4 [place] % (Auto) 6.1 6.7 Eos % (Auto) 0.4 0.0 Baso % (Auto) 0.9 0.9 Neut # (Auto) 6.0 5.6 Lymph # (Auto) 1.8 1.7 [place] # (Auto) 0.5 0.5 Eos # (Auto) 0.0 0.0 Baso # (Auto) 0.1 0.1 APTT Puncture Site pCO2 pO2 HCO3 ABG pH ABG Total CO2 ABG O2 Saturation ABG Base Excess ABG Hemoglobin ABG Carboxyhemoglobin POC ABG HHb (Measured) ABG Methemoglobin Mario Test A-a O2 Difference Respiratory Index Hgb O2 Saturation Vent Mode Mechanical Rate FiO2 Tidal Volume PEEP Sodium Potassium Chloride Carbon Dioxide Anion Gap BUN Creatinine Est GFR ( Amer) Est GFR (Non-Af Amer) POC Glucose (mg/dL) 121 H Random Glucose Calcium Phosphorus Magnesium Total Bilirubin AST ALT Alkaline Phosphatase NT-Pro-B Natriuret Pep Total Protein Albumin Globulin Albumin/Globulin Ratio 11/05/18 11/05/18 11/06/18 18:10 20:16 04:15 WBC RBC Hgb Hct MCV MCH MCHC RDW Plt Count MPV Neut % (Auto) Lymph % (Auto) [place] % (Auto) Eos % (Auto) Baso % (Auto) Neut # (Auto) Lymph # (Auto) [place] # (Auto) Eos # (Auto) Baso # (Auto) APTT Puncture Site Rb pCO2 23 L pO2 75 L HCO3 21.6 ABG pH 7.50 H ABG Total CO2 18.6 L ABG O2 Saturation 96.5 ABG Base Excess -4.2 L ABG Hemoglobin 9.0 L ABG Carboxyhemoglobin 0.6 POC ABG HHb (Measured) 3.5 ABG Methemoglobin 0.5 Mario Test Na A-a O2 Difference 324.0 Respiratory Index 4.3 Hgb O2 Saturation 95.4 Vent Mode Prvc Mechanical Rate 16 FiO2 60.0 Tidal Volume 500 PEEP 5 Sodium 135 Potassium 3.6 Chloride 107 Carbon Dioxide 20 L Anion Gap 11 BUN 37 H Creatinine 1.2 Est GFR ( Amer) 55 Est GFR (Non-Af Amer) 45 POC Glucose (mg/dL) Random Glucose 122 H D Calcium 8.2 L Phosphorus 3.0 Magnesium 2.0 Total Bilirubin 0.8 AST 259 H D ALT 75 H Alkaline Phosphatase 53 NT-Pro-B Natriuret Pep 35800 H Total Protein 5.6 L Albumin 3.1 L Globulin 2.6 Albumin/Globulin Ratio 1.2 11/06/18 11/06/18 11/06/18 06:07 06:08 06:08 WBC 8.6 RBC 2.84 L Hgb 8.8 L Hct 25.8 L MCV 91.2 MCH 30.9 MCHC 33.9 RDW 13.8 Plt Count 152 MPV 10.5 Neut % (Auto) 77.0 H Lymph % (Auto) 17.5 L [place] % (Auto) 4.9 Eos % (Auto) 0.2 Baso % (Auto) 0.4 Neut # (Auto) 6.6 Lymph # (Auto) 1.5 [place] # (Auto) 0.4 Eos # (Auto) 0.0 Baso # (Auto) 0.0 APTT 39 H D Puncture Site pCO2 pO2 HCO3 ABG pH ABG Total CO2 ABG O2 Saturation ABG Base Excess ABG Hemoglobin ABG Carboxyhemoglobin POC ABG HHb (Measured) ABG Methemoglobin Mario Test A-a O2 Difference Respiratory Index Hgb O2 Saturation Vent Mode Mechanical Rate FiO2 Tidal Volume PEEP Sodium 134 Potassium 3.7 Chloride 105 Carbon Dioxide 20 L Anion Gap 13 BUN 36 H Creatinine 1.0 Est GFR ( Amer) > 60 Est GFR (Non-Af Amer) 56 POC Glucose (mg/dL) Random Glucose 140 H Calcium 8.1 L Phosphorus 3.2 Magnesium 2.1 Total Bilirubin 0.8 AST 179 H D ALT 69 H Alkaline Phosphatase 62 NT-Pro-B Natriuret Pep 6330 H Total Protein 6.0 L Albumin 3.2 L Globulin 2.8 Albumin/Globulin Ratio 1.1 11/06/18 07:31 WBC RBC Hgb Hct MCV MCH MCHC RDW Plt Count MPV Neut % (Auto) Lymph % (Auto) [place] % (Auto) Eos % (Auto) Baso % (Auto) Neut # (Auto) Lymph # (Auto) [place] # (Auto) Eos # (Auto) Baso # (Auto) APTT Puncture Site pCO2 pO2 HCO3 ABG pH ABG Total CO2 ABG O2 Saturation ABG Base Excess ABG Hemoglobin ABG Carboxyhemoglobin POC ABG HHb (Measured) ABG Methemoglobin Mario Test A-a O2 Difference Respiratory Index Hgb O2 Saturation Vent Mode Mechanical Rate FiO2 Tidal Volume PEEP Sodium Potassium Chloride Carbon Dioxide Anion Gap BUN Creatinine Est GFR ( Amer) Est GFR (Non-Af Amer) POC Glucose (mg/dL) 141 H Random Glucose Calcium Phosphorus Magnesium Total Bilirubin AST ALT Alkaline Phosphatase NT-Pro-B Natriuret Pep Total Protein Albumin Globulin Albumin/Globulin Ratio Radiology Impressions: Radiology Impressions Chest X-Ray 11/05/18 21:22 IMPRESSION: Interval nasogastric tube deployment identified in good apparent position. ET tube stable in position. Pulmonary edema pattern stable with underlying bilateral hilar/medial basilar infiltrates not excluded. Chest X-Ray 11/06/18 07:00 IMPRESSION: No interval change in pulmonary vascular congestion and potential underlying bilateral hilar infiltrates. Continuing clinical and radiographic monitor advised. EKG/Cardiology Studies: Cardiology / EKG Studies 11/05/18 20:19 EKG [ELECTROCARDIOGRAM] Stat Comment: Mode Of Transportation: PORTABLE Reason For Exam: Irregular Heart Rhythm Attending/Attestation - Attestation I have personally seen and examined this patient.: Yes I have fully participated in the care of the patient.: Yes I have reviewed all pertinent clinical information: Yes Notes (Text): 11/06/18 17:09 Patient seen and examined in the intensive care unit. Patient remained intubated on ventilatory support Reduce FiO2 as tolerated Increasing pulmonary edema noted Lasix drip Continue aortic balloon Started on IV antibiotics for fever with pancultures Triple-lumen catheter inserted Continue anticoagulation <Gordon Pope - Last Filed: 11/06/18 20:51> CCU Subjective - Physician Review Subjective (Free Text): PGY-[address] Mccauley service Patient is seen and examined at bedside. Patient is intubated and sedated. Family at bedside. No acute events overnight. no bloody secretions seen in ETT. ROS unattainable due to patient's current status CCU Objective - Vital Signs / Intake & Output Vital Signs (Last 4 hours): Vital Signs Temp Pulse Resp BP Pulse Ox 11/06/18 15:38 132/93 H 11/06/18 15:37 80 19 94 L 11/06/18 15:30 79 20 94 L 11/06/18 15:00 80 23 98 11/06/18 14:39 82 23 140/83 99 11/06/18 14:30 84 25 H 99 11/06/18 14:00 96 H 24 100 11/06/18 13:38 76 24 145/99 H 100 11/06/18 13:30 76 14 100 11/06/18 13:00 71 27 H 100 11/06/18 12:50 144/112 H 11/06/18 12:39 70 15 144/112 H 100 11/06/18 12:30 69 21 100 11/06/18 12:00 99.6 F 70 18 100 Intake and Output (Last 8hrs): Intake & Output 11/06/18 11/06/18 11/06/18 06:59 14:59 22:59 Intake Total 490.6 1173.5 63 Output Total 520 574 40 Balance -29.4 599.5 23 Weight 169 lb Intake: IV 100 447 Intake, IV Amount 390.6 576.5 43 Left Antecubital 100.8 107.1 21 Left Distal Port 266 Antecubital Left Distal Port Wrist 10 5 Left Wrist 56 57.4 0 Right Forearm 233.8 136 17 Oral 0 Tube Feeding 20 Other 150 Output: Urine 520 574 40 Urethral (Kelsey) 520 574 40 Stool 0 0 0 - Physical Exam Head: Positive for: Atraumatic, Normocephalic Pupils: Positive for: PERRL Extroacular Muscles: Positive for: EOMI Conjunctiva: Positive for: Normal Mouth: Positive for: Moist Mucous Membranes Respiratory/Chest: Positive for: Good Air Exchange Cardiovascular: Positive for: Regular Rate and Rhythm, Normal S1, S2 Abdomen: Positive for: Normal Bowel Sounds Upper Extremity: Positive for: Normal Inspection. Negative for: Edema Lower Extremity: Positive for: Normal Inspection. Negative for: Edema Skin: Positive for: Warm, Dry, Normal Color Other physical findings (Free Text): sedated unable to assess - Medications Active Medications: Active Medications Generic Name Dose Route Start Last Admin Trade Name Freq PRN Reason Stop Dose Admin Albuterol/Ipratropium 3 ml 11/04/18 17:01 11/06/18 07:47 Duoneb 3 Mg/0.5 Mg (3 Ml) Ud INH 3 ml RQ8 MIREYA Administration Aspirin 325 mg 11/04/18 10:00 11/06/18 09:26 Ecotrin PO 325 mg DAILY MIREYA Administration Ezetimibe 10 mg 11/04/18 10:00 11/06/18 09:25 Zetia PO 10 mg DAILY MIREYA Administration Fluticasone/Vilanterol 1 puff 11/04/18 08:00 11/05/18 07:50 Breo Ellipta 200-25 Mcg Inh INH 1 puff RQD MIREYA Administration Heparin Sodium/Sodium Chloride 25,000 units in 250 mls @ 5.6 mls/hr 11/04/18 17:03 11/06/18 14:00 Heparin 85399 Units/250ml 1/2 Normal Saline IV 0 units/kg/hr .Q24H PRN 0 mls/hr ADJUST RATE PER PROTOCOL Titration Protocol 8 UNITS/KG/HR Propofol 1,000 mg in 100 mls @ 2.1 mls/hr 11/05/18 11:52 11/06/18 14:21 Diprivan IV 50 mcg/kg/min .Q24H PRN 21 mls/hr TITRATE PER MD ORDER Titration Protocol 5 MCG/KG/MIN Amiodarone HCl 540 mg/ 300 mls @ 17 mls/hr 11/06/18 05:00 11/06/18 04:45 Dextrose IV 11/06/18 22:38 Not Given ONCE ONE Heparin Sodium (Porcine) 1,000 1,000 mls @ 1 mls/hr 11/06/18 10:35 11/06/18 11:27 units/ Sodium Chloride IV 12/18/18 02:34 1 mls/hr ONCE ONE Administration Cefepime HCl 1 gm in 50 mls @ 100 mls/hr 11/06/18 12:30 11/06/18 12:39 Maxipime Iv 1 Gm Premix IVPB 100 mls/hr Q12H MIREYA Administration Protocol Furosemide 100 mg/ Sodium 100 mls @ 10 mls/hr 11/06/18 16:00 Chloride IV .Q10H MIREYA 10 MG/HR Metoprolol Tartrate 25 mg 11/04/18 10:00 11/06/18 09:25 Lopressor PO 25 mg BID MIREYA Administration [id number] Ethyl Esters 1 gm 11/04/18 10:00 11/06/18 09:24 Lovaza PO 1 gm BID MIREYA Administration Pantoprazole Sodium 40 mg 11/06/18 10:00 11/06/18 09:25 Protonix Susp GT 40 mg DAILY MIREYA Administration Promethazine HCl 12.5 mg 11/04/18 16:59 11/05/18 09:00 Phenergan Syrup PO 12.5 mg Q6 PRN Administration Cough Ticagrelor 90 mg 11/04/18 10:00 11/06/18 09:25 Brilinta PO 90 mg BID MIREYA Administration - Patient Studies Lab Studies: Microbiology Studies 11/04/18 05:55 MRSA Culture (Admit) - Final Nose MRSA NOT DETECTED Lab Studies 11/06/18 11/06/18 11/06/18 Range/Units 07:31 06:08 06:08 WBC 8.6 (4.8-10.8) K/uL RBC 2.84 L (3.80-5.20) Mil/uL Hgb 8.8 L (11.0-16.0) g/dL Hct 25.8 L (34.0-47.0) % MCV 91.2 (81.0-99.0) fL MCH 30.9 (27.0-31.0) pg MCHC 33.9 (33.0-37.0) g/dL RDW 13.8 (11.5-14.5) % Plt Count 152 (130-400) K/uL MPV 10.5 (7.2-11.7) fL Neut % (Auto) 77.0 H (50.0-75.0) % Lymph % (Auto) 17.5 L (20.0-40.0) % [place] % (Auto) 4.9 (0.0-10.0) % Eos % (Auto) 0.2 (0.0-4.0) % Baso % (Auto) 0.4 (0.0-2.0) % Neut # (Auto) 6.6 (1.8-7.0) K/uL Lymph # (Auto) 1.5 (1.0-4.3) K/uL [place] # (Auto) 0.4 (0.0-0.8) K/uL Eos # (Auto) 0.0 (0.0-0.7) K/uL Baso # (Auto) 0.0 (0.0-0.2) K/uL APTT 39 H D (21-34) SECONDS Puncture Site pCO2 (35-45) mm/Hg pO2 (80-100) mm/Hg HCO3 (21-28) mmol/L ABG pH (7.35-7.45) ABG Total CO2 (22-28) mmol/L ABG O2 Saturation (95-98) % ABG Base Excess (-2.0-3.0) mmol/L ABG Hemoglobin (11.7-17.4) g/dL ABG Carboxyhemoglobin (0.5-1.5) % POC ABG HHb (Measured) (0.0-5.0) % ABG Methemoglobin (0.0-3.0) % Mario Test A-a O2 Difference mm/Hg Respiratory Index Hgb O2 Saturation (95.0-98.0) % Vent Mode Mechanical Rate FiO2 % Tidal Volume PEEP Sodium (132-148) mmol/L Potassium (3.6-5.2) mmol/L Chloride (98-107) mmol/L Carbon Dioxide (22-30) mmol/L Anion Gap (10-20) BUN (7-17) mg/dL Creatinine (0.7-1.2) mg/dL Est GFR ( Amer) Est GFR (Non-Af Amer) POC Glucose (mg/dL) 141 H (65-110) mg/dL Random Glucose (65-105) mg/dL Calcium (8.6-10.4) mg/dl Phosphorus (2.5-4.5) mg/dL Magnesium (1.6-2.3) mg/dL Total Bilirubin (0.2-1.3) mg/dL AST (14-36) U/L ALT (9-52) U/L Alkaline Phosphatase (38-126) U/L NT-Pro-B Natriuret Pep (0-900) pg/mL Total Protein (6.3-8.3) g/dL Albumin (3.5-5.0) g/dL Globulin (2.2-3.9) gm/dL Albumin/Globulin Ratio (1.0-2.1) 11/06/18 11/06/18 11/05/18 Range/Units 06:07 04:15 20:16 WBC (4.8-10.8) K/uL RBC (3.80-5.20) Mil/uL Hgb (11.0-16.0) g/dL Hct (34.0-47.0) % MCV (81.0-99.0) fL MCH (27.0-31.0) pg MCHC (33.0-37.0) g/dL RDW (11.5-14.5) % Plt Count (130-400) K/uL MPV (7.2-11.7) fL Neut % (Auto) (50.0-75.0) % Lymph % (Auto) (20.0-40.0) % [place] % (Auto) (0.0-10.0) % Eos % (Auto) (0.0-4.0) % Baso % (Auto) (0.0-2.0) % Neut # (Auto) (1.8-7.0) K/uL Lymph # (Auto) (1.0-4.3) K/uL [place] # (Auto) (0.0-0.8) K/uL Eos # (Auto) (0.0-0.7) K/uL Baso # (Auto) (0.0-0.2) K/uL APTT (21-34) SECONDS Puncture Site Rb pCO2 23 L (35-45) mm/Hg pO2 75 L (80-100) mm/Hg HCO3 21.6 (21-28) mmol/L ABG pH 7.50 H (7.35-7.45) ABG Total CO2 18.6 L (22-28) mmol/L ABG O2 Saturation 96.5 (95-98) % ABG Base Excess -4.2 L (-2.0-3.0) mmol/L ABG Hemoglobin 9.0 L (11.7-17.4) g/dL ABG Carboxyhemoglobin 0.6 (0.5-1.5) % POC ABG HHb (Measured) 3.5 (0.0-5.0) % ABG Methemoglobin 0.5 (0.0-3.0) % Mario Test Na A-a O2 Difference 324.0 mm/Hg Respiratory Index 4.3 Hgb O2 Saturation 95.4 (95.0-98.0) % Vent Mode Prvc Mechanical Rate 16 FiO2 60.0 % Tidal Volume 500 PEEP 5 Sodium 134 (132-148) mmol/L Potassium 3.7 (3.6-5.2) mmol/L Chloride 105 (98-107) mmol/L Carbon Dioxide 20 L (22-30) mmol/L Anion Gap 13 (10-20) BUN 36 H (7-17) mg/dL Creatinine 1.0 (0.7-1.2) mg/dL Est GFR ( Amer) > 60 Est GFR (Non-Af Amer) 56 POC Glucose (mg/dL) (65-110) mg/dL Random Glucose 140 H (65-105) mg/dL Calcium 8.1 L (8.6-10.4) mg/dl Phosphorus 3.2 (2.5-4.5) mg/dL Magnesium 2.1 (1.6-2.3) mg/dL Total Bilirubin 0.8 (0.2-1.3) mg/dL AST 179 H D (14-36) U/L ALT 69 H (9-52) U/L Alkaline Phosphatase 62 (38-126) U/L NT-Pro-B Natriuret Pep 6330 H 12353 H (0-900) pg/mL Total Protein 6.0 L (6.3-8.3) g/dL Albumin 3.2 L (3.5-5.0) g/dL Globulin 2.8 (2.2-3.9) gm/dL Albumin/Globulin Ratio 1.1 (1.0-2.1) 11/05/18 11/05/18 11/05/18 Range/Units 18:10 18:10 18:02 WBC 7.9 (4.8-10.8) K/uL RBC 2.79 L (3.80-5.20) Mil/uL Hgb 8.3 L (11.0-16.0) g/dL Hct 25.1 L (34.0-47.0) % MCV 90.0 (81.0-99.0) fL MCH 29.9 (27.0-31.0) pg MCHC 33.2 (33.0-37.0) g/dL RDW 13.5 (11.5-14.5) % Plt Count 175 (130-400) K/uL MPV 9.9 (7.2-11.7) fL Neut % (Auto) 71.0 (50.0-75.0) % Lymph % (Auto) 21.4 (20.0-40.0) % [place] % (Auto) 6.7 (0.0-10.0) % Eos % (Auto) 0.0 (0.0-4.0) % Baso % (Auto) 0.9 (0.0-2.0) % Neut # (Auto) 5.6 (1.8-7.0) K/uL Lymph # (Auto) 1.7 (1.0-4.3) K/uL [place] # (Auto) 0.5 (0.0-0.8) K/uL Eos # (Auto) 0.0 (0.0-0.7) K/uL Baso # (Auto) 0.1 (0.0-0.2) K/uL APTT (21-34) SECONDS Puncture Site pCO2 (35-45) mm/Hg pO2 (80-100) mm/Hg HCO3 (21-28) mmol/L ABG pH (7.35-7.45) ABG Total CO2 (22-28) mmol/L ABG O2 Saturation (95-98) % ABG Base Excess (-2.0-3.0) mmol/L ABG Hemoglobin (11.7-17.4) g/dL ABG Carboxyhemoglobin (0.5-1.5) % POC ABG HHb (Measured) (0.0-5.0) % ABG Methemoglobin (0.0-3.0) % Mario Test A-a O2 Difference mm/Hg Respiratory Index Hgb O2 Saturation (95.0-98.0) % Vent Mode Mechanical Rate FiO2 % Tidal Volume PEEP Sodium 135 (132-148) mmol/L Potassium 3.6 (3.6-5.2) mmol/L Chloride 107 (98-107) mmol/L Carbon Dioxide 20 L (22-30) mmol/L Anion Gap 11 (10-20) BUN 37 H (7-17) mg/dL Creatinine 1.2 (0.7-1.2) mg/dL Est GFR ( Amer) 55 Est GFR (Non-Af Amer) 45 POC Glucose (mg/dL) 121 H (65-110) mg/dL Random Glucose 122 H D (65-105) mg/dL Calcium 8.2 L (8.6-10.4) mg/dl Phosphorus 3.0 (2.5-4.5) mg/dL Magnesium 2.0 (1.6-2.3) mg/dL Total Bilirubin 0.8 (0.2-1.3) mg/dL AST 259 H D (14-36) U/L ALT 75 H (9-52) U/L Alkaline Phosphatase 53 (38-126) U/L NT-Pro-B Natriuret Pep (0-900) pg/mL Total Protein 5.6 L (6.3-8.3) g/dL Albumin 3.1 L (3.5-5.0) g/dL Globulin 2.6 (2.2-3.9) gm/dL Albumin/Globulin Ratio 1.2 (1.0-2.1) 11/05/18 Range/Units 17:38 WBC 8.5 (4.8-10.8) K/uL RBC 2.84 L (3.80-5.20) Mil/uL Hgb 8.6 L (11.0-16.0) g/dL Hct 25.6 L (34.0-47.0) % MCV 90.4 (81.0-99.0) fL MCH 30.2 (27.0-31.0) pg MCHC 33.4 (33.0-37.0) g/dL RDW 13.5 (11.5-14.5) % Plt Count 172 (130-400) K/uL MPV 9.9 (7.2-11.7) fL Neut % (Auto) 71.3 (50.0-75.0) % Lymph % (Auto) 21.3 (20.0-40.0) % [place] % (Auto) 6.1 (0.0-10.0) % Eos % (Auto) 0.4 (0.0-4.0) % Baso % (Auto) 0.9 (0.0-2.0) % Neut # (Auto) 6.0 (1.8-7.0) K/uL Lymph # (Auto) 1.8 (1.0-4.3) K/uL [place] # (Auto) 0.5 (0.0-0.8) K/uL Eos # (Auto) 0.0 (0.0-0.7) K/uL Baso # (Auto) 0.1 (0.0-0.2) K/uL APTT (21-34) SECONDS Puncture Site pCO2 (35-45) mm/Hg pO2 (80-100) mm/Hg HCO3 (21-28) mmol/L ABG pH (7.35-7.45) ABG Total CO2 (22-28) mmol/L ABG O2 Saturation (95-98) % ABG Base Excess (-2.0-3.0) mmol/L ABG Hemoglobin (11.7-17.4) g/dL ABG Carboxyhemoglobin (0.5-1.5) % POC ABG HHb (Measured) (0.0-5.0) % ABG Methemoglobin (0.0-3.0) % Mario Test A-a O2 Difference mm/Hg Respiratory Index Hgb O2 Saturation (95.0-98.0) % Vent Mode Mechanical Rate FiO2 % Tidal Volume PEEP Sodium (132-148) mmol/L Potassium (3.6-5.2) mmol/L Chloride (98-107) mmol/L Carbon Dioxide (22-30) mmol/L Anion Gap (10-20) BUN (7-17) mg/dL Creatinine (0.7-1.2) mg/dL Est GFR ( Amer) Est GFR (Non-Af Amer) POC Glucose (mg/dL) (65-110) mg/dL Random Glucose (65-105) mg/dL Calcium (8.6-10.4) mg/dl Phosphorus (2.5-4.5) mg/dL Magnesium (1.6-2.3) mg/dL Total Bilirubin (0.2-1.3) mg/dL AST (14-36) U/L ALT (9-52) U/L Alkaline Phosphatase (38-126) U/L NT-Pro-B Natriuret Pep (0-900) pg/mL Total Protein (6.3-8.3) g/dL Albumin (3.5-5.0) g/dL Globulin (2.2-3.9) gm/dL Albumin/Globulin Ratio (1.0-2.1) Laboratory Results - last 24 hr 11/05/18 11/05/18 11/05/18 17:38 18:02 18:10 WBC 8.5 7.9 RBC 2.84 L 2.79 L Hgb 8.6 L 8.3 L Hct 25.6 L 25.1 L MCV 90.4 90.0 MCH 30.2 29.9 MCHC 33.4 33.2 RDW 13.5 13.5 Plt Count 172 175 MPV 9.9 9.9 Neut % (Auto) 71.3 71.0 Lymph % (Auto) 21.3 21.4 [place] % (Auto) 6.1 6.7 Eos % (Auto) 0.4 0.0 Baso % (Auto) 0.9 0.9 Neut # (Auto) 6.0 5.6 Lymph # (Auto) 1.8 1.7 [place] # (Auto) 0.5 0.5 Eos # (Auto) 0.0 0.0 Baso # (Auto) 0.1 0.1 APTT Puncture Site pCO2 pO2 HCO3 ABG pH ABG Total CO2 ABG O2 Saturation ABG Base Excess ABG Hemoglobin ABG Carboxyhemoglobin POC ABG HHb (Measured) ABG Methemoglobin Mario Test A-a O2 Difference Respiratory Index Hgb O2 Saturation Vent Mode Mechanical Rate FiO2 Tidal Volume PEEP Sodium Potassium Chloride Carbon Dioxide Anion Gap BUN Creatinine Est GFR ( Amer) Est GFR (Non-Af Amer) POC Glucose (mg/dL) 121 H Random Glucose Calcium Phosphorus Magnesium Total Bilirubin AST ALT Alkaline Phosphatase NT-Pro-B Natriuret Pep Total Protein Albumin Globulin Albumin/Globulin Ratio 11/05/18 11/05/18 11/06/18 18:10 20:16 04:15 WBC RBC Hgb Hct MCV MCH MCHC RDW Plt Count MPV Neut % (Auto) Lymph % (Auto) [place] % (Auto) Eos % (Auto) Baso % (Auto) Neut # (Auto) Lymph # (Auto) [place] # (Auto) Eos # (Auto) Baso # (Auto) APTT Puncture Site Rb pCO2 23 L pO2 75 L HCO3 21.6 ABG pH 7.50 H ABG Total CO2 18.6 L ABG O2 Saturation 96.5 ABG Base Excess -4.2 L ABG Hemoglobin 9.0 L ABG Carboxyhemoglobin 0.6 POC ABG HHb (Measured) 3.5 ABG Methemoglobin 0.5 Mario Test Na A-a O2 Difference 324.0 Respiratory Index 4.3 Hgb O2 Saturation 95.4 Vent Mode Prvc Mechanical Rate 16 FiO2 60.0 Tidal Volume 500 PEEP 5 Sodium 135 Potassium 3.6 Chloride 107 Carbon Dioxide 20 L Anion Gap 11 BUN 37 H Creatinine 1.2 Est GFR ( Amer) 55 Est GFR (Non-Af Amer) 45 POC Glucose (mg/dL) Random Glucose 122 H D Calcium 8.2 L Phosphorus 3.0 Magnesium 2.0 Total Bilirubin 0.8 AST 259 H D ALT 75 H Alkaline Phosphatase 53 NT-Pro-B Natriuret Pep 16251 H Total Protein 5.6 L Albumin 3.1 L Globulin 2.6 Albumin/Globulin Ratio 1.2 11/06/18 11/06/18 11/06/18 06:07 06:08 06:08 WBC 8.6 RBC 2.84 L Hgb 8.8 L Hct 25.8 L MCV 91.2 MCH 30.9 MCHC 33.9 RDW 13.8 Plt Count 152 MPV 10.5 Neut % (Auto) 77.0 H Lymph % (Auto) 17.5 L [place] % (Auto) 4.9 Eos % (Auto) 0.2 Baso % (Auto) 0.4 Neut # (Auto) 6.6 Lymph # (Auto) 1.5 [place] # (Auto) 0.4 Eos # (Auto) 0.0 Baso # (Auto) 0.0 APTT 39 H D Puncture Site pCO2 pO2 HCO3 ABG pH ABG Total CO2 ABG O2 Saturation ABG Base Excess ABG Hemoglobin ABG Carboxyhemoglobin POC ABG HHb (Measured) ABG Methemoglobin Mario Test A-a O2 Difference Respiratory Index Hgb O2 Saturation Vent Mode Mechanical Rate FiO2 Tidal Volume PEEP Sodium 134 Potassium 3.7 Chloride 105 Carbon Dioxide 20 L Anion Gap 13 BUN 36 H Creatinine 1.0 Est GFR ( Amer) > 60 Est GFR (Non-Af Amer) 56 POC Glucose (mg/dL) Random Glucose 140 H Calcium 8.1 L Phosphorus 3.2 Magnesium 2.1 Total Bilirubin 0.8 AST 179 H D ALT 69 H Alkaline Phosphatase 62 NT-Pro-B Natriuret Pep 6330 H Total Protein 6.0 L Albumin 3.2 L Globulin 2.8 Albumin/Globulin Ratio 1.1 11/06/18 07:31 WBC RBC Hgb Hct MCV MCH MCHC RDW Plt Count MPV Neut % (Auto) Lymph % (Auto) [place] % (Auto) Eos % (Auto) Baso % (Auto) Neut # (Auto) Lymph # (Auto) [place] # (Auto) Eos # (Auto) Baso # (Auto) APTT Puncture Site pCO2 pO2 HCO3 ABG pH ABG Total CO2 ABG O2 Saturation ABG Base Excess ABG Hemoglobin ABG Carboxyhemoglobin POC ABG HHb (Measured) ABG Methemoglobin Mario Test A-a O2 Difference Respiratory Index Hgb O2 Saturation Vent Mode Mechanical Rate FiO2 Tidal Volume PEEP Sodium Potassium Chloride Carbon Dioxide Anion Gap BUN Creatinine Est GFR ( Amer) Est GFR (Non-Af Amer) POC Glucose (mg/dL) 141 H Random Glucose Calcium Phosphorus Magnesium Total Bilirubin AST ALT Alkaline Phosphatase NT-Pro-B Natriuret Pep Total Protein Albumin Globulin Albumin/Globulin Ratio Radiology Impressions: Radiology Impressions Chest X-Ray 11/05/18 21:22 IMPRESSION: Interval nasogastric tube deployment identified in good apparent position. ET tube stable in position. Pulmonary edema pattern stable with underlying bilateral hilar/medial basilar infiltrates not excluded. Chest X-Ray 11/06/18 07:00 IMPRESSION: No interval change in pulmonary vascular congestion and potential underlying bilateral hilar infiltrates. Continuing clinical and radiographic monitor advised. EKG/Cardiology Studies: Cardiology / EKG Studies 11/05/18 20:19 EKG [ELECTROCARDIOGRAM] Stat Comment: Mode Of Transportation: PORTABLE Reason For Exam: Irregular Heart Rhythm Fingerstick Blood Sugar Results: 175 Critical Care Progress Note - Ventilator Checklist Head of Bed 30 Degrees: Yes Daily Sedation Vacation: Yes Daily Assessment of Readiness to Wean: Yes Daily Spontaneous Breathing Trial: Yes PUD Prophalyxis: Yes DVT Prophylaxis: Yes Oral Care with Chlorhexidine Gluconate {CHG}: Yes - Vent Settings MODE:: PRVC TIDAL VOLUME:: 500 RESP RATE:: 16 FIO2:: 60 PEEP:: 5 - Extremities/Vascular Does the Patient have a Central Venous Catheter?: Yes Insertion Site: Internal Jugular Vein Does the Patient need a Central Venous Catheter?: Yes Does the Patient have a Kelsey Catheter?: Yes Does the Patient need a Kelsey Catheter?: Yes Assessment/Plan - Assessment and Plan (Free Text) Plan: Patient is a 63 year old female with pmhx of 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 Neuro under sedation, not awake, not alert or oriented at this time on propofol drip Cardio EKG - ST wave inversion in V2, V3, V4, elevated trops most likely STEMI - CODE HEART heparin drip Amiodarone drip on IABP - will be d/c tomorrow as per cardio continue Zetia Lovaza Metoprolol ASA Brilinta Dr Olguin- will follow up recs - will d/c IABP tomorrow TLC placed today Resp Hypoxemia, respiratory distress, pulm edema patient intubated - PRVC 500/60/16/5 Cxray - pulm edema IV lasix 40 IVP Q12H will reduce FiO2 as tolerated before planning to extubate GI NPO protonix Nephro no acute issues Heme repeat am labs follow up BNP ID febrile concern for PNA, resp infection started of cefepime 1gm Q12H and 1 x dose of Vanc Blood cx - f/u PPX DVT - heparin drip, SCD c/i due to IABP GI- protonix Plan discussed with Dr Garrick Pope - Date & Time Date: 11/06/18 Time: 10:00
[2018-11-06] MEDS ORDERED: Potassium Chloride 20 mEq/15 ml LIQ UD PO ONE (15:57)
[2018-11-06] MEDS: Furosemide 100 MG in Sodium Chloride 0.9% 90 ML IV SCH ×2 (16:01→23:06)
--- NOTE | 2018-11-06 17:14 | PCM.PROC ---
Procedures Attestation:: I certify that I have explained the specified Operation(s) or Procedure(s), risks, benefits and reasonable alternatives to the Patient and/or other person responsible. The opportunity was given to ask questions and all questions answered - Central Line Placement Right Internal Jugular Triple Lumen Catheter Aseptic technique was employed throughout the procedure: Hand Hygiene done prior to procedure, Full sterile barriers (mask, hair cover, sterile gown, sterile gloves), Full body sterile drape, Chloraprep Antiseptic: 30 second prep for IJ or SC sites CVP Time Out Performed: Yes Pt. Placed on Pulse Ox Monitor: Yes Central Line Prep: Chlorhexidine-Alcohol Combination Local Anesthesia Used: Lidocaine 1% Amount of Anesthesia Used (mls): 3 Ultrasound Used for Placement: Yes Central Line Lumen Inserted: triple Central Line Length: 16 cm Post Procedure: Sutured in Place, Good Blood Return, All Ports Aspirated, Flushed, Capped, Sterile Dressing Applied Secured by: Suture Post procedure dressing: Chlorhexidine disc (Biopatch) Post Procedure X-Ray: Yes Patient Tolerated Procedure: Well
--- NOTE | 2018-11-06 17:25 | RAD ---
HISTORY: s/p TLC placement right IJ COMPARISON: Chest x-ray performed earlier the same day. TECHNIQUE: Chest, one view. FINDINGS: Distal tip of an endotracheal tube terminates approximately 2.7 cm above the ofelia. Nasogastric tube extends expected location of the stomach. Right IJ approach central venous catheter extends to the cavoatrial junction. Numerous external wires and leads obscure evaluation of the underlying parenchyma. External left fibrillator pad projects over the left lower chest/upper abdomen. LUNGS: Bilateral bat wing patchy opacities persist consistent with edema/CHF. PLEURA: No significant pleural effusion identified. No definite pneumothorax . CARDIOVASCULAR: Median sternotomy wires with evidence of CABG. Cardiomegaly. No aortic atherosclerotic calcification present. OSSEOUS STRUCTURES: Scoliosis convex to the right. Osseous demineralization. VISUALIZED UPPER ABDOMEN: Unremarkable. OTHER FINDINGS: None. IMPRESSION: Distal tip of an endotracheal tube terminates approximately 2.7 cm above the ofelia. Nasogastric tube extends expected location of the stomach. Right IJ approach central venous catheter extends to the cavoatrial junction. Bat wing distribution of bilateral ground-glass infiltrates consistent with edema/CHF correlate clinically. Cardiomegaly. Median sternotomy wires with evidence of CABG.
--- NOTE | 2018-11-06 19:41 | CP.PCM.PN ---
Subjective - Date & Time of Evaluation Date of Evaluation: 11/06/18 Time of Evaluation: 12:00 - Subjective Subjective: clinically same Objective - Vital Signs/Intake and Output Vital Signs (last 24 hours): Temp Pulse Resp BP Pulse Ox 99.5 F 70 24 125/71 99 11/06/18 16:00 11/06/18 19:00 11/06/18 19:00 11/06/18 18:38 11/06/18 19:00 Intake and Output: 11/06/18 11/07/18 18:59 06:59 Intake Total 1901.5 74.0 Output Total 889 173 Balance 1012.5 -99.0 - Medications Medications: Current Medications Albuterol/Ipratropium (Duoneb 3 Mg/0.5 Mg (3 Ml) Ud) 3 ml INH RQ8 [facility] Last Admin: 11/06/18 16:18 Dose: 3 ml Amiodarone HCl (Cordarone) 200 mg PO Q12H [facility] Aspirin (Ecotrin) 325 mg PO DAILY [facility] Last Admin: 11/06/18 09:26 Dose: 325 mg Ezetimibe (Zetia) 10 mg PO DAILY [facility] Last Admin: 11/06/18 09:25 Dose: 10 mg Fluticasone/Vilanterol (Breo Ellipta 200-25 Mcg Inh) 1 puff INH RQD [facility] Last Admin: 11/05/18 07:50 Dose: 1 puff Heparin Sodium/Sodium Chloride (Heparin 50195 Units/250ml 1/2 Normal Saline) 25,000 units in 250 mls @ 5.6 mls/hr IV .Q24H PRN; Protocol PRN Reason: ADJUST RATE PER PROTOCOL Last Titration: 11/06/18 19:22 Dose: 14 units/kg/hr, 9.8 mls/hr Propofol (Diprivan) 1,000 mg in 100 mls @ 2.1 mls/hr IV .Q24H PRN; Protocol PRN Reason: TITRATE PER MD ORDER Last Admin: 11/06/18 18:52 Dose: 45 mcg/kg/min, 18.9 mls/hr Amiodarone HCl 540 mg/ (Dextrose) 300 mls @ 17 mls/hr IV ONCE ONE Stop: 11/06/18 22:38 Last Admin: 11/06/18 04:45 Dose: Not Given Heparin Sodium (Porcine) 1,000 (units/ Sodium Chloride) 1,000 mls @ 1 mls/hr IV ONCE ONE Stop: 12/18/18 02:34 Last Admin: 11/06/18 11:27 Dose: 1 mls/hr Cefepime HCl (Maxipime Iv 1 Gm Premix) 1 gm in 50 mls @ 100 mls/hr IVPB Q12H [facility]; Protocol Last Admin: 11/06/18 12:39 Dose: 100 mls/hr Furosemide 100 mg/ Sodium (Chloride) 100 mls @ 10 mls/hr IV .Q10H [facility] Last Admin: 11/06/18 16:01 Dose: Not Given Metoprolol Tartrate (Lopressor) 25 mg PO BID [facility] Last Admin: 11/06/18 17:39 Dose: 25 mg Mvwbb-6-Brrb Ethyl Esters (Lovaza) 1 gm PO BID [facility] Last Admin: 11/06/18 17:39 Dose: 1 gm Pantoprazole Sodium (Protonix Susp) 40 mg GT DAILY [facility] Last Admin: 11/06/18 09:25 Dose: 40 mg Promethazine HCl (Phenergan Syrup) 12.5 mg PO Q6 PRN PRN Reason: Cough Last Admin: 11/05/18 09:00 Dose: 12.5 mg Ticagrelor (Brilinta) 90 mg PO BID [facility] Last Admin: 11/06/18 17:39 Dose: 90 mg - Labs Labs: 11/06/18 06:08 11/06/18 06:07 PT 13.5 SECONDS (9.7-12.2) H 11/04/18 10:17 INR 1.2 11/04/18 10:17 APTT 35 SECONDS (21-34) H 11/06/18 18:01 - Constitutional Appears: Well - Head Exam Head Exam: ATRAUMATIC, NORMAL INSPECTION, NORMOCEPHALIC - Eye Exam Eye Exam: EOMI, Normal appearance, PERRL Pupil Exam: NORMAL ACCOMODATION, PERRL - ENT Exam ENT Exam: Mucous Membranes Moist, Normal Exam - Neck Exam Neck Exam: Full ROM, Normal Inspection. absent: Lymphadenopathy - Respiratory Exam Respiratory Exam: Decreased Breath Sounds - Cardiovascular Exam Cardiovascular Exam: REGULAR RHYTHM, +S1, +S2 - GI/Abdominal Exam GI & Abdominal Exam: Soft, Diminished Bowel Sounds - Rectal Exam Rectal Exam: Deferred
[2018-11-06] MEDS: Nitroglycerin 50mg in D5W 50 MG/250 ML BOTTLE IV ONE (20:36)
[2018-11-06] MEDS: Acetaminophen 650mg/20.3ml solution UD PO PRN (21:41)
[2018-11-07] MEDS: Albuterol-Ipratrop 3 mg / 0.5 (3 ml) UD INH SCH ×3 (00:15→15:54)
[2018-11-07] MEDS: Cefepime IV 1 gm in Dextrose 1 GM/50 ML BAG IVPB SCH ×2 (00:39→12:15)
[2018-11-07] MEDS: Furosemide 100 MG in Sodium Chloride 0.9% 90 ML IV SCH ×3 (02:10→12:00)
[2018-11-07] MEDS: Propofol 10 mg/ml 1,000 MG/100 ML VIAL IV PRN ×2 (03:14→10:14)
[2018-11-07 05:48] LABS: ARTERIAL BLOOD GAS HCO3 23.9 mmol/L (21-28); ARTERIAL BLOOD GAS O2 SAT 98.3 % (95-98); ARTERIAL BLOOD GAS PCO2 27 mm/Hg (35-45); ARTERIAL BLOOD GAS PH 7.49 (7.35-7.45); ARTERIAL BLOOD GAS PO2 99 mm/Hg (80-100); ARTERIAL BLOOD GAS TCO2 21.4 mmol/L (22-28)
[2018-11-07 06:03] LABS: BASO # 0.1 K/uL (0.0-0.2); BASO % 0.9 % (0.0-2.0); EOS # 0.1 K/uL (0.0-0.7); HEMOGLOBIN 8.2 g/dL (11.0-16.0); LYMPH # 1.2 K/uL (1.0-4.3); LYMPH % 16.4 % (20.0-40.0); MEAN CELL VOLUME 91.5 fL (81.0-99.0); MEAN CORPUSCULAR HEMOGLOBIN 30.8 pg (27.0-31.0); MEAN CORPUSCULAR HGB CONC 33.7 g/dL (33.0-37.0); MEAN PLATELET VOLUME 10.2 fL (7.2-11.7); MONO # 0.3 K/uL (0.0-0.8); MONO % 4.4 % (0.0-10.0); NEUT # 5.8 K/uL (1.8-7.0); NEUT % 77.3 % (50.0-75.0); RBC 2.67 Mil/uL (3.80-5.20); RED CELL DISTRIBUTION WIDTH 13.8 % (11.5-14.5); WHITE BLOOD COUNT 7.5 K/uL (4.8-10.8)
[2018-11-07 06:04] LABS: ABG ALLEN TEST POS; ARTERIAL BLOOD GAS HCO3 17.3 mmol/L (21-28); ARTERIAL BLOOD GAS PCO2 17 mm/Hg (35-45); ARTERIAL BLOOD GAS PH 7.44 (7.35-7.45); ARTERIAL BLOOD GAS PO2 168 mm/Hg (80-100)
[2018-11-07 06:05] LABS: INR 1.2; PROTHROMBIN TIME 13.5 SECONDS (9.7-12.2)
[2018-11-07 06:14] LABS: ALB/GLOB RATIO 1.1 (1.0-2.1); ALT/SGPT 62 U/L (9-52); AST/SGOT 96 U/L (14-36); BLOOD UREA NITROGEN 28 mg/dL (7-17); CALCIUM 7.9 mg/dl (8.6-10.4); GFR NON-AFRICAN AMERICAN 56
[2018-11-07 06:26] LABS: B-TYPE NATRIURETIC PEPTIDE 4870 pg/mL (0-900)
--- NOTE | 2018-11-07 07:37 | CP.PCM.PN ---
<Igor Adam - Last Filed: 11/07/18 19:17> Subjective - Date & Time of Evaluation Date of Evaluation: 11/07/18 Time of Evaluation: 07:32 - Subjective Subjective: Igor Adam DO PGY1 - Cardiology Note for Dr. Olguin Seen and examined at bedside in ICU this morning Nursing notes reviewed; no reported changes Tmax 100.3 last night; HR wnl; Continues to be intubated sedated, alarm security or surveillance monitor reviewed no events reported. No complaints or concerns endorsed by nursing. Continue to be on 1:2 balloon pump support Objective - Vital Signs/Intake and Output Vital Signs (last 24 hours): Temp Pulse Resp BP Pulse Ox 98.7 F 69 19 145/91 H 100 11/07/18 04:00 11/07/18 07:01 11/07/18 07:01 11/07/18 07:01 11/07/18 07:01 Intake and Output: 11/07/18 11/07/18 06:59 18:59 Intake Total 683.9 32.4 Output Total 1453 125 Balance -769.1 -92.6 - Medications Medications: Current Medications Acetaminophen (Tylenol 650mg/20.3ml Solution Ud) 650 mg PO Q6 PRN PRN Reason: Temperature Last Admin: 11/06/18 21:41 Dose: 650 mg Albuterol/Ipratropium (Duoneb 3 Mg/0.5 Mg (3 Ml) Ud) 3 ml INH RQ8 [facility] Last Admin: 11/07/18 00:15 Dose: 3 ml Amiodarone HCl (Cordarone) 200 mg PO Q12H [facility] Last Admin: 11/06/18 23:10 Dose: 200 mg Aspirin (Ecotrin) 325 mg PO DAILY [facility] Last Admin: 11/06/18 09:26 Dose: 325 mg Ezetimibe (Zetia) 10 mg PO DAILY [facility] Last Admin: 11/06/18 09:25 Dose: 10 mg Fluticasone/Vilanterol (Breo Ellipta 200-25 Mcg Inh) 1 puff INH RQD [facility] Last Admin: 11/06/18 08:00 Dose: Not Given Heparin Sodium/Sodium Chloride (Heparin 20264 Units/250ml 1/2 Normal Saline) 25,000 units in 250 mls @ 5.6 mls/hr IV .Q24H PRN; Protocol PRN Reason: ADJUST RATE PER PROTOCOL Last Titration: 11/06/18 19:22 Dose: 14 units/kg/hr, 9.8 mls/hr Propofol (Diprivan) 1,000 mg in 100 mls @ 2.1 mls/hr IV .Q24H PRN; Protocol PRN Reason: TITRATE PER MD ORDER Last Admin: 11/07/18 03:14 Dose: 30 mcg/kg/min, 12.6 mls/hr Heparin Sodium (Porcine) 1,000 (units/ Sodium Chloride) 1,000 mls @ 1 mls/hr IV ONCE ONE Stop: 12/18/18 02:34 Last Admin: 11/06/18 11:27 Dose: 1 mls/hr Cefepime HCl (Maxipime Iv 1 Gm Premix) 1 gm in 50 mls @ 100 mls/hr IVPB Q12H [facility]; Protocol Last Admin: 11/07/18 00:39 Dose: 100 mls/hr Furosemide 100 mg/ Sodium (Chloride) 100 mls @ 10 mls/hr IV .Q10H [facility] Last Admin: 11/07/18 02:10 Dose: Not Given Metoprolol Tartrate (Lopressor) 25 mg PO BID [facility] Last Admin: 11/06/18 17:39 Dose: 25 mg Njxox-2-Eymc Ethyl Esters (Lovaza) 1 gm PO BID [facility] Last Admin: 11/06/18 17:39 Dose: 1 gm Pantoprazole Sodium (Protonix Susp) 40 mg GT DAILY [facility] Last Admin: 11/06/18 09:25 Dose: 40 mg Promethazine HCl (Phenergan Syrup) 12.5 mg PO Q6 PRN PRN Reason: Cough Last Admin: 11/05/18 09:00 Dose: 12.5 mg Ticagrelor (Brilinta) 90 mg PO BID [facility] Last Admin: 11/06/18 17:39 Dose: 90 mg - Labs Labs: 11/07/18 05:49 11/07/18 05:47 PT 13.5 SECONDS (9.7-12.2) H 11/07/18 05:49 INR 1.2 11/07/18 05:49 APTT 54 SECONDS (21-34) H D 11/07/18 05:49 - Constitutional Appears: Other (Sedated) - Head Exam Head Exam: ATRAUMATIC, NORMOCEPHALIC - Eye Exam Eye Exam: PERRL - ENT Exam Additional comments: ET tube in place - Respiratory Exam Respiratory Exam: Rhonchi - Cardiovascular Exam Cardiovascular Exam: +S1, +S2 - GI/Abdominal Exam GI & Abdominal Exam: Soft. absent: Tenderness - Extremities Exam Extremities Exam: Normal Capillary Refill - Neurological Exam Neurological Exam: absent: Awake - Skin Skin Exam: Dry, Intact, Warm Assessment and Plan (1) Cardiogenic shock Status: Acute (2) Dyslipidemia Status: Acute (3) STEMI (ST elevation myocardial infarction) Status: Acute (4) Coronary artery disease Status: Chronic (5) HTN (hypertension) Status: Acute (6) Hx of CABG Status: Chronic - Assessment and Plan (Free Text) Plan: IABP removed today BNP continues to be downtrending HR remains stable; C/w Amio at this time - continue to monitor for s/s Afib Lasix drip started yesterday given worsening CXR findings C/w Aggressive diuresis at this time Continue AMIO Lasix Drip Continue Zetia Lovaza Metoprolol ASA Brilinta Further reccs per Dr. Olguin <Zachery Olguin - Last Filed: 11/07/18 19:19> Objective - Vital Signs/Intake and Output Vital Signs (last 24 hours): Temp Pulse Resp BP Pulse Ox 97.9 F 80 24 98/55 L 100 11/07/18 16:30 11/07/18 19:00 11/07/18 19:00 11/07/18 18:27 11/07/18 19:00 Intake and Output: 11/07/18 11/08/18 18:59 06:59 Intake Total 1026.0 77.1 Output Total 3025 200 Balance -1999.0 -122.9 - Medications Medications: Current Medications Acetaminophen (Tylenol 650mg/20.3ml Solution Ud) 650 mg PO Q6 PRN PRN Reason: Temperature Last Admin: 11/06/18 21:41 Dose: 650 mg Acetazolamide (Diamox 500 Mg Inj) 500 mg IV Q12H [facility] Last Admin: 11/07/18 13:37 Dose: 500 mg Albumin Human (Albumin Human 5% (12.5 Gm/250 Ml)) 12.5 gm IV Q10H [facility] Stop: 11/07/18 23:31 Last Admin: 11/07/18 13:37 Dose: 12.5 gm Albuterol/Ipratropium (Duoneb 3 Mg/0.5 Mg (3 Ml) Ud) 3 ml INH RQ8 [facility] Last Admin: 11/07/18 15:54 Dose: 3 ml Amiodarone HCl (Cordarone) 200 mg PO Q12H [facility] Last Admin: 11/07/18 10:32 Dose: 200 mg Aspirin (Ecotrin) 325 mg PO DAILY [facility] Last Admin: 11/07/18 10:29 Dose: 325 mg Ezetimibe (Zetia) 10 mg PO DAILY [facility] Last Admin: 11/07/18 10:29 Dose: 10 mg Enoxaparin Sodium (Lovenox) 40 mg SC DAILY [facility] Fluticasone/Vilanterol (Breo Ellipta 200-25 Mcg Inh) 1 puff INH RQD [facility] Last Admin: 11/07/18 09:56 Dose: Not Given Propofol (Diprivan) 1,000 mg in 100 mls @ 2.1 mls/hr IV .Q24H PRN; Protocol PRN Reason: TITRATE PER MD ORDER Last Titration: 11/07/18 10:47 Dose: 5 mcg/kg/min, 2.1 mls/hr Heparin Sodium (Porcine) 1,000 (units/ Sodium Chloride) 1,000 mls @ 1 mls/hr IV ONCE ONE Stop: 12/18/18 02:34 Last Admin: 11/06/18 11:27 Dose: 1 mls/hr Furosemide 100 mg/ Sodium (Chloride) 100 mls @ 10 mls/hr IV .Q10H [facility] Last Admin: 11/07/18 12:00 Dose: Not Given Metoprolol Tartrate (Lopressor) 25 mg PO BID [facility] Last Admin: 11/07/18 17:10 Dose: 25 mg Cmvbf-7-Yssa Ethyl Esters (Lovaza) 1 gm PO BID [facility] Last Admin: 11/07/18 17:10 Dose: 1 gm Pantoprazole Sodium (Protonix Susp) 40 mg GT DAILY [facility] Last Admin: 11/07/18 10:28 Dose: 40 mg Promethazine HCl (Phenergan Syrup) 12.5 mg PO Q6 PRN PRN Reason: Cough Last Admin: 11/05/18 09:00 Dose: 12.5 mg Ticagrelor (Brilinta) 90 mg PO BID [facility] Last Admin: 11/07/18 17:10 Dose: 90 mg - Labs Labs: 11/07/18 05:49 11/07/18 05:47 PT 13.5 SECONDS (9.7-12.2) H 11/07/18 05:49 INR 1.2 11/07/18 05:49 APTT 53 SECONDS (21-34) H 11/07/18 08:59 Assessment and Plan (1) STEMI (ST elevation myocardial infarction) Status: Acute (2) Cardiogenic shock Status: Acute (3) Dyslipidemia Status: Acute (4) Hemoptysis Status: Acute (5) Coronary artery disease Status: Chronic (6) HTN (hypertension) Status: Acute (7) Hx of CABG Status: Chronic Attending/Attestation - Attestation I have personally seen and examined this patient.: Yes I have fully participated in the care of the patient.: Yes I have reviewed all pertinent clinical information, including history, physical exam and plan: Yes Notes (Text): 11/07/18 19:19 IABP removed today femstop to be removed in 3 hours cont dapt cont lasix gtt cont po amiodarone cont bb plan for weaning off sedation and extubation in 24-48 hours
[2018-11-07] MEDS: Fluticasone-Vilanterol 200/25mcg Diskus INH SCH (09:56)
[2018-11-07] MEDS: Pantoprazole 40 mg Susp UD GT SCH (10:28)
[2018-11-07] MEDS: Aspirin 325 mg EC Tablets PO SCH (10:29)
[2018-11-07] MEDS: Omega-3-Acid Ethyl Esters 1 GM Cap PO SCH ×2 (10:29→17:10)
[2018-11-07] MEDS: Albumin Human 5% (12.5 gm/250 ml) IV SCH ×2 (13:37→22:45)
--- NOTE | 2018-11-07 14:17 | RAD ---
Date of service: 11/07/2018 HISTORY: intubated/IABP COMPARISON: Portable chest 11/06/2018 4:12 p.m.. FINDINGS: LUNGS: Endotracheal and nasogastric tubes are unchanged in position as well as right central venous line. Pulmonary edema pattern persists with bilateral bat wing type perihilar opacity identified but slightly improved at the right with the left unchanged. Differential diagnosis is pneumonia. PLEURA: No significant pleural effusion identified, no pneumothorax apparent. CARDIOVASCULAR: Calcific atherosclerotic changes are seen related to the thoracic aorta. Stable cardiac size. Post CABG changes reiterated. Pulmonary vascular congestion remains. OSSEOUS STRUCTURES: No significant abnormalities. VISUALIZED UPPER ABDOMEN: Normal. OTHER FINDINGS: None. IMPRESSION: Mild improvement in CHF as discussed above. Underlying pneumonia not completely excluded once again. No pneumothorax or pleural effusion throughout.
--- NOTE | 2018-11-07 15:16 | CP.PCM.CON ---
History of Present Illness - History of Present Illness History of Present Illness: GI Consult Note for Dr. Powers CC: GI consult for "abdominal pain", possible hematemesis vs. hemoptysis *Note: We were consulted earlier but a GI note was not saved in the chart. This is a delayed entry. HPI: 63 y/o female with PMHx of CAD s/p stent admitted 11/04/18. Presented with chest pain and diaphoresis. EKG w/ ST wave inversions in V2-4. Dr. Olguin responded to code heart and took her to [facility] immediately. Patient was seen and examined by GI team after the procedure. Patient's chest pain and diap horesis resolved after cath. Patient also denied abdominal pain. Her family was concerned of some scant bright red blood coming from her mouth and thought that it could be hematemesis. Patient denies mouth or throat pain and does not know why she was bleeding fresh blood. Patient rinsed her mouth with water and there was residual dry crusted blood on her lips. Of note, EGD completed by Dr. Powers 10/2018 about a week before admission. Findings were LA grade B esophagitis w/o bleeding, erythematous mucosa stomach. No active bleeding seen throughout procedure. ROS: as per HPI PMHx: CAD PSHx: CABG FMHx: Denies GI cancers SocHx: Denies x 3 Meds: See MAR Allergies: NKDA Past Patient History - Infectious Disease Hx of Infectious Diseases: None - Past Medical History & Family History Past Medical History?: Yes - Past Social History Smoking Status: Never Smoked - CARDIAC Hx Hypercholesterolemia: Yes Hx Hypertension: Yes - PULMONARY Hx Respiratory Disorders: No - NEUROLOGICAL Hx Neurological Disorder: No - HEENT Hx HEENT Problems: No Other/Comment: Difficulty opening eyes once in a while but vision is fine - RENAL Hx Chronic Kidney Disease: No - ENDOCRINE/METABOLIC Hx Endocrine Disorders: No - HEMATOLOGICAL/ONCOLOGICAL Hx Blood Disorders: No - INTEGUMENTARY Hx Dermatological Problems: No - MUSCULOSKELETAL/RHEUMATOLOGICAL Hx Falls: No - GASTROINTESTINAL Hx Gastrointestinal Disorders: No - GENITOURINARY/GYNECOLOGICAL Hx Genitourinary Disorders: No - PSYCHIATRIC Hx Substance Use: No - SURGICAL HISTORY Hx Coronary Artery Bypass Graft: Yes (Triple Bypass) Hx Coronary Stent: Yes - ANESTHESIA Hx Anesthesia: Yes Hx Anesthesia Reactions: No Hx Malignant Hyperthermia: No Meds Allergies/Adverse Reactions: Allergies Allergy/AdvReac Type Severity Reaction Status Date / Time No Known Allergies Allergy Verified 10/18/18 16:42 - Medications Medications: Current Medications Acetaminophen (Tylenol 650mg/20.3ml Solution Ud) 650 mg PO Q6 PRN PRN Reason: Temperature Last Admin: 11/06/18 21:41 Dose: 650 mg Acetazolamide (Diamox 500 Mg Inj) 500 mg IV Q12H [facility] Last Admin: 11/07/18 13:37 Dose: 500 mg Albumin Human (Albumin Human 5% (12.5 Gm/250 Ml)) 12.5 gm IV Q10H [facility] Stop: 11/07/18 23:31 Last Admin: 11/07/18 13:37 Dose: 12.5 gm Albuterol/Ipratropium (Duoneb 3 Mg/0.5 Mg (3 Ml) Ud) 3 ml INH RQ8 [facility] Last Admin: 11/07/18 09:56 Dose: 3 ml Amiodarone HCl (Cordarone) 200 mg PO Q12H [facility] Last Admin: 11/07/18 10:32 Dose: 200 mg Aspirin (Ecotrin) 325 mg PO DAILY [facility] Last Admin: 11/07/18 10:29 Dose: 325 mg Ezetimibe (Zetia) 10 mg PO DAILY [facility] Last Admin: 11/07/18 10:29 Dose: 10 mg Enoxaparin Sodium (Lovenox) 40 mg SC DAILY [facility] Fluticasone/Vilanterol (Breo Ellipta 200-25 Mcg Inh) 1 puff INH RQD [facility] Last Admin: 11/07/18 09:56 Dose: Not Given Propofol (Diprivan) 1,000 mg in 100 mls @ 2.1 mls/hr IV .Q24H PRN; Protocol PRN Reason: TITRATE PER MD ORDER Last Titration: 11/07/18 10:47 Dose: 5 mcg/kg/min, 2.1 mls/hr Heparin Sodium (Porcine) 1,000 (units/ Sodium Chloride) 1,000 mls @ 1 mls/hr IV ONCE ONE Stop: 12/18/18 02:34 Last Admin: 11/06/18 11:27 Dose: 1 mls/hr Furosemide 100 mg/ Sodium (Chloride) 100 mls @ 10 mls/hr IV .Q10H [facility] Last Admin: 11/07/18 12:00 Dose: Not Given Metoprolol Tartrate (Lopressor) 25 mg PO BID [facility] Last Admin: 11/07/18 10:29 Dose: 25 mg Acjec-7-Sbri Ethyl Esters (Lovaza) 1 gm PO BID [facility] Last Admin: 11/07/18 10:29 Dose: 1 gm Pantoprazole Sodium (Protonix Susp) 40 mg GT DAILY [facility] Last Admin: 11/07/18 10:28 Dose: 40 mg Promethazine HCl (Phenergan Syrup) 12.5 mg PO Q6 PRN PRN Reason: Cough Last Admin: 11/05/18 09:00 Dose: 12.5 mg Ticagrelor (Brilinta) 90 mg PO BID [facility] Last Admin: 11/07/18 10:29 Dose: 90 mg Physical Exam - Constitutional Appears: Well Additional comments: Now intubated but on initial visit on 11/03 patient was resting well and saturating on RA - Head Exam Head Exam: ATRAUMATIC, NORMAL INSPECTION - Eye Exam Eye Exam: Normal appearance - ENT Exam Additional comments: fresh blood scant, seen in oral cavity, crusted dry blood on lips - Neck Exam Neck exam: Positive for: Normal Inspection - Respiratory Exam Respiratory Exam: Clear to Auscultation Bilateral, NORMAL BREATHING PATTERN - Cardiovascular Exam Cardiovascular Exam: REGULAR RHYTHM - GI/Abdominal Exam GI & Abdominal Exam: Normal Bowel Sounds, Soft. absent: Firm, Guarding, Rebound, Tenderness - Extremities Exam Extremities exam: Positive for: normal inspection. Negative for: calf tenderness, joint swelling, pedal edema - Neurological Exam Neurological exam: Alert - Psychiatric Exam Psychiatric exam: Normal Affect, Normal Mood - Skin Skin Exam: Dry, Intact, Normal Color, Warm Results - Vital Signs Recent Vital Signs: Last Vital Signs Temp 99.2 F 11/07/18 12:00 Pulse 80 11/07/18 14:50 Resp 24 11/07/18 14:50 BP 98/50 L 11/07/18 14:50 Pulse Ox 100 11/07/18 14:50 - Labs Result Diagrams: 11/07/18 05:49 11/07/18 05:47 Labs: Laboratory Results - last 24 hr 11/06/18 11/06/18 11/06/18 11:14 11:19 18:01 WBC RBC Hgb Hct MCV MCH MCHC RDW Plt Count MPV Neut % (Auto) Lymph % (Auto) [place] % (Auto) Eos % (Auto) Baso % (Auto) Neut # (Auto) Lymph # (Auto) [place] # (Auto) Eos # (Auto) Baso # (Auto) PT INR APTT 35 H Puncture Site R/rad pCO2 17 L* pO2 168 H HCO3 17.3 L ABG pH 7.44 ABG Total CO2 12.0 L ABG O2 Saturation 99.0 H ABG Base Excess -9.9 L Mario Test Pos ABG Potassium A-a O2 Difference 239.0 Respiratory Index 1.4 Sodium Chloride Glucose Lactate Vent Mode Mechanical Rate 12 FiO2 60.0 Tidal Volume 500 PEEP 5 Crit Value Called To Dr saab Crit Value Called By Donavan dickens crt Crit Value Read Back Y Blood Gas Notified Time 1140 Potassium Carbon Dioxide Anion Gap BUN Creatinine Est GFR ( Amer) Est GFR (Non-Af Amer) POC Glucose (mg/dL) 137 H Random Glucose Calcium Phosphorus Magnesium Total Bilirubin AST ALT Alkaline Phosphatase NT-Pro-B Natriuret Pep Total Protein Albumin Globulin Albumin/Globulin Ratio Arterial Blood Potassium 11/06/18 11/07/18 11/07/18 18:14 00:37 05:27 WBC RBC Hgb Hct MCV MCH MCHC RDW Plt Count MPV Neut % (Auto) Lymph % (Auto) [place] % (Auto) Eos % (Auto) Baso % (Auto) Neut # (Auto) Lymph # (Auto) [place] # (Auto) Eos # (Auto) Baso # (Auto) PT INR APTT 48 H D Puncture Site Rb pCO2 27 L pO2 99 HCO3 23.9 ABG pH 7.49 H ABG Total CO2 21.4 L ABG O2 Saturation 98.3 H ABG Base Excess -1.4 Mario Test Na ABG Potassium 3.0 L A-a O2 Difference 295.0 Respiratory Index 3.0 Sodium 138.0 Chloride 110.0 H Glucose 134 H Lactate 1.1 Vent Mode Prvc Mechanical Rate 12 FiO2 60.0 Tidal Volume 500 PEEP 5 Crit Value Called To Crit Value Called By Crit Value Read Back Blood Gas Notified Time Potassium Carbon Dioxide Anion Gap BUN Creatinine Est GFR ( Amer) Est GFR (Non-Af Amer) POC Glucose (mg/dL) 156 H Random Glucose Calcium Phosphorus Magnesium Total Bilirubin AST ALT Alkaline Phosphatase NT-Pro-B Natriuret Pep Total Protein Albumin Globulin Albumin/Globulin Ratio Arterial Blood Potassium 3.0 L 11/07/18 11/07/18 11/07/18 05:44 05:47 05:49 WBC 7.5 RBC 2.67 L Hgb 8.2 L Hct 24.5 L MCV 91.5 MCH 30.8 MCHC 33.7 RDW 13.8 Plt Count 144 MPV 10.2 Neut % (Auto) 77.3 H Lymph % (Auto) 16.4 L [place] % (Auto) 4.4 Eos % (Auto) 1.0 Baso % (Auto) 0.9 Neut # (Auto) 5.8 Lymph # (Auto) 1.2 [place] # (Auto) 0.3 Eos # (Auto) 0.1 Baso # (Auto) 0.1 PT INR APTT Puncture Site pCO2 pO2 HCO3 ABG pH ABG Total CO2 ABG O2 Saturation ABG Base Excess Mario Test ABG Potassium A-a O2 Difference Respiratory Index Sodium 134 Chloride 103 Glucose Lactate Vent Mode Mechanical Rate FiO2 Tidal Volume PEEP Crit Value Called To Crit Value Called By Crit Value Read Back Blood Gas Notified Time Potassium 3.2 L Carbon Dioxide 24 Anion Gap 10 BUN 28 H Creatinine 1.0 Est GFR ( Amer) > 60 Est GFR (Non-Af Amer) 56 POC Glucose (mg/dL) 137 H Random Glucose 131 H Calcium 7.9 L Phosphorus 4.2 Magnesium 2.2 Total Bilirubin 1.2 AST 96 H D ALT 62 H Alkaline Phosphatase 83 NT-Pro-B Natriuret Pep 4870 H Total Protein 5.8 L Albumin 3.0 L Globulin 2.8 Albumin/Globulin Ratio 1.1 Arterial Blood Potassium 11/07/18 11/07/18 05:49 08:59 WBC RBC Hgb Hct MCV MCH MCHC RDW Plt Count MPV Neut % (Auto) Lymph % (Auto) [place] % (Auto) Eos % (Auto) Baso % (Auto) Neut # (Auto) Lymph # (Auto) [place] # (Auto) Eos # (Auto) Baso # (Auto) PT 13.5 H INR 1.2 APTT 54 H D 53 H Puncture Site pCO2 pO2 HCO3 ABG pH ABG Total CO2 ABG O2 Saturation ABG Base Excess Mario Test ABG Potassium A-a O2 Difference Respiratory Index Sodium Chloride Glucose Lactate Vent Mode Mechanical Rate FiO2 Tidal Volume PEEP Crit Value Called To Crit Value Called By Crit Value Read Back Blood Gas Notified Time Potassium Carbon Dioxide Anion Gap BUN Creatinine Est GFR ( Amer) Est GFR (Non-Af Amer) POC Glucose (mg/dL) Random Glucose Calcium Phosphorus Magnesium Total Bilirubin AST ALT Alkaline Phosphatase NT-Pro-B Natriuret Pep Total Protein Albumin Globulin Albumin/Globulin Ratio Arterial Blood Potassium Assessment & Plan - Assessment and Plan (Free Text) Assessment: 63 y/o female with PMHx of CAD s/p stent admitted 11/04/18. Code heart called and patient sent to [facility]. GI consulted for "abdominal pain" and possible hemop tysis vs. hematemesis. abdominal pain - resolved -denied abdominal pain when seen after interventional cardiology procedure on 11/04 -EGD on 10/2018 w/ no significant findings other than some inflammation of specific parts of esophagus and stomach. -per family at bedside now, patient shows no signs of agitation or pain, despite intubation -continue with protonix 40 mg GT daily, especially in the setting of her being intubated now -once patient extubated, recommend to advance diet as tolerated and to avoid acidic foods hemoptysis -opposed to hematemesis -Due to EGD findings w/o active bleeding recently before the bleeding from her mouth, it is unlikely that the bleeding is from GI and that she is having hemoptysis, not hematemesis. Patient was coughing up blood opposed to vomiting blood. s/p intubation, report of pink froth, likely hemoptysis. Medical management per ICU. Thank you for the consult. We will continue to follow PRN. Case discussed with Dr. Gio Hidalgo PGY1
--- NOTE | 2018-11-07 15:32 | CP.CCUPN ---
<Gordon Pope - Last Filed: 11/07/18 15:47> CCU Subjective - Physician Review Subjective (Free Text): PGY-[address] Raomna Antoine service Patient is seen and examined at bedside. Patient is seen sleeping, but easily arousable, responds to stimulus, remains intubated on propofol drip. Family (son) at bedside, ROS unattainable due to patient's status. Critical Care Time Spent (in minutes): 40 CCU Objective - Vital Signs / Intake & Output Vital Signs (Last 4 hours): Vital Signs Temp Pulse Resp BP Pulse Ox 11/07/18 14:50 80 24 98/50 L 100 11/07/18 14:30 84 23 96/51 L 11/07/18 14:20 86 26 H 96/51 L 100 11/07/18 14:00 80 19 100 11/07/18 13:52 82 23 90/51 L 100 11/07/18 13:50 82 24 93/48 L 100 11/07/18 13:30 84 22 97/51 L 11/07/18 13:20 70 20 97/51 L 100 11/07/18 13:00 72 21 100 11/07/18 12:50 70 27 H 90/48 L 100 11/07/18 12:30 69 22 100/57 L 11/07/18 12:20 70 23 100/57 L 100 11/07/18 12:00 99.2 F 69 24 94/51 L 100 11/07/18 11:50 69 23 94/51 L 100 11/07/18 11:44 70 24 89/54 L 100 Intake and Output (Last 8hrs): Intake & Output 11/07/18 11/07/18 11/07/18 06:59 14:59 22:59 Intake Total 442.6 689.6 42.1 Output Total 955 2024 250 Balance -512.4 -1335.4 -207.9 Weight 167 lb 15.876 oz Intake: IV 100 175.2 Intake, IV Amount 342.6 344.4 12.1 Left Wrist 78.4 9.8 Right Distal Port 100.8 54.6 2.1 Internal Jugular Right Medial Port 83.4 200 Internal Jugular Right Proximal Port 80 80 10 Internal Jugular Tube Feeding 170 30 Output: Urine 955 2025 250 Urethral (Kelsey) 955 2024 250 - Physical Exam Head: Positive for: Atraumatic, Normocephalic Pupils: Positive for: PERRL Extroacular Muscles: Positive for: EOMI Conjunctiva: Positive for: Normal Mouth: Positive for: Moist Mucous Membranes Neck: Positive for: Other (intubated ) Respiratory/Chest: Positive for: Good Air Exchange Cardiovascular: Positive for: Regular Rate and Rhythm, Normal S1, S2 Abdomen: Positive for: Distention, Normal Bowel Sounds. Negative for: Tenderness Upper Extremity: Positive for: Normal Inspection. Negative for: Edema Lower Extremity: Positive for: Normal Inspection. Negative for: Edema Neurological: Positive for: Other Skin: Positive for: Warm, Dry, Normal Color Psychiatric: Positive for: Alert - Medications Active Medications: Active Medications Generic Name Dose Route Start Last Admin Trade Name Freq PRN Reason Stop Dose Admin Acetaminophen 650 mg 11/06/18 20:50 11/06/18 21:41 Tylenol 650mg/20.3ml Solution Ud PO 650 mg Q6 PRN Administration Temperature Acetazolamide 500 mg 11/07/18 13:30 11/07/18 13:37 Diamox 500 Mg Inj IV 500 mg Q12H MIREYA Administration Albumin Human 12.5 gm 11/07/18 13:30 11/07/18 13:37 Albumin Human 5% (12.5 Gm/250 Ml) IV 11/07/18 23:31 12.5 gm Q10H MIREYA Administration Albuterol/Ipratropium 3 ml 11/04/18 17:01 11/07/18 09:56 Duoneb 3 Mg/0.5 Mg (3 Ml) Ud INH 3 ml RQ8 MIREYA Administration Amiodarone HCl 200 mg 11/06/18 22:00 11/07/18 10:32 Cordarone PO 200 mg Q12H MIREYA Administration Aspirin 325 mg 11/04/18 10:00 11/07/18 10:29 Ecotrin PO 325 mg DAILY MIREYA Administration Ezetimibe 10 mg 11/04/18 10:00 11/07/18 10:29 Zetia PO 10 mg DAILY MIREYA Administration Enoxaparin Sodium 40 mg 11/08/18 10:00 Lovenox SC DAILY MIREYA Fluticasone/Vilanterol 1 puff 11/04/18 08:00 11/07/18 09:56 Breo Ellipta 200-25 Mcg Inh INH Not Given RQD MIREYA Propofol 1,000 mg in 100 mls @ 2.1 mls/hr 11/05/18 11:52 11/07/18 10:47 Diprivan IV 5 mcg/kg/min .Q24H PRN 2.1 mls/hr TITRATE PER MD ORDER Titration Protocol 5 MCG/KG/MIN Heparin Sodium (Porcine) 1,000 1,000 mls @ 1 mls/hr 11/06/18 10:35 11/06/18 11:27 units/ Sodium Chloride IV 12/18/18 02:34 1 mls/hr ONCE ONE Administration Furosemide 100 mg/ Sodium 100 mls @ 10 mls/hr 11/06/18 16:00 11/07/18 12:00 Chloride IV Not Given .Q10H MIREYA 10 MG/HR Metoprolol Tartrate 25 mg 11/04/18 10:00 11/07/18 10:29 Lopressor PO 25 mg BID MIREYA Administration [id number] Ethyl Esters 1 gm 11/04/18 10:00 11/07/18 10:29 Lovaza PO 1 gm BID MIREYA Administration Pantoprazole Sodium 40 mg 11/06/18 10:00 11/07/18 10:28 Protonix Susp GT 40 mg DAILY MIREYA Administration Promethazine HCl 12.5 mg 11/04/18 16:59 11/05/18 09:00 Phenergan Syrup PO 12.5 mg Q6 PRN Administration Cough Ticagrelor 90 mg 11/04/18 10:00 11/07/18 10:29 Brilinta PO 90 mg BID MIREYA Administration - Patient Studies Lab Studies: Microbiology Studies 11/06/18 12:14 Blood Culture - Preliminary Blood-Venous NO GROWTH AFTER 24 HOURS 11/06/18 12:14 Blood Culture - Preliminary Blood-Venous NO GROWTH AFTER 24 HOURS 11/05/18 15:10 Urine Culture - Final Urine,Kelsey No Growth (<1,000 CFU/ML) Lab Studies 11/07/18 11/07/18 11/07/18 Range/Units 08:59 05:49 05:49 WBC 7.5 (4.8-10.8) K/uL RBC 2.67 L (3.80-5.20) Mil/uL Hgb 8.2 L (11.0-16.0) g/dL Hct 24.5 L (34.0-47.0) % MCV 91.5 (81.0-99.0) fL MCH 30.8 (27.0-31.0) pg MCHC 33.7 (33.0-37.0) g/dL RDW 13.8 (11.5-14.5) % Plt Count 144 (130-400) K/uL MPV 10.2 (7.2-11.7) fL Neut % (Auto) 77.3 H (50.0-75.0) % Lymph % (Auto) 16.4 L (20.0-40.0) % [place] % (Auto) 4.4 (0.0-10.0) % Eos % (Auto) 1.0 (0.0-4.0) % Baso % (Auto) 0.9 (0.0-2.0) % Neut # (Auto) 5.8 (1.8-7.0) K/uL Lymph # (Auto) 1.2 (1.0-4.3) K/uL [place] # (Auto) 0.3 (0.0-0.8) K/uL Eos # (Auto) 0.1 (0.0-0.7) K/uL Baso # (Auto) 0.1 (0.0-0.2) K/uL PT 13.5 H (9.7-12.2) SECONDS INR 1.2 APTT 53 H 54 H D (21-34) SECONDS Puncture Site pCO2 (35-45) mm/Hg pO2 (80-100) mm/Hg HCO3 (21-28) mmol/L ABG pH (7.35-7.45) ABG Total CO2 (22-28) mmol/L ABG O2 Saturation (95-98) % ABG Base Excess (-2.0-3.0) mmol/L Mario Test ABG Potassium (3.6-5.2) mmol/L A-a O2 Difference mm/Hg Respiratory Index Sodium (132-148) mmol/l Chloride (98-107) mmol/L Glucose (65-105) mg/dl Lactate (0.7-2.1) mmol/L Vent Mode Mechanical Rate FiO2 % Tidal Volume PEEP Crit Value Called To Crit Value Called By Crit Value Read Back Blood Gas Notified Time Potassium (3.6-5.2) mmol/L Carbon Dioxide (22-30) mmol/L Anion Gap (10-20) BUN (7-17) mg/dL Creatinine (0.7-1.2) mg/dL Est GFR ( Amer) Est GFR (Non-Af Amer) POC Glucose (mg/dL) (65-110) mg/dL Random Glucose (65-105) mg/dL Calcium (8.6-10.4) mg/dl Phosphorus (2.5-4.5) mg/dL Magnesium (1.6-2.3) mg/dL Total Bilirubin (0.2-1.3) mg/dL AST (14-36) U/L ALT (9-52) U/L Alkaline Phosphatase (38-126) U/L NT-Pro-B Natriuret Pep (0-900) pg/mL Total Protein (6.3-8.3) g/dL Albumin (3.5-5.0) g/dL Globulin (2.2-3.9) gm/dL Albumin/Globulin Ratio (1.0-2.1) Arterial Blood Potassium (3.6-5.2) mmol/L 11/07/18 11/07/18 11/07/18 Range/Units 05:47 05:44 05:27 WBC (4.8-10.8) K/uL RBC (3.80-5.20) Mil/uL Hgb (11.0-16.0) g/dL Hct (34.0-47.0) % MCV (81.0-99.0) fL MCH (27.0-31.0) pg MCHC (33.0-37.0) g/dL RDW (11.5-14.5) % Plt Count (130-400) K/uL MPV (7.2-11.7) fL Neut % (Auto) (50.0-75.0) % Lymph % (Auto) (20.0-40.0) % [place] % (Auto) (0.0-10.0) % Eos % (Auto) (0.0-4.0) % Baso % (Auto) (0.0-2.0) % Neut # (Auto) (1.8-7.0) K/uL Lymph # (Auto) (1.0-4.3) K/uL [place] # (Auto) (0.0-0.8) K/uL Eos # (Auto) (0.0-0.7) K/uL Baso # (Auto) (0.0-0.2) K/uL PT (9.7-12.2) SECONDS INR APTT (21-34) SECONDS Puncture Site Rb pCO2 27 L (35-45) mm/Hg pO2 99 (80-100) mm/Hg HCO3 23.9 (21-28) mmol/L ABG pH 7.49 H (7.35-7.45) ABG Total CO2 21.4 L (22-28) mmol/L ABG O2 Saturation 98.3 H (95-98) % ABG Base Excess -1.4 (-2.0-3.0) mmol/L Mario Test Na ABG Potassium 3.0 L (3.6-5.2) mmol/L A-a O2 Difference 295.0 mm/Hg Respiratory Index 3.0 Sodium 134 138.0 (132-148) mmol/l Chloride 103 110.0 H (98-107) mmol/L Glucose 134 H (65-105) mg/dl Lactate 1.1 (0.7-2.1) mmol/L Vent Mode Prvc Mechanical Rate 12 FiO2 60.0 % Tidal Volume 500 PEEP 5 Crit Value Called To Crit Value Called By Crit Value Read Back Blood Gas Notified Time Potassium 3.2 L (3.6-5.2) mmol/L Carbon Dioxide 24 (22-30) mmol/L Anion Gap 10 (10-20) BUN 28 H (7-17) mg/dL Creatinine 1.0 (0.7-1.2) mg/dL Est GFR ( Amer) > 60 Est GFR (Non-Af Amer) 56 POC Glucose (mg/dL) 137 H (65-110) mg/dL Random Glucose 131 H (65-105) mg/dL Calcium 7.9 L (8.6-10.4) mg/dl Phosphorus 4.2 (2.5-4.5) mg/dL Magnesium 2.2 (1.6-2.3) mg/dL Total Bilirubin 1.2 (0.2-1.3) mg/dL AST 96 H D (14-36) U/L ALT 62 H (9-52) U/L Alkaline Phosphatase 83 (38-126) U/L NT-Pro-B Natriuret Pep 4870 H (0-900) pg/mL Total Protein 5.8 L (6.3-8.3) g/dL Albumin 3.0 L (3.5-5.0) g/dL Globulin 2.8 (2.2-3.9) gm/dL Albumin/Globulin Ratio 1.1 (1.0-2.1) Arterial Blood Potassium 3.0 L (3.6-5.2) mmol/L 11/07/18 11/06/18 11/06/18 Range/Units 00:37 18:14 18:01 WBC (4.8-10.8) K/uL RBC (3.80-5.20) Mil/uL Hgb (11.0-16.0) g/dL Hct (34.0-47.0) % MCV (81.0-99.0) fL MCH (27.0-31.0) pg MCHC (33.0-37.0) g/dL RDW (11.5-14.5) % Plt Count (130-400) K/uL MPV (7.2-11.7) fL Neut % (Auto) (50.0-75.0) % Lymph % (Auto) (20.0-40.0) % [place] % (Auto) (0.0-10.0) % Eos % (Auto) (0.0-4.0) % Baso % (Auto) (0.0-2.0) % Neut # (Auto) (1.8-7.0) K/uL Lymph # (Auto) (1.0-4.3) K/uL [place] # (Auto) (0.0-0.8) K/uL Eos # (Auto) (0.0-0.7) K/uL Baso # (Auto) (0.0-0.2) K/uL PT (9.7-12.2) SECONDS INR APTT 48 H D 35 H (21-34) SECONDS Puncture Site pCO2 (35-45) mm/Hg pO2 (80-100) mm/Hg HCO3 (21-28) mmol/L ABG pH (7.35-7.45) ABG Total CO2 (22-28) mmol/L ABG O2 Saturation (95-98) % ABG Base Excess (-2.0-3.0) mmol/L Mario Test ABG Potassium (3.6-5.2) mmol/L A-a O2 Difference mm/Hg Respiratory Index Sodium (132-148) mmol/l Chloride (98-107) mmol/L Glucose (65-105) mg/dl Lactate (0.7-2.1) mmol/L Vent Mode Mechanical Rate FiO2 % Tidal Volume PEEP Crit Value Called To Crit Value Called By Crit Value Read Back Blood Gas Notified Time Potassium (3.6-5.2) mmol/L Carbon Dioxide (22-30) mmol/L Anion Gap (10-20) BUN (7-17) mg/dL Creatinine (0.7-1.2) mg/dL Est GFR ( Amer) Est GFR (Non-Af Amer) POC Glucose (mg/dL) 156 H (65-110) mg/dL Random Glucose (65-105) mg/dL Calcium (8.6-10.4) mg/dl Phosphorus (2.5-4.5) mg/dL Magnesium (1.6-2.3) mg/dL Total Bilirubin (0.2-1.3) mg/dL AST (14-36) U/L ALT (9-52) U/L Alkaline Phosphatase (38-126) U/L NT-Pro-B Natriuret Pep (0-900) pg/mL Total Protein (6.3-8.3) g/dL Albumin (3.5-5.0) g/dL Globulin (2.2-3.9) gm/dL Albumin/Globulin Ratio (1.0-2.1) Arterial Blood Potassium (3.6-5.2) mmol/L 11/06/18 11/06/18 Range/Units 11:19 11:14 WBC (4.8-10.8) K/uL RBC (3.80-5.20) Mil/uL Hgb (11.0-16.0) g/dL Hct (34.0-47.0) % MCV (81.0-99.0) fL MCH (27.0-31.0) pg MCHC (33.0-37.0) g/dL RDW (11.5-14.5) % Plt Count (130-400) K/uL MPV (7.2-11.7) fL Neut % (Auto) (50.0-75.0) % Lymph % (Auto) (20.0-40.0) % [place] % (Auto) (0.0-10.0) % Eos % (Auto) (0.0-4.0) % Baso % (Auto) (0.0-2.0) % Neut # (Auto) (1.8-7.0) K/uL Lymph # (Auto) (1.0-4.3) K/uL [place] # (Auto) (0.0-0.8) K/uL Eos # (Auto) (0.0-0.7) K/uL Baso # (Auto) (0.0-0.2) K/uL PT (9.7-12.2) SECONDS INR APTT (21-34) SECONDS Puncture Site R/rad pCO2 17 L* (35-45) mm/Hg pO2 168 H (80-100) mm/Hg HCO3 17.3 L (21-28) mmol/L ABG pH 7.44 (7.35-7.45) ABG Total CO2 12.0 L (22-28) mmol/L ABG O2 Saturation 99.0 H (95-98) % ABG Base Excess -9.9 L (-2.0-3.0) mmol/L Mario Test Pos ABG Potassium (3.6-5.2) mmol/L A-a O2 Difference 239.0 mm/Hg Respiratory Index 1.4 Sodium (132-148) mmol/l Chloride (98-107) mmol/L Glucose (65-105) mg/dl Lactate (0.7-2.1) mmol/L Vent Mode Mechanical Rate 12 FiO2 60.0 % Tidal Volume 500 PEEP 5 Crit Value Called To Dr saab Crit Value Called By Donavan dickens bilingual loan processor Crit Value Read Back Y Blood Gas Notified Time 1140 Potassium (3.6-5.2) mmol/L Carbon Dioxide (22-30) mmol/L Anion Gap (10-20) BUN (7-17) mg/dL Creatinine (0.7-1.2) mg/dL Est GFR ( Amer) Est GFR (Non-Af Amer) POC Glucose (mg/dL) 137 H (65-110) mg/dL Random Glucose (65-105) mg/dL Calcium (8.6-10.4) mg/dl Phosphorus (2.5-4.5) mg/dL Magnesium (1.6-2.3) mg/dL Total Bilirubin (0.2-1.3) mg/dL AST (14-36) U/L ALT (9-52) U/L Alkaline Phosphatase (38-126) U/L NT-Pro-B Natriuret Pep (0-900) pg/mL Total Protein (6.3-8.3) g/dL Albumin (3.5-5.0) g/dL Globulin (2.2-3.9) gm/dL Albumin/Globulin Ratio (1.0-2.1) Arterial Blood Potassium (3.6-5.2) mmol/L Laboratory Results - last 24 hr 11/06/18 11/06/18 11/06/18 11:14 11:19 18:01 WBC RBC Hgb Hct MCV MCH MCHC RDW Plt Count MPV Neut % (Auto) Lymph % (Auto) [place] % (Auto) Eos % (Auto) Baso % (Auto) Neut # (Auto) Lymph # (Auto) [place] # (Auto) Eos # (Auto) Baso # (Auto) PT INR APTT 35 H Puncture Site R/rad pCO2 17 L* pO2 168 H HCO3 17.3 L ABG pH 7.44 ABG Total CO2 12.0 L ABG O2 Saturation 99.0 H ABG Base Excess -9.9 L Mario Test Pos ABG Potassium A-a O2 Difference 239.0 Respiratory Index 1.4 Sodium Chloride Glucose Lactate Vent Mode Mechanical Rate 12 FiO2 60.0 Tidal Volume 500 PEEP 5 Crit Value Called To Dr saab Crit Value Called By Donavan dickens bilingual loan processor Crit Value Read Back Y Blood Gas Notified Time 1140 Potassium Carbon Dioxide Anion Gap BUN Creatinine Est GFR ( Amer) Est GFR (Non-Af Amer) POC Glucose (mg/dL) 137 H Random Glucose Calcium Phosphorus Magnesium Total Bilirubin AST ALT Alkaline Phosphatase NT-Pro-B Natriuret Pep Total Protein Albumin Globulin Albumin/Globulin Ratio Arterial Blood Potassium 11/06/18 11/07/18 11/07/18 18:14 00:37 05:27 WBC RBC Hgb Hct MCV MCH MCHC RDW Plt Count MPV Neut % (Auto) Lymph % (Auto) [place] % (Auto) Eos % (Auto) Baso % (Auto) Neut # (Auto) Lymph # (Auto) [place] # (Auto) Eos # (Auto) Baso # (Auto) PT INR APTT 48 H D Puncture Site Rb pCO2 27 L pO2 99 HCO3 23.9 ABG pH 7.49 H ABG Total CO2 21.4 L ABG O2 Saturation 98.3 H ABG Base Excess -1.4 Mario Test Na ABG Potassium 3.0 L A-a O2 Difference 295.0 Respiratory Index 3.0 Sodium 138.0 Chloride 110.0 H Glucose 134 H Lactate 1.1 Vent Mode Prvc Mechanical Rate 12 FiO2 60.0 Tidal Volume 500 PEEP 5 Crit Value Called To Crit Value Called By Crit Value Read Back Blood Gas Notified Time Potassium Carbon Dioxide Anion Gap BUN Creatinine Est GFR ( Amer) Est GFR (Non-Af Amer) POC Glucose (mg/dL) 156 H Random Glucose Calcium Phosphorus Magnesium Total Bilirubin AST ALT Alkaline Phosphatase NT-Pro-B Natriuret Pep Total Protein Albumin Globulin Albumin/Globulin Ratio Arterial Blood Potassium 3.0 L 11/07/18 11/07/18 11/07/18 05:44 05:47 05:49 WBC 7.5 RBC 2.67 L Hgb 8.2 L Hct 24.5 L MCV 91.5 MCH 30.8 MCHC 33.7 RDW 13.8 Plt Count 144 MPV 10.2 Neut % (Auto) 77.3 H Lymph % (Auto) 16.4 L [place] % (Auto) 4.4 Eos % (Auto) 1.0 Baso % (Auto) 0.9 Neut # (Auto) 5.8 Lymph # (Auto) 1.2 [place] # (Auto) 0.3 Eos # (Auto) 0.1 Baso # (Auto) 0.1 PT INR APTT Puncture Site pCO2 pO2 HCO3 ABG pH ABG Total CO2 ABG O2 Saturation ABG Base Excess Mario Test ABG Potassium A-a O2 Difference Respiratory Index Sodium 134 Chloride 103 Glucose Lactate Vent Mode Mechanical Rate FiO2 Tidal Volume PEEP Crit Value Called To Crit Value Called By Crit Value Read Back Blood Gas Notified Time Potassium 3.2 L Carbon Dioxide 24 Anion Gap 10 BUN 28 H Creatinine 1.0 Est GFR ( Amer) > 60 Est GFR (Non-Af Amer) 56 POC Glucose (mg/dL) 137 H Random Glucose 131 H Calcium 7.9 L Phosphorus 4.2 Magnesium 2.2 Total Bilirubin 1.2 AST 96 H D ALT 62 H Alkaline Phosphatase 83 NT-Pro-B Natriuret Pep 4870 H Total Protein 5.8 L Albumin 3.0 L Globulin 2.8 Albumin/Globulin Ratio 1.1 Arterial Blood Potassium 11/07/18 11/07/18 05:49 08:59 WBC RBC Hgb Hct MCV MCH MCHC RDW Plt Count MPV Neut % (Auto) Lymph % (Auto) [place] % (Auto) Eos % (Auto) Baso % (Auto) Neut # (Auto) Lymph # (Auto) [place] # (Auto) Eos # (Auto) Baso # (Auto) PT 13.5 H INR 1.2 APTT 54 H D 53 H Puncture Site pCO2 pO2 HCO3 ABG pH ABG Total CO2 ABG O2 Saturation ABG Base Excess Mario Test ABG Potassium A-a O2 Difference Respiratory Index Sodium Chloride Glucose Lactate Vent Mode Mechanical Rate FiO2 Tidal Volume PEEP Crit Value Called To Crit Value Called By Crit Value Read Back Blood Gas Notified Time Potassium Carbon Dioxide Anion Gap BUN Creatinine Est GFR ( Amer) Est GFR (Non-Af Amer) POC Glucose (mg/dL) Random Glucose Calcium Phosphorus Magnesium Total Bilirubin AST ALT Alkaline Phosphatase NT-Pro-B Natriuret Pep Total Protein Albumin Globulin Albumin/Globulin Ratio Arterial Blood Potassium Radiology Impressions: Radiology Impressions Chest X-Ray 11/06/18 16:03 IMPRESSION: Distal tip of an endotracheal tube terminates approximately 2.7 cm above the ofelia. Nasogastric tube extends expected location of the stomach. Right IJ approach central venous catheter extends to the cavoatrial junction. Bat wing distribution of bilateral ground-glass infiltrates consistent with edema/CHF correlate clinically. Cardiomegaly. Median sternotomy wires with evidence of CABG. Chest X-Ray 11/07/18 07:00 IMPRESSION: Mild improvement in CHF as discussed above. Underlying pneumonia not completely excluded once again. No pneumothorax or pleural effusion throughout. Fingerstick Blood Sugar Results: 175 Critical Care Progress Note - Ventilator Checklist Head of Bed 30 Degrees: Yes Daily Sedation Vacation: Yes Daily Assessment of Readiness to Wean: Yes Daily Spontaneous Breathing Trial: Yes PUD Prophalyxis: Yes DVT Prophylaxis: Yes Oral Care with Chlorhexidine Gluconate {CHG}: Yes - Vent Settings MODE:: PRVC TIDAL VOLUME:: 500 RESP RATE:: 16 FIO2:: 60 PEEP:: 5 - Extremities/Vascular Insertion Site: Internal Jugular Vein Does the Patient need a Central Venous Catheter?: Yes Does the Patient have a Kelsey Catheter?: Yes - Restraints Justification for Restraints: High risk for self extubation, High risk for removing IV access Assessment/Plan - Assessment and Plan (Free Text) Plan: Patient is a 63 year old female with 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 Neuro awake, responds to stimuli propofol gtt @ 5mcg Cardio EKG - ST wave inversion in V2, V3, V4, elevated trops most likely STEMI - CODE HEART heparin and amiodarone drip discontinued - amiodarone 200mg PO Q12H lovenox 40mg Qdaily IABP d/c @ 9:45 am as per cardio continue Zetia Lovjosea Metoprolol ASA Brilinta Dr Olguin- will follow up recs Resp Hypoxemia, respiratory distress, pulm edema patient intubated - PRVC 500/60/16/5 CPAP trials today Cxray - mild improvement in CHF, no Pneumothorac or pleural effusion. Low CO2 @ 27 furosemide drip acetazolamide ordered GI NPO protonix Nephro albumin low today albumin 5% 12.5gm IV Q10H x 2 doses Heme H/H stable repeat am labs ID Tmax 100.4 overnight Blood urine cx - negative for 24 hours d/c cefepime today no leukocytosis continue to monitor Cxray PPX DVT -Lovenox GI- protonix Plan discussed with Dr Elina Pope - Date & Time Date: 11/07/18 Time: 09:00 <Manohar Antoine - Last Filed: 11/07/18 18:19> CCU Objective - Vital Signs / Intake & Output Vital Signs (Last 4 hours): Vital Signs Temp Pulse Resp BP Pulse Ox 11/07/18 17:10 109/60 11/07/18 17:00 88 19 100 11/07/18 16:30 97.9 F 89 21 97/57 L 11/07/18 16:27 87 22 97/57 L 100 11/07/18 16:00 98.8 F 83 19 100 11/07/18 15:30 84 20 100/52 L 11/07/18 15:26 85 18 100/52 L 11/07/18 15:20 80/47 L 11/07/18 15:17 83 100 11/07/18 15:00 86 24 100 11/07/18 14:50 80 24 98/50 L 100 11/07/18 14:30 84 23 96/51 L 11/07/18 14:20 86 26 H 96/51 L 100 Intake and Output (Last 8hrs): Intake & Output 11/07/18 11/07/18 11/07/18 06:59 14:59 22:59 Intake Total 442.6 727.6 221.3 Output Total 952024 76 Balance -512.4 -1297.4 -543.7 Weight 167 lb 15.876 oz Intake: IV 100 175.2 Intake, IV Amount 342.6 382.4 111.3 Left Wrist 78.4 47.8 75 Right Distal Port 100.8 54.6 6.3 Internal Jugular Right Medial Port 83.4 200 Internal Jugular Right Proximal Port 80 80 30 Internal Jugular Tube Feeding 170 110 Output: Urine [id number] Urethral (Kelsey) 955 2024 765 - Medications Active Medications: Active Medications Generic Name Dose Route Start Last Admin Trade Name Freq PRN Reason Stop Dose Admin Acetaminophen 650 mg 11/06/18 20:50 11/06/18 21:41 Tylenol 650mg/20.3ml Solution Ud PO 650 mg Q6 PRN Administration Temperature Acetazolamide 500 mg 11/07/18 13:30 11/07/18 13:37 Diamox 500 Mg Inj IV 500 mg Q12H MIREYA Administration Albumin Human 12.5 gm 11/07/18 13:30 11/07/18 13:37 Albumin Human 5% (12.5 Gm/250 Ml) IV 11/07/18 23:31 12.5 gm Q10H MIREYA Administration Albuterol/Ipratropium 3 ml 11/04/18 17:01 11/07/18 15:54 Duoneb 3 Mg/0.5 Mg (3 Ml) Ud INH 3 ml RQ8 MIREYA Administration Amiodarone HCl 200 mg 11/06/18 22:00 11/07/18 10:32 Cordarone PO 200 mg Q12H MIREYA Administration Aspirin 325 mg 11/04/18 10:00 11/07/18 10:29 Ecotrin PO 325 mg DAILY MIREYA Administration Ezetimibe 10 mg 11/04/18 10:00 11/07/18 10:29 Zetia PO 10 mg DAILY MIREYA Administration Enoxaparin Sodium 40 mg 11/08/18 10:00 Lovenox SC DAILY MIREYA Fluticasone/Vilanterol 1 puff 11/04/18 08:00 11/07/18 09:56 Breo Ellipta 200-25 Mcg Inh INH Not Given RQD MIREYA Propofol 1,000 mg in 100 mls @ 2.1 mls/hr 11/05/18 11:52 11/07/18 10:47 Diprivan IV 5 mcg/kg/min .Q24H PRN 2.1 mls/hr TITRATE PER MD ORDER Titration Protocol 5 MCG/KG/MIN Heparin Sodium (Porcine) 1,000 1,000 mls @ 1 mls/hr 11/06/18 10:35 11/06/18 11:27 units/ Sodium Chloride IV 12/18/18 02:34 1 mls/hr ONCE ONE Administration Furosemide 100 mg/ Sodium 100 mls @ 10 mls/hr 11/06/18 16:00 11/07/18 12:00 Chloride IV Not Given .Q10H MIREYA 10 MG/HR Metoprolol Tartrate 25 mg 11/04/18 10:00 11/07/18 17:10 Lopressor PO 25 mg BID MIREYA Administration Zoryn-6-Mktv Ethyl Esters 1 gm 11/04/18 10:00 11/07/18 17:10 Lovaza PO 1 gm BID MIREYA Administration Pantoprazole Sodium 40 mg 11/06/18 10:00 11/07/18 10:28 Protonix Susp GT 40 mg DAILY MIREYA Administration Promethazine HCl 12.5 mg 11/04/18 16:59 11/05/18 09:00 Phenergan Syrup PO 12.5 mg Q6 PRN Administration Cough Ticagrelor 90 mg 11/04/18 10:00 11/07/18 17:10 Brilinta PO 90 mg BID MIREYA Administration - Patient Studies Lab Studies: Microbiology Studies 11/06/18 12:14 Blood Culture - Preliminary Blood-Venous Gram Positive Cocci Gram Stain - Final 11/06/18 12:14 Blood Culture - Preliminary Blood-Venous NO GROWTH AFTER 24 HOURS 11/05/18 15:10 Urine Culture - Final Urine,Kelsey No Growth (<1,000 CFU/ML) Lab Studies 11/07/18 11/07/18 11/07/18 Range/Units 17:54 08:59 05:49 WBC (4.8-10.8) K/uL RBC (3.80-5.20) Mil/uL Hgb (11.0-16.0) g/dL Hct (34.0-47.0) % MCV (81.0-99.0) fL MCH (27.0-31.0) pg MCHC (33.0-37.0) g/dL RDW (11.5-14.5) % Plt Count (130-400) K/uL MPV (7.2-11.7) fL Neut % (Auto) (50.0-75.0) % Lymph % (Auto) (20.0-40.0) % [place] % (Auto) (0.0-10.0) % Eos % (Auto) (0.0-4.0) % Baso % (Auto) (0.0-2.0) % Neut # (Auto) (1.8-7.0) K/uL Lymph # (Auto) (1.0-4.3) K/uL [place] # (Auto) (0.0-0.8) K/uL Eos # (Auto) (0.0-0.7) K/uL Baso # (Auto) (0.0-0.2) K/uL PT 13.5 H (9.7-12.2) SECONDS INR 1.2 APTT 53 H 54 H D (21-34) SECONDS Puncture Site pCO2 (35-45) mm/Hg pO2 (80-100) mm/Hg HCO3 (21-28) mmol/L ABG pH (7.35-7.45) ABG Total CO2 (22-28) mmol/L ABG O2 Saturation (95-98) % ABG Base Excess (-2.0-3.0) mmol/L Mario Test ABG Potassium (3.6-5.2) mmol/L A-a O2 Difference mm/Hg Respiratory Index Sodium (132-148) mmol/l Chloride (98-107) mmol/L Glucose (65-105) mg/dl Lactate (0.7-2.1) mmol/L Vent Mode Mechanical Rate FiO2 % Tidal Volume PEEP Crit Value Called To Crit Value Called By Crit Value Read Back Blood Gas Notified Time Potassium (3.6-5.2) mmol/L Carbon Dioxide (22-30) mmol/L Anion Gap (10-20) BUN (7-17) mg/dL Creatinine (0.7-1.2) mg/dL Est GFR ( Amer) Est GFR (Non-Af Amer) POC Glucose (mg/dL) 203 H (65-110) mg/dL Random Glucose (65-105) mg/dL Calcium (8.6-10.4) mg/dl Phosphorus (2.5-4.5) mg/dL Magnesium (1.6-2.3) mg/dL Total Bilirubin (0.2-1.3) mg/dL AST (14-36) U/L ALT (9-52) U/L Alkaline Phosphatase (38-126) U/L NT-Pro-B Natriuret Pep (0-900) pg/mL Total Protein (6.3-8.3) g/dL Albumin (3.5-5.0) g/dL Globulin (2.2-3.9) gm/dL Albumin/Globulin Ratio (1.0-2.1) Arterial Blood Potassium (3.6-5.2) mmol/L 11/07/18 11/07/18 11/07/18 Range/Units 05:49 05:47 05:44 WBC 7.5 (4.8-10.8) K/uL RBC 2.67 L (3.80-5.20) Mil/uL Hgb 8.2 L (11.0-16.0) g/dL Hct 24.5 L (34.0-47.0) % MCV 91.5 (81.0-99.0) fL MCH 30.8 (27.0-31.0) pg MCHC 33.7 (33.0-37.0) g/dL RDW 13.8 (11.5-14.5) % Plt Count 144 (130-400) K/uL MPV 10.2 (7.2-11.7) fL Neut % (Auto) 77.3 H (50.0-75.0) % Lymph % (Auto) 16.4 L (20.0-40.0) % [place] % (Auto) 4.4 (0.0-10.0) % Eos % (Auto) 1.0 (0.0-4.0) % Baso % (Auto) 0.9 (0.0-2.0) % Neut # (Auto) 5.8 (1.8-7.0) K/uL Lymph # (Auto) 1.2 (1.0-4.3) K/uL [place] # (Auto) 0.3 (0.0-0.8) K/uL Eos # (Auto) 0.1 (0.0-0.7) K/uL Baso # (Auto) 0.1 (0.0-0.2) K/uL PT (9.7-12.2) SECONDS INR APTT (21-34) SECONDS Puncture Site pCO2 (35-45) mm/Hg pO2 (80-100) mm/Hg HCO3 (21-28) mmol/L ABG pH (7.35-7.45) ABG Total CO2 (22-28) mmol/L ABG O2 Saturation (95-98) % ABG Base Excess (-2.0-3.0) mmol/L Mario Test ABG Potassium (3.6-5.2) mmol/L A-a O2 Difference mm/Hg Respiratory Index Sodium 134 (132-148) mmol/l Chloride 103 (98-107) mmol/L Glucose (65-105) mg/dl Lactate (0.7-2.1) mmol/L Vent Mode Mechanical Rate FiO2 % Tidal Volume PEEP Crit Value Called To Crit Value Called By Crit Value Read Back Blood Gas Notified Time Potassium 3.2 L (3.6-5.2) mmol/L Carbon Dioxide 24 (22-30) mmol/L Anion Gap 10 (10-20) BUN 28 H (7-17) mg/dL Creatinine 1.0 (0.7-1.2) mg/dL Est GFR ( Amer) > 60 Est GFR (Non-Af Amer) 56 POC Glucose (mg/dL) 137 H (65-110) mg/dL Random Glucose 131 H (65-105) mg/dL Calcium 7.9 L (8.6-10.4) mg/dl Phosphorus 4.2 (2.5-4.5) mg/dL Magnesium 2.2 (1.6-2.3) mg/dL Total Bilirubin 1.2 (0.2-1.3) mg/dL AST 96 H D (14-36) U/L ALT 62 H (9-52) U/L Alkaline Phosphatase 83 (38-126) U/L NT-Pro-B Natriuret Pep 4870 H (0-900) pg/mL Total Protein 5.8 L (6.3-8.3) g/dL Albumin 3.0 L (3.5-5.0) g/dL Globulin 2.8 (2.2-3.9) gm/dL Albumin/Globulin Ratio 1.1 (1.0-2.1) Arterial Blood Potassium (3.6-5.2) mmol/L 11/07/18 11/07/18 11/06/18 Range/Units 05:27 00:37 18:14 WBC (4.8-10.8) K/uL RBC (3.80-5.20) Mil/uL Hgb (11.0-16.0) g/dL Hct (34.0-47.0) % MCV (81.0-99.0) fL MCH (27.0-31.0) pg MCHC (33.0-37.0) g/dL RDW (11.5-14.5) % Plt Count (130-400) K/uL MPV (7.2-11.7) fL Neut % (Auto) (50.0-75.0) % Lymph % (Auto) (20.0-40.0) % [place] % (Auto) (0.0-10.0) % Eos % (Auto) (0.0-4.0) % Baso % (Auto) (0.0-2.0) % Neut # (Auto) (1.8-7.0) K/uL Lymph # (Auto) (1.0-4.3) K/uL [place] # (Auto) (0.0-0.8) K/uL Eos # (Auto) (0.0-0.7) K/uL Baso # (Auto) (0.0-0.2) K/uL PT (9.7-12.2) SECONDS INR APTT 48 H D (21-34) SECONDS Puncture Site Rb pCO2 27 L (35-45) mm/Hg pO2 99 (80-100) mm/Hg HCO3 23.9 (21-28) mmol/L ABG pH 7.49 H (7.35-7.45) ABG Total CO2 21.4 L (22-28) mmol/L ABG O2 Saturation 98.3 H (95-98) % ABG Base Excess -1.4 (-2.0-3.0) mmol/L Mario Test Na ABG Potassium 3.0 L (3.6-5.2) mmol/L A-a O2 Difference 295.0 mm/Hg Respiratory Index 3.0 Sodium 138.0 (132-148) mmol/l Chloride 110.0 H (98-107) mmol/L Glucose 134 H (65-105) mg/dl Lactate 1.1 (0.7-2.1) mmol/L Vent Mode Prvc Mechanical Rate 12 FiO2 60.0 % Tidal Volume 500 PEEP 5 Crit Value Called To Crit Value Called By Crit Value Read Back Blood Gas Notified Time Potassium (3.6-5.2) mmol/L Carbon Dioxide (22-30) mmol/L Anion Gap (10-20) BUN (7-17) mg/dL Creatinine (0.7-1.2) mg/dL Est GFR ( Amer) Est GFR (Non-Af Amer) POC Glucose (mg/dL) 156 H (65-110) mg/dL Random Glucose (65-105) mg/dL Calcium (8.6-10.4) mg/dl Phosphorus (2.5-4.5) mg/dL Magnesium (1.6-2.3) mg/dL Total Bilirubin (0.2-1.3) mg/dL AST (14-36) U/L ALT (9-52) U/L Alkaline Phosphatase (38-126) U/L NT-Pro-B Natriuret Pep (0-900) pg/mL Total Protein (6.3-8.3) g/dL Albumin (3.5-5.0) g/dL Globulin (2.2-3.9) gm/dL Albumin/Globulin Ratio (1.0-2.1) Arterial Blood Potassium 3.0 L (3.6-5.2) mmol/L 11/06/18 11/06/18 11/06/18 Range/Units 18:01 11:19 11:14 WBC (4.8-10.8) K/uL RBC (3.80-5.20) Mil/uL Hgb (11.0-16.0) g/dL Hct (34.0-47.0) % MCV (81.0-99.0) fL MCH (27.0-31.0) pg MCHC (33.0-37.0) g/dL RDW (11.5-14.5) % Plt Count (130-400) K/uL MPV (7.2-11.7) fL Neut % (Auto) (50.0-75.0) % Lymph % (Auto) (20.0-40.0) % [place] % (Auto) (0.0-10.0) % Eos % (Auto) (0.0-4.0) % Baso % (Auto) (0.0-2.0) % Neut # (Auto) (1.8-7.0) K/uL Lymph # (Auto) (1.0-4.3) K/uL [place] # (Auto) (0.0-0.8) K/uL Eos # (Auto) (0.0-0.7) K/uL Baso # (Auto) (0.0-0.2) K/uL PT (9.7-12.2) SECONDS INR APTT 35 H (21-34) SECONDS Puncture Site R/rad pCO2 17 L* (35-45) mm/Hg pO2 168 H (80-100) mm/Hg HCO3 17.3 L (21-28) mmol/L ABG pH 7.44 (7.35-7.45) ABG Total CO2 12.0 L (22-28) mmol/L ABG O2 Saturation 99.0 H (95-98) % ABG Base Excess -9.9 L (-2.0-3.0) mmol/L Mario Test Pos ABG Potassium (3.6-5.2) mmol/L A-a O2 Difference 239.0 mm/Hg Respiratory Index 1.4 Sodium (132-148) mmol/l Chloride (98-107) mmol/L Glucose (65-105) mg/dl Lactate (0.7-2.1) mmol/L Vent Mode Mechanical Rate 12 FiO2 60.0 % Tidal Volume 500 PEEP 5 Crit Value Called To Dr saab Crit Value Called By Donavan dickens bilingual loan processor Crit Value Read Back Y Blood Gas Notified Time 1140 Potassium (3.6-5.2) mmol/L Carbon Dioxide (22-30) mmol/L Anion Gap (10-20) BUN (7-17) mg/dL Creatinine (0.7-1.2) mg/dL Est GFR ( Amer) Est GFR (Non-Af Amer) POC Glucose (mg/dL) 137 H (65-110) mg/dL Random Glucose (65-105) mg/dL Calcium (8.6-10.4) mg/dl Phosphorus (2.5-4.5) mg/dL Magnesium (1.6-2.3) mg/dL Total Bilirubin (0.2-1.3) mg/dL AST (14-36) U/L ALT (9-52) U/L Alkaline Phosphatase (38-126) U/L NT-Pro-B Natriuret Pep (0-900) pg/mL Total Protein (6.3-8.3) g/dL Albumin (3.5-5.0) g/dL Globulin (2.2-3.9) gm/dL Albumin/Globulin Ratio (1.0-2.1) Arterial Blood Potassium (3.6-5.2) mmol/L Laboratory Results - last 24 hr 0211/06/18 11/06/18 11:14 11:19 18:01 WBC RBC Hgb Hct MCV MCH MCHC RDW Plt Count MPV Neut % (Auto) Lymph % (Auto) [place] % (Auto) Eos % (Auto) Baso % (Auto) Neut # (Auto) Lymph # (Auto) [place] # (Auto) Eos # (Auto) Baso # (Auto) PT INR APTT 35 H Puncture Site R/rad pCO2 17 L* pO2 168 H HCO3 17.3 L ABG pH 7.44 ABG Total CO2 12.0 L ABG O2 Saturation 99.0 H ABG Base Excess -9.9 L Mario Test Pos ABG Potassium A-a O2 Difference 239.0 Respiratory Index 1.4 Sodium Chloride Glucose Lactate Vent Mode Mechanical Rate 12 FiO2 60.0 Tidal Volume 500 PEEP 5 Crit Value Called To Dr saab Crit Value Called By Donavan dickens bilingual loan processor Crit Value Read Back Y Blood Gas Notified Time 1140 Potassium Carbon Dioxide Anion Gap BUN Creatinine Est GFR ( Amer) Est GFR (Non-Af Amer) POC Glucose (mg/dL) 137 H Random Glucose Calcium Phosphorus Magnesium Total Bilirubin AST ALT Alkaline Phosphatase NT-Pro-B Natriuret Pep Total Protein Albumin Globulin Albumin/Globulin Ratio Arterial Blood Potassium 11/06/18 11/07/18 11/07/18 18:14 00:37 05:27 WBC RBC Hgb Hct MCV MCH MCHC RDW Plt Count MPV Neut % (Auto) Lymph % (Auto) [place] % (Auto) Eos % (Auto) Baso % (Auto) Neut # (Auto) Lymph # (Auto) [place] # (Auto) Eos # (Auto) Baso # (Auto) PT INR APTT 48 H D Puncture Site Rb pCO2 27 L pO2 99 HCO3 23.9 ABG pH 7.49 H ABG Total CO2 21.4 L ABG O2 Saturation 98.3 H ABG Base Excess -1.4 Mario Test Na ABG Potassium 3.0 L A-a O2 Difference 295.0 Respiratory Index 3.0 Sodium 138.0 Chloride 110.0 H Glucose 134 H Lactate 1.1 Vent Mode Prvc Mechanical Rate 12 FiO2 60.0 Tidal Volume 500 PEEP 5 Crit Value Called To Crit Value Called By Crit Value Read Back Blood Gas Notified Time Potassium Carbon Dioxide Anion Gap BUN Creatinine Est GFR ( Amer) Est GFR (Non-Af Amer) POC Glucose (mg/dL) 156 H Random Glucose Calcium Phosphorus Magnesium Total Bilirubin AST ALT Alkaline Phosphatase NT-Pro-B Natriuret Pep Total Protein Albumin Globulin Albumin/Globulin Ratio Arterial Blood Potassium 3.0 L 11/07/18 11/07/18 11/07/18 05:44 05:47 05:49 WBC 7.5 RBC 2.67 L Hgb 8.2 L Hct 24.5 L MCV 91.5 MCH 30.8 MCHC 33.7 RDW 13.8 Plt Count 144 MPV 10.2 Neut % (Auto) 77.3 H Lymph % (Auto) 16.4 L [place] % (Auto) 4.4 Eos % (Auto) 1.0 Baso % (Auto) 0.9 Neut # (Auto) 5.8 Lymph # (Auto) 1.2 [place] # (Auto) 0.3 Eos # (Auto) 0.1 Baso # (Auto) 0.1 PT INR APTT Puncture Site pCO2 pO2 HCO3 ABG pH ABG Total CO2 ABG O2 Saturation ABG Base Excess Mario Test ABG Potassium A-a O2 Difference Respiratory Index Sodium 134 Chloride 103 Glucose Lactate Vent Mode Mechanical Rate FiO2 Tidal Volume PEEP Crit Value Called To Crit Value Called By Crit Value Read Back Blood Gas Notified Time Potassium 3.2 L Carbon Dioxide 24 Anion Gap 10 BUN 28 H Creatinine 1.0 Est GFR ( Amer) > 60 Est GFR (Non-Af Amer) 56 POC Glucose (mg/dL) 137 H Random Glucose 131 H Calcium 7.9 L Phosphorus 4.2 Magnesium 2.2 Total Bilirubin 1.2 AST 96 H D ALT 62 H Alkaline Phosphatase 83 NT-Pro-B Natriuret Pep 4870 H Total Protein 5.8 L Albumin 3.0 L Globulin 2.8 Albumin/Globulin Ratio 1.1 Arterial Blood Potassium 11/07/18 11/07/18 11/07/18 05:49 08:59 17:54 WBC RBC Hgb Hct MCV MCH MCHC RDW Plt Count MPV Neut % (Auto) Lymph % (Auto) [place] % (Auto) Eos % (Auto) Baso % (Auto) Neut # (Auto) Lymph # (Auto) [place] # (Auto) Eos # (Auto) Baso # (Auto) PT 13.5 H INR 1.2 APTT 54 H D 53 H Puncture Site pCO2 pO2 HCO3 ABG pH ABG Total CO2 ABG O2 Saturation ABG Base Excess Mario Test ABG Potassium A-a O2 Difference Respiratory Index Sodium Chloride Glucose Lactate Vent Mode Mechanical Rate FiO2 Tidal Volume PEEP Crit Value Called To Crit Value Called By Crit Value Read Back Blood Gas Notified Time Potassium Carbon Dioxide Anion Gap BUN Creatinine Est GFR ( Amer) Est GFR (Non-Af Amer) POC Glucose (mg/dL) 203 H Random Glucose Calcium Phosphorus Magnesium Total Bilirubin AST ALT Alkaline Phosphatase NT-Pro-B Natriuret Pep Total Protein Albumin Globulin Albumin/Globulin Ratio Arterial Blood Potassium Radiology Impressions: Radiology Impressions Chest X-Ray 11/07/18 07:00 IMPRESSION: Mild improvement in CHF as discussed above. Underlying pneumonia not completely excluded once again. No pneumothorax or pleural effusion throughout. Attending/Attestation - Attestation I have personally seen and examined this patient.: Yes I have fully participated in the care of the patient.: Yes I have reviewed all pertinent clinical information: Yes Notes (Text): 11/07/18 18:17 I have seen and examined the patient. Medical records, lab studies, and imaging were reviewed by me and a management plan was formulated on multidisciplinary rounds with resident Dr. Pope. I agree with their documented assessment and plan. cardiogenic pulmonary edema, diuresing with lasix drip. CXR still looks very bad. Tolerating PS trial, all day today. Off of balloon pump. Continue weaning off of vent. Critical Care Time 35 minutes. Multi-disciplinary rounds were performed with house staff, nursing, speech therapy, respiratory therapy, pharmacy and nutrition with integrated input from the primary team/attending and other consulting services. The documented time is cumulative and includes review of patient data/exams/labs/chart review and examination of the patient on rounds and throughout the day; time is exclusive of any procedures or teaching time. 11/07/18 18:17
--- NOTE | 2018-11-07 16:00 | CARD ---
APPROVED REPORT Date of service: 11/05/2018 EKG Measurement Heart [id number] <Conclusion> Atrial fibrillation Left axis deviation ST & T wave abnormality, consider inferior ischemia Abnormal ECG
--- NOTE | 2018-11-07 16:00 | CARD ---
APPROVED REPORT Date of service: 11/05/2018 EKG Measurement Heart [id number] <Conclusion> Sinus rhythm with premature atrial complexes Left axis deviation Nonspecific ST and T wave abnormality Abnormal ECG
--- NOTE | 2018-11-07 17:56 | CP.PCM.PN ---
Subjective - Date & Time of Evaluation Date of Evaluation: 11/07/18 Time of Evaluation: 12:45 - Subjective Subjective: clinically same Objective - Vital Signs/Intake and Output Vital Signs (last 24 hours): Temp Pulse Resp BP Pulse Ox 97.9 F 88 19 109/60 100 11/07/18 16:30 11/07/18 17:00 11/07/18 17:00 11/07/18 17:10 11/07/18 17:00 Intake and Output: 11/07/18 11/07/18 06:59 18:59 Intake Total 683.9 948.9 Output Total 1453 2790 Balance -769.1 -1841.1 - Medications Medications: Current Medications Acetaminophen (Tylenol 650mg/20.3ml Solution Ud) 650 mg PO Q6 PRN PRN Reason: Temperature Last Admin: 11/06/18 21:41 Dose: 650 mg Acetazolamide (Diamox 500 Mg Inj) 500 mg IV Q12H [facility] Last Admin: 11/07/18 13:37 Dose: 500 mg Albumin Human (Albumin Human 5% (12.5 Gm/250 Ml)) 12.5 gm IV Q10H [facility] Stop: 11/07/18 23:31 Last Admin: 11/07/18 13:37 Dose: 12.5 gm Albuterol/Ipratropium (Duoneb 3 Mg/0.5 Mg (3 Ml) Ud) 3 ml INH RQ8 [facility] Last Admin: 11/07/18 15:54 Dose: 3 ml Amiodarone HCl (Cordarone) 200 mg PO Q12H [facility] Last Admin: 11/07/18 10:32 Dose: 200 mg Aspirin (Ecotrin) 325 mg PO DAILY [facility] Last Admin: 11/07/18 10:29 Dose: 325 mg Ezetimibe (Zetia) 10 mg PO DAILY [facility] Last Admin: 11/07/18 10:29 Dose: 10 mg Enoxaparin Sodium (Lovenox) 40 mg SC DAILY [facility] Fluticasone/Vilanterol (Breo Ellipta 200-25 Mcg Inh) 1 puff INH RQD [facility] Last Admin: 11/07/18 09:56 Dose: Not Given Propofol (Diprivan) 1,000 mg in 100 mls @ 2.1 mls/hr IV .Q24H PRN; Protocol PRN Reason: TITRATE PER MD ORDER Last Titration: 11/07/18 10:47 Dose: 5 mcg/kg/min, 2.1 mls/hr Heparin Sodium (Porcine) 1,000 (units/ Sodium Chloride) 1,000 mls @ 1 mls/hr IV ONCE ONE Stop: 12/18/18 02:34 Last Admin: 11/06/18 11:27 Dose: 1 mls/hr Furosemide 100 mg/ Sodium (Chloride) 100 mls @ 10 mls/hr IV .Q10H [facility] Last Admin: 11/07/18 12:00 Dose: Not Given Metoprolol Tartrate (Lopressor) 25 mg PO BID [facility] Last Admin: 11/07/18 17:10 Dose: 25 mg [id number] Ethyl Esters (Lovaza) 1 gm PO BID [facility] Last Admin: 11/07/18 17:10 Dose: 1 gm Pantoprazole Sodium (Protonix Susp) 40 mg GT DAILY [facility] Last Admin: 11/07/18 10:28 Dose: 40 mg Promethazine HCl (Phenergan Syrup) 12.5 mg PO Q6 PRN PRN Reason: Cough Last Admin: 11/05/18 09:00 Dose: 12.5 mg Ticagrelor (Brilinta) 90 mg PO BID [facility] Last Admin: 11/07/18 17:10 Dose: 90 mg - Labs Labs: 11/07/18 05:49 11/07/18 05:47 PT 13.5 SECONDS (9.7-12.2) H 11/07/18 05:49 INR 1.2 11/07/18 05:49 APTT 53 SECONDS (21-34) H 11/07/18 08:59 - Constitutional Appears: Well - Head Exam Head Exam: ATRAUMATIC, NORMAL INSPECTION, NORMOCEPHALIC - Eye Exam Eye Exam: EOMI, Normal appearance, PERRL Pupil Exam: NORMAL ACCOMODATION, PERRL - ENT Exam ENT Exam: Mucous Membranes Moist, Normal Exam - Neck Exam Neck Exam: Full ROM, Normal Inspection. absent: Lymphadenopathy - Respiratory Exam Respiratory Exam: Decreased Breath Sounds - Cardiovascular Exam Cardiovascular Exam: REGULAR RHYTHM, +S1, +S2 - GI/Abdominal Exam GI & Abdominal Exam: Soft, Diminished Bowel Sounds - Rectal Exam Rectal Exam: Deferred
[2018-11-07] MEDS ORDERED: Metoprolol 1 mg/ml Inj IVP ONE (20:05)
[2018-11-07] MEDS ORDERED: Potassium Chloride 20 mEq ER Tab PO SCH (20:15)
[2018-11-07] MEDS: Magnesium Sulfate 1 gm in D5W 1 GM/100 ML BAG IVPB SCH ×2 (20:15→21:25)
--- NOTE | 2018-11-07 20:20 | CP.CCUPN ---
CCU Subjective - Physician Review Subjective (Free Text): Sign-out Obtained from Dr. Jackson. PAtient intubated. SVT HR near 140s-160s BP low 11/07/18 20:15 Critical Care Time Spent (in minutes): 46 CCU Objective - Vital Signs / Intake & Output Vital Signs (Last 4 hours): Vital Signs Temp Pulse Resp BP Pulse Ox 11/07/18 19:00 80 24 100 11/07/18 18:27 78 19 98/55 L 100 11/07/18 18:00 82 22 100 11/07/18 17:27 94 H 23 98/56 L 100 11/07/18 17:10 109/60 11/07/18 17:04 88 20 109/60 100 11/07/18 17:00 88 19 100 11/07/18 16:30 97.9 F 89 21 97/57 L 11/07/18 16:27 87 22 97/57 L 100 Intake and Output (Last 8hrs): Intake & Output 11/07/18 11/07/18 11/07/18 06:59 14:59 22:59 Intake Total 442.6 727.6 375.5 Output Total 955 2024 1200 Balance -512.4 -1297.4 -824.5 Weight 167 lb 15.876 oz Intake: IV 100 175.2 Intake, IV Amount 342.6 382.4 185.5 Left Wrist 78.4 47.8 125 Right Distal Port 100.8 54.6 10.5 Internal Jugular Right Medial Port 83.4 200 Internal Jugular Right Proximal Port 80 80 50 Internal Jugular Tube Feeding 170 190 Output: Urine 955 2024 1200 Urethral (Kelsey) 955 2024 1200 - Physical Exam Head: Positive for: Atraumatic, Normocephalic Neck: Positive for: Other (intubated ) Respiratory/Chest: Positive for: Good Air Exchange, Rales Cardiovascular: Positive for: Normal S1, S2, Irregular Rhythm, Tachycardic Abdomen: Negative for: Tenderness Upper Extremity: Positive for: Normal Inspection. Negative for: Cyanosis, Edema Lower Extremity: Positive for: Normal Inspection. Negative for: Edema Neurological: Positive for: Other Skin: Positive for: Warm, Dry, Normal Color - Medications Active Medications: Active Medications Generic Name Dose Route Start Last Admin Trade Name Freq PRN Reason Stop Dose Admin Acetaminophen 650 mg 11/06/18 20:50 11/06/18 21:41 Tylenol 650mg/20.3ml Solution Ud PO 650 mg Q6 PRN Administration Temperature Acetazolamide 500 mg 11/07/18 13:30 11/07/18 13:37 Diamox 500 Mg Inj IV 500 mg Q12H MIREYA Administration Albumin Human 12.5 gm 11/07/18 13:30 11/07/18 13:37 Albumin Human 5% (12.5 Gm/250 Ml) IV 11/07/18 23:31 12.5 gm Q10H MIREYA Administration Albuterol/Ipratropium 3 ml 11/04/18 17:01 11/07/18 15:54 Duoneb 3 Mg/0.5 Mg (3 Ml) Ud INH 3 ml RQ8 MIREYA Administration Amiodarone HCl 200 mg 11/06/18 22:00 11/07/18 10:32 Cordarone PO 200 mg Q12H MIREYA Administration Aspirin 325 mg 11/04/18 10:00 11/07/18 10:29 Ecotrin PO 325 mg DAILY MIREYA Administration Ezetimibe 10 mg 11/04/18 10:00 11/07/18 10:29 Zetia PO 10 mg DAILY MIREYA Administration Enoxaparin Sodium 40 mg 11/08/18 10:00 Lovenox SC DAILY MIREYA Fluticasone/Vilanterol 1 puff 11/04/18 08:00 11/07/18 09:56 Breo Ellipta 200-25 Mcg Inh INH Not Given RQD MIREYA Propofol 1,000 mg in 100 mls @ 2.1 mls/hr 11/05/18 11:52 11/07/18 10:47 Diprivan IV 5 mcg/kg/min .Q24H PRN 2.1 mls/hr TITRATE PER MD ORDER Titration Protocol 5 MCG/KG/MIN Heparin Sodium (Porcine) 1,000 1,000 mls @ 1 mls/hr 11/06/18 10:35 11/06/18 11:27 units/ Sodium Chloride IV 12/18/18 02:34 1 mls/hr ONCE ONE Administration Furosemide 100 mg/ Sodium 100 mls @ 10 mls/hr 11/06/18 16:00 11/07/18 12:00 Chloride IV Not Given .Q10H MIREYA 10 MG/HR Amiodarone HCl 900 mg/ 500 mls @ 33.33 mls/hr 11/07/18 20:15 Dextrose IV 11/08/18 04:15 .Q15H1M MIREYA Protocol 1 MG/MIN Magnesium Sulfate/Dextrose 1 gm in 100 mls @ 200 mls/hr 11/07/18 20:15 Magnesium Sulfate 1 Gm/100 Ml D5w IVPB 11/07/18 21:14 Q30M MIREYA Midazolam HCl 100 mg/ Dextrose 100 mls @ 1.52 mls/hr 11/07/18 20:15 IV .Q24H MIREYA Protocol 0.02 MG/KG/HR Norepinephrine Bitartrate 8 mg 258 mls @ 3.87 mls/hr 11/07/18 20:10 / Dextrose IV .Q24H PRN TITRATE PER MD ORDER Protocol 2 MCG/MIN Metoprolol Tartrate 25 mg 11/04/18 10:00 11/07/18 17:10 Lopressor PO 25 mg BID MIREYA Administration [id number] Ethyl Esters 1 gm 11/04/18 10:00 11/07/18 17:10 Lovaza PO 1 gm BID MIREYA Administration Pantoprazole Sodium 40 mg 11/06/18 10:00 11/07/18 10:28 Protonix Susp GT 40 mg DAILY MIREYA Administration Promethazine HCl 12.5 mg 11/04/18 16:59 11/05/18 09:00 Phenergan Syrup PO 12.5 mg Q6 PRN Administration Cough Ticagrelor 90 mg 11/04/18 10:00 11/07/18 17:10 Brilinta PO 90 mg BID MIREYA Administration - Patient Studies Lab Studies: Microbiology Studies 11/06/18 12:14 Blood Culture - Preliminary Blood-Venous Gram Positive Cocci Gram Stain - Final 11/06/18 12:14 Blood Culture - Preliminary Blood-Venous NO GROWTH AFTER 24 HOURS 11/05/18 15:10 Urine Culture - Final Urine,Kelsey No Growth (<1,000 CFU/ML) Lab Studies 11/07/18 11/07/18 11/07/18 Range/Units 17:54 08:59 05:49 WBC (4.8-10.8) K/uL RBC (3.80-5.20) Mil/uL Hgb (11.0-16.0) g/dL Hct (34.0-47.0) % MCV (81.0-99.0) fL MCH (27.0-31.0) pg MCHC (33.0-37.0) g/dL RDW (11.5-14.5) % Plt Count (130-400) K/uL MPV (7.2-11.7) fL Neut % (Auto) (50.0-75.0) % Lymph % (Auto) (20.0-40.0) % [place] % (Auto) (0.0-10.0) % Eos % (Auto) (0.0-4.0) % Baso % (Auto) (0.0-2.0) % Neut # (Auto) (1.8-7.0) K/uL Lymph # (Auto) (1.0-4.3) K/uL [place] # (Auto) (0.0-0.8) K/uL Eos # (Auto) (0.0-0.7) K/uL Baso # (Auto) (0.0-0.2) K/uL PT 13.5 H (9.7-12.2) SECONDS INR 1.2 APTT 53 H 54 H D (21-34) SECONDS Puncture Site pCO2 (35-45) mm/Hg pO2 (80-100) mm/Hg HCO3 (21-28) mmol/L ABG pH (7.35-7.45) ABG Total CO2 (22-28) mmol/L ABG O2 Saturation (95-98) % ABG Base Excess (-2.0-3.0) mmol/L Mario Test ABG Potassium (3.6-5.2) mmol/L A-a O2 Difference mm/Hg Respiratory Index Sodium (132-148) mmol/l Chloride (98-107) mmol/L Glucose (65-105) mg/dl Lactate (0.7-2.1) mmol/L Vent Mode Mechanical Rate FiO2 % Tidal Volume PEEP Crit Value Called To Crit Value Called By Crit Value Read Back Blood Gas Notified Time Potassium (3.6-5.2) mmol/L Carbon Dioxide (22-30) mmol/L Anion Gap (10-20) BUN (7-17) mg/dL Creatinine (0.7-1.2) mg/dL Est GFR ( Amer) Est GFR (Non-Af Amer) POC Glucose (mg/dL) 203 H (65-110) mg/dL Random Glucose (65-105) mg/dL Calcium (8.6-10.4) mg/dl Phosphorus (2.5-4.5) mg/dL Magnesium (1.6-2.3) mg/dL Total Bilirubin (0.2-1.3) mg/dL AST (14-36) U/L ALT (9-52) U/L Alkaline Phosphatase (38-126) U/L NT-Pro-B Natriuret Pep (0-900) pg/mL Total Protein (6.3-8.3) g/dL Albumin (3.5-5.0) g/dL Globulin (2.2-3.9) gm/dL Albumin/Globulin Ratio (1.0-2.1) Arterial Blood Potassium (3.6-5.2) mmol/L 11/07/18 11/07/18 11/07/18 Range/Units 05:49 05:47 05:44 WBC 7.5 (4.8-10.8) K/uL RBC 2.67 L (3.80-5.20) Mil/uL Hgb 8.2 L (11.0-16.0) g/dL Hct 24.5 L (34.0-47.0) % MCV 91.5 (81.0-99.0) fL MCH 30.8 (27.0-31.0) pg MCHC 33.7 (33.0-37.0) g/dL RDW 13.8 (11.5-14.5) % Plt Count 144 (130-400) K/uL MPV 10.2 (7.2-11.7) fL Neut % (Auto) 77.3 H (50.0-75.0) % Lymph % (Auto) 16.4 L (20.0-40.0) % [place] % (Auto) 4.4 (0.0-10.0) % Eos % (Auto) 1.0 (0.0-4.0) % Baso % (Auto) 0.9 (0.0-2.0) % Neut # (Auto) 5.8 (1.8-7.0) K/uL Lymph # (Auto) 1.2 (1.0-4.3) K/uL [place] # (Auto) 0.3 (0.0-0.8) K/uL Eos # (Auto) 0.1 (0.0-0.7) K/uL Baso # (Auto) 0.1 (0.0-0.2) K/uL PT (9.7-12.2) SECONDS INR APTT (21-34) SECONDS Puncture Site pCO2 (35-45) mm/Hg pO2 (80-100) mm/Hg HCO3 (21-28) mmol/L ABG pH (7.35-7.45) ABG Total CO2 (22-28) mmol/L ABG O2 Saturation (95-98) % ABG Base Excess (-2.0-3.0) mmol/L Mario Test ABG Potassium (3.6-5.2) mmol/L A-a O2 Difference mm/Hg Respiratory Index Sodium 134 (132-148) mmol/l Chloride 103 (98-107) mmol/L Glucose (65-105) mg/dl Lactate (0.7-2.1) mmol/L Vent Mode Mechanical Rate FiO2 % Tidal Volume PEEP Crit Value Called To Crit Value Called By Crit Value Read Back Blood Gas Notified Time Potassium 3.2 L (3.6-5.2) mmol/L Carbon Dioxide 24 (22-30) mmol/L Anion Gap 10 (10-20) BUN 28 H (7-17) mg/dL Creatinine 1.0 (0.7-1.2) mg/dL Est GFR ( Amer) > 60 Est GFR (Non-Af Amer) 56 POC Glucose (mg/dL) 137 H (65-110) mg/dL Random Glucose 131 H (65-105) mg/dL Calcium 7.9 L (8.6-10.4) mg/dl Phosphorus 4.2 (2.5-4.5) mg/dL Magnesium 2.2 (1.6-2.3) mg/dL Total Bilirubin 1.2 (0.2-1.3) mg/dL AST 96 H D (14-36) U/L ALT 62 H (9-52) U/L Alkaline Phosphatase 83 (38-126) U/L NT-Pro-B Natriuret Pep 4870 H (0-900) pg/mL Total Protein 5.8 L (6.3-8.3) g/dL Albumin 3.0 L (3.5-5.0) g/dL Globulin 2.8 (2.2-3.9) gm/dL Albumin/Globulin Ratio 1.1 (1.0-2.1) Arterial Blood Potassium (3.6-5.2) mmol/L 11/07/18 11/07/18 11/06/18 Range/Units 05:27 00:37 11:19 WBC (4.8-10.8) K/uL RBC (3.80-5.20) Mil/uL Hgb (11.0-16.0) g/dL Hct (34.0-47.0) % MCV (81.0-99.0) fL MCH (27.0-31.0) pg MCHC (33.0-37.0) g/dL RDW (11.5-14.5) % Plt Count (130-400) K/uL MPV (7.2-11.7) fL Neut % (Auto) (50.0-75.0) % Lymph % (Auto) (20.0-40.0) % [place] % (Auto) (0.0-10.0) % Eos % (Auto) (0.0-4.0) % Baso % (Auto) (0.0-2.0) % Neut # (Auto) (1.8-7.0) K/uL Lymph # (Auto) (1.0-4.3) K/uL [place] # (Auto) (0.0-0.8) K/uL Eos # (Auto) (0.0-0.7) K/uL Baso # (Auto) (0.0-0.2) K/uL PT (9.7-12.2) SECONDS INR APTT 48 H D (21-34) SECONDS Puncture Site Rb R/rad pCO2 27 L 17 L* (35-45) mm/Hg pO2 99 168 H (80-100) mm/Hg HCO3 23.9 17.3 L (21-28) mmol/L ABG pH 7.49 H 7.44 (7.35-7.45) ABG Total CO2 21.4 L 12.0 L (22-28) mmol/L ABG O2 Saturation 98.3 H 99.0 H (95-98) % ABG Base Excess -1.4 -9.9 L (-2.0-3.0) mmol/L Mario Test Na Pos ABG Potassium 3.0 L (3.6-5.2) mmol/L A-a O2 Difference 295.0 239.0 mm/Hg Respiratory Index 3.0 1.4 Sodium 138.0 (132-148) mmol/l Chloride 110.0 H (98-107) mmol/L Glucose 134 H (65-105) mg/dl Lactate 1.1 (0.7-2.1) mmol/L Vent Mode Prvc Mechanical Rate 12 12 FiO2 60.0 60.0 % Tidal Volume 500 500 PEEP 5 5 Crit Value Called To Dr saab Crit Value Called By Donavan dickens exercise rider Crit Value Read Back Y Blood Gas Notified Time 1140 Potassium (3.6-5.2) mmol/L Carbon Dioxide (22-30) mmol/L Anion Gap (10-20) BUN (7-17) mg/dL Creatinine (0.7-1.2) mg/dL Est GFR ( Amer) Est GFR (Non-Af Amer) POC Glucose (mg/dL) (65-110) mg/dL Random Glucose (65-105) mg/dL Calcium (8.6-10.4) mg/dl Phosphorus (2.5-4.5) mg/dL Magnesium (1.6-2.3) mg/dL Total Bilirubin (0.2-1.3) mg/dL AST (14-36) U/L ALT (9-52) U/L Alkaline Phosphatase (38-126) U/L NT-Pro-B Natriuret Pep (0-900) pg/mL Total Protein (6.3-8.3) g/dL Albumin (3.5-5.0) g/dL Globulin (2.2-3.9) gm/dL Albumin/Globulin Ratio (1.0-2.1) Arterial Blood Potassium 3.0 L (3.6-5.2) mmol/L Laboratory Results - last 24 hr 11/06/18 11/07/18 11/07/18 11:19 00:37 05:27 WBC RBC Hgb Hct MCV MCH MCHC RDW Plt Count MPV Neut % (Auto) Lymph % (Auto) [place] % (Auto) Eos % (Auto) Baso % (Auto) Neut # (Auto) Lymph # (Auto) [place] # (Auto) Eos # (Auto) Baso # (Auto) PT INR APTT 48 H D Puncture Site R/rad Rb pCO2 17 L* 27 L pO2 168 H 99 HCO3 17.3 L 23.9 ABG pH 7.44 7.49 H ABG Total CO2 12.0 L 21.4 L ABG O2 Saturation 99.0 H 98.3 H ABG Base Excess -9.9 L -1.4 Mario Test Pos Na ABG Potassium 3.0 L A-a O2 Difference 239.0 295.0 Respiratory Index 1.4 3.0 Sodium 138.0 Chloride 110.0 H Glucose 134 H Lactate 1.1 Vent Mode Prvc Mechanical Rate 12 12 FiO2 60.0 60.0 Tidal Volume 500 500 PEEP 5 5 Crit Value Called To Dr saab Crit Value Called By Donavan dickens exercise rider Crit Value Read Back Y Blood Gas Notified Time 1140 Potassium Carbon Dioxide Anion Gap BUN Creatinine Est GFR ( Amer) Est GFR (Non-Af Amer) POC Glucose (mg/dL) Random Glucose Calcium Phosphorus Magnesium Total Bilirubin AST ALT Alkaline Phosphatase NT-Pro-B Natriuret Pep Total Protein Albumin Globulin Albumin/Globulin Ratio Arterial Blood Potassium 3.0 L 11/07/18 11/07/18 11/07/18 05:44 05:47 05:49 WBC 7.5 RBC 2.67 L Hgb 8.2 L Hct 24.5 L MCV 91.5 MCH 30.8 MCHC 33.7 RDW 13.8 Plt Count 144 MPV 10.2 Neut % (Auto) 77.3 H Lymph % (Auto) 16.4 L [place] % (Auto) 4.4 Eos % (Auto) 1.0 Baso % (Auto) 0.9 Neut # (Auto) 5.8 Lymph # (Auto) 1.2 [place] # (Auto) 0.3 Eos # (Auto) 0.1 Baso # (Auto) 0.1 PT INR APTT Puncture Site pCO2 pO2 HCO3 ABG pH ABG Total CO2 ABG O2 Saturation ABG Base Excess Mario Test ABG Potassium A-a O2 Difference Respiratory Index Sodium 134 Chloride 103 Glucose Lactate Vent Mode Mechanical Rate FiO2 Tidal Volume PEEP Crit Value Called To Crit Value Called By Crit Value Read Back Blood Gas Notified Time Potassium 3.2 L Carbon Dioxide 24 Anion Gap 10 BUN 28 H Creatinine 1.0 Est GFR ( Amer) > 60 Est GFR (Non-Af Amer) 56 POC Glucose (mg/dL) 137 H Random Glucose 131 H Calcium 7.9 L Phosphorus 4.2 Magnesium 2.2 Total Bilirubin 1.2 AST 96 H D ALT 62 H Alkaline Phosphatase 83 NT-Pro-B Natriuret Pep 4870 H Total Protein 5.8 L Albumin 3.0 L Globulin 2.8 Albumin/Globulin Ratio 1.1 Arterial Blood Potassium 11/07/18 11/07/18 11/07/18 05:49 08:59 17:54 WBC RBC Hgb Hct MCV MCH MCHC RDW Plt Count MPV Neut % (Auto) Lymph % (Auto) [place] % (Auto) Eos % (Auto) Baso % (Auto) Neut # (Auto) Lymph # (Auto) [place] # (Auto) Eos # (Auto) Baso # (Auto) PT 13.5 H INR 1.2 APTT 54 H D 53 H Puncture Site pCO2 pO2 HCO3 ABG pH ABG Total CO2 ABG O2 Saturation ABG Base Excess Mario Test ABG Potassium A-a O2 Difference Respiratory Index Sodium Chloride Glucose Lactate Vent Mode Mechanical Rate FiO2 Tidal Volume PEEP Crit Value Called To Crit Value Called By Crit Value Read Back Blood Gas Notified Time Potassium Carbon Dioxide Anion Gap BUN Creatinine Est GFR ( Amer) Est GFR (Non-Af Amer) POC Glucose (mg/dL) 203 H Random Glucose Calcium Phosphorus Magnesium Total Bilirubin AST ALT Alkaline Phosphatase NT-Pro-B Natriuret Pep Total Protein Albumin Globulin Albumin/Globulin Ratio Arterial Blood Potassium Radiology Impressions: Radiology Impressions Chest X-Ray 11/07/18 07:00 IMPRESSION: Mild improvement in CHF as discussed above. Underlying pneumonia not completely excluded once again. No pneumothorax or pleural effusion throughout. Fingerstick Blood Sugar Results: 203 Review of Systems - Review of Systems Systems not reviewed;Unavailable: Intubated Assessment/Plan - Assessment and Plan (Free Text) Assessment: SVT/Hypotensive: etiology of SVT ?refelxive 2nd hypotension, will start IV norepi, monitor to keep MAP >65, hold albuterol -A-fib: was onral amiodarone (recently switched from IV to oral), check TSH, continue IV amiodarone, start AC with heparin (stopped temporarily to remove IABP) -hypotension: hold all antihypertensive medications -Hypotension: switch from propofol to versed and fentanyl -continue dvt/pud ppx (heparin/protonix) Requested to obtain CVP pressures. -ABG/cmp/mag/phos/cbc pending Prognosis guarded as etiology of hypotension and tachycardia unknown -multiple diagnostic tests pending -continue to monitor cc time 46 minutes - Date & Time Date: 11/07/18 Time: 20:20
[2018-11-07] MEDS: Midazolam 50 mg/10 ml 100 MG in Dextrose 5% In Water 80 ML IV SCH (20:55)
[2018-11-07 20:59] LABS: BASO % 0.4 % (0.0-2.0); EOS % 0.4 % (0.0-4.0); HEMOGLOBIN 8.7 g/dL (11.0-16.0); LYMPH % 9.8 % (20.0-40.0); MEAN CELL VOLUME 91.9 fL (81.0-99.0); MEAN CORPUSCULAR HEMOGLOBIN 30.7 pg (27.0-31.0); MEAN CORPUSCULAR HGB CONC 33.4 g/dL (33.0-37.0); MEAN PLATELET VOLUME 10.5 fL (7.2-11.7); MONO # 0.6 K/uL (0.0-0.8); MONO % 6.2 % (0.0-10.0); NEUT # 8.5 K/uL (1.8-7.0); NEUT % 83.2 % (50.0-75.0); PLATELET COUNT 199 K/uL (130-400); RBC 2.82 Mil/uL (3.80-5.20); WHITE BLOOD COUNT 10.3 K/uL (4.8-10.8)
[2018-11-07 20:59] LABS: ARTERIAL BLOOD GAS HCO3 27.4 mmol/L (21-28); ARTERIAL BLOOD GAS O2 SAT 98.7 % (95-98); ARTERIAL BLOOD GAS PCO2 30 mm/Hg (35-45); ARTERIAL BLOOD GAS PH 7.53 (7.35-7.45); ARTERIAL BLOOD GAS PO2 197 mm/Hg (80-100)
[2018-11-07 21:18] LABS: BLOOD UREA NITROGEN 22 mg/dL (7-17); GFR NON-AFRICAN AMERICAN 56
[2018-11-07 21:19] LABS: ALB/GLOB RATIO 1.2 (1.0-2.1); ALBUMIN 3.7 g/dL (3.5-5.0); ALT/SGPT 70 U/L (9-52); AST/SGOT 97 U/L (14-36); CALCIUM 8.1 mg/dl (8.6-10.4)
[2018-11-07] MEDS: Potassium Chloride 20 mEq/15 ml LIQ UD PO SCH (21:40)
[2018-11-07] MEDS ORDERED: Heparin25000 units/250ml 1/2NS 25,000 UNITS/250 ML BAG IV PRN (22:11)
[2018-11-07 22:12] LABS: LYMPHOCYTE 11 % (20-40); MONOCYTE 6 % (0-10); NEUTROPHIL 83 % (50-75); NUCLEATED RED BLOOD CELL 1 % (0-0); PLATELET ESTIMATE NORMAL (NORMAL); TOTAL CELLS COUNTED 100
[2018-11-08] MEDS: Albuterol-Ipratrop 3 mg / 0.5 (3 ml) UD INH SCH ×3 (00:14→15:50)
[2018-11-08] MEDS: Potassium Chloride 20 mEq/15 ml LIQ UD PO SCH (03:30)
[2018-11-08 05:32] LABS: ARTERIAL BLOOD GAS HCO3 24.3 mmol/L (21-28); ARTERIAL BLOOD GAS HEMOGLOBIN 8.2 g/dL (11.7-17.4); ARTERIAL BLOOD GAS O2 SAT 98.4 % (95-98); ARTERIAL BLOOD GAS PCO2 30 mm/Hg (35-45); ARTERIAL BLOOD GAS PH 7.48 (7.35-7.45); ARTERIAL BLOOD GAS PO2 108 mm/Hg (80-100); ARTERIAL BLOOD GAS TCO2 23.2 mmol/L (22-28)
[2018-11-08 06:24] LABS: BASO % 0.4 % (0.0-2.0); EOS # 0.1 K/uL (0.0-0.7); EOS % 1.2 % (0.0-4.0); HEMOGLOBIN 8.1 g/dL (11.0-16.0); LYMPH # 1.1 K/uL (1.0-4.3); MEAN CORPUSCULAR HEMOGLOBIN 31.3 pg (27.0-31.0); MEAN PLATELET VOLUME 10.3 fL (7.2-11.7); MONO # 0.5 K/uL (0.0-0.8); MONO % 5.9 % (0.0-10.0); NEUT # 7.1 K/uL (1.8-7.0); NEUT % 80.5 % (50.0-75.0); NRBC % 0.1 % (0.0-2.0); RBC 2.58 Mil/uL (3.80-5.20); RED CELL DISTRIBUTION WIDTH 13.7 % (11.5-14.5); WHITE BLOOD COUNT 8.8 K/uL (4.8-10.8)
[2018-11-08 06:33] LABS: ALB/GLOB RATIO 1.2 (1.0-2.1); ALBUMIN 3.5 g/dL (3.5-5.0); ALT/SGPT 53 U/L (9-52); AST/SGOT 63 U/L (14-36); BLOOD UREA NITROGEN 19 mg/dL (7-17); CALCIUM 8.3 mg/dl (8.6-10.4); GFR NON-AFRICAN AMERICAN > 60
[2018-11-08] MEDS: [UNRECOGNIZED DRUG - OTHER] IV PRN ×2 (08:03→22:05)
--- NOTE | 2018-11-08 09:09 | RAD ---
Date of service: 11/08/2018 HISTORY: INTUBATED,CHF COMPARISON: 11/07/2018. FINDINGS: The right IJV line terminates at the cavoatrial junction. The nasogastric tube terminates in the stomach. The endotracheal tube terminates 2 cm proximal to the ofelia LUNGS: The lungs are well inflated. There is redemonstration of confluent airspace disease in the perihilar regions and left upper lobe. PLEURA: Suspect small effusions. No pneumothorax. CARDIOVASCULAR: Persistent mild cardiomegaly. Status post CABG. No aortic atherosclerotic calcifications present. OSSEOUS STRUCTURES: Within normal limits for the patient's age. VISUALIZED UPPER ABDOMEN: Normal. OTHER FINDINGS: None. IMPRESSION: Little interval change in presumable pulmonary edema and suspected effusions in the setting of congestive heart failure. Stable position of support line and tubes.
--- NOTE | 2018-11-08 09:19 | CP.PCM.PN ---
Subjective - Date & Time of Evaluation Date of Evaluation: 11/08/18 Time of Evaluation: 09:16 - Subjective Subjective: Igor Adam DO PGY1 - Cardiology Note for Dr. Olguin Nursing notes reviewed; Overnight patient noted to be in Afib/Aflutter - Amio drip started on pt Patient also noted to be hypotensive - levophed admin yesterday Objective - Vital Signs/Intake and Output Vital Signs (last 24 hours): Temp Pulse Resp BP Pulse Ox 98.6 F 76 19 97/67 L 100 11/08/18 04:00 11/08/18 07:00 11/08/18 07:00 11/08/18 07:00 11/08/18 07:00 Intake and Output: 11/08/18 11/08/18 06:59 18:59 Intake Total 2318.3 80.9 Output Total 1150 Balance 1168.3 80.9 - Medications Medications: Current Medications Acetaminophen (Tylenol 650mg/20.3ml Solution Ud) 650 mg PO Q6 PRN PRN Reason: Temperature Last Admin: 11/06/18 21:41 Dose: 650 mg Albuterol/Ipratropium (Duoneb 3 Mg/0.5 Mg (3 Ml) Ud) 3 ml INH RQ8 MIREYA Last Admin: 11/08/18 00:14 Dose: 3 ml Aspirin (Ecotrin) 325 mg PO DAILY MIREYA Last Admin: 11/07/18 10:29 Dose: 325 mg Midazolam HCl 100 mg/ Dextrose 100 mls @ 1.52 mls/hr IV .Q24H MIREYA; Protocol Last Titration: 11/07/18 22:00 Dose: 0.1 mg/kg/hr, 7.62 mls/hr Norepinephrine Bitartrate 8 mg (/ Dextrose) 258 mls @ 3.87 mls/hr IV .Q24H PRN; Protocol PRN Reason: TITRATE PER MD ORDER Last Titration: 11/07/18 23:00 Dose: 4 mcg/min, 7.74 mls/hr Amiodarone HCl 900 mg/ (Dextrose) 500 mls @ 16.67 mls/hr IV .Q24H ONE; Protocol Stop: 11/09/18 02:29 Last Admin: 11/08/18 02:30 Dose: 16.67 mls/hr Heparin Sodium/Sodium Chloride (Heparin 08362 Units/250ml 1/2 Normal Saline) 25,000 units in 250 mls @ 10.234 mls/hr IV .Q24H PRN; Protocol PRN Reason: ADJUST RATE PER PROTOCOL Last Admin: 11/08/18 08:03 Dose: 14 units/kg/hr, 10.234 mls/hr [id number] Ethyl Esters (Lovaza) 1 gm PO BID [facility] Last Admin: 11/07/18 17:10 Dose: 1 gm Pantoprazole Sodium (Protonix Susp) 40 mg GT DAILY [facility] Last Admin: 11/07/18 10:28 Dose: 40 mg Promethazine HCl (Phenergan Syrup) 12.5 mg PO Q6 PRN PRN Reason: Cough Last Admin: 11/05/18 09:00 Dose: 12.5 mg Ticagrelor (Brilinta) 90 mg PO BID [facility] Last Admin: 11/07/18 17:10 Dose: 90 mg - Labs Labs: 11/08/18 06:11 11/08/18 06:11 PT 13.5 SECONDS (9.7-12.2) H 11/07/18 05:49 INR 1.2 11/07/18 05:49 APTT 42 SECONDS (21-34) H D 11/08/18 06:11 - Constitutional Appears: Other (intubated/ sedated) - Head Exam Head Exam: ATRAUMATIC, NORMOCEPHALIC - Eye Exam Eye Exam: PERRL. absent: Scleral icterus - ENT Exam Additional comments: ET tube in place - Respiratory Exam Respiratory Exam: Rhonchi (bilaterally) - Cardiovascular Exam Cardiovascular Exam: RRR, +S1, +S2 - GI/Abdominal Exam GI & Abdominal Exam: Soft - Extremities Exam Extremities Exam: Normal Inspection - Neurological Exam Neurological Exam: absent: Alert, Awake - Skin Skin Exam: Dry, Intact, Normal Color, Warm Assessment and Plan (1) Cardiogenic shock Status: Acute (2) Dyslipidemia Status: Acute (3) STEMI (ST elevation myocardial infarction) Status: Acute (4) Coronary artery disease Status: Chronic (5) HTN (hypertension) Status: Acute (6) Hx of CABG Status: Chronic - Assessment and Plan (Free Text) Plan: IABP removed 11/07 BNP continues to be downtrending Will repeat BNP today Patient in afib/aflutter rhythm overnight - started on amio drip + Heparin drip Hypotensive as well yesterday - lasix stopped + metoprolol held - started on levophed ovenright Patient is on 3mcg/min of levophed at time of evaluation - Reduce to 2mcg/min and monitor HD stability - attempt to wean off pressors today C/w heparin drip C/w Amio drip Continue Zetia Rebekaa ASA Brilinta Further reccs per Dr. Olguin
[2018-11-08] MEDS: Midazolam 50 mg/10 ml 100 MG in Dextrose 5% In Water 80 ML IV SCH (09:48)
[2018-11-08] MEDS: Aspirin 325 mg EC Tablets PO SCH (09:49)
[2018-11-08] MEDS: Pantoprazole 40 mg Susp UD GT SCH (09:49)
[2018-11-08] MEDS: Omega-3-Acid Ethyl Esters 1 GM Cap PO SCH ×2 (09:49→17:04)
[2018-11-08] MEDS ORDERED: Enoxaparin 40 mg Syringe SC SCH (10:00)
--- NOTE | 2018-11-08 13:18 | CP.CCUPN ---
<Gordon Pope - Last Filed: 11/08/18 20:39> CCU Subjective - Physician Review Subjective (Free Text): PGY-1 ICU progress note for Dr Massey service PAtient is seen and examined at bedside. As per nurse, patient developed SVT, HR at 150s in the evening yesterday, which later became rapid afib, flutter. Amiodarone and levophed, along with heparin drips started. Rhythm converted to NS after dose of verapamil. CVP reading started. PAtient was seen restless, on versed drip. Patient remains intubated and sedated, but responds to stimulus. ETT intact, no pink/bloody secretions observed, continued PRVC, OGT placement noted, functioning well, NS observed this morning on monitor. ROS unattainable due to pts status (sedated and intubated). Family at bedside. Critical Care Time Spent (in minutes): 40 CCU Objective - Vital Signs / Intake & Output Vital Signs (Last 4 hours): Vital Signs Temp Pulse Resp BP Pulse Ox 11/08/18 12:00 100.7 F H 83 21 103/59 L 100 11/08/18 11:00 89 26 H 98/59 L 100 11/08/18 10:00 93 H 26 H 100/59 L 100 Intake and Output (Last 8hrs): Intake & Output 11/07/18 11/08/18 11/08/18 22:59 06:59 14:59 Intake Total 1320.7 1296.0 801.0 Output Total 1500 650 290 Balance -179.3 646.0 511.0 Weight 161 lb 2.526 oz Intake: IV 4 24 145 Intake, IV Amount 801.7 677.0 316.0 Left Wrist 325 60 Right Distal Port 210.5 300 Internal Jugular Right Forearm 9.1 72.8 70.9 Right Medial Port 29.1 60.0 39.3 Internal Jugular Right Proximal Port 216.6 183.4 100.2 Internal Jugular Right Proximal Port Y- 11.4 60.8 45.6 site Internal Jugular Tube Feeding 310 320 240 Albumin 75 175 Other 130 100 100 Output: Urine 1500 650 290 Urethral (Kelsey) 1500 650 290 Other: # Bowel Movements 0 - Physical Exam Head: Positive for: Atraumatic, Normocephalic Pupils: Positive for: PERRL Extroacular Muscles: Positive for: EOMI Conjunctiva: Positive for: Normal Mouth: Positive for: Moist Mucous Membranes Neck: Positive for: Other (intubated ) Respiratory/Chest: Positive for: Good Air Exchange, Rales Cardiovascular: Positive for: Normal S1, S2, Irregular Rhythm, Tachycardic Abdomen: Negative for: Tenderness Upper Extremity: Positive for: Normal Inspection. Negative for: Cyanosis, Edema Lower Extremity: Positive for: Normal Inspection. Negative for: Edema Neurological: Positive for: Other (unable to assess due to pts status, intubated and sedated) Skin: Positive for: Warm, Dry, Normal Color Psychiatric: Positive for: Alert - Medications Active Medications: Active Medications Generic Name Dose Route Start Last Admin Trade Name Freq PRN Reason Stop Dose Admin Acetaminophen 650 mg 11/06/18 20:50 11/06/18 21:41 Tylenol 650mg/20.3ml Solution Ud PO 650 mg Q6 PRN Administration Temperature Albuterol/Ipratropium 3 ml 11/04/18 17:01 11/08/18 07:50 Duoneb 3 Mg/0.5 Mg (3 Ml) Ud INH 3 ml RQ8 MIREYA Administration Aspirin 325 mg 11/04/18 10:00 11/08/18 09:49 Ecotrin PO 325 mg DAILY MIREYA Administration Midazolam HCl 100 mg/ Dextrose 100 mls @ 1.52 mls/hr 11/07/18 20:15 11/08/18 09:48 IV 0.1 mg/kg/hr .Q24H MIREYA 7.62 mls/hr Administration Protocol 0.02 MG/KG/HR Norepinephrine Bitartrate 8 mg 258 mls @ 3.87 mls/hr 11/07/18 20:10 11/08/18 10:01 / Dextrose IV 3 mcg/min .Q24H PRN 5.81 mls/hr TITRATE PER MD ORDER Titration Protocol 2 MCG/MIN Amiodarone HCl 900 mg/ 500 mls @ 16.67 mls/hr 11/08/18 02:30 11/08/18 02:30 Dextrose IV 11/09/18 02:29 16.67 mls/hr .Q24H ONE Administration Protocol 0.5 MG/MIN Heparin Sodium/Sodium Chloride 25,000 units in 250 mls @ 10.234 mls/hr 11/08/18 07:29 11/08/18 08:03 Heparin 11944 Units/250ml 1/2 Normal Saline IV 14 units/kg/hr .Q24H PRN 10.234 mls/hr ADJUST RATE PER PROTOCOL Administration Protocol 14 UNITS/KG/HR Iicdb-0-Vcuo Ethyl Esters 1 gm 11/04/18 10:00 11/08/18 09:49 Lovaza PO 1 gm BID MIREYA Administration Pantoprazole Sodium 40 mg 11/06/18 10:00 11/08/18 09:49 Protonix Susp GT 40 mg DAILY MIREYA Administration Promethazine HCl 12.5 mg 11/04/18 16:59 11/05/18 09:00 Phenergan Syrup PO 12.5 mg Q6 PRN Administration Cough Ticagrelor 90 mg 11/04/18 10:00 11/08/18 09:49 Brilinta PO 90 mg BID MIREYA Administration - Patient Studies Lab Studies: Microbiology Studies 11/06/18 12:14 Blood Culture - Preliminary Blood-Venous NO GROWTH AFTER 48 HOURS 11/06/18 07:04 Gram Stain - Final Trachasp Sputum Culture - Preliminary No growth. 11/06/18 12:14 S.aureus & Coag-Neg Staph PNA FISH - Final Blood-Venous TEST NOT PERFORMED Blood Culture - Preliminary Gram Positive Cocci Gram Stain - Final 11/05/18 15:10 Urine Culture - Final Urine,Kelsey No Growth (<1,000 CFU/ML) Lab Studies 11/08/18 11/08/18 11/08/18 Range/Units 11:02 06:11 06:11 WBC (4.8-10.8) K/uL RBC (3.80-5.20) Mil/uL Hgb (11.0-16.0) g/dL Hct (34.0-47.0) % MCV (81.0-99.0) fL MCH (27.0-31.0) pg MCHC (33.0-37.0) g/dL RDW (11.5-14.5) % Plt Count (130-400) K/uL MPV (7.2-11.7) fL Neut % (Auto) (50.0-75.0) % Lymph % (Auto) (20.0-40.0) % [place] % (Auto) (0.0-10.0) % Eos % (Auto) (0.0-4.0) % Baso % (Auto) (0.0-2.0) % Neut # (Auto) (1.8-7.0) K/uL Lymph # (Auto) (1.0-4.3) K/uL [place] # (Auto) (0.0-0.8) K/uL Eos # (Auto) (0.0-0.7) K/uL Baso # (Auto) (0.0-0.2) K/uL Neutrophils % (Manual) (50-75) % Lymphocytes % (Manual) (20-40) % Monocytes % (Manual) (0-10) % Nucleated RBC % (0-0) % Platelet Estimate (NORMAL) APTT 42 H D (21-34) SECONDS Puncture Site pCO2 (35-45) mm/Hg pO2 (80-100) mm/Hg HCO3 (21-28) mmol/L ABG pH (7.35-7.45) ABG Total CO2 (22-28) mmol/L ABG O2 Saturation (95-98) % ABG Base Excess (-2.0-3.0) mmol/L ABG Hemoglobin (11.7-17.4) g/dL ABG Carboxyhemoglobin (0.5-1.5) % POC ABG HHb (Measured) (0.0-5.0) % ABG Methemoglobin (0.0-3.0) % Mario Test ABG Potassium (3.6-5.2) mmol/L A-a O2 Difference mm/Hg Respiratory Index Hgb O2 Saturation (95.0-98.0) % Sodium 134 (132-148) mmol/l Chloride 103 (98-107) mmol/L Glucose (65-105) mg/dl Lactate (0.7-2.1) mmol/L Vent Mode Mechanical Rate FiO2 % Tidal Volume PEEP Potassium 4.7 (3.6-5.2) mmol/L Carbon Dioxide 24 (22-30) mmol/L Anion Gap 11 (10-20) BUN 19 H (7-17) mg/dL Creatinine 0.7 (0.7-1.2) mg/dL Est GFR ( Amer) > 60 Est GFR (Non-Af Amer) > 60 POC Glucose (mg/dL) (65-110) mg/dL Random Glucose 179 H (65-105) mg/dL Hemoglobin A1c (4.2-6.5) % Calcium 8.3 L (8.6-10.4) mg/dl Phosphorus 2.1 L (2.5-4.5) mg/dL Magnesium 2.8 H (1.6-2.3) mg/dL Total Bilirubin 1.6 H (0.2-1.3) mg/dL AST 63 H D (14-36) U/L ALT 53 H D (9-52) U/L Alkaline Phosphatase 105 (38-126) U/L Total Protein 6.5 (6.3-8.3) g/dL Albumin 3.5 (3.5-5.0) g/dL Globulin 3.0 (2.2-3.9) gm/dL Albumin/Globulin Ratio 1.2 (1.0-2.1) Arterial Blood Potassium (3.6-5.2) mmol/L Blood Type B POSITIVE Blood Type Confirm B POSITIVE Antibody Screen Negative 11/08/18 11/08/18 11/08/18 Range/Units 06:11 06:11 05:51 WBC 8.8 (4.8-10.8) K/uL RBC 2.58 L (3.80-5.20) Mil/uL Hgb 8.1 L (11.0-16.0) g/dL Hct 23.8 L (34.0-47.0) % MCV 92.0 (81.0-99.0) fL MCH 31.3 H (27.0-31.0) pg MCHC 34.0 (33.0-37.0) g/dL RDW 13.7 (11.5-14.5) % Plt Count 196 (130-400) K/uL MPV 10.3 (7.2-11.7) fL Neut % (Auto) 80.5 H (50.0-75.0) % Lymph % (Auto) 12.0 L (20.0-40.0) % [place] % (Auto) 5.9 (0.0-10.0) % Eos % (Auto) 1.2 (0.0-4.0) % Baso % (Auto) 0.4 (0.0-2.0) % Neut # (Auto) 7.1 H (1.8-7.0) K/uL Lymph # (Auto) 1.1 (1.0-4.3) K/uL [place] # (Auto) 0.5 (0.0-0.8) K/uL Eos # (Auto) 0.1 (0.0-0.7) K/uL Baso # (Auto) 0.0 (0.0-0.2) K/uL Neutrophils % (Manual) (50-75) % Lymphocytes % (Manual) (20-40) % Monocytes % (Manual) (0-10) % Nucleated RBC % (0-0) % Platelet Estimate (NORMAL) APTT (21-34) SECONDS Puncture Site pCO2 (35-45) mm/Hg pO2 (80-100) mm/Hg HCO3 (21-28) mmol/L ABG pH (7.35-7.45) ABG Total CO2 (22-28) mmol/L ABG O2 Saturation (95-98) % ABG Base Excess (-2.0-3.0) mmol/L ABG Hemoglobin (11.7-17.4) g/dL ABG Carboxyhemoglobin (0.5-1.5) % POC ABG HHb (Measured) (0.0-5.0) % ABG Methemoglobin (0.0-3.0) % Mario Test ABG Potassium (3.6-5.2) mmol/L A-a O2 Difference mm/Hg Respiratory Index Hgb O2 Saturation (95.0-98.0) % Sodium (132-148) mmol/l Chloride (98-107) mmol/L Glucose (65-105) mg/dl Lactate (0.7-2.1) mmol/L Vent Mode Mechanical Rate FiO2 % Tidal Volume PEEP Potassium (3.6-5.2) mmol/L Carbon Dioxide (22-30) mmol/L Anion Gap (10-20) BUN (7-17) mg/dL Creatinine (0.7-1.2) mg/dL Est GFR ( Amer) Est GFR (Non-Af Amer) POC Glucose (mg/dL) 209 H (65-110) mg/dL Random Glucose (65-105) mg/dL Hemoglobin A1c 6.6 H (4.2-6.5) % Calcium (8.6-10.4) mg/dl Phosphorus (2.5-4.5) mg/dL Magnesium (1.6-2.3) mg/dL Total Bilirubin (0.2-1.3) mg/dL AST (14-36) U/L ALT (9-52) U/L Alkaline Phosphatase (38-126) U/L Total Protein (6.3-8.3) g/dL Albumin (3.5-5.0) g/dL Globulin (2.2-3.9) gm/dL Albumin/Globulin Ratio (1.0-2.1) Arterial Blood Potassium (3.6-5.2) mmol/L Blood Type Blood Type Confirm Antibody Screen 11/08/18 11/07/18 11/07/18 Range/Units 05:13 21:00 20:57 WBC 10.3 (4.8-10.8) K/uL RBC 2.82 L (3.80-5.20) Mil/uL Hgb 8.7 L (11.0-16.0) g/dL Hct 25.9 L (34.0-47.0) % MCV 91.9 (81.0-99.0) fL MCH 30.7 (27.0-31.0) pg MCHC 33.4 (33.0-37.0) g/dL RDW 14.0 (11.5-14.5) % Plt Count 199 (130-400) K/uL MPV 10.5 (7.2-11.7) fL Neut % (Auto) 83.2 H (50.0-75.0) % Lymph % (Auto) 9.8 L (20.0-40.0) % [place] % (Auto) 6.2 (0.0-10.0) % Eos % (Auto) 0.4 (0.0-4.0) % Baso % (Auto) 0.4 (0.0-2.0) % Neut # (Auto) 8.5 H (1.8-7.0) K/uL Lymph # (Auto) 1.0 (1.0-4.3) K/uL [place] # (Auto) 0.6 (0.0-0.8) K/uL Eos # (Auto) 0.0 (0.0-0.7) K/uL Baso # (Auto) 0.0 (0.0-0.2) K/uL Neutrophils % (Manual) 83 H (50-75) % Lymphocytes % (Manual) 11 L (20-40) % Monocytes % (Manual) 6 (0-10) % Nucleated RBC % 1 H (0-0) % Platelet Estimate Normal (NORMAL) APTT (21-34) SECONDS Puncture Site Rb pCO2 30 L (35-45) mm/Hg pO2 108 H (80-100) mm/Hg HCO3 24.3 (21-28) mmol/L ABG pH 7.48 H (7.35-7.45) ABG Total CO2 23.2 (22-28) mmol/L ABG O2 Saturation 98.4 H (95-98) % ABG Base Excess -0.8 (-2.0-3.0) mmol/L ABG Hemoglobin 8.2 L (11.7-17.4) g/dL ABG Carboxyhemoglobin 0.9 (0.5-1.5) % POC ABG HHb (Measured) 1.6 (0.0-5.0) % ABG Methemoglobin 0.7 (0.0-3.0) % Mario Test Na ABG Potassium (3.6-5.2) mmol/L A-a O2 Difference 282.0 mm/Hg Respiratory Index 2.6 Hgb O2 Saturation 96.8 (95.0-98.0) % Sodium 137 (132-148) mmol/l Chloride 98 (98-107) mmol/L Glucose (65-105) mg/dl Lactate (0.7-2.1) mmol/L Vent Mode Prvc Mechanical Rate 12 FiO2 60.0 % Tidal Volume 500 PEEP 5 Potassium 3.1 L (3.6-5.2) mmol/L Carbon Dioxide 27 (22-30) mmol/L Anion Gap 15 (10-20) BUN 22 H (7-17) mg/dL Creatinine 1.0 (0.7-1.2) mg/dL Est GFR ( Amer) > 60 Est GFR (Non-Af Amer) 56 POC Glucose (mg/dL) (65-110) mg/dL Random Glucose 159 H D (65-105) mg/dL Hemoglobin A1c (4.2-6.5) % Calcium 8.1 L (8.6-10.4) mg/dl Phosphorus 3.7 (2.5-4.5) mg/dL Magnesium 2.7 H (1.6-2.3) mg/dL Total Bilirubin 1.2 (0.2-1.3) mg/dL AST 97 H (14-36) U/L ALT 70 H (9-52) U/L Alkaline Phosphatase 114 (38-126) U/L Total Protein 6.8 (6.3-8.3) g/dL Albumin 3.7 (3.5-5.0) g/dL Globulin 3.1 (2.2-3.9) gm/dL Albumin/Globulin Ratio 1.2 (1.0-2.1) Arterial Blood Potassium (3.6-5.2) mmol/L Blood Type Blood Type Confirm Antibody Screen 11/07/18 11/07/18 Range/Units 20:56 17:54 WBC (4.8-10.8) K/uL RBC (3.80-5.20) Mil/uL Hgb (11.0-16.0) g/dL Hct (34.0-47.0) % MCV (81.0-99.0) fL MCH (27.0-31.0) pg MCHC (33.0-37.0) g/dL RDW (11.5-14.5) % Plt Count (130-400) K/uL MPV (7.2-11.7) fL Neut % (Auto) (50.0-75.0) % Lymph % (Auto) (20.0-40.0) % [place] % (Auto) (0.0-10.0) % Eos % (Auto) (0.0-4.0) % Baso % (Auto) (0.0-2.0) % Neut # (Auto) (1.8-7.0) K/uL Lymph # (Auto) (1.0-4.3) K/uL [place] # (Auto) (0.0-0.8) K/uL Eos # (Auto) (0.0-0.7) K/uL Baso # (Auto) (0.0-0.2) K/uL Neutrophils % (Manual) (50-75) % Lymphocytes % (Manual) (20-40) % Monocytes % (Manual) (0-10) % Nucleated RBC % (0-0) % Platelet Estimate (NORMAL) APTT (21-34) SECONDS Puncture Site Lb pCO2 30 L (35-45) mm/Hg pO2 197 H (80-100) mm/Hg HCO3 27.4 (21-28) mmol/L ABG pH 7.53 H (7.35-7.45) ABG Total CO2 26.0 (22-28) mmol/L ABG O2 Saturation 98.7 H (95-98) % ABG Base Excess 3.1 H (-2.0-3.0) mmol/L ABG Hemoglobin (11.7-17.4) g/dL ABG Carboxyhemoglobin (0.5-1.5) % POC ABG HHb (Measured) (0.0-5.0) % ABG Methemoglobin (0.0-3.0) % Mario Test Na ABG Potassium 2.6 L (3.6-5.2) mmol/L A-a O2 Difference 193.0 mm/Hg Respiratory Index 1.0 Hgb O2 Saturation (95.0-98.0) % Sodium 141.0 (132-148) mmol/l Chloride 109.0 H (98-107) mmol/L Glucose 156 H (65-105) mg/dl Lactate 2.0 (0.7-2.1) mmol/L Vent Mode Prvc Mechanical Rate 12 FiO2 60.0 % Tidal Volume 500 PEEP 5 Potassium (3.6-5.2) mmol/L Carbon Dioxide (22-30) mmol/L Anion Gap (10-20) BUN (7-17) mg/dL Creatinine (0.7-1.2) mg/dL Est GFR ( Amer) Est GFR (Non-Af Amer) POC Glucose (mg/dL) 203 H (65-110) mg/dL Random Glucose (65-105) mg/dL Hemoglobin A1c (4.2-6.5) % Calcium (8.6-10.4) mg/dl Phosphorus (2.5-4.5) mg/dL Magnesium (1.6-2.3) mg/dL Total Bilirubin (0.2-1.3) mg/dL AST (14-36) U/L ALT (9-52) U/L Alkaline Phosphatase (38-126) U/L Total Protein (6.3-8.3) g/dL Albumin (3.5-5.0) g/dL Globulin (2.2-3.9) gm/dL Albumin/Globulin Ratio (1.0-2.1) Arterial Blood Potassium 2.6 L (3.6-5.2) mmol/L Blood Type Blood Type Confirm Antibody Screen Laboratory Results - last 24 hr 11/07/18 11/07/18 11/07/18 17:54 20:56 20:57 WBC 10.3 RBC 2.82 L Hgb 8.7 L Hct 25.9 L MCV 91.9 MCH 30.7 MCHC 33.4 RDW 14.0 Plt Count 199 MPV 10.5 Neut % (Auto) 83.2 H Lymph % (Auto) 9.8 L [place] % (Auto) 6.2 Eos % (Auto) 0.4 Baso % (Auto) 0.4 Neut # (Auto) 8.5 H Lymph # (Auto) 1.0 [place] # (Auto) 0.6 Eos # (Auto) 0.0 Baso # (Auto) 0.0 Neutrophils % (Manual) 83 H Lymphocytes % (Manual) 11 L Monocytes % (Manual) 6 Nucleated RBC % 1 H Platelet Estimate Normal APTT Puncture Site Lb pCO2 30 L pO2 197 H HCO3 27.4 ABG pH 7.53 H ABG Total CO2 26.0 ABG O2 Saturation 98.7 H ABG Base Excess 3.1 H ABG Hemoglobin ABG Carboxyhemoglobin POC ABG HHb (Measured) ABG Methemoglobin Mario Test Na ABG Potassium 2.6 L A-a O2 Difference 193.0 Respiratory Index 1.0 Hgb O2 Saturation Sodium 141.0 Chloride 109.0 H Glucose 156 H Lactate 2.0 Vent Mode Prvc Mechanical Rate 12 FiO2 60.0 Tidal Volume 500 PEEP 5 Potassium Carbon Dioxide Anion Gap BUN Creatinine Est GFR ( Amer) Est GFR (Non-Af Amer) POC Glucose (mg/dL) 203 H Random Glucose Hemoglobin A1c Calcium Phosphorus Magnesium Total Bilirubin AST ALT Alkaline Phosphatase Total Protein Albumin Globulin Albumin/Globulin Ratio Arterial Blood Potassium 2.6 L Blood Type Blood Type Confirm Antibody Screen 11/07/18 11/08/18 11/08/18 21:00 05:13 05:51 WBC RBC Hgb Hct MCV MCH MCHC RDW Plt Count MPV Neut % (Auto) Lymph % (Auto) [place] % (Auto) Eos % (Auto) Baso % (Auto) Neut # (Auto) Lymph # (Auto) [place] # (Auto) Eos # (Auto) Baso # (Auto) Neutrophils % (Manual) Lymphocytes % (Manual) Monocytes % (Manual) Nucleated RBC % Platelet Estimate APTT Puncture Site Rb pCO2 30 L pO2 108 H HCO3 24.3 ABG pH 7.48 H ABG Total CO2 23.2 ABG O2 Saturation 98.4 H ABG Base Excess -0.8 ABG Hemoglobin 8.2 L ABG Carboxyhemoglobin 0.9 POC ABG HHb (Measured) 1.6 ABG Methemoglobin 0.7 Mario Test Na ABG Potassium A-a O2 Difference 282.0 Respiratory Index 2.6 Hgb O2 Saturation 96.8 Sodium 137 Chloride 98 Glucose Lactate Vent Mode Prvc Mechanical Rate 12 FiO2 60.0 Tidal Volume 500 PEEP 5 Potassium 3.1 L Carbon Dioxide 27 Anion Gap 15 BUN 22 H Creatinine 1.0 Est GFR ( Amer) > 60 Est GFR (Non-Af Amer) 56 POC Glucose (mg/dL) 209 H Random Glucose 159 H D Hemoglobin A1c Calcium 8.1 L Phosphorus 3.7 Magnesium 2.7 H Total Bilirubin 1.2 AST 97 H ALT 70 H Alkaline Phosphatase 114 Total Protein 6.8 Albumin 3.7 Globulin 3.1 Albumin/Globulin Ratio 1.2 Arterial Blood Potassium Blood Type Blood Type Confirm Antibody Screen 11/08/18 11/08/18 11/08/18 06:11 06:11 06:11 WBC 8.8 RBC 2.58 L Hgb 8.1 L Hct 23.8 L MCV 92.0 MCH 31.3 H MCHC 34.0 RDW 13.7 Plt Count 196 MPV 10.3 Neut % (Auto) 80.5 H Lymph % (Auto) 12.0 L [place] % (Auto) 5.9 Eos % (Auto) 1.2 Baso % (Auto) 0.4 Neut # (Auto) 7.1 H Lymph # (Auto) 1.1 [place] # (Auto) 0.5 Eos # (Auto) 0.1 Baso # (Auto) 0.0 Neutrophils % (Manual) Lymphocytes % (Manual) Monocytes % (Manual) Nucleated RBC % Platelet Estimate APTT Puncture Site pCO2 pO2 HCO3 ABG pH ABG Total CO2 ABG O2 Saturation ABG Base Excess ABG Hemoglobin ABG Carboxyhemoglobin POC ABG HHb (Measured) ABG Methemoglobin Mario Test ABG Potassium A-a O2 Difference Respiratory Index Hgb O2 Saturation Sodium 134 Chloride 103 Glucose Lactate Vent Mode Mechanical Rate FiO2 Tidal Volume PEEP Potassium 4.7 Carbon Dioxide 24 Anion Gap 11 BUN 19 H Creatinine 0.7 Est GFR ( Amer) > 60 Est GFR (Non-Af Amer) > 60 POC Glucose (mg/dL) Random Glucose 179 H Hemoglobin A1c 6.6 H Calcium 8.3 L Phosphorus 2.1 L Magnesium 2.8 H Total Bilirubin 1.6 H AST 63 H D ALT 53 H D Alkaline Phosphatase 105 Total Protein 6.5 Albumin 3.5 Globulin 3.0 Albumin/Globulin Ratio 1.2 Arterial Blood Potassium Blood Type Blood Type Confirm Antibody Screen 11/08/18 11/08/18 06:11 11:02 WBC RBC Hgb Hct MCV MCH MCHC RDW Plt Count MPV Neut % (Auto) Lymph % (Auto) [place] % (Auto) Eos % (Auto) Baso % (Auto) Neut # (Auto) Lymph # (Auto) [place] # (Auto) Eos # (Auto) Baso # (Auto) Neutrophils % (Manual) Lymphocytes % (Manual) Monocytes % (Manual) Nucleated RBC % Platelet Estimate APTT 42 H D Puncture Site pCO2 pO2 HCO3 ABG pH ABG Total CO2 ABG O2 Saturation ABG Base Excess ABG Hemoglobin ABG Carboxyhemoglobin POC ABG HHb (Measured) ABG Methemoglobin Mario Test ABG Potassium A-a O2 Difference Respiratory Index Hgb O2 Saturation Sodium Chloride Glucose Lactate Vent Mode Mechanical Rate FiO2 Tidal Volume PEEP Potassium Carbon Dioxide Anion Gap BUN Creatinine Est GFR ( Amer) Est GFR (Non-Af Amer) POC Glucose (mg/dL) Random Glucose Hemoglobin A1c Calcium Phosphorus Magnesium Total Bilirubin AST ALT Alkaline Phosphatase Total Protein Albumin Globulin Albumin/Globulin Ratio Arterial Blood Potassium Blood Type B POSITIVE Blood Type Confirm B POSITIVE Antibody Screen Negative Radiology Impressions: Radiology Impressions Chest X-Ray 11/07/18 07:00 IMPRESSION: Mild improvement in CHF as discussed above. Underlying pneumonia not completely excluded once again. No pneumothorax or pleural effusion throughout. Chest X-Ray 11/08/18 07:00 IMPRESSION: Little interval change in presumable pulmonary edema and suspected effusions in the setting of congestive heart failure. Stable position of support line and tubes. EKG/Cardiology Studies: Cardiology / EKG Studies 11/07/18 20:24 EKG [ELECTROCARDIOGRAM] Stat Comment: Mode Of Transportation: Reason For Exam: svt Precautions: Fall Prevention Fingerstick Blood Sugar Results: 209 Critical Care Progress Note - Ventilator Checklist Head of Bed 30 Degrees: Yes Daily Sedation Vacation: Yes Daily Assessment of Readiness to Wean: Yes PUD Prophalyxis: Yes DVT Prophylaxis: Yes Oral Care with Chlorhexidine Gluconate {CHG}: Yes - Vent Settings MODE:: PRVC TIDAL VOLUME:: 500 RESP RATE:: 16 FIO2:: 60 PEEP:: 5 - Extremities/Vascular Does the Patient have a Central Venous Catheter?: Yes Insertion Site: Internal Jugular Vein Does the Patient need a Central Venous Catheter?: Yes Does the Patient have a Kelsey Catheter?: Yes Does the Patient need a Kelsey Catheter?: Yes Assessment/Plan - Assessment and Plan (Free Text) Plan: Patient is a 63 year old female with 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 Neuro sedated, responds to stimuli agitated last night Versed gtt Cardio EKG - ST wave inversion in V2, V3, V4, elevated trops -STEMI - CODE HEART Afib/aflutter yesterday Amiodarone and levophed gtt Heparin gtt CVP readings continue Zetia Lovaza Metoprolol ASA Brilinta Dr Olguin- will follow up recs Resp Hypoxemia, respiratory distress, pulm edema patient intubated - PRVC 500/60/16/5 Cxray - Little interval change in presumable pulmonary edema and suspected effusions in the setting of congestive heart failure. Stable position of support line and tubes. GI NPO protonix Nephro continue monitor IO no longer on Lasix drip BUN/cr 19/0.7 Heme anemic transfuse 2 PRBCs ID afebrile this morning cold baths continue tylenol Blood urine cx - f/u no leukocytosis PPX DVT -Lovenox GI- protonix Plan discussed with Dr Rae Pope, PGY-1 - Date & Time Date: 11/08/18 Time: 09:00 <Mario Massey - Last Filed: 11/11/18 16:11> CCU Objective - Vital Signs / Intake & Output Vital Signs (Last 4 hours): Vital Signs Pulse Resp BP Pulse Ox 11/11/18 13:03 76 17 83/39 L 100 Intake and Output (Last 8hrs): Intake & Output 11/11/18 11/11/18 11/11/18 06:59 14:59 22:59 Intake Total 539.0 613.3 Output Total 255 134 Balance 284.0 479.3 Weight 164 lb 10.965 oz Intake: IV 50 285 Intake, IV Amount 169.0 88.3 Right Distal Port 50 Internal Jugular Right Forearm 81.6 71.2 Right Proximal Port 37.4 17.1 Internal Jugular Tube Feeding 320 240 Output: Urine 255 134 Urethral (Kelsey) 255 134 Other: # Bowel Movements 1 - Medications Active Medications: Active Medications Generic Name Dose Route Start Last Admin Trade Name Freq PRN Reason Stop Dose Admin Acetaminophen 650 mg 11/06/18 20:50 11/11/18 09:02 Tylenol 650mg/20.3ml Solution Ud PO 650 mg Q6 PRN Administration Temperature Albuterol/Ipratropium 3 ml 11/04/18 17:01 11/11/18 07:51 Duoneb 3 Mg/0.5 Mg (3 Ml) Ud INH 3 ml RQ8 MIREYA Administration Aspirin 325 mg 11/04/18 10:00 11/11/18 09:02 Ecotrin PO 325 mg DAILY MIREYA Administration Heparin Sodium/Sodium Chloride 25,000 units in 250 mls @ 10.234 mls/hr 11/08/18 07:29 11/11/18 07:49 Heparin 61837 Units/250ml 1/2 Normal Saline IV 16 units/kg/hr .Q24H PRN 11.696 mls/hr ADJUST RATE PER PROTOCOL Administration Protocol 14 UNITS/KG/HR Dexmedetomidine HCl 200 mcg/ 50 mls @ 3.74 mls/hr 11/10/18 18:51 11/11/18 11:00 Sodium Chloride IV 0 mcg/kg/hr TITR PRN 0 mls/hr Agitation Titration Protocol 0.2 MCG/KG/HR Piperacillin Sod/Tazobactam 100 mls @ 200 mls/hr 11/11/18 17:45 Sod 4.5 gm/ Sodium Chloride IVPB Q6H MIREYA Protocol Norepinephrine Bitartrate 4 mg 250 mls @ 15 mls/hr 11/11/18 12:45 11/11/18 13:03 / Sodium Chloride IV 4 mcg/min .[id number] PRN 15 mls/hr TITRATE PER MD ORDER Administration Protocol 4 MCG/MIN Milrinone Lactate/Dextrose 20 100 mls @ 8.4 mls/hr 11/11/18 15:30 mg/ Dextrose IV .[id number] MIREYA Protocol 0.375 MCG/KG/MIN [id number] Ethyl Esters 1 gm 11/04/18 10:00 11/11/18 09:02 Lovaza PO 1 gm BID MIREYA Administration Pantoprazole Sodium 40 mg 11/06/18 10:00 11/11/18 09:02 Protonix Susp GT 40 mg DAILY MIREYA Administration Ticagrelor 90 mg 11/04/18 10:00 11/11/18 09:02 Brilinta PO 90 mg BID MIREYA Administration - Patient Studies Lab Studies: Microbiology Studies 11/06/18 12:14 Blood Culture - Final Blood-Venous NO GROWTH AFTER 5 DAYS Gram Stain - Final TEST NOT PERFORMED 11/09/18 18:00 Gram Stain - Final Sputum Sputum Culture - Final NORMAL ORAL MICHAEL 11/09/18 16:50 Blood Culture - Preliminary Blood NO GROWTH AFTER 24 HOURS 11/09/18 16:50 Urine Culture - Final Urine Random No Growth (<1,000 CFU/ML) Lab Studies 11/11/18 11/11/18 11/11/18 Range/Units 11:45 11:45 11:45 WBC (4.8-10.8) K/uL RBC (3.80-5.20) Mil/uL Hgb (11.0-16.0) g/dL Hct (34.0-47.0) % MCV (81.0-99.0) fL MCH (27.0-31.0) pg MCHC (33.0-37.0) g/dL RDW (11.5-14.5) % Plt Count (130-400) K/uL MPV (7.2-11.7) fL Neut % (Auto) (50.0-75.0) % Lymph % (Auto) (20.0-40.0) % [place] % (Auto) (0.0-10.0) % Eos % (Auto) (0.0-4.0) % Baso % (Auto) (0.0-2.0) % Neut # (Auto) (1.8-7.0) K/uL Lymph # (Auto) (1.0-4.3) K/uL [place] # (Auto) (0.0-0.8) K/uL Eos # (Auto) (0.0-0.7) K/uL Baso # (Auto) (0.0-0.2) K/uL Neutrophils % (Manual) (50-75) % Band Neutrophils % (0-2) % Lymphocytes % (Manual) (20-40) % Monocytes % (Manual) (0-10) % Platelet Estimate (NORMAL) Ovalocytes APTT 80 H D (21-34) SECONDS Puncture Site pCO2 (35-45) mm/Hg pO2 (80-100) mm/Hg HCO3 (21-28) mmol/L ABG pH (7.35-7.45) ABG Total CO2 (22-28) mmol/L ABG O2 Saturation (95-98) % ABG Base Excess (-2.0-3.0) mmol/L Mario Test ABG Potassium (3.6-5.2) mmol/L A-a O2 Difference mm/Hg Respiratory Index Sodium (132-148) mmol/l Chloride (98-107) mmol/L Glucose (65-105) mg/dl Lactate (0.7-2.1) mmol/L Vent Mode Mechanical Rate FiO2 % Tidal Volume PEEP Potassium (3.6-5.2) mmol/L Carbon Dioxide (22-30) mmol/L Anion Gap (10-20) BUN (7-17) mg/dL Creatinine (0.7-1.2) mg/dL Est GFR ( Amer) Est GFR (Non-Af Amer) POC Glucose (mg/dL) (65-110) mg/dL Random Glucose (65-105) mg/dL Lactic Acid 1.4 (0.7-2.1) mmol/L Calcium (8.6-10.4) mg/dl Phosphorus (2.5-4.5) mg/dL Magnesium (1.6-2.3) mg/dL Total Bilirubin (0.2-1.3) mg/dL AST (14-36) U/L ALT (9-52) U/L Alkaline Phosphatase (38-126) U/L Total Protein (6.3-8.3) g/dL Albumin (3.5-5.0) g/dL Globulin (2.2-3.9) gm/dL Albumin/Globulin Ratio (1.0-2.1) Procalcitonin 0.14 L (0.19-0.49) NG/ML Arterial Blood Potassium (3.6-5.2) mmol/L 11/11/18 11/11/18 11/11/18 Range/Units 06:11 06:11 06:09 WBC 9.6 (4.8-10.8) K/uL RBC 3.23 L (3.80-5.20) Mil/uL Hgb 9.7 L (11.0-16.0) g/dL Hct 29.3 L (34.0-47.0) % MCV 90.9 (81.0-99.0) fL MCH 30.1 (27.0-31.0) pg MCHC 33.1 (33.0-37.0) g/dL RDW 14.2 (11.5-14.5) % Plt Count 194 (130-400) K/uL MPV 9.9 (7.2-11.7) fL Neut % (Auto) 84.4 H (50.0-75.0) % Lymph % (Auto) 7.1 L (20.0-40.0) % [place] % (Auto) 7.0 (0.0-10.0) % Eos % (Auto) 1.2 (0.0-4.0) % Baso % (Auto) 0.3 (0.0-2.0) % Neut # (Auto) 8.1 H (1.8-7.0) K/uL Lymph # (Auto) 0.7 L (1.0-4.3) K/uL [place] # (Auto) 0.7 (0.0-0.8) K/uL Eos # (Auto) 0.1 (0.0-0.7) K/uL Baso # (Auto) 0.0 (0.0-0.2) K/uL Neutrophils % (Manual) 84 H (50-75) % Band Neutrophils % 3 H (0-2) % Lymphocytes % (Manual) 8 L (20-40) % Monocytes % (Manual) 5 (0-10) % Platelet Estimate Normal (NORMAL) Ovalocytes Slight APTT 43 H (21-34) SECONDS Puncture Site pCO2 (35-45) mm/Hg pO2 (80-100) mm/Hg HCO3 (21-28) mmol/L ABG pH (7.35-7.45) ABG Total CO2 (22-28) mmol/L ABG O2 Saturation (95-98) % ABG Base Excess (-2.0-3.0) mmol/L Mario Test ABG Potassium (3.6-5.2) mmol/L A-a O2 Difference mm/Hg Respiratory Index Sodium 136 (132-148) mmol/l Chloride 101 (98-107) mmol/L Glucose (65-105) mg/dl Lactate (0.7-2.1) mmol/L Vent Mode Mechanical Rate FiO2 % Tidal Volume PEEP Potassium 4.0 (3.6-5.2) mmol/L Carbon Dioxide 27 (22-30) mmol/L Anion Gap 12 (10-20) BUN 32 H (7-17) mg/dL Creatinine 0.7 (0.7-1.2) mg/dL Est GFR ( Amer) > 60 Est GFR (Non-Af Amer) > 60 POC Glucose (mg/dL) (65-110) mg/dL Random Glucose 148 H (65-105) mg/dL Lactic Acid (0.7-2.1) mmol/L Calcium 9.1 (8.6-10.4) mg/dl Phosphorus 5.1 H (2.5-4.5) mg/dL Magnesium 2.7 H (1.6-2.3) mg/dL Total Bilirubin 2.5 H (0.2-1.3) mg/dL AST 136 H D (14-36) U/L ALT 196 H D (9-52) U/L Alkaline Phosphatase 147 H (38-126) U/L Total Protein 6.4 (6.3-8.3) g/dL Albumin 3.3 L (3.5-5.0) g/dL Globulin 3.0 (2.2-3.9) gm/dL Albumin/Globulin Ratio 1.1 (1.0-2.1) Procalcitonin (0.19-0.49) NG/ML Arterial Blood Potassium (3.6-5.2) mmol/L 11/11/18 11/11/18 11/10/18 Range/Units 05:23 04:55 17:32 WBC (4.8-10.8) K/uL RBC (3.80-5.20) Mil/uL Hgb (11.0-16.0) g/dL Hct (34.0-47.0) % MCV (81.0-99.0) fL MCH (27.0-31.0) pg MCHC (33.0-37.0) g/dL RDW (11.5-14.5) % Plt Count (130-400) K/uL MPV (7.2-11.7) fL Neut % (Auto) (50.0-75.0) % Lymph % (Auto) (20.0-40.0) % [place] % (Auto) (0.0-10.0) % Eos % (Auto) (0.0-4.0) % Baso % (Auto) (0.0-2.0) % Neut # (Auto) (1.8-7.0) K/uL Lymph # (Auto) (1.0-4.3) K/uL [place] # (Auto) (0.0-0.8) K/uL Eos # (Auto) (0.0-0.7) K/uL Baso # (Auto) (0.0-0.2) K/uL Neutrophils % (Manual) (50-75) % Band Neutrophils % (0-2) % Lymphocytes % (Manual) (20-40) % Monocytes % (Manual) (0-10) % Platelet Estimate (NORMAL) Ovalocytes APTT (21-34) SECONDS Puncture Site Rb pCO2 33 L (35-45) mm/Hg pO2 175 H (80-100) mm/Hg HCO3 25.2 (21-28) mmol/L ABG pH 7.46 H (7.35-7.45) ABG Total CO2 24.5 (22-28) mmol/L ABG O2 Saturation 98.9 H (95-98) % ABG Base Excess 0.3 (-2.0-3.0) mmol/L Mario Test Na ABG Potassium 4.0 (3.6-5.2) mmol/L A-a O2 Difference 69.0 mm/Hg Respiratory Index 0.4 Sodium 137.0 (132-148) mmol/l Chloride 105.0 (98-107) mmol/L Glucose 147 H (65-105) mg/dl Lactate 1.3 (0.7-2.1) mmol/L Vent Mode Prvc Mechanical Rate 12 FiO2 40.0 % Tidal Volume 500 PEEP 5 Potassium (3.6-5.2) mmol/L Carbon Dioxide (22-30) mmol/L Anion Gap (10-20) BUN (7-17) mg/dL Creatinine (0.7-1.2) mg/dL Est GFR ( Amer) Est GFR (Non-Af Amer) POC Glucose (mg/dL) 159 H 206 H (65-110) mg/dL Random Glucose (65-105) mg/dL Lactic Acid (0.7-2.1) mmol/L Calcium (8.6-10.4) mg/dl Phosphorus (2.5-4.5) mg/dL Magnesium (1.6-2.3) mg/dL Total Bilirubin (0.2-1.3) mg/dL AST (14-36) U/L ALT (9-52) U/L Alkaline Phosphatase (38-126) U/L Total Protein (6.3-8.3) g/dL Albumin (3.5-5.0) g/dL Globulin (2.2-3.9) gm/dL Albumin/Globulin Ratio (1.0-2.1) Procalcitonin (0.19-0.49) NG/ML Arterial Blood Potassium 4.0 (3.6-5.2) mmol/L Laboratory Results - last 24 hr 11/10/18 11/11/18 11/11/18 17:32 04:55 05:23 WBC RBC Hgb Hct MCV MCH MCHC RDW Plt Count MPV Neut % (Auto) Lymph % (Auto) [place] % (Auto) Eos % (Auto) Baso % (Auto) Neut # (Auto) Lymph # (Auto) [place] # (Auto) Eos # (Auto) Baso # (Auto) Neutrophils % (Manual) Band Neutrophils % Lymphocytes % (Manual) Monocytes % (Manual) Platelet Estimate Ovalocytes APTT Puncture Site Rb pCO2 33 L pO2 175 H HCO3 25.2 ABG pH 7.46 H ABG Total CO2 24.5 ABG O2 Saturation 98.9 H ABG Base Excess 0.3 Mario Test Na ABG Potassium 4.0 A-a O2 Difference 69.0 Respiratory Index 0.4 Sodium 137.0 Chloride 105.0 Glucose 147 H Lactate 1.3 Vent Mode Prvc Mechanical Rate 12 FiO2 40.0 Tidal Volume 500 PEEP 5 Potassium Carbon Dioxide Anion Gap BUN Creatinine Est GFR ( Amer) Est GFR (Non-Af Amer) POC Glucose (mg/dL) 206 H 159 H Random Glucose Lactic Acid Calcium Phosphorus Magnesium Total Bilirubin AST ALT Alkaline Phosphatase Total Protein Albumin Globulin Albumin/Globulin Ratio Procalcitonin Arterial Blood Potassium 4.0 11/11/18 11/11/18 11/11/18 06:09 06:11 06:11 WBC 9.6 RBC 3.23 L Hgb 9.7 L Hct 29.3 L MCV 90.9 MCH 30.1 MCHC 33.1 RDW 14.2 Plt Count 194 MPV 9.9 Neut % (Auto) 84.4 H Lymph % (Auto) 7.1 L [place] % (Auto) 7.0 Eos % (Auto) 1.2 Baso % (Auto) 0.3 Neut # (Auto) 8.1 H Lymph # (Auto) 0.7 L [place] # (Auto) 0.7 Eos # (Auto) 0.1 Baso # (Auto) 0.0 Neutrophils % (Manual) 84 H Band Neutrophils % 3 H Lymphocytes % (Manual) 8 L Monocytes % (Manual) 5 Platelet Estimate Normal Ovalocytes Slight APTT 43 H Puncture Site pCO2 pO2 HCO3 ABG pH ABG Total CO2 ABG O2 Saturation ABG Base Excess Mario Test ABG Potassium A-a O2 Difference Respiratory Index Sodium 136 Chloride 101 Glucose Lactate Vent Mode Mechanical Rate FiO2 Tidal Volume PEEP Potassium 4.0 Carbon Dioxide 27 Anion Gap 12 BUN 32 H Creatinine 0.7 Est GFR ( Amer) > 60 Est GFR (Non-Af Amer) > 60 POC Glucose (mg/dL) Random Glucose 148 H Lactic Acid Calcium 9.1 Phosphorus 5.1 H Magnesium 2.7 H Total Bilirubin 2.5 H AST 136 H D ALT 196 H D Alkaline Phosphatase 147 H Total Protein 6.4 Albumin 3.3 L Globulin 3.0 Albumin/Globulin Ratio 1.1 Procalcitonin Arterial Blood Potassium 11/11/18 11/11/18 11/11/18 11:45 11:45 11:45 WBC RBC Hgb Hct MCV MCH MCHC RDW Plt Count MPV Neut % (Auto) Lymph % (Auto) [place] % (Auto) Eos % (Auto) Baso % (Auto) Neut # (Auto) Lymph # (Auto) [place] # (Auto) Eos # (Auto) Baso # (Auto) Neutrophils % (Manual) Band Neutrophils % Lymphocytes % (Manual) Monocytes % (Manual) Platelet Estimate Ovalocytes APTT 80 H D Puncture Site pCO2 pO2 HCO3 ABG pH ABG Total CO2 ABG O2 Saturation ABG Base Excess Mario Test ABG Potassium A-a O2 Difference Respiratory Index Sodium Chloride Glucose Lactate Vent Mode Mechanical Rate FiO2 Tidal Volume PEEP Potassium Carbon Dioxide Anion Gap BUN Creatinine Est GFR ( Amer) Est GFR (Non-Af Amer) POC Glucose (mg/dL) Random Glucose Lactic Acid 1.4 Calcium Phosphorus Magnesium Total Bilirubin AST ALT Alkaline Phosphatase Total Protein Albumin Globulin Albumin/Globulin Ratio Procalcitonin 0.14 L Arterial Blood Potassium Radiology Impressions: Radiology Impressions Chest X-Ray 11/11/18 07:00 IMPRESSION: No active disease. Attending/Attestation - Attestation I have personally seen and examined this patient.: Yes I have fully participated in the care of the patient.: Yes I have reviewed all pertinent clinical information: Yes Notes (Text): Today: Thursday, November 08, 2018 The Patient was seen and examined at the bedside, Medical records reviewed, and management issues were discussed and formulated with the house staff. I have reviewed all the relevant clinical, laboratory, hemodynamic, radiographic data and medications Events reviewed Pain issues, skin care, head of the bed elevation, glycemic control were addressed. Agree with above resident's assessment and treatment plans of care as pham scribed in Dr. Pope's note. Critically sick 63-year-old female with PMHx of of CABG, CAD, acute ST elevation [place], Status post angioplasty and Balloon pump. Currently orally intubated and sedated for Acute decompensated systolic heart failure with cardiogenic pulmonary edema Continue diuresing with lasix drip, Heparin drip Continue the current supportive treatment Overall poor prognosis, Pt's current status is discussed with pt's family. HOB maintained at 30 degrees. GI/DVT PPX Code Status: Full code Total critical care time 45 minutes
[2018-11-08] MEDS: Acetaminophen 650mg/20.3ml solution UD PO PRN (13:20)
--- NOTE | 2018-11-08 17:51 | CARD ---
APPROVED REPORT Date of service: 11/07/2018 EKG Measurement Heart [id number] <Conclusion> sinus with frequent svts? Left axis deviation Nonspecific ST and T wave abnormality Abnormal ECG
--- NOTE | 2018-11-08 19:38 | CP.PCM.PN ---
Subjective - Date & Time of Evaluation Date of Evaluation: 11/08/18 Time of Evaluation: 10:30 - Subjective Subjective: clinically same Objective - Vital Signs/Intake and Output Vital Signs (last 24 hours): Temp Pulse Resp BP Pulse Ox 98.7 F 78 22 114/66 100 11/08/18 18:50 11/08/18 18:50 11/08/18 18:50 11/08/18 19:15 11/08/18 18:00 Intake and Output: 11/08/18 11/09/18 18:59 06:59 Intake Total 2079.6 Output Total 520 Balance 1559.6 - Medications Medications: Current Medications Acetaminophen (Tylenol 650mg/20.3ml Solution Ud) 650 mg PO Q6 PRN PRN Reason: Temperature Last Admin: 11/08/18 13:20 Dose: 650 mg Albuterol/Ipratropium (Duoneb 3 Mg/0.5 Mg (3 Ml) Ud) 3 ml INH RQ8 MIREYA Last Admin: 11/08/18 15:50 Dose: 3 ml Aspirin (Ecotrin) 325 mg PO DAILY MIREYA Last Admin: 11/08/18 09:49 Dose: 325 mg Furosemide (Lasix) 20 mg IVP ONCE ONE Stop: 11/09/18 00:01 Midazolam HCl 100 mg/ Dextrose 100 mls @ 1.52 mls/hr IV .Q24H MIREYA; Protocol Last Titration: 11/08/18 16:00 Dose: 0.05 mg/kg/hr, 3.81 mls/hr Norepinephrine Bitartrate 8 mg (/ Dextrose) 258 mls @ 3.87 mls/hr IV .Q24H PRN; Protocol PRN Reason: TITRATE PER MD ORDER Last Titration: 11/08/18 16:19 Dose: 1 mcg/min, 1.94 mls/hr Amiodarone HCl 900 mg/ (Dextrose) 500 mls @ 16.67 mls/hr IV .Q24H ONE; Protocol Stop: 11/09/18 02:29 Last Admin: 11/08/18 02:30 Dose: 16.67 mls/hr Heparin Sodium/Sodium Chloride (Heparin 02119 Units/250ml 1/2 Normal Saline) 25,000 units in 250 mls @ 10.234 mls/hr IV .Q24H PRN; Protocol PRN Reason: ADJUST RATE PER PROTOCOL Last Admin: 11/08/18 08:03 Dose: 14 units/kg/hr, 10.234 mls/hr [id number] Ethyl Esters (Lovaza) 1 gm PO BID [facility] Last Admin: 11/08/18 17:04 Dose: 1 gm Pantoprazole Sodium (Protonix Susp) 40 mg GT DAILY [facility] Last Admin: 11/08/18 09:49 Dose: 40 mg Ticagrelor (Brilinta) 90 mg PO BID [facility] Last Admin: 11/08/18 17:04 Dose: 90 mg - Labs Labs: 11/08/18 06:11 11/08/18 06:11 PT 13.5 SECONDS (9.7-12.2) H 11/07/18 05:49 INR 1.2 11/07/18 05:49 APTT 59 SECONDS (21-34) H D 11/08/18 13:50
--- NOTE | 2018-11-08 23:48 | PN ---
DATE: 11/08/2018 LOCATION: ICU 9. SUBJECTIVE: This is a 63-year-old female, seen early in rounds without any significant clinical changes, lots of blood transfusion without reported clear evidence of GI bleeding. The entire chart is reviewed including, but not limited to the most recent lab and radiology study results, current and the previous medication lists, current and the previous medical events. Today's chest x-ray showed possible pulmonary edema as I suggested initially. The patient reported to be hypotensive and Levophed was given yesterday. Most recent lab results today showed hemoglobin 8.1, hematocrit 23.8, with normal white blood cells, but normal platelet count with PTT of 59 with abnormal ABGs. Blood glucose level 210, calcium 8.3, phosphorus 2.1, magnesium 2.8. Total bilirubin 1.6, AST 63, ALT 53. BUN is 19, but normal creatinine. PHYSICAL EXAMINATION: GENERAL: A 63-year-old female, intubated to vent with NG tube is in place. VITAL SIGNS: Afebrile with pulse of 76 and blood pressure of 110/60. HEENT: Showed pale, dry oral mucous membrane. Mild anicteric sclerae. The patient intubated to vent. LUNGS: Scattered crepitations. Bilateral few rales. HEART: Positive S1 and S2. ABDOMEN: Soft. There is mild generalized tenderness. Bowel sounds are hypoactive. NEUROLOGIC: No reported no neurological deficits, sensory or motor. IMPRESSION: 1. Upper lung cardiogenic shock with pulmonary edema and possible myocardial infarction. 2. Coronary artery disease. 3. Hemoptysis rather than hematemesis, most likely secondary to pulmonary edema as I suggested before. 4. History of status post coronary artery bypass grafting. 5. Re-exacerbation of peptic ulcer disease. 6. Anemia secondary to above. SUGGESTIONS: 1. Continue current management. 2. Due to the patient's electrolyte imbalance, hypoalbuminemia, hypoproteinemia, peripheral versus central hyperalimentation, to be kept in mind in NS low dose. 3. Further recommendation to follow. Ole Flores MD
[2018-11-09] MEDS: Albuterol-Ipratrop 3 mg / 0.5 (3 ml) UD INH SCH ×3 (00:30→16:00)
[2018-11-09] MEDS ORDERED: Digoxin 500 mcg/2ml (0.5 mg/2ml) Inj IVP ONE ×2 (01:16→01:39)
[2018-11-09] MEDS ORDERED: Metoprolol 1 mg/ml Inj IVP ONE ×2 (01:45→05:22)
[2018-11-09] MEDS: Midazolam 50 mg/10 ml 100 MG in Dextrose 5% In Water 80 ML IV SCH ×2 (02:00→20:15)
[2018-11-09 05:32] LABS: ABG ALLEN TEST POS; ARTERIAL BLOOD GAS HCO3 26.6 mmol/L (21-28); ARTERIAL BLOOD GAS HEMOGLOBIN 10.9 g/dL (11.7-17.4); ARTERIAL BLOOD GAS PCO2 30 mm/Hg (35-45); ARTERIAL BLOOD GAS PH 7.52 (7.35-7.45); ARTERIAL BLOOD GAS PO2 125 mm/Hg (80-100); ARTERIAL BLOOD GAS TCO2 25.4 mmol/L (22-28)
[2018-11-09 06:49] LABS: BASO % 0.5 % (0.0-2.0); EOS # 0.1 K/uL (0.0-0.7); EOS % 1.8 % (0.0-4.0); HEMOGLOBIN 11.2 g/dL (11.0-16.0); LYMPH # 0.9 K/uL (1.0-4.3); LYMPH % 10.9 % (20.0-40.0); MEAN CELL VOLUME 88.1 fL (81.0-99.0); MEAN CORPUSCULAR HEMOGLOBIN 29.7 pg (27.0-31.0); MEAN CORPUSCULAR HGB CONC 33.8 g/dL (33.0-37.0); MEAN PLATELET VOLUME 10.1 fL (7.2-11.7); MONO # 0.4 K/uL (0.0-0.8); MONO % 5.2 % (0.0-10.0); NEUT # 6.6 K/uL (1.8-7.0); NEUT % 81.6 % (50.0-75.0); NRBC % 0.2 % (0.0-2.0); RBC 3.75 Mil/uL (3.80-5.20); RED CELL DISTRIBUTION WIDTH 14.2 % (11.5-14.5); WHITE BLOOD COUNT 8.1 K/uL (4.8-10.8)
[2018-11-09 07:04] LABS: ALB/GLOB RATIO 1.1 (1.0-2.1); ALBUMIN 3.4 g/dL (3.5-5.0); ALT/SGPT 176 U/L (9-52); AST/SGOT 208 U/L (14-36); BLOOD UREA NITROGEN 19 mg/dL (7-17); CALCIUM 8.8 mg/dl (8.6-10.4); GFR NON-AFRICAN AMERICAN > 60
[2018-11-09 08:19] LABS: HEPATITIS B SURFACE AG Negative (NEGATIVE)
[2018-11-09 08:25] LABS: HEPATITIS A IGM NEGATIVE (NEGATIVE); HEPATITIS B CORE AB NEGATIVE (NEGATIVE)
[2018-11-09 08:37] LABS: HEPATITIS C ANTIBODY NEGATIVE (NEGATIVE)
--- NOTE | 2018-11-09 08:56 | PN ---
DATE: 11/09/2018 LOCATION: ICU 9. SUBJECTIVE: This 63-year-old female seen in the presence of the ICU staff early in the morning as well as family members at bedside, intubated, sedated with NG tube in place for feeding purposes. It was reported that the patient had episodes of tachycardia. She is post blood transfusions of packed red blood cells, then Lasix IV was given. The entire chart was reviewed including the most recent lab results and today's hemoglobin 11.2, hematocrit 33.1 with a PTT of 43 with abnormal ABGs. Blood glucose level 176, BUN of 19, total bilirubin 2.3 with AST 208, ALT 176, alkaline phosphatase 149 with albumin 3.4. Today's chest x-ray is still pending. PHYSICAL EXAMINATION: GENERAL: A 63-year-old female, sedated and intubated. VITAL SIGNS: Afebrile with heart rate of 86, blood pressure of 102/66. HEENT: Showed pale dry oral mucoid membrane. Mildly icteric sclerae. G tube as well as NG tube is in place, the patient is. Orally by the NG tube. LUNGS: Scattered crepitation. Decreased air entry at bases. HEART: Positive S1 and S2. ABDOMEN: Soft with mild distention. Bowel sounds are hyperactive. No mass or organomegaly. No rebound tenderness or guarding. EXTREMITIES: Without significant clubbing, cyanosis or edema. No reported neurological deficits, sensory or motor. IMPRESSION: 1.. Cardiogenic shock with pulmonary edema with reported possible myocardial infarction. 2. Hemoptysis secondary to above. 3. Coronary artery disease by recent history. 4. Abnormal liver function test that could be secondary to ongoing infectious process versus right-sided heart failure with pulmonary edema, associated with jaundice. 5. Recent history of peptic ulcer disease. 6. Anemia secondary to above. SUGGESTIONS: 1. Abdominal ultrasound. 2. Hepatitis profile. 3. Repeat stool for occult blood. 4. No need for aggressive GI workup in the meantime until the patient is more stable clinically. Further recommendation to follow. Ole Flores MD
--- NOTE | 2018-11-09 09:54 | CP.CCUPN ---
CCU Objective - Vital Signs / Intake & Output Vital Signs (Last 4 hours): Vital Signs Pulse Resp BP Pulse Ox 11/09/18 07:00 78 20 99/61 L 100 11/09/18 06:01 76 29 H 93/53 L 99 11/09/18 06:00 76 28 H 99 Intake and Output (Last 8hrs): Intake & Output 11/08/18 11/09/18 11/09/18 22:59 06:59 14:59 Intake Total 1788.1 1186.3 74.5 Output Total 685 960 Balance 1103.1 226.3 74.5 Weight 164 lb 0.383 oz Intake: IV 303 58 Intake, IV Amount 265.1 278.3 34.5 Right Distal Port 11.4 44.1 3.8 Internal Jugular Right Forearm 82.1 81.6 10.2 Right Medial Port 65.3 133.6 16.7 Internal Jugular Right Proximal Port 83.5 19.0 3.8 Internal Jugular Right Proximal Port Y- 22.8 site Internal Jugular Tube Feeding 320 320 40 Blood Product 870 450 Red Blood Cells Cpd As1 0 325 Lr Unit [id number] Red Blood Cells Cpd As1 325 Lr Unit [id number] Other 30 80 Red Blood Cells Cpd As1 50 Lr Unit [id number] Output: Urine 685 960 Urethral (Kelsey) 685 960 Other: # Bowel Movements 0 - Physical Exam Head: Positive for: Atraumatic, Normocephalic Pupils: Positive for: PERRL Extroacular Muscles: Positive for: EOMI Conjunctiva: Positive for: Normal Mouth: Positive for: Moist Mucous Membranes Neck: Positive for: Other (intubated ) Respiratory/Chest: Positive for: Good Air Exchange, Rales Cardiovascular: Positive for: Normal S1, S2, Irregular Rhythm, Tachycardic Abdomen: Negative for: Tenderness Upper Extremity: Positive for: Normal Inspection. Negative for: Cyanosis, Edema Lower Extremity: Positive for: Normal Inspection. Negative for: Edema Neurological: Positive for: Other (unable to assess due to pts status, intubated and sedated) Skin: Positive for: Warm, Dry, Normal Color Psychiatric: Positive for: Alert - Medications Active Medications: Active Medications Generic Name Dose Route Start Last Admin Trade Name Freq PRN Reason Stop Dose Admin Acetaminophen 650 mg 11/06/18 20:50 11/08/18 13:20 Tylenol 650mg/20.3ml Solution Ud PO 650 mg Q6 PRN Administration Temperature Albuterol/Ipratropium 3 ml 11/04/18 17:01 11/09/18 07:56 Duoneb 3 Mg/0.5 Mg (3 Ml) Ud INH 3 ml RQ8 MIREYA Administration Aspirin 325 mg 11/04/18 10:00 11/08/18 09:49 Ecotrin PO 325 mg DAILY MIREYA Administration Midazolam HCl 100 mg/ Dextrose 100 mls @ 1.52 mls/hr 11/07/18 20:15 11/09/18 02:00 IV 0.1 mg/kg/hr .Q24H MIREYA 7.62 mls/hr Administration Protocol 0.02 MG/KG/HR Norepinephrine Bitartrate 8 mg 258 mls @ 3.87 mls/hr 11/07/18 20:10 11/09/18 02:00 / Dextrose IV 2 mcg/min .Q24H PRN 3.87 mls/hr TITRATE PER MD ORDER Titration Protocol 2 MCG/MIN Heparin Sodium/Sodium Chloride 25,000 units in 250 mls @ 10.234 mls/hr 11/08/18 07:29 11/08/18 22:05 Heparin 07398 Units/250ml 1/2 Normal Saline IV 14 units/kg/hr .Q24H PRN 10.234 mls/hr ADJUST RATE PER PROTOCOL Administration Protocol 14 UNITS/KG/HR Amiodarone HCl 900 mg/ 500 mls @ 16.67 mls/hr 11/08/18 19:41 11/08/18 20:35 Dextrose IV 11/09/18 19:40 16.67 mls/hr .Q24H ONE Administration Protocol 0.5 MG/MIN [id number] Ethyl Esters 1 gm 11/04/18 10:00 11/08/18 17:04 Lovaza PO 1 gm BID MIREYA Administration Pantoprazole Sodium 40 mg 11/06/18 10:00 11/08/18 09:49 Protonix Susp GT 40 mg DAILY MIREYA Administration Ticagrelor 90 mg 11/04/18 10:00 11/08/18 17:04 Brilinta PO 90 mg BID MIREYA Administration - Patient Studies Lab Studies: Microbiology Studies 11/06/18 12:14 Blood Culture - Preliminary Blood-Venous Staphylococcus Epidermidis Gram Stain - Final 11/06/18 12:14 Blood Culture - Preliminary Blood-Venous NO GROWTH AFTER 48 HOURS 11/06/18 07:04 Gram Stain - Final Trachasp Sputum Culture - Preliminary No growth. Lab Studies 11/09/18 11/09/18 11/09/18 Range/Units 07:38 06:40 06:40 WBC (4.8-10.8) K/uL RBC (3.80-5.20) Mil/uL Hgb (11.0-16.0) g/dL Hct (34.0-47.0) % MCV (81.0-99.0) fL MCH (27.0-31.0) pg MCHC (33.0-37.0) g/dL RDW (11.5-14.5) % Plt Count (130-400) K/uL MPV (7.2-11.7) fL Neut % (Auto) (50.0-75.0) % Lymph % (Auto) (20.0-40.0) % [place] % (Auto) (0.0-10.0) % Eos % (Auto) (0.0-4.0) % Baso % (Auto) (0.0-2.0) % Neut # (Auto) (1.8-7.0) K/uL Lymph # (Auto) (1.0-4.3) K/uL [place] # (Auto) (0.0-0.8) K/uL Eos # (Auto) (0.0-0.7) K/uL Baso # (Auto) (0.0-0.2) K/uL APTT 43 H D (21-34) SECONDS Puncture Site pCO2 (35-45) mm/Hg pO2 (80-100) mm/Hg HCO3 (21-28) mmol/L ABG pH (7.35-7.45) ABG Total CO2 (22-28) mmol/L ABG O2 Saturation (95-98) % ABG Base Excess (-2.0-3.0) mmol/L ABG Hemoglobin (11.7-17.4) g/dL ABG Carboxyhemoglobin (0.5-1.5) % POC ABG HHb (Measured) (0.0-5.0) % ABG Methemoglobin (0.0-3.0) % Mario Test A-a O2 Difference mm/Hg Respiratory Index Hgb O2 Saturation (95.0-98.0) % Vent Mode Mechanical Rate FiO2 % Tidal Volume PEEP Sodium 134 (132-148) mmol/L Potassium 4.2 (3.6-5.2) mmol/L Chloride 101 (98-107) mmol/L Carbon Dioxide 25 (22-30) mmol/L Anion Gap 13 (10-20) BUN 19 H (7-17) mg/dL Creatinine 0.7 (0.7-1.2) mg/dL Est GFR ( Amer) > 60 Est GFR (Non-Af Amer) > 60 POC Glucose (mg/dL) (65-110) mg/dL Random Glucose 189 H (65-105) mg/dL Calcium 8.8 (8.6-10.4) mg/dl Phosphorus 2.9 (2.5-4.5) mg/dL Magnesium 2.3 (1.6-2.3) mg/dL Total Bilirubin 2.3 H (0.2-1.3) mg/dL AST 208 H D (14-36) U/L ALT 176 H D (9-52) U/L Alkaline Phosphatase 149 H D (38-126) U/L NT-Pro-B Natriuret Pep (0-900) pg/mL Total Protein 6.5 (6.3-8.3) g/dL Albumin 3.4 L (3.5-5.0) g/dL Globulin 3.1 (2.2-3.9) gm/dL Albumin/Globulin Ratio 1.1 (1.0-2.1) Hepatitis A IgM Ab Negative (NEGATIVE) Hep Bs Antigen Negative (NEGATIVE) Hep B Core IgM Ab Negative (NEGATIVE) Hepatitis C Antibody Negative (NEGATIVE) Blood Type Blood Type Confirm Antibody Screen 11/09/18 11/09/18 11/09/18 Range/Units 06:40 06:09 05:24 WBC 8.1 (4.8-10.8) K/uL RBC 3.75 L (3.80-5.20) Mil/uL Hgb 11.2 D (11.0-16.0) g/dL Hct 33.1 L (34.0-47.0) % MCV 88.1 D (81.0-99.0) fL MCH 29.7 (27.0-31.0) pg MCHC 33.8 (33.0-37.0) g/dL RDW 14.2 (11.5-14.5) % Plt Count 185 (130-400) K/uL MPV 10.1 (7.2-11.7) fL Neut % (Auto) 81.6 H (50.0-75.0) % Lymph % (Auto) 10.9 L (20.0-40.0) % [place] % (Auto) 5.2 (0.0-10.0) % Eos % (Auto) 1.8 (0.0-4.0) % Baso % (Auto) 0.5 (0.0-2.0) % Neut # (Auto) 6.6 (1.8-7.0) K/uL Lymph # (Auto) 0.9 L (1.0-4.3) K/uL [place] # (Auto) 0.4 (0.0-0.8) K/uL Eos # (Auto) 0.1 (0.0-0.7) K/uL Baso # (Auto) 0.0 (0.0-0.2) K/uL APTT (21-34) SECONDS Puncture Site Rr pCO2 30 L (35-45) mm/Hg pO2 125 H (80-100) mm/Hg HCO3 26.6 (21-28) mmol/L ABG pH 7.52 H (7.35-7.45) ABG Total CO2 25.4 (22-28) mmol/L ABG O2 Saturation 99.0 H (95-98) % ABG Base Excess 2.1 (-2.0-3.0) mmol/L ABG Hemoglobin 10.9 L (11.7-17.4) g/dL ABG Carboxyhemoglobin 1.5 (0.5-1.5) % POC ABG HHb (Measured) 1.0 (0.0-5.0) % ABG Methemoglobin 0.7 (0.0-3.0) % Mario Test Pos A-a O2 Difference 123.0 mm/Hg Respiratory Index 1.0 Hgb O2 Saturation 96.8 (95.0-98.0) % Vent Mode Prvc Mechanical Rate 12 FiO2 40.0 % Tidal Volume 500 PEEP 5 Sodium (132-148) mmol/L Potassium (3.6-5.2) mmol/L Chloride (98-107) mmol/L Carbon Dioxide (22-30) mmol/L Anion Gap (10-20) BUN (7-17) mg/dL Creatinine (0.7-1.2) mg/dL Est GFR ( Amer) Est GFR (Non-Af Amer) POC Glucose (mg/dL) 176 H (65-110) mg/dL Random Glucose (65-105) mg/dL Calcium (8.6-10.4) mg/dl Phosphorus (2.5-4.5) mg/dL Magnesium (1.6-2.3) mg/dL Total Bilirubin (0.2-1.3) mg/dL AST (14-36) U/L ALT (9-52) U/L Alkaline Phosphatase (38-126) U/L NT-Pro-B Natriuret Pep (0-900) pg/mL Total Protein (6.3-8.3) g/dL Albumin (3.5-5.0) g/dL Globulin (2.2-3.9) gm/dL Albumin/Globulin Ratio (1.0-2.1) Hepatitis A IgM Ab (NEGATIVE) Hep Bs Antigen (NEGATIVE) Hep B Core IgM Ab (NEGATIVE) Hepatitis C Antibody (NEGATIVE) Blood Type Blood Type Confirm Antibody Screen 11/08/18 11/08/18 11/08/18 Range/Units 20:02 17:29 13:50 WBC (4.8-10.8) K/uL RBC (3.80-5.20) Mil/uL Hgb (11.0-16.0) g/dL Hct (34.0-47.0) % MCV (81.0-99.0) fL MCH (27.0-31.0) pg MCHC (33.0-37.0) g/dL RDW (11.5-14.5) % Plt Count (130-400) K/uL MPV (7.2-11.7) fL Neut % (Auto) (50.0-75.0) % Lymph % (Auto) (20.0-40.0) % [place] % (Auto) (0.0-10.0) % Eos % (Auto) (0.0-4.0) % Baso % (Auto) (0.0-2.0) % Neut # (Auto) (1.8-7.0) K/uL Lymph # (Auto) (1.0-4.3) K/uL [place] # (Auto) (0.0-0.8) K/uL Eos # (Auto) (0.0-0.7) K/uL Baso # (Auto) (0.0-0.2) K/uL APTT 53 H D 59 H D (21-34) SECONDS Puncture Site pCO2 (35-45) mm/Hg pO2 (80-100) mm/Hg HCO3 (21-28) mmol/L ABG pH (7.35-7.45) ABG Total CO2 (22-28) mmol/L ABG O2 Saturation (95-98) % ABG Base Excess (-2.0-3.0) mmol/L ABG Hemoglobin (11.7-17.4) g/dL ABG Carboxyhemoglobin (0.5-1.5) % POC ABG HHb (Measured) (0.0-5.0) % ABG Methemoglobin (0.0-3.0) % Mario Test A-a O2 Difference mm/Hg Respiratory Index Hgb O2 Saturation (95.0-98.0) % Vent Mode Mechanical Rate FiO2 % Tidal Volume PEEP Sodium (132-148) mmol/L Potassium (3.6-5.2) mmol/L Chloride (98-107) mmol/L Carbon Dioxide (22-30) mmol/L Anion Gap (10-20) BUN (7-17) mg/dL Creatinine (0.7-1.2) mg/dL Est GFR ( Amer) Est GFR (Non-Af Amer) POC Glucose (mg/dL) 210 H (65-110) mg/dL Random Glucose (65-105) mg/dL Calcium (8.6-10.4) mg/dl Phosphorus (2.5-4.5) mg/dL Magnesium (1.6-2.3) mg/dL Total Bilirubin (0.2-1.3) mg/dL AST (14-36) U/L ALT (9-52) U/L Alkaline Phosphatase (38-126) U/L NT-Pro-B Natriuret Pep (0-900) pg/mL Total Protein (6.3-8.3) g/dL Albumin (3.5-5.0) g/dL Globulin (2.2-3.9) gm/dL Albumin/Globulin Ratio (1.0-2.1) Hepatitis A IgM Ab (NEGATIVE) Hep Bs Antigen (NEGATIVE) Hep B Core IgM Ab (NEGATIVE) Hepatitis C Antibody (NEGATIVE) Blood Type Blood Type Confirm Antibody Screen 11/08/18 11/08/18 Range/Units 13:50 11:02 WBC (4.8-10.8) K/uL RBC (3.80-5.20) Mil/uL Hgb (11.0-16.0) g/dL Hct (34.0-47.0) % MCV (81.0-99.0) fL MCH (27.0-31.0) pg MCHC (33.0-37.0) g/dL RDW (11.5-14.5) % Plt Count (130-400) K/uL MPV (7.2-11.7) fL Neut % (Auto) (50.0-75.0) % Lymph % (Auto) (20.0-40.0) % [place] % (Auto) (0.0-10.0) % Eos % (Auto) (0.0-4.0) % Baso % (Auto) (0.0-2.0) % Neut # (Auto) (1.8-7.0) K/uL Lymph # (Auto) (1.0-4.3) K/uL [place] # (Auto) (0.0-0.8) K/uL Eos # (Auto) (0.0-0.7) K/uL Baso # (Auto) (0.0-0.2) K/uL APTT (21-34) SECONDS Puncture Site pCO2 (35-45) mm/Hg pO2 (80-100) mm/Hg HCO3 (21-28) mmol/L ABG pH (7.35-7.45) ABG Total CO2 (22-28) mmol/L ABG O2 Saturation (95-98) % ABG Base Excess (-2.0-3.0) mmol/L ABG Hemoglobin (11.7-17.4) g/dL ABG Carboxyhemoglobin (0.5-1.5) % POC ABG HHb (Measured) (0.0-5.0) % ABG Methemoglobin (0.0-3.0) % Mario Test A-a O2 Difference mm/Hg Respiratory Index Hgb O2 Saturation (95.0-98.0) % Vent Mode Mechanical Rate FiO2 % Tidal Volume PEEP Sodium (132-148) mmol/L Potassium (3.6-5.2) mmol/L Chloride (98-107) mmol/L Carbon Dioxide (22-30) mmol/L Anion Gap (10-20) BUN (7-17) mg/dL Creatinine (0.7-1.2) mg/dL Est GFR ( Amer) Est GFR (Non-Af Amer) POC Glucose (mg/dL) (65-110) mg/dL Random Glucose (65-105) mg/dL Calcium (8.6-10.4) mg/dl Phosphorus (2.5-4.5) mg/dL Magnesium (1.6-2.3) mg/dL Total Bilirubin (0.2-1.3) mg/dL AST (14-36) U/L ALT (9-52) U/L Alkaline Phosphatase (38-126) U/L NT-Pro-B Natriuret Pep 6340 H (0-900) pg/mL Total Protein (6.3-8.3) g/dL Albumin (3.5-5.0) g/dL Globulin (2.2-3.9) gm/dL Albumin/Globulin Ratio (1.0-2.1) Hepatitis A IgM Ab (NEGATIVE) Hep Bs Antigen (NEGATIVE) Hep B Core IgM Ab (NEGATIVE) Hepatitis C Antibody (NEGATIVE) Blood Type B POSITIVE Blood Type Confirm B POSITIVE Antibody Screen Negative Laboratory Results - last 24 hr 11/08/18 11/08/18 11/08/18 11:02 13:50 13:50 WBC RBC Hgb Hct MCV MCH MCHC RDW Plt Count MPV Neut % (Auto) Lymph % (Auto) [place] % (Auto) Eos % (Auto) Baso % (Auto) Neut # (Auto) Lymph # (Auto) [place] # (Auto) Eos # (Auto) Baso # (Auto) APTT 59 H D Puncture Site pCO2 pO2 HCO3 ABG pH ABG Total CO2 ABG O2 Saturation ABG Base Excess ABG Hemoglobin ABG Carboxyhemoglobin POC ABG HHb (Measured) ABG Methemoglobin Mario Test A-a O2 Difference Respiratory Index Hgb O2 Saturation Vent Mode Mechanical Rate FiO2 Tidal Volume PEEP Sodium Potassium Chloride Carbon Dioxide Anion Gap BUN Creatinine Est GFR ( Amer) Est GFR (Non-Af Amer) POC Glucose (mg/dL) Random Glucose Calcium Phosphorus Magnesium Total Bilirubin AST ALT Alkaline Phosphatase NT-Pro-B Natriuret Pep 6340 H Total Protein Albumin Globulin Albumin/Globulin Ratio Hepatitis A IgM Ab Hep Bs Antigen Hep B Core IgM Ab Hepatitis C Antibody Blood Type B POSITIVE Blood Type Confirm B POSITIVE Antibody Screen Negative 11/08/18 11/08/18 11/09/18 17:29 20:02 05:24 WBC RBC Hgb Hct MCV MCH MCHC RDW Plt Count MPV Neut % (Auto) Lymph % (Auto) [place] % (Auto) Eos % (Auto) Baso % (Auto) Neut # (Auto) Lymph # (Auto) [place] # (Auto) Eos # (Auto) Baso # (Auto) APTT 53 H D Puncture Site Rr pCO2 30 L pO2 125 H HCO3 26.6 ABG pH 7.52 H ABG Total CO2 25.4 ABG O2 Saturation 99.0 H ABG Base Excess 2.1 ABG Hemoglobin 10.9 L ABG Carboxyhemoglobin 1.5 POC ABG HHb (Measured) 1.0 ABG Methemoglobin 0.7 Mario Test Pos A-a O2 Difference 123.0 Respiratory Index 1.0 Hgb O2 Saturation 96.8 Vent Mode Prvc Mechanical Rate 12 FiO2 40.0 Tidal Volume 500 PEEP 5 Sodium Potassium Chloride Carbon Dioxide Anion Gap BUN Creatinine Est GFR ( Amer) Est GFR (Non-Af Amer) POC Glucose (mg/dL) 210 H Random Glucose Calcium Phosphorus Magnesium Total Bilirubin AST ALT Alkaline Phosphatase NT-Pro-B Natriuret Pep Total Protein Albumin Globulin Albumin/Globulin Ratio Hepatitis A IgM Ab Hep Bs Antigen Hep B Core IgM Ab Hepatitis C Antibody Blood Type Blood Type Confirm Antibody Screen 11/09/18 11/09/18 11/09/18 06:09 06:40 06:40 WBC 8.1 RBC 3.75 L Hgb 11.2 D Hct 33.1 L MCV 88.1 D MCH 29.7 MCHC 33.8 RDW 14.2 Plt Count 185 MPV 10.1 Neut % (Auto) 81.6 H Lymph % (Auto) 10.9 L [place] % (Auto) 5.2 Eos % (Auto) 1.8 Baso % (Auto) 0.5 Neut # (Auto) 6.6 Lymph # (Auto) 0.9 L [place] # (Auto) 0.4 Eos # (Auto) 0.1 Baso # (Auto) 0.0 APTT Puncture Site pCO2 pO2 HCO3 ABG pH ABG Total CO2 ABG O2 Saturation ABG Base Excess ABG Hemoglobin ABG Carboxyhemoglobin POC ABG HHb (Measured) ABG Methemoglobin Mario Test A-a O2 Difference Respiratory Index Hgb O2 Saturation Vent Mode Mechanical Rate FiO2 Tidal Volume PEEP Sodium 134 Potassium 4.2 Chloride 101 Carbon Dioxide 25 Anion Gap 13 BUN 19 H Creatinine 0.7 Est GFR ( Amer) > 60 Est GFR (Non-Af Amer) > 60 POC Glucose (mg/dL) 176 H Random Glucose 189 H Calcium 8.8 Phosphorus 2.9 Magnesium 2.3 Total Bilirubin 2.3 H AST 208 H D ALT 176 H D Alkaline Phosphatase 149 H D NT-Pro-B Natriuret Pep Total Protein 6.5 Albumin 3.4 L Globulin 3.1 Albumin/Globulin Ratio 1.1 Hepatitis A IgM Ab Hep Bs Antigen Hep B Core IgM Ab Hepatitis C Antibody Blood Type Blood Type Confirm Antibody Screen 11/09/18 11/09/18 06:40 07:38 WBC RBC Hgb Hct MCV MCH MCHC RDW Plt Count MPV Neut % (Auto) Lymph % (Auto) [place] % (Auto) Eos % (Auto) Baso % (Auto) Neut # (Auto) Lymph # (Auto) [place] # (Auto) Eos # (Auto) Baso # (Auto) APTT 43 H D Puncture Site pCO2 pO2 HCO3 ABG pH ABG Total CO2 ABG O2 Saturation ABG Base Excess ABG Hemoglobin ABG Carboxyhemoglobin POC ABG HHb (Measured) ABG Methemoglobin Mario Test A-a O2 Difference Respiratory Index Hgb O2 Saturation Vent Mode Mechanical Rate FiO2 Tidal Volume PEEP Sodium Potassium Chloride Carbon Dioxide Anion Gap BUN Creatinine Est GFR ( Amer) Est GFR (Non-Af Amer) POC Glucose (mg/dL) Random Glucose Calcium Phosphorus Magnesium Total Bilirubin AST ALT Alkaline Phosphatase NT-Pro-B Natriuret Pep Total Protein Albumin Globulin Albumin/Globulin Ratio Hepatitis A IgM Ab Negative Hep Bs Antigen Negative Hep B Core IgM Ab Negative Hepatitis C Antibody Negative Blood Type Blood Type Confirm Antibody Screen Fingerstick Blood Sugar Results: 176
--- NOTE | 2018-11-09 09:59 | CP.CCUPN ---
CCU Subjective - Physician Review Events Since Last Encounter (Free Text): 11/09/18 09:58 Patient is a 63-year-old female with a history of coronary artery bypass grafting, and atherosclerotic heart disease, status post cold heart, angioplasty. Also patient had a balloon pump. Patient condition complicated with acute decompensated heart failure. Acute respiratory failure. Patient is currently on ventilator. Patient is currently receiving Heparin drip, amiodarone drip, norepinephrine drip, midazolam, Patient had an episode of atrial flutter fibrillation last night. Started on amiodarone drip. Patient was also receiving Lasix drip On examination: Patient is currently sedated well. On ventilator. Full support ventilation. Chest good air entry No rales or wheezing noted Heart sounds are regular no Abdomen soft. Pedal edema 1+ Labs reviewed Nonspecific. WBC is normal. Chest x-ray mild vascular congestion noted. Right TLC noted. ET tube in good position. Blood culture was showing evidence of Staphylococcus epidermidis 3 days ago. I would like to repeat that. Assessment and recommendation: 63-year-old female with a history of CABG, CAD, acute ST elevation [place]. Status post angioplasty. Balloon pump. Acute decompensated systolic heart failure Overall poor prognosis. We will continue the current supportive treatment. Cultures ordered again. Taper off the Levophed. Increased respiratory rate to 18 and will follow the patient. CCU Objective - Vital Signs / Intake & Output Vital Signs (Last 4 hours): Vital Signs Pulse Resp BP Pulse Ox 11/09/18 07:00 78 20 99/61 L 100 11/09/18 06:01 76 29 H 93/53 L 99 11/09/18 06:00 76 28 H 99 Intake and Output (Last 8hrs): Intake & Output 11/08/18 11/09/18 11/09/18 22:59 06:59 14:59 Intake Total 1788.1 1186.3 74.5 Output Total 685 960 Balance 1103.1 226.3 74.5 Weight 164 lb 0.383 oz Intake: IV 303 58 Intake, IV Amount 265.1 278.3 34.5 Right Distal Port 11.4 44.1 3.8 Internal Jugular Right Forearm 82.1 81.6 10.2 Right Medial Port 65.3 133.6 16.7 Internal Jugular Right Proximal Port 83.5 19.0 3.8 Internal Jugular Right Proximal Port Y- 22.8 site Internal Jugular Tube Feeding 320 320 40 Blood Product 870 450 Red Blood Cells Cpd As1 0 325 Lr Unit [id number] Red Blood Cells Cpd As1 325 Lr Unit [id number] Other 30 80 Red Blood Cells Cpd As1 50 Lr Unit [id number] Output: Urine 685 960 Urethral (Kelsey) 685 960 Other: # Bowel Movements 0 - Physical Exam Head: Positive for: Atraumatic, Normocephalic Pupils: Positive for: PERRL Extroacular Muscles: Positive for: EOMI Conjunctiva: Positive for: Normal Mouth: Positive for: Moist Mucous Membranes Neck: Positive for: Other (intubated ) Respiratory/Chest: Positive for: Good Air Exchange, Rales Cardiovascular: Positive for: Normal S1, S2, Irregular Rhythm, Tachycardic Abdomen: Negative for: Tenderness Upper Extremity: Positive for: Normal Inspection. Negative for: Cyanosis, Edema Lower Extremity: Positive for: Normal Inspection. Negative for: Edema Neurological: Positive for: Other (unable to assess due to pts status, intubated and sedated) Skin: Positive for: Warm, Dry, Normal Color Psychiatric: Positive for: Alert - Medications Active Medications: Active Medications Generic Name Dose Route Start Last Admin Trade Name Freq PRN Reason Stop Dose Admin Acetaminophen 650 mg 11/06/18 20:50 11/08/18 13:20 Tylenol 650mg/20.3ml Solution Ud PO 650 mg Q6 PRN Administration Temperature Albuterol/Ipratropium 3 ml 11/04/18 17:01 11/09/18 07:56 Duoneb 3 Mg/0.5 Mg (3 Ml) Ud INH 3 ml RQ8 MIREYA Administration Aspirin 325 mg 11/04/18 10:00 11/08/18 09:49 Ecotrin PO 325 mg DAILY MIREYA Administration Midazolam HCl 100 mg/ Dextrose 100 mls @ 1.52 mls/hr 11/07/18 20:15 11/09/18 02:00 IV 0.1 mg/kg/hr .Q24H MIREYA 7.62 mls/hr Administration Protocol 0.02 MG/KG/HR Norepinephrine Bitartrate 8 mg 258 mls @ 3.87 mls/hr 11/07/18 20:10 11/09/18 02:00 / Dextrose IV 2 mcg/min .Q24H PRN 3.87 mls/hr TITRATE PER MD ORDER Titration Protocol 2 MCG/MIN Heparin Sodium/Sodium Chloride 25,000 units in 250 mls @ 10.234 mls/hr 11/08/18 07:29 11/08/18 22:05 Heparin 04560 Units/250ml 1/2 Normal Saline IV 14 units/kg/hr .Q24H PRN 10.234 mls/hr ADJUST RATE PER PROTOCOL Administration Protocol 14 UNITS/KG/HR Amiodarone HCl 900 mg/ 500 mls @ 16.67 mls/hr 11/08/18 19:41 11/08/18 20:35 Dextrose IV 11/09/18 19:40 16.67 mls/hr .Q24H ONE Administration Protocol 0.5 MG/MIN [id number] Ethyl Esters 1 gm 11/04/18 10:00 11/08/18 17:04 Lovaza PO 1 gm BID MIREYA Administration Pantoprazole Sodium 40 mg 11/06/18 10:00 11/08/18 09:49 Protonix Susp GT 40 mg DAILY MIREYA Administration Ticagrelor 90 mg 11/04/18 10:00 11/08/18 17:04 Brilinta PO 90 mg BID MIREYA Administration - Patient Studies Lab Studies: Microbiology Studies 11/06/18 12:14 Blood Culture - Preliminary Blood-Venous Staphylococcus Epidermidis Gram Stain - Final 11/06/18 12:14 Blood Culture - Preliminary Blood-Venous NO GROWTH AFTER 48 HOURS 11/06/18 07:04 Gram Stain - Final Trachasp Sputum Culture - Preliminary No growth. Lab Studies 11/09/18 11/09/18 11/09/18 Range/Units 07:38 06:40 06:40 WBC (4.8-10.8) K/uL RBC (3.80-5.20) Mil/uL Hgb (11.0-16.0) g/dL Hct (34.0-47.0) % MCV (81.0-99.0) fL MCH (27.0-31.0) pg MCHC (33.0-37.0) g/dL RDW (11.5-14.5) % Plt Count (130-400) K/uL MPV (7.2-11.7) fL Neut % (Auto) (50.0-75.0) % Lymph % (Auto) (20.0-40.0) % Phillips % (Auto) (0.0-10.0) % Eos % (Auto) (0.0-4.0) % Baso % (Auto) (0.0-2.0) % Neut # (Auto) (1.8-7.0) K/uL Lymph # (Auto) (1.0-4.3) K/uL Phillips # (Auto) (0.0-0.8) K/uL Eos # (Auto) (0.0-0.7) K/uL Baso # (Auto) (0.0-0.2) K/uL APTT 43 H D (21-34) SECONDS Puncture Site pCO2 (35-45) mm/Hg pO2 (80-100) mm/Hg HCO3 (21-28) mmol/L ABG pH (7.35-7.45) ABG Total CO2 (22-28) mmol/L ABG O2 Saturation (95-98) % ABG Base Excess (-2.0-3.0) mmol/L ABG Hemoglobin (11.7-17.4) g/dL ABG Carboxyhemoglobin (0.5-1.5) % POC ABG HHb (Measured) (0.0-5.0) % ABG Methemoglobin (0.0-3.0) % Mario Test A-a O2 Difference mm/Hg Respiratory Index Hgb O2 Saturation (95.0-98.0) % Vent Mode Mechanical Rate FiO2 % Tidal Volume PEEP Sodium 134 (132-148) mmol/L Potassium 4.2 (3.6-5.2) mmol/L Chloride 101 (98-107) mmol/L Carbon Dioxide 25 (22-30) mmol/L Anion Gap 13 (10-20) BUN 19 H (7-17) mg/dL Creatinine 0.7 (0.7-1.2) mg/dL Est GFR ( Amer) > 60 Est GFR (Non-Af Amer) > 60 POC Glucose (mg/dL) (65-110) mg/dL Random Glucose 189 H (65-105) mg/dL Calcium 8.8 (8.6-10.4) mg/dl Phosphorus 2.9 (2.5-4.5) mg/dL Magnesium 2.3 (1.6-2.3) mg/dL Total Bilirubin 2.3 H (0.2-1.3) mg/dL AST 208 H D (14-36) U/L ALT 176 H D (9-52) U/L Alkaline Phosphatase 149 H D (38-126) U/L NT-Pro-B Natriuret Pep (0-900) pg/mL Total Protein 6.5 (6.3-8.3) g/dL Albumin 3.4 L (3.5-5.0) g/dL Globulin 3.1 (2.2-3.9) gm/dL Albumin/Globulin Ratio 1.1 (1.0-2.1) Hepatitis A IgM Ab Negative (NEGATIVE) Hep Bs Antigen Negative (NEGATIVE) Hep B Core IgM Ab Negative (NEGATIVE) Hepatitis C Antibody Negative (NEGATIVE) Blood Type Blood Type Confirm Antibody Screen 11/09/18 11/09/18 11/09/18 Range/Units 06:40 06:09 05:24 WBC 8.1 (4.8-10.8) K/uL RBC 3.75 L (3.80-5.20) Mil/uL Hgb 11.2 D (11.0-16.0) g/dL Hct 33.1 L (34.0-47.0) % MCV 88.1 D (81.0-99.0) fL MCH 29.7 (27.0-31.0) pg MCHC 33.8 (33.0-37.0) g/dL RDW 14.2 (11.5-14.5) % Plt Count 185 (130-400) K/uL MPV 10.1 (7.2-11.7) fL Neut % (Auto) 81.6 H (50.0-75.0) % Lymph % (Auto) 10.9 L (20.0-40.0) % Phillips % (Auto) 5.2 (0.0-10.0) % Eos % (Auto) 1.8 (0.0-4.0) % Baso % (Auto) 0.5 (0.0-2.0) % Neut # (Auto) 6.6 (1.8-7.0) K/uL Lymph # (Auto) 0.9 L (1.0-4.3) K/uL Phillips # (Auto) 0.4 (0.0-0.8) K/uL Eos # (Auto) 0.1 (0.0-0.7) K/uL Baso # (Auto) 0.0 (0.0-0.2) K/uL APTT (21-34) SECONDS Puncture Site Rr pCO2 30 L (35-45) mm/Hg pO2 125 H (80-100) mm/Hg HCO3 26.6 (21-28) mmol/L ABG pH 7.52 H (7.35-7.45) ABG Total CO2 25.4 (22-28) mmol/L ABG O2 Saturation 99.0 H (95-98) % ABG Base Excess 2.1 (-2.0-3.0) mmol/L ABG Hemoglobin 10.9 L (11.7-17.4) g/dL ABG Carboxyhemoglobin 1.5 (0.5-1.5) % POC ABG HHb (Measured) 1.0 (0.0-5.0) % ABG Methemoglobin 0.7 (0.0-3.0) % Mario Test Pos A-a O2 Difference 123.0 mm/Hg Respiratory Index 1.0 Hgb O2 Saturation 96.8 (95.0-98.0) % Vent Mode Prvc Mechanical Rate 12 FiO2 40.0 % Tidal Volume 500 PEEP 5 Sodium (132-148) mmol/L Potassium (3.6-5.2) mmol/L Chloride (98-107) mmol/L Carbon Dioxide (22-30) mmol/L Anion Gap (10-20) BUN (7-17) mg/dL Creatinine (0.7-1.2) mg/dL Est GFR ( Amer) Est GFR (Non-Af Amer) POC Glucose (mg/dL) 176 H (65-110) mg/dL Random Glucose (65-105) mg/dL Calcium (8.6-10.4) mg/dl Phosphorus (2.5-4.5) mg/dL Magnesium (1.6-2.3) mg/dL Total Bilirubin (0.2-1.3) mg/dL AST (14-36) U/L ALT (9-52) U/L Alkaline Phosphatase (38-126) U/L NT-Pro-B Natriuret Pep (0-900) pg/mL Total Protein (6.3-8.3) g/dL Albumin (3.5-5.0) g/dL Globulin (2.2-3.9) gm/dL Albumin/Globulin Ratio (1.0-2.1) Hepatitis A IgM Ab (NEGATIVE) Hep Bs Antigen (NEGATIVE) Hep B Core IgM Ab (NEGATIVE) Hepatitis C Antibody (NEGATIVE) Blood Type Blood Type Confirm Antibody Screen 11/08/18 11/08/18 11/08/18 Range/Units 20:02 17:29 13:50 WBC (4.8-10.8) K/uL RBC (3.80-5.20) Mil/uL Hgb (11.0-16.0) g/dL Hct (34.0-47.0) % MCV (81.0-99.0) fL MCH (27.0-31.0) pg MCHC (33.0-37.0) g/dL RDW (11.5-14.5) % Plt Count (130-400) K/uL MPV (7.2-11.7) fL Neut % (Auto) (50.0-75.0) % Lymph % (Auto) (20.0-40.0) % Phillips % (Auto) (0.0-10.0) % Eos % (Auto) (0.0-4.0) % Baso % (Auto) (0.0-2.0) % Neut # (Auto) (1.8-7.0) K/uL Lymph # (Auto) (1.0-4.3) K/uL Phillips # (Auto) (0.0-0.8) K/uL Eos # (Auto) (0.0-0.7) K/uL Baso # (Auto) (0.0-0.2) K/uL APTT 53 H D 59 H D (21-34) SECONDS Puncture Site pCO2 (35-45) mm/Hg pO2 (80-100) mm/Hg HCO3 (21-28) mmol/L ABG pH (7.35-7.45) ABG Total CO2 (22-28) mmol/L ABG O2 Saturation (95-98) % ABG Base Excess (-2.0-3.0) mmol/L ABG Hemoglobin (11.7-17.4) g/dL ABG Carboxyhemoglobin (0.5-1.5) % POC ABG HHb (Measured) (0.0-5.0) % ABG Methemoglobin (0.0-3.0) % Mario Test A-a O2 Difference mm/Hg Respiratory Index Hgb O2 Saturation (95.0-98.0) % Vent Mode Mechanical Rate FiO2 % Tidal Volume PEEP Sodium (132-148) mmol/L Potassium (3.6-5.2) mmol/L Chloride (98-107) mmol/L Carbon Dioxide (22-30) mmol/L Anion Gap (10-20) BUN (7-17) mg/dL Creatinine (0.7-1.2) mg/dL Est GFR ( Amer) Est GFR (Non-Af Amer) POC Glucose (mg/dL) 210 H (65-110) mg/dL Random Glucose (65-105) mg/dL Calcium (8.6-10.4) mg/dl Phosphorus (2.5-4.5) mg/dL Magnesium (1.6-2.3) mg/dL Total Bilirubin (0.2-1.3) mg/dL AST (14-36) U/L ALT (9-52) U/L Alkaline Phosphatase (38-126) U/L NT-Pro-B Natriuret Pep (0-900) pg/mL Total Protein (6.3-8.3) g/dL Albumin (3.5-5.0) g/dL Globulin (2.2-3.9) gm/dL Albumin/Globulin Ratio (1.0-2.1) Hepatitis A IgM Ab (NEGATIVE) Hep Bs Antigen (NEGATIVE) Hep B Core IgM Ab (NEGATIVE) Hepatitis C Antibody (NEGATIVE) Blood Type Blood Type Confirm Antibody Screen 11/08/18 11/08/18 Range/Units 13:50 11:02 WBC (4.8-10.8) K/uL RBC (3.80-5.20) Mil/uL Hgb (11.0-16.0) g/dL Hct (34.0-47.0) % MCV (81.0-99.0) fL MCH (27.0-31.0) pg MCHC (33.0-37.0) g/dL RDW (11.5-14.5) % Plt Count (130-400) K/uL MPV (7.2-11.7) fL Neut % (Auto) (50.0-75.0) % Lymph % (Auto) (20.0-40.0) % Phillips % (Auto) (0.0-10.0) % Eos % (Auto) (0.0-4.0) % Baso % (Auto) (0.0-2.0) % Neut # (Auto) (1.8-7.0) K/uL Lymph # (Auto) (1.0-4.3) K/uL Phillips # (Auto) (0.0-0.8) K/uL Eos # (Auto) (0.0-0.7) K/uL Baso # (Auto) (0.0-0.2) K/uL APTT (21-34) SECONDS Puncture Site pCO2 (35-45) mm/Hg pO2 (80-100) mm/Hg HCO3 (21-28) mmol/L ABG pH (7.35-7.45) ABG Total CO2 (22-28) mmol/L ABG O2 Saturation (95-98) % ABG Base Excess (-2.0-3.0) mmol/L ABG Hemoglobin (11.7-17.4) g/dL ABG Carboxyhemoglobin (0.5-1.5) % POC ABG HHb (Measured) (0.0-5.0) % ABG Methemoglobin (0.0-3.0) % Mario Test A-a O2 Difference mm/Hg Respiratory Index Hgb O2 Saturation (95.0-98.0) % Vent Mode Mechanical Rate FiO2 % Tidal Volume PEEP Sodium (132-148) mmol/L Potassium (3.6-5.2) mmol/L Chloride (98-107) mmol/L Carbon Dioxide (22-30) mmol/L Anion Gap (10-20) BUN (7-17) mg/dL Creatinine (0.7-1.2) mg/dL Est GFR ( Amer) Est GFR (Non-Af Amer) POC Glucose (mg/dL) (65-110) mg/dL Random Glucose (65-105) mg/dL Calcium (8.6-10.4) mg/dl Phosphorus (2.5-4.5) mg/dL Magnesium (1.6-2.3) mg/dL Total Bilirubin (0.2-1.3) mg/dL AST (14-36) U/L ALT (9-52) U/L Alkaline Phosphatase (38-126) U/L NT-Pro-B Natriuret Pep 6340 H (0-900) pg/mL Total Protein (6.3-8.3) g/dL Albumin (3.5-5.0) g/dL Globulin (2.2-3.9) gm/dL Albumin/Globulin Ratio (1.0-2.1) Hepatitis A IgM Ab (NEGATIVE) Hep Bs Antigen (NEGATIVE) Hep B Core IgM Ab (NEGATIVE) Hepatitis C Antibody (NEGATIVE) Blood Type B POSITIVE Blood Type Confirm B POSITIVE Antibody Screen Negative Laboratory Results - last 24 hr 11/08/18 11/08/18 11/08/18 11:02 13:50 13:50 WBC RBC Hgb Hct MCV MCH MCHC RDW Plt Count MPV Neut % (Auto) Lymph % (Auto) Phillips % (Auto) Eos % (Auto) Baso % (Auto) Neut # (Auto) Lymph # (Auto) Phillips # (Auto) Eos # (Auto) Baso # (Auto) APTT 59 H D Puncture Site pCO2 pO2 HCO3 ABG pH ABG Total CO2 ABG O2 Saturation ABG Base Excess ABG Hemoglobin ABG Carboxyhemoglobin POC ABG HHb (Measured) ABG Methemoglobin Mario Test A-a O2 Difference Respiratory Index Hgb O2 Saturation Vent Mode Mechanical Rate FiO2 Tidal Volume PEEP Sodium Potassium Chloride Carbon Dioxide Anion Gap BUN Creatinine Est GFR ( Amer) Est GFR (Non-Af Amer) POC Glucose (mg/dL) Random Glucose Calcium Phosphorus Magnesium Total Bilirubin AST ALT Alkaline Phosphatase NT-Pro-B Natriuret Pep 6340 H Total Protein Albumin Globulin Albumin/Globulin Ratio Hepatitis A IgM Ab Hep Bs Antigen Hep B Core IgM Ab Hepatitis C Antibody Blood Type B POSITIVE Blood Type Confirm B POSITIVE Antibody Screen Negative 11/08/18 11/08/18 11/09/18 17:29 20:02 05:24 WBC RBC Hgb Hct MCV MCH MCHC RDW Plt Count MPV Neut % (Auto) Lymph % (Auto) Phillips % (Auto) Eos % (Auto) Baso % (Auto) Neut # (Auto) Lymph # (Auto) Phillips # (Auto) Eos # (Auto) Baso # (Auto) APTT 53 H D Puncture Site Rr pCO2 30 L pO2 125 H HCO3 26.6 ABG pH 7.52 H ABG Total CO2 25.4 ABG O2 Saturation 99.0 H ABG Base Excess 2.1 ABG Hemoglobin 10.9 L ABG Carboxyhemoglobin 1.5 POC ABG HHb (Measured) 1.0 ABG Methemoglobin 0.7 Mario Test Pos A-a O2 Difference 123.0 Respiratory Index 1.0 Hgb O2 Saturation 96.8 Vent Mode Prvc Mechanical Rate 12 FiO2 40.0 Tidal Volume 500 PEEP 5 Sodium Potassium Chloride Carbon Dioxide Anion Gap BUN Creatinine Est GFR ( Amer) Est GFR (Non-Af Amer) POC Glucose (mg/dL) 210 H Random Glucose Calcium Phosphorus Magnesium Total Bilirubin AST ALT Alkaline Phosphatase NT-Pro-B Natriuret Pep Total Protein Albumin Globulin Albumin/Globulin Ratio Hepatitis A IgM Ab Hep Bs Antigen Hep B Core IgM Ab Hepatitis C Antibody Blood Type Blood Type Confirm Antibody Screen 11/09/18 11/09/18 11/09/18 06:09 06:40 06:40 WBC 8.1 RBC 3.75 L Hgb 11.2 D Hct 33.1 L MCV 88.1 D MCH 29.7 MCHC 33.8 RDW 14.2 Plt Count 185 MPV 10.1 Neut % (Auto) 81.6 H Lymph % (Auto) 10.9 L Phillips % (Auto) 5.2 Eos % (Auto) 1.8 Baso % (Auto) 0.5 Neut # (Auto) 6.6 Lymph # (Auto) 0.9 L Phillips # (Auto) 0.4 Eos # (Auto) 0.1 Baso # (Auto) 0.0 APTT Puncture Site pCO2 pO2 HCO3 ABG pH ABG Total CO2 ABG O2 Saturation ABG Base Excess ABG Hemoglobin ABG Carboxyhemoglobin POC ABG HHb (Measured) ABG Methemoglobin Mario Test A-a O2 Difference Respiratory Index Hgb O2 Saturation Vent Mode Mechanical Rate FiO2 Tidal Volume PEEP Sodium 134 Potassium 4.2 Chloride 101 Carbon Dioxide 25 Anion Gap 13 BUN 19 H Creatinine 0.7 Est GFR ( Amer) > 60 Est GFR (Non-Af Amer) > 60 POC Glucose (mg/dL) 176 H Random Glucose 189 H Calcium 8.8 Phosphorus 2.9 Magnesium 2.3 Total Bilirubin 2.3 H AST 208 H D ALT 176 H D Alkaline Phosphatase 149 H D NT-Pro-B Natriuret Pep Total Protein 6.5 Albumin 3.4 L Globulin 3.1 Albumin/Globulin Ratio 1.1 Hepatitis A IgM Ab Hep Bs Antigen Hep B Core IgM Ab Hepatitis C Antibody Blood Type Blood Type Confirm Antibody Screen 11/09/18 11/09/18 06:40 07:38 WBC RBC Hgb Hct MCV MCH MCHC RDW Plt Count MPV Neut % (Auto) Lymph % (Auto) Phillips % (Auto) Eos % (Auto) Baso % (Auto) Neut # (Auto) Lymph # (Auto) Phillips # (Auto) Eos # (Auto) Baso # (Auto) APTT 43 H D Puncture Site pCO2 pO2 HCO3 ABG pH ABG Total CO2 ABG O2 Saturation ABG Base Excess ABG Hemoglobin ABG Carboxyhemoglobin POC ABG HHb (Measured) ABG Methemoglobin Mario Test A-a O2 Difference Respiratory Index Hgb O2 Saturation Vent Mode Mechanical Rate FiO2 Tidal Volume PEEP Sodium Potassium Chloride Carbon Dioxide Anion Gap BUN Creatinine Est GFR ( Amer) Est GFR (Non-Af Amer) POC Glucose (mg/dL) Random Glucose Calcium Phosphorus Magnesium Total Bilirubin AST ALT Alkaline Phosphatase NT-Pro-B Natriuret Pep Total Protein Albumin Globulin Albumin/Globulin Ratio Hepatitis A IgM Ab Negative Hep Bs Antigen Negative Hep B Core IgM Ab Negative Hepatitis C Antibody Negative Blood Type Blood Type Confirm Antibody Screen Fingerstick Blood Sugar Results: 176
--- NOTE | 2018-11-09 10:03 | RAD ---
Date of service: 11/09/2018 HISTORY: INTUBATED,CHF COMPARISON: Portable chest 11/08/2018 6:58 a.m.. FINDINGS: LUNGS: Endotracheal and nasogastric tubes are not significantly changed in position with right central venous line stable as well. PLEURA: No significant pleural effusion identified, no pneumothorax apparent. CARDIOVASCULAR: Calcific atherosclerotic changes are seen related to the thoracic aorta. Post CABG changes reiterated. Cardiac size appears stable. Improved pulmonary vascular congestion with limited residual remaining, including accentuated reticular pattern bilaterally. OSSEOUS STRUCTURES: No significant abnormalities. VISUALIZED UPPER ABDOMEN: Normal. OTHER FINDINGS: None. IMPRESSION: Improving CHF pattern. Significant residual remains. Continued clinical and radiographic monitor advised.
[2018-11-09] MEDS: Omega-3-Acid Ethyl Esters 1 GM Cap PO SCH ×2 (10:57→19:10)
[2018-11-09] MEDS: Pantoprazole 40 mg Susp UD GT SCH (10:58)
[2018-11-09] MEDS: Aspirin 325 mg EC Tablets PO SCH (10:58)
[2018-11-09 17:00] LABS: SQUAMOUS EPITHIAL 2 /hpf (0-5); URINE BILIRUBIN 1+ (NEGATIVE); URINE BLOOD NEGATIVE (NEGATIVE); URINE CLARITY Clear (Clear); URINE COLOR Amber (YELLOW); URINE GLUCOSE (UA) NORMAL (Normal); URINE LEUKOCYTE ESTERASE NEG Leu/uL (Negative); URINE PROTEIN 1+ mg/dL (NEGATIVE)
--- NOTE | 2018-11-09 17:28 | CP.PCM.PN ---
Subjective - Date & Time of Evaluation Date of Evaluation: 11/09/18 Time of Evaluation: 10:55 - Subjective Subjective: clinically same Objective - Vital Signs/Intake and Output Vital Signs (last 24 hours): Temp Pulse Resp BP Pulse Ox 98.2 F 77 19 100/63 100 11/09/18 04:00 11/09/18 12:03 11/09/18 12:03 11/09/18 12:03 11/09/18 12:03 Intake and Output: 11/09/18 11/09/18 06:59 18:59 Intake Total 1983.1 157.5 Output Total 1500 150 Balance 483.1 7.5 - Medications Medications: Current Medications Acetaminophen (Tylenol 650mg/20.3ml Solution Ud) 650 mg PO Q6 PRN PRN Reason: Temperature Last Admin: 11/08/18 13:20 Dose: 650 mg Albuterol/Ipratropium (Duoneb 3 Mg/0.5 Mg (3 Ml) Ud) 3 ml INH RQ8 MIREYA Last Admin: 11/09/18 07:56 Dose: 3 ml Aspirin (Ecotrin) 325 mg PO DAILY [facility] Last Admin: 11/09/18 10:58 Dose: 325 mg Midazolam HCl 100 mg/ Dextrose 100 mls @ 1.52 mls/hr IV .Q24H MIREYA; Protocol Last Admin: 11/09/18 02:00 Dose: 0.1 mg/kg/hr, 7.62 mls/hr Norepinephrine Bitartrate 8 mg (/ Dextrose) 258 mls @ 3.87 mls/hr IV .Q24H PRN; Protocol PRN Reason: TITRATE PER MD ORDER Last Titration: 11/09/18 02:00 Dose: 2 mcg/min, 3.87 mls/hr Heparin Sodium/Sodium Chloride (Heparin 76689 Units/250ml 1/2 Normal Saline) 25,000 units in 250 mls @ 10.234 mls/hr IV .Q24H PRN; Protocol PRN Reason: ADJUST RATE PER PROTOCOL Last Admin: 11/08/18 22:05 Dose: 14 units/kg/hr, 10.234 mls/hr Amiodarone HCl 900 mg/ (Dextrose) 500 mls @ 16.67 mls/hr IV .Q24H ONE; Protocol Stop: 11/09/18 19:40 Last Admin: 11/08/18 20:35 Dose: 16.67 mls/hr [id number] Ethyl Esters (Lovaza) 1 gm PO BID [facility] Last Admin: 11/09/18 10:57 Dose: 1 gm Pantoprazole Sodium (Protonix Susp) 40 mg GT DAILY [facility] Last Admin: 11/09/18 10:58 Dose: 40 mg Ticagrelor (Brilinta) 90 mg PO BID [facility] Last Admin: 11/09/18 10:58 Dose: 90 mg - Labs Labs: 11/09/18 06:40 11/09/18 06:40 PT 13.5 SECONDS (9.7-12.2) H 11/07/18 05:49 INR 1.2 11/07/18 05:49 APTT 43 SECONDS (21-34) H D 11/09/18 06:40 - Constitutional Appears: Well - Head Exam Head Exam: ATRAUMATIC, NORMAL INSPECTION, NORMOCEPHALIC - Eye Exam Eye Exam: EOMI, Normal appearance, PERRL Pupil Exam: NORMAL ACCOMODATION, PERRL - ENT Exam ENT Exam: Mucous Membranes Moist, Normal Exam - Neck Exam Neck Exam: Full ROM, Normal Inspection. absent: Lymphadenopathy - Respiratory Exam Respiratory Exam: Decreased Breath Sounds - Cardiovascular Exam Cardiovascular Exam: REGULAR RHYTHM, +S1, +S2 - GI/Abdominal Exam GI & Abdominal Exam: Soft, Diminished Bowel Sounds - Rectal Exam Rectal Exam: Deferred
--- NOTE | 2018-11-09 17:34 | US ---
Date of service: 11/09/2018 HISTORY: abnormal L F T COMPARISON: None. TECHNIQUE: Sonographic evaluation of the abdomen. FINDINGS: LIVER: Measures 17.7 cm. Increased echogenicity of the liver parenchyma. No mass or intrahepatic biliary dilatation identified however the liver is upper limits normal size. GALLBLADDER: Unremarkable. No gallstones. COMMON BILE DUCT: Measures 4.0 mm. No stones. No dilatation. PANCREAS: Head and tail the pancreas are obscured by overlying bowel gas with remainder unremarkable. RIGHT KIDNEY: Measures 11.2cm. Normal echogenicity. No calculus, mass, or hydronephrosis. LEFT KIDNEY: Measures 11.3cm. Normal echogenicity. No calculus, mass, or hydronephrosis. SPLEEN: Normal in size and contour, 8.4 cm greatest dimension. No mass. AORTA: No aneurysmal dilatation. IVC: Unremarkable. OTHER FINDINGS: None. IMPRESSION: Diffuse fatty infiltration of the liver or other hepatic infiltrative process is identified without focal mass or intrahepatic biliary duct dilatation. Liver is upper limits normal size. Partial imaging of the pancreas.
[2018-11-09] MEDS: [UNRECOGNIZED DRUG - OTHER] IV PRN (22:30)
[2018-11-10] MEDS: Albuterol-Ipratrop 3 mg / 0.5 (3 ml) UD INH SCH ×4 (01:44→23:42)
[2018-11-10] MEDS: Midazolam 50 mg/10 ml 100 MG in Dextrose 5% In Water 80 ML IV SCH (02:50)
[2018-11-10 05:58] LABS: ABG ALLEN TEST POS; ARTERIAL BLOOD GAS HCO3 25.2 mmol/L (21-28); ARTERIAL BLOOD GAS PCO2 25 mm/Hg (35-45); ARTERIAL BLOOD GAS PH 7.55 (7.35-7.45); ARTERIAL BLOOD GAS PO2 174 mm/Hg (80-100); ARTERIAL BLOOD GAS TCO2 22.7 mmol/L (22-28)
[2018-11-10 06:35] LABS: BASO % 0.5 % (0.0-2.0); EOS # 0.1 K/uL (0.0-0.7); EOS % 1.4 % (0.0-4.0); HEMOGLOBIN 10.4 g/dL (11.0-16.0); LYMPH # 0.8 K/uL (1.0-4.3); LYMPH % 11.3 % (20.0-40.0); MEAN CORPUSCULAR HEMOGLOBIN 29.9 pg (27.0-31.0); MEAN CORPUSCULAR HGB CONC 33.6 g/dL (33.0-37.0); MEAN PLATELET VOLUME 9.6 fL (7.2-11.7); MONO # 0.4 K/uL (0.0-0.8); MONO % 5.9 % (0.0-10.0); NEUT # 5.5 K/uL (1.8-7.0); NEUT % 80.9 % (50.0-75.0); NRBC % 0.1 % (0.0-2.0); RBC 3.48 Mil/uL (3.80-5.20); RED CELL DISTRIBUTION WIDTH 14.2 % (11.5-14.5); WHITE BLOOD COUNT 6.8 K/uL (4.8-10.8)
[2018-11-10 06:50] LABS: ALB/GLOB RATIO 1.1 (1.0-2.1); ALBUMIN 3.3 g/dL (3.5-5.0); ALT/SGPT 139 U/L (9-52); AST/SGOT 88 U/L (14-36); BLOOD UREA NITROGEN 21 mg/dL (7-17); CALCIUM 8.4 mg/dl (8.6-10.4); GFR NON-AFRICAN AMERICAN > 60
--- NOTE | 2018-11-10 08:49 | RAD ---
Date of service: 11/10/2018 HISTORY: follow up COMPARISON: Portable chest 11/09/2018. FINDINGS: LUNGS: Endotracheal and nasogastric tubes are not significantly changed in position as well as right central venous line. There is a further reduction in central hilar hazy opacity suggesting further improvement in pulmonary vascular congestion. No definite infiltrate bilaterally. PLEURA: No significant pleural effusion identified, no pneumothorax apparent. CARDIOVASCULAR: Calcific atherosclerotic changes are seen related to the thoracic aorta. Normal cardiac size. Improved pulmonary vascular congestion. OSSEOUS STRUCTURES: No significant abnormalities. VISUALIZED UPPER ABDOMEN: Normal. OTHER FINDINGS: None. IMPRESSION: Further improvement in pulmonary vascular congestion. No definite infiltrates bilaterally.
[2018-11-10] MEDS: Omega-3-Acid Ethyl Esters 1 GM Cap PO SCH ×2 (09:25→17:22)
[2018-11-10] MEDS: Aspirin 325 mg EC Tablets PO SCH (09:25)
[2018-11-10] MEDS: Pantoprazole 40 mg Susp UD GT SCH (09:28)
[2018-11-10] MEDS ORDERED: Midazolam 2 MG/2 ML VIAL IVP STA (16:09)
--- NOTE | 2018-11-10 16:35 | CP.PCM.PN ---
Subjective - Date & Time of Evaluation Date of Evaluation: 11/10/18 Time of Evaluation: 10:45 - Subjective Subjective: clinically same Objective - Vital Signs/Intake and Output Vital Signs (last 24 hours): Temp Pulse Resp BP Pulse Ox 99.1 F 99 H 21 130/69 100 11/10/18 12:00 11/10/18 15:03 11/10/18 15:03 11/10/18 15:03 11/10/18 15:03 Intake and Output: 11/10/18 11/10/18 06:59 18:59 Intake Total 1387.4 507.7 Output Total 1290 140 Balance 97.4 367.7 - Medications Medications: Current Medications Acetaminophen (Tylenol 650mg/20.3ml Solution Ud) 650 mg PO Q6 PRN PRN Reason: Temperature Last Admin: 11/08/18 13:20 Dose: 650 mg Albuterol/Ipratropium (Duoneb 3 Mg/0.5 Mg (3 Ml) Ud) 3 ml INH RQ8 [facility] Last Admin: 11/10/18 16:18 Dose: 3 ml Aspirin (Ecotrin) 325 mg PO DAILY [facility] Last Admin: 11/10/18 09:25 Dose: 325 mg Midazolam HCl 100 mg/ Dextrose 100 mls @ 1.52 mls/hr IV .Q24H MIREYA; Protocol Last Titration: 11/10/18 16:24 Dose: 0.02 mg/kg/hr, 1.52 mls/hr Norepinephrine Bitartrate 8 mg (/ Dextrose) 258 mls @ 3.87 mls/hr IV .Q24H PRN; Protocol PRN Reason: TITRATE PER MD ORDER Last Titration: 11/09/18 19:00 Dose: 0 mcg/min, 0 mls/hr Heparin Sodium/Sodium Chloride (Heparin 66732 Units/250ml 1/2 Normal Saline) 25,000 units in 250 mls @ 10.234 mls/hr IV .Q24H PRN; Protocol PRN Reason: ADJUST RATE PER PROTOCOL Last Admin: 11/09/18 22:30 Dose: 14 units/kg/hr, 10.234 mls/hr [id number] Ethyl Esters (Lovaza) 1 gm PO BID [facility] Last Admin: 11/10/18 09:25 Dose: 1 gm Pantoprazole Sodium (Protonix Susp) 40 mg GT DAILY [facility] Last Admin: 11/10/18 09:28 Dose: 40 mg Ticagrelor (Brilinta) 90 mg PO BID [facility] Last Admin: 11/10/18 09:25 Dose: 90 mg - Labs Labs: 11/10/18 06:25 11/10/18 06:25 PT 13.5 SECONDS (9.7-12.2) H 11/07/18 05:49 INR 1.2 11/07/18 05:49 APTT 45 SECONDS (21-34) H 11/10/18 06:25 - Constitutional Appears: Well - Head Exam Head Exam: ATRAUMATIC, NORMAL INSPECTION, NORMOCEPHALIC - Eye Exam Eye Exam: EOMI, Normal appearance, PERRL Pupil Exam: NORMAL ACCOMODATION, PERRL - ENT Exam ENT Exam: Mucous Membranes Moist, Normal Exam - Neck Exam Neck Exam: Full ROM, Normal Inspection. absent: Lymphadenopathy - Respiratory Exam Respiratory Exam: Decreased Breath Sounds - Cardiovascular Exam Cardiovascular Exam: REGULAR RHYTHM, +S1, +S2 - GI/Abdominal Exam GI & Abdominal Exam: Soft, Diminished Bowel Sounds - Rectal Exam Rectal Exam: Deferred
[2018-11-10] MEDS: Acetaminophen 650mg/20.3ml solution UD PO PRN (17:22)
[2018-11-10] MEDS ORDERED: Propofol 10 mg/ml 1,000 MG/100 ML VIAL IV PRN (18:39)
--- NOTE | 2018-11-10 18:43 | CP.CCUPN ---
CCU Subjective - Physician Review Events Since Last Encounter (Free Text): 11/10/18 18:41 Patient is a 63-year-old female with a history of coronary artery bypass grafting, and atherosclerotic heart disease, status post cold heart, angioplasty. Also patient had a balloon pump. Patient condition complicated with acute decompensated heart failure. Acute respiratory failure. Patient is currently on ventilator. Patient is currently receiving Heparin drip, midazolam, On examination: Patient is currently sedated well. On ventilator. Full support ventilation. Chest good air entry No rales or wheezing noted Heart sounds are regular no Abdomen soft. Pedal edema 1+ Labs reviewed Nonspecific. WBC is normal. Chest x-ray mild vascular congestion noted. Right TLC noted. ET tube in good position. Assessment and recommendation: 63-year-old female with a history of CABG, CAD, acute ST elevation [place]. Status post angioplasty. Balloon pump. Acute decompensated systolic heart failure Overall poor prognosis. will start the antibiotics weaning attempted today but patient failed. She is she started having tachypnea. Also tachycardia. Immediately Versed was given and the patient stabilized. We will continue the current protocol. Patient will need to start an antibiotic given the increasing secretions from the endotracheal tube. CCU Objective - Vital Signs / Intake & Output Vital Signs (Last 4 hours): Vital Signs Temp Pulse Resp BP Pulse Ox 11/10/18 18:33 83 19 91/47 L 100 11/10/18 18:03 86 20 91/40 L 100 11/10/18 17:33 97 H 22 110/51 L 100 11/10/18 17:22 101.3 F H 11/10/18 17:03 98 H 21 114/66 100 11/10/18 16:05 124 H 30 H 145/77 100 11/10/18 16:00 101.3 F H 11/10/18 15:03 99 H 21 130/69 100 Intake and Output (Last 8hrs): Intake & Output 11/10/18 11/10/18 11/10/18 06:59 14:59 22:59 Intake Total 677.0 457.5 203.2 Output Total 350 260 120 Balance 327.0 197.5 83.2 Weight 164 lb 10.965 oz Intake: IV 169 5 0 Intake, IV Amount 188.0 102.5 43.2 Right Distal Port 106.4 20.9 Internal Jugular Right Forearm 81.6 81.6 40.8 Right Proximal Port 2.4 Internal Jugular Tube Feeding 320 320 160 Other 30 Output: Urine 350 260 120 Urethral (Kelsey) 350 260 120 Other: # Bowel Movements 0 0 1 - Physical Exam Head: Positive for: Atraumatic, Normocephalic Pupils: Positive for: PERRL Extroacular Muscles: Positive for: EOMI Conjunctiva: Positive for: Normal Mouth: Positive for: Moist Mucous Membranes Neck: Positive for: Other (intubated ) Respiratory/Chest: Positive for: Good Air Exchange, Rales Cardiovascular: Positive for: Normal S1, S2, Irregular Rhythm, Tachycardic Abdomen: Negative for: Tenderness Upper Extremity: Positive for: Normal Inspection. Negative for: Cyanosis, Edema Lower Extremity: Positive for: Normal Inspection. Negative for: Edema Neurological: Positive for: Other (unable to assess due to pts status, intubated and sedated) Skin: Positive for: Warm, Dry, Normal Color Psychiatric: Positive for: Alert - Medications Active Medications: Active Medications Generic Name Dose Route Start Last Admin Trade Name Freq PRN Reason Stop Dose Admin Acetaminophen 650 mg 11/06/18 20:50 11/10/18 17:22 Tylenol 650mg/20.3ml Solution Ud PO 650 mg Q6 PRN Administration Temperature Albuterol/Ipratropium 3 ml 11/04/18 17:01 11/10/18 16:18 Duoneb 3 Mg/0.5 Mg (3 Ml) Ud INH 3 ml RQ8 MIREYA Administration Aspirin 325 mg 11/04/18 10:00 11/10/18 09:25 Ecotrin PO 325 mg DAILY MIREYA Administration Heparin Sodium/Sodium Chloride 25,000 units in 250 mls @ 10.234 mls/hr 11/08/18 07:29 11/09/18 22:30 Heparin 58231 Units/250ml 1/2 Normal Saline IV 14 units/kg/hr .Q24H PRN 10.234 mls/hr ADJUST RATE PER PROTOCOL Administration Protocol 14 UNITS/KG/HR Propofol 1,000 mg in 100 mls @ 2.241 mls/hr 11/10/18 18:39 Diprivan IV .Q24H PRN TITRATE PER MD ORDER Protocol 5 MCG/KG/MIN Piperacillin Sod/Tazobactam Sod 2.25 gm in 50 mls @ 100 mls/hr 11/10/18 18:45 Zosyn 2.25 Gm Iv Premix IVPB Q6H [facility] [place] Protocol [id number] Ethyl Esters 1 gm 11/04/18 10:00 11/10/18 17:22 Lovaza PO 1 gm BID MIREYA Administration Pantoprazole Sodium 40 mg 11/06/18 10:00 11/10/18 09:28 Protonix Susp GT 40 mg DAILY [facility]REYA Administration Ticagrelor 90 mg 11/04/18 10:00 11/10/18 17:21 Brilinta PO 90 mg BID MIREYA Administration - Patient Studies Lab Studies: Microbiology Studies 11/09/18 16:50 Blood Culture - Preliminary Blood NO GROWTH AFTER 24 HOURS 11/06/18 12:14 Blood Culture - Preliminary Blood-Venous NO GROWTH AFTER 4 DAYS 11/09/18 16:50 Urine Culture - Final Urine Random No Growth (<1,000 CFU/ML) 11/09/18 18:00 Gram Stain - Final Sputum Lab Studies 11/10/18 11/10/18 11/10/18 Range/Units 17:32 06:55 06:25 WBC (4.8-10.8) K/uL RBC (3.80-5.20) Mil/uL Hgb (11.0-16.0) g/dL Hct (34.0-47.0) % MCV (81.0-99.0) fL MCH (27.0-31.0) pg MCHC (33.0-37.0) g/dL RDW (11.5-14.5) % Plt Count (130-400) K/uL MPV (7.2-11.7) fL Neut % (Auto) (50.0-75.0) % Lymph % (Auto) (20.0-40.0) % [place] % (Auto) (0.0-10.0) % Eos % (Auto) (0.0-4.0) % Baso % (Auto) (0.0-2.0) % Neut # (Auto) (1.8-7.0) K/uL Lymph # (Auto) (1.0-4.3) K/uL [place] # (Auto) (0.0-0.8) K/uL Eos # (Auto) (0.0-0.7) K/uL Baso # (Auto) (0.0-0.2) K/uL APTT 45 H (21-34) SECONDS Puncture Site pCO2 (35-45) mm/Hg pO2 (80-100) mm/Hg HCO3 (21-28) mmol/L ABG pH (7.35-7.45) ABG Total CO2 (22-28) mmol/L ABG O2 Saturation (95-98) % ABG Base Excess (-2.0-3.0) mmol/L ABG Hemoglobin (11.7-17.4) g/dL ABG Carboxyhemoglobin (0.5-1.5) % POC ABG HHb (Measured) (0.0-5.0) % ABG Methemoglobin (0.0-3.0) % Mario Test A-a O2 Difference mm/Hg Respiratory Index Hgb O2 Saturation (95.0-98.0) % Vent Mode Mechanical Rate FiO2 % Tidal Volume PEEP Sodium (132-148) mmol/L Potassium (3.6-5.2) mmol/L Chloride (98-107) mmol/L Carbon Dioxide (22-30) mmol/L Anion Gap (10-20) BUN (7-17) mg/dL Creatinine (0.7-1.2) mg/dL Est GFR ( Amer) Est GFR (Non-Af Amer) POC Glucose (mg/dL) 206 H 212 H (65-110) mg/dL Random Glucose (65-105) mg/dL Calcium (8.6-10.4) mg/dl Phosphorus (2.5-4.5) mg/dL Magnesium (1.6-2.3) mg/dL Total Bilirubin (0.2-1.3) mg/dL AST (14-36) U/L ALT (9-52) U/L Alkaline Phosphatase (38-126) U/L Total Protein (6.3-8.3) g/dL Albumin (3.5-5.0) g/dL Globulin (2.2-3.9) gm/dL Albumin/Globulin Ratio (1.0-2.1) 11/10/18 11/10/18 11/10/18 Range/Units 06:25 06:25 05:40 WBC 6.8 (4.8-10.8) K/uL RBC 3.48 L (3.80-5.20) Mil/uL Hgb 10.4 L (11.0-16.0) g/dL Hct 31.0 L (34.0-47.0) % MCV 89.0 (81.0-99.0) fL MCH 29.9 (27.0-31.0) pg MCHC 33.6 (33.0-37.0) g/dL RDW 14.2 (11.5-14.5) % Plt Count 170 (130-400) K/uL MPV 9.6 (7.2-11.7) fL Neut % (Auto) 80.9 H (50.0-75.0) % Lymph % (Auto) 11.3 L (20.0-40.0) % [place] % (Auto) 5.9 (0.0-10.0) % Eos % (Auto) 1.4 (0.0-4.0) % Baso % (Auto) 0.5 (0.0-2.0) % Neut # (Auto) 5.5 (1.8-7.0) K/uL Lymph # (Auto) 0.8 L (1.0-4.3) K/uL [place] # (Auto) 0.4 (0.0-0.8) K/uL Eos # (Auto) 0.1 (0.0-0.7) K/uL Baso # (Auto) 0.0 (0.0-0.2) K/uL APTT (21-34) SECONDS Puncture Site Rradial pCO2 25 L (35-45) mm/Hg pO2 174 H (80-100) mm/Hg HCO3 25.2 (21-28) mmol/L ABG pH 7.55 H (7.35-7.45) ABG Total CO2 22.7 (22-28) mmol/L ABG O2 Saturation 99.0 H (95-98) % ABG Base Excess 0.3 (-2.0-3.0) mmol/L ABG Hemoglobin 10.0 L (11.7-17.4) g/dL ABG Carboxyhemoglobin 1.4 (0.5-1.5) % POC ABG HHb (Measured) 1.0 (0.0-5.0) % ABG Methemoglobin 1.0 (0.0-3.0) % Mario Test Pos A-a O2 Difference 80.0 mm/Hg Respiratory Index 0.5 Hgb O2 Saturation 96.6 (95.0-98.0) % Vent Mode Prvc Mechanical Rate 16 FiO2 40.0 % Tidal Volume 500 PEEP 5 Sodium 132 (132-148) mmol/L Potassium 3.8 (3.6-5.2) mmol/L Chloride 99 (98-107) mmol/L Carbon Dioxide 24 (22-30) mmol/L Anion Gap 12 (10-20) BUN 21 H (7-17) mg/dL Creatinine 0.5 L (0.7-1.2) mg/dL Est GFR ( Amer) > 60 Est GFR (Non-Af Amer) > 60 POC Glucose (mg/dL) (65-110) mg/dL Random Glucose 177 H (65-105) mg/dL Calcium 8.4 L (8.6-10.4) mg/dl Phosphorus 3.0 (2.5-4.5) mg/dL Magnesium 2.3 (1.6-2.3) mg/dL Total Bilirubin 2.1 H (0.2-1.3) mg/dL AST 88 H D (14-36) U/L ALT 139 H D (9-52) U/L Alkaline Phosphatase 130 H (38-126) U/L Total Protein 6.2 L (6.3-8.3) g/dL Albumin 3.3 L (3.5-5.0) g/dL Globulin 2.9 (2.2-3.9) gm/dL Albumin/Globulin Ratio 1.1 (1.0-2.1) Laboratory Results - last 24 hr 11/10/18 11/10/18 11/10/18 05:40 06:25 06:25 WBC 6.8 RBC 3.48 L Hgb 10.4 L Hct 31.0 L MCV 89.0 MCH 29.9 MCHC 33.6 RDW 14.2 Plt Count 170 MPV 9.6 Neut % (Auto) 80.9 H Lymph % (Auto) 11.3 L [place] % (Auto) 5.9 Eos % (Auto) 1.4 Baso % (Auto) 0.5 Neut # (Auto) 5.5 Lymph # (Auto) 0.8 L [place] # (Auto) 0.4 Eos # (Auto) 0.1 Baso # (Auto) 0.0 APTT Puncture Site Rradial pCO2 25 L pO2 174 H HCO3 25.2 ABG pH 7.55 H ABG Total CO2 22.7 ABG O2 Saturation 99.0 H ABG Base Excess 0.3 ABG Hemoglobin 10.0 L ABG Carboxyhemoglobin 1.4 POC ABG HHb (Measured) 1.0 ABG Methemoglobin 1.0 Mario Test Pos A-a O2 Difference 80.0 Respiratory Index 0.5 Hgb O2 Saturation 96.6 Vent Mode Prvc Mechanical Rate 16 FiO2 40.0 Tidal Volume 500 PEEP 5 Sodium 132 Potassium 3.8 Chloride 99 Carbon Dioxide 24 Anion Gap 12 BUN 21 H Creatinine 0.5 L Est GFR ( Amer) > 60 Est GFR (Non-Af Amer) > 60 POC Glucose (mg/dL) Random Glucose 177 H Calcium 8.4 L Phosphorus 3.0 Magnesium 2.3 Total Bilirubin 2.1 H AST 88 H D ALT 139 H D Alkaline Phosphatase 130 H Total Protein 6.2 L Albumin 3.3 L Globulin 2.9 Albumin/Globulin Ratio 1.1 11/10/18 11/10/18 11/10/18 06:25 06:55 17:32 WBC RBC Hgb Hct MCV MCH MCHC RDW Plt Count MPV Neut % (Auto) Lymph % (Auto) [place] % (Auto) Eos % (Auto) Baso % (Auto) Neut # (Auto) Lymph # (Auto) [place] # (Auto) Eos # (Auto) Baso # (Auto) APTT 45 H Puncture Site pCO2 pO2 HCO3 ABG pH ABG Total CO2 ABG O2 Saturation ABG Base Excess ABG Hemoglobin ABG Carboxyhemoglobin POC ABG HHb (Measured) ABG Methemoglobin Mario Test A-a O2 Difference Respiratory Index Hgb O2 Saturation Vent Mode Mechanical Rate FiO2 Tidal Volume PEEP Sodium Potassium Chloride Carbon Dioxide Anion Gap BUN Creatinine Est GFR ( Amer) Est GFR (Non-Af Amer) POC Glucose (mg/dL) 212 H 206 H Random Glucose Calcium Phosphorus Magnesium Total Bilirubin AST ALT Alkaline Phosphatase Total Protein Albumin Globulin Albumin/Globulin Ratio Radiology Impressions: Radiology Impressions Chest X-Ray 11/10/18 07:00 IMPRESSION: Further improvement in pulmonary vascular congestion. No definite infiltrates bilaterally. Fingerstick Blood Sugar Results: 206
[2018-11-10] MEDS ORDERED: Piperacill/Tazo 2.25gm in Dex 2.25 GM/50 ML BAG IVPB SCH (18:45)
[2018-11-10] MEDS: Dexmedetomidine Hydrochloride 200 MCG in Sodium Chloride 0.9% 48 ML IV PRN (20:30)
[2018-11-11] MEDS: Piperacill/Tazo 2.25gm in Dex 2.25 GM/50 ML BAG IVPB SCH ×3 (00:30→11:35)
[2018-11-11] MEDS: Dexmedetomidine Hydrochloride 200 MCG in Sodium Chloride 0.9% 48 ML IV PRN (04:00)
[2018-11-11 05:04] LABS: ARTERIAL BLOOD GAS HCO3 25.2 mmol/L (21-28); ARTERIAL BLOOD GAS O2 SAT 98.9 % (95-98); ARTERIAL BLOOD GAS PCO2 33 mm/Hg (35-45); ARTERIAL BLOOD GAS PH 7.46 (7.35-7.45); ARTERIAL BLOOD GAS PO2 175 mm/Hg (80-100); ARTERIAL BLOOD GAS TCO2 24.5 mmol/L (22-28)
[2018-11-11 06:15] LABS: BASO % 0.3 % (0.0-2.0); EOS # 0.1 K/uL (0.0-0.7); EOS % 1.2 % (0.0-4.0); HEMOGLOBIN 9.7 g/dL (11.0-16.0); LYMPH # 0.7 K/uL (1.0-4.3); LYMPH % 7.1 % (20.0-40.0); MEAN CELL VOLUME 90.9 fL (81.0-99.0); MEAN CORPUSCULAR HEMOGLOBIN 30.1 pg (27.0-31.0); MEAN CORPUSCULAR HGB CONC 33.1 g/dL (33.0-37.0); MEAN PLATELET VOLUME 9.9 fL (7.2-11.7); MONO # 0.7 K/uL (0.0-0.8); NEUT # 8.1 K/uL (1.8-7.0); NEUT % 84.4 % (50.0-75.0); NRBC % 0.1 % (0.0-2.0); PLATELET COUNT 194 K/uL (130-400); RBC 3.23 Mil/uL (3.80-5.20); RED CELL DISTRIBUTION WIDTH 14.2 % (11.5-14.5); WHITE BLOOD COUNT 9.6 K/uL (4.8-10.8)
[2018-11-11 06:37] LABS: ALB/GLOB RATIO 1.1 (1.0-2.1); ALBUMIN 3.3 g/dL (3.5-5.0); ALT/SGPT 196 U/L (9-52); AST/SGOT 136 U/L (14-36); BLOOD UREA NITROGEN 32 mg/dL (7-17); CALCIUM 9.1 mg/dl (8.6-10.4); GFR NON-AFRICAN AMERICAN > 60
[2018-11-11] MEDS: [UNRECOGNIZED DRUG - OTHER] IV PRN ×2 (07:49→23:28)
[2018-11-11] MEDS: Albuterol-Ipratrop 3 mg / 0.5 (3 ml) UD INH SCH ×3 (07:51→23:52)
[2018-11-11 08:15] LABS: BANDS 3 % (0-2); LYMPHOCYTE 8 % (20-40); MONOCYTE 5 % (0-10); NEUTROPHIL 84 % (50-75); PLATELET ESTIMATE NORMAL (NORMAL); TOTAL CELLS COUNTED 100
[2018-11-11 08:16] LABS: OVALOCYTES SLIGHT
[2018-11-11] MEDS: Aspirin 325 mg EC Tablets PO SCH (09:02)
[2018-11-11] MEDS: Pantoprazole 40 mg Susp UD GT SCH (09:02)
[2018-11-11] MEDS: Acetaminophen 650mg/20.3ml solution UD PO PRN ×3 (09:02→23:38)
[2018-11-11] MEDS: Omega-3-Acid Ethyl Esters 1 GM Cap PO SCH ×2 (09:02→17:12)
--- NOTE | 2018-11-11 09:33 | CP.PCM.PN ---
Subjective - Date & Time of Evaluation Date of Evaluation: 11/11/18 Time of Evaluation: 06:00 - Subjective Subjective: Pt seen and examined this morning in ICU, pt intubated, daughter at bedside. Per nursing, Pt in bed intubated, arousable to verbal stimuli, with eye contact, Precedex drip, incontinent of loose brown stool. Objective - Vital Signs/Intake and Output Vital Signs (last 24 hours): Temp Pulse Resp BP Pulse Ox 100.5 F H 70 12 89/51 L 100 11/11/18 09:02 11/11/18 08:34 11/11/18 08:34 11/11/18 08:34 11/11/18 08:34 Intake and Output: 11/11/18 11/11/18 06:59 18:59 Intake Total 801.5 306.2 Output Total 350 30 Balance 451.5 276.2 - Medications Medications: Current Medications Acetaminophen (Tylenol 650mg/20.3ml Solution Ud) 650 mg PO Q6 PRN PRN Reason: Temperature Last Admin: 11/11/18 09:02 Dose: 650 mg Albuterol/Ipratropium (Duoneb 3 Mg/0.5 Mg (3 Ml) Ud) 3 ml INH RQ8 MIREYA Last Admin: 11/11/18 07:51 Dose: 3 ml Aspirin (Ecotrin) 325 mg PO DAILY MIREYA Last Admin: 11/11/18 09:02 Dose: 325 mg Heparin Sodium/Sodium Chloride (Heparin 05795 Units/250ml 1/2 Normal Saline) 25,000 units in 250 mls @ 10.234 mls/hr IV .Q24H PRN; Protocol PRN Reason: ADJUST RATE PER PROTOCOL Last Admin: 11/11/18 07:49 Dose: 16 units/kg/hr, 11.696 mls/hr Dexmedetomidine HCl 200 mcg/ (Sodium Chloride) 50 mls @ 3.74 mls/hr IV TITR PRN; Protocol PRN Reason: Agitation Last Admin: 11/11/18 04:00 Dose: 0.32 mcg/kg/hr, 6 mls/hr Piperacillin Sod/Tazobactam Sod (Zosyn 2.25 Gm Iv Premix) 2.25 gm in 50 mls @ 100 mls/hr IVPB Q6 MIREYA; Protocol Last Admin: 11/11/18 06:15 Dose: 100 mls/hr [id number] Ethyl Esters (Lovaza) 1 gm PO BID [facility] Last Admin: 11/11/18 09:02 Dose: 1 gm Pantoprazole Sodium (Protonix Susp) 40 mg GT DAILY [facility] Last Admin: 11/11/18 09:02 Dose: 40 mg Ticagrelor (Brilinta) 90 mg PO BID [facility] Last Admin: 11/11/18 09:02 Dose: 90 mg - Labs Labs: 11/11/18 06:11 11/11/18 06:09 PT 13.5 SECONDS (9.7-12.2) H 11/07/18 05:49 INR 1.2 11/07/18 05:49 APTT 43 SECONDS (21-34) H 11/11/18 06:11 - Head Exam Head Exam: ATRAUMATIC, NORMOCEPHALIC Additional comments: intubated - Respiratory Exam Respiratory Exam: Clear to Ausculation Bilateral. absent: Accessory Muscle Use, Wheezes, Respiratory Distress - Cardiovascular Exam Cardiovascular Exam: RRR, +S1, +S2. absent: Diastolic murmur, Murmur - GI/Abdominal Exam GI & Abdominal Exam: Soft, Normal Bowel Sounds - Extremities Exam Extremities Exam: absent: Pedal Edema - Neurological Exam Additional comments: intubated, on precedex drip - Skin Skin Exam: Dry, Intact, Warm Assessment and Plan - Assessment and Plan (Free Text) Assessment: Assessment and Plan (1) Cardiogenic shock Status: Acute (2) Dyslipidemia Status: Acute (3) STEMI (ST elevation myocardial infarction) Status: Acute (4) Coronary artery disease Status: Chronic (5) HTN (hypertension) Status: Acute (6) Hx of CABG Status: Chronic Plan: BNP 6340 Amio drip discontinued pressers discontinued Continue heparin drip continue precedex drip 0.2 trial of CPAP start Toprol 12.5 Continue Zetia Lovaza ASA 325 Brilinta Pt seen, examined, assessment and plan discussed with Dr Sharif Teague PGY1
--- NOTE | 2018-11-11 11:44 | CP.PCM.PN ---
Subjective - Date & Time of Evaluation Date of Evaluation: 11/11/18 Time of Evaluation: 07:40 - Subjective Subjective: Karely Serna DO, PGY-2: ICU Progress Note for Dr. Morris Patient was seen and examined at bedside. Patient was noted to have a fever above 100.4 twice in the last twenty four hours. Yesterday, the patient was noted to have increased respiratory secretions and was started empirically on Zosyn 2.25 q6h MIREYA. Patient is able to open eyes. Nurse reports she had two large solid bowel movements in the last 12 hours. She is able to minimally dorsiflex wrist and foot. Patient blood pressure was also noted to be in the low side. A full 12 point ROS was unable to be obtained secondary to the patient being intubated. Objective - Vital Signs/Intake and Output Vital Signs (last 24 hours): Temp Pulse Resp BP Pulse Ox 100.5 F H 70 12 89/51 L 100 11/11/18 09:02 11/11/18 08:34 11/11/18 08:34 11/11/18 08:34 11/11/18 08:34 Intake and Output: 11/11/18 11/11/18 06:59 18:59 Intake Total 801.5 341.2 Output Total 350 30 Balance 451.5 311.2 - Medications Medications: Current Medications Acetaminophen (Tylenol 650mg/20.3ml Solution Ud) 650 mg PO Q6 PRN PRN Reason: Temperature Last Admin: 11/11/18 09:02 Dose: 650 mg Albuterol/Ipratropium (Duoneb 3 Mg/0.5 Mg (3 Ml) Ud) 3 ml INH RQ8 MIREYA Last Admin: 11/11/18 07:51 Dose: 3 ml Aspirin (Ecotrin) 325 mg PO DAILY [facility] Last Admin: 11/11/18 09:02 Dose: 325 mg Heparin Sodium/Sodium Chloride (Heparin 99655 Units/250ml 1/2 Normal Saline) 25,000 units in 250 mls @ 10.234 mls/hr IV .Q24H PRN; Protocol PRN Reason: ADJUST RATE PER PROTOCOL Last Admin: 11/11/18 07:49 Dose: 16 units/kg/hr, 11.696 mls/hr Dexmedetomidine HCl 200 mcg/ (Sodium Chloride) 50 mls @ 3.74 mls/hr IV TITR PRN; Protocol PRN Reason: Agitation Last Titration: 11/11/18 11:00 Dose: 0 mcg/kg/hr, 0 mls/hr Piperacillin Sod/Tazobactam (Sod 4.5 gm/ Sodium Chloride) 100 mls @ 200 mls/hr IVPB Q6H [facility]; Protocol [id number] Ethyl Esters (Lovaza) 1 gm PO BID [facility] Last Admin: 11/11/18 09:02 Dose: 1 gm Pantoprazole Sodium (Protonix Susp) 40 mg GT DAILY [facility] Last Admin: 11/11/18 09:02 Dose: 40 mg Ticagrelor (Brilinta) 90 mg PO BID [facility] Last Admin: 11/11/18 09:02 Dose: 90 mg - Labs Labs: 11/11/18 06:11 11/11/18 06:09 PT 13.5 SECONDS (9.7-12.2) H 11/07/18 05:49 INR 1.2 11/07/18 05:49 APTT 43 SECONDS (21-34) H 11/11/18 06:11 - Constitutional Appears: Non-toxic, No Acute Distress - Head Exam Head Exam: ATRAUMATIC, NORMOCEPHALIC - Eye Exam Eye Exam: EOMI, Normal appearance - ENT Exam ENT Exam: Mucous Membranes Moist - Respiratory Exam Respiratory Exam: Decreased Breath Sounds (bilaterally) - Cardiovascular Exam Cardiovascular Exam: RRR, +S1, +S2 - GI/Abdominal Exam GI & Abdominal Exam: Soft, Normal Bowel Sounds. absent: Tenderness, Rebound - Extremities Exam Extremities Exam: Normal Inspection, Pedal Edema. absent: Calf Tenderness - Neurological Exam Neurological Exam: Awake - Skin Skin Exam: Dry, Intact, Normal Color, Warm Assessment and Plan - Assessment and Plan (Free Text) Assessment: 63 year old female with a past medical history of CABG, CAD, who was admitted for chest pain and found to have an STEMI with restenosis of circumflex (with last stent placed a weeks ago). During catheterization she required IABP and intubation secondary to respiratory failure. She remains intubated , hypotensive, and continues to fail weaning trials. She was noted to have increased secretions yesterday and started on Zosyn empirically. For her hypotension she was put on a Levophed drip. Chest X-ray showed worsening vascular congestion. Milrinone drip was also started at 0.375 mch/kg/min per cardiology. 1) Cardiogenic Shock - Levophed ggt with target MAP of 65 mmHg - Milrinone 0.375 mcg/kg/min 2) Ventilatory associated Pneumonia given increased secretions and fever - ID consulted - Zosyn 4.5 g q6h MIREYA 3) CAD - Heparin ggt - Aspirin 325 mg - Brillinta 90 mg BID - Lovaza 4) GI prophylaxis - Protonix 40 mg suspension 5) Respiratory failure secondary to cardiogenic shock - PRVC; RR 12, FIO2 of 40%, TV of 500, PEEP 5 - Precedex drip 6) Failure to thrive - Osmolite 40 mls/hr tube 7) one blood culture growing staph Epidermiditis, MDR - Infectious Disease consulted Case reviewed and discussed with attending physician, Dr. Morris
--- NOTE | 2018-11-11 12:26 | CP.PCM.CON ---
History of Present Illness - History of Present Illness History of Present Illness: 63-year-old female with a history of coronary artery bypass grafting, and atherosclerotic heart disease, status post cold heart, angioplasty. Also patient had a balloon pump. Referred for ID eval and antibiotic management One set of blood cultures positive coag neg staph Review of Systems - Review of Systems Systems not reviewed;Unavailable: Acuity of Condition, Altered Mental Status, Intubated All systems: reviewed and no additional remarkable complaints except - Constitutional Constitutional: As Per HPI - EENT Eyes: absent: As Per HPI, Blind Spots, Blurred Vision, Change in Vision, Decreased Night Vision, Diplopia, Discharge, Dry Eye, Exophthalmos, Floaters, Irritation, Itchy Eyes, Loss of Peripheral Vision, Pain, Photophobia, Requires Corrective Lenses, Sees Flashes, Spots in Vision, Tunnel Vision, Other Visual Disturbances, Loss of Vision, Other Ears: absent: As Per HPI, Decreased Hearing, Ear Discharge, Ear Pain, Tinnitus, Abnormal Hearing, Disequilibrium, Dizziness, Other Nose/Mouth/Throat: absent: As Per HPI, Epistaxis, Nasal Congestion, Nasal Discharge, Nasal Obstruction, Nasal Trauma, Nose Pain, Post Nasal Drip, Sinus Pain, Sinus Pressure, Bleeding Gums, Change in Voice, Dental Pain, Dry Mouth, Dysphagia, Halitosis, Hoarsness, Lip Swelling, Mouth Lesions, Mouth Pain, Odynophagia, Sore Throat, Throat Swelling, Tongue Swelling, Facial Pain, Neck Pain, Neck Mass, Other - Breasts Breasts: absent: As Per HPI, Change in Shape, Mass, Pain, Nipple Discharge, Nipple Inversion, Skin Changes, Swelling, Other - Cardiovascular Cardiovascular: As Per HPI - Respiratory Respiratory: As Per HPI, Cough - Gastrointestinal Gastrointestinal: absent: As Per HPI, Abdominal Pain, Belching, Bloating, Change in Bowel Habits, Change in Stool Character, Coffee Ground Emesis, Constipation, Cramping, Diarrhea, Dyspepsia, Dysphagia, Early Satiety, Excessive Flatus, Fecal Incontinence, Heartburn, Hematemesis, Hematochezia, Loose Stools, Melena, Nausea, Odynophagia, Temesmus, Vomiting, Other - Genitourinary Genitourinary: absent: As Per HPI, Change in Urinary Stream, Difficulty Urinating, Dysuria, Flank Pain, Hematuria, Pyuria, Nocturia, Urinary Incontinence, Urinary Frequency, Urinary Hesitance, Urinary Urgency, Voiding Freq/Small Amts, Freq UTI, Hx Renal/Bladder Calculi, Hx /Renal Surgery, Blad kristie Distension, Other - Reproductive: Female Reproductive:Female: absent: As Per HPI, Amenorrhea, Amenorrhea/ Control, Currently Menstual, Cycle <21 Days, Cycle >35 Days, Cycle Variable, Menses 1-7 Days, Menses >/= 8 Days, Menses Variable, Cycle > 4 Weeks Between, No Menses for 6 Months, Heavy Menses, Light Menses, Normal Menses, Spotting Between Cycles, S/P Hysterectomy, Menopausal, Post Menopausal, Premenarche, Abnormal Vaginal Bleeding, Dysmenorrhea, Dyspareunia, Genital Lesions, Genital Pruritis, Pelvic Pain, Prolapse Symptoms, Sexual Dysfunction, Vaginal Discharge, Vaginal Dryness, Vaginal Odor, Vaginal Pruritis, Other - Menstruation Menstruation: absent: As Per HPI, Amenorrhea, Amenorrhea/ Control, Currently Menstual, Cycle <21 Days, Cycle >35 Days, Cycle Variable, Menses 1-7 Days, Menses >/= 8 Days, Menses Variable, Cycle > 4 Weeks Between, No Menses for 6 Months, Heavy Menses, Light Menses, Normal Menses, Spotting Between Cycles, S/P Hysterectomy, Menopausal, Post Menopausal, Premenarche, Abnormal Vaginal Bleeding, Dysmenorrhea, Other - Musculoskeletal Musculoskeletal: absent: As Per HPI, Abnormal Gait, Arthralgias, Atrophy, Back Pain, Deformity, Joint Swelling, Limited Range of Motion, Loss of Height, Muscle Cramps, Muscle Weakness, Myalgias, Neck Pain, Numbness, Radiating Pain into Limb, Stiffness, Tingling, Other - Integumentary Integumentary: absent: As Per HPI, Acne, Alopecia, Bleeding Lesions, Change in Hair, Change in Nails, Change in Pigmentation, Changing Lesions, Dry Skin, Erythema, Furuncle, Hirsutism, Lesions, New Lesions, Non-Healing Lesions, Photosensitivity, Pruritus, Rash, Skin Pain, Skin Ulcer, Sores, Striae, Swelling, Unusual Bruising, Wounds, Jaundice, Other - Neurological Neurological: absent: As Per HPI, Abnormal Gait, Abnormal Hearing, Abnormal Movements, Abnormal Speech, Behavioral Changes, Burning Sensations, Confusion, Convulsions, Disequilibrium, Dizziness, Numbness, Focal Weakness, Frequent Falls, Headaches, Lack of Coordination, Loss of Vision, Memory Loss, Paresthesias, Radicular Pain, Restless Legs, Sensory Deficit, Syncope, Tingling, Tremor, Vertigo, Weakness, Other Visual Disturbances, Other - Psychiatric Psychiatric: absent: As Per HPI, Abnormal Sleep Pattern, Anhedonia, Anxiety, Auditory Hallucinations, Behavioral Changes, Change in Appetite, Change in Libido, Confusion, Depression, Difficulty Concentrating, Hallucinations, Homicidal Ideation, Hopelessness, Irritability, Memory Loss, Mood Swings, Panic Attacks, Paranoia, Suicidal Ideation, Visual Hallucinations, Tactile Hallucinations, Other - Endocrine Endocrine: absent: As Per HPI, Change in Body Appearance, Change in Libido, Cold Intolorance, Deepening of Voice, Excessive Sweating, Fatigue, Flushing, Heat Intolorance, Increase in Ring/Shoe/Hat Size, Palpitations, Polydipsia, Polyphagia, Polyuria, Other - Hematologic/Lymphatic Hematologic: absent: As Per HPI, Easy Bleeding, Easy Bruising, Lymphadenopathy, Other Past Patient History - Infectious Disease Hx of Infectious Diseases: None - Past Medical History & Family History Past Medical History?: Yes - Past Social History Smoking Status: Never Smoked - CARDIAC Hx Hypercholesterolemia: Yes Hx Hypertension: Yes - PULMONARY Hx Respiratory Disorders: No - NEUROLOGICAL Hx Neurological Disorder: No - HEENT Hx HEENT Problems: No Other/Comment: Difficulty opening eyes once in a while but vision is fine - RENAL Hx Chronic Kidney Disease: No - ENDOCRINE/METABOLIC Hx Endocrine Disorders: No - HEMATOLOGICAL/ONCOLOGICAL Hx Blood Disorders: No - INTEGUMENTARY Hx Dermatological Problems: No - MUSCULOSKELETAL/RHEUMATOLOGICAL Hx Falls: No - GASTROINTESTINAL Hx Gastrointestinal Disorders: No - GENITOURINARY/GYNECOLOGICAL Hx Genitourinary Disorders: No - PSYCHIATRIC Hx Substance Use: No - SURGICAL HISTORY Hx Coronary Artery Bypass Graft: Yes (Triple Bypass) Hx Coronary Stent: Yes - ANESTHESIA Hx Anesthesia: Yes Hx Anesthesia Reactions: No Hx Malignant Hyperthermia: No Meds Allergies/Adverse Reactions: Allergies Allergy/AdvReac Type Severity Reaction Status Date / Time No Known Allergies Allergy Verified 10/18/18 16:42 - Medications Medications: Current Medications Acetaminophen (Tylenol 650mg/20.3ml Solution Ud) 650 mg PO Q6 PRN PRN Reason: Temperature Last Admin: 11/11/18 09:02 Dose: 650 mg Albuterol/Ipratropium (Duoneb 3 Mg/0.5 Mg (3 Ml) Ud) 3 ml INH RQ8 [facility] Last Admin: 11/11/18 07:51 Dose: 3 ml Aspirin (Ecotrin) 325 mg PO DAILY [facility] Last Admin: 11/11/18 09:02 Dose: 325 mg Heparin Sodium/Sodium Chloride (Heparin 79065 Units/250ml 1/2 Normal Saline) 25,000 units in 250 mls @ 10.234 mls/hr IV .Q24H PRN; Protocol PRN Reason: ADJUST RATE PER PROTOCOL Last Admin: 11/11/18 07:49 Dose: 16 units/kg/hr, 11.696 mls/hr Dexmedetomidine HCl 200 mcg/ (Sodium Chloride) 50 mls @ 3.74 mls/hr IV TITR PRN; Protocol PRN Reason: Agitation Last Titration: 11/11/18 11:00 Dose: 0 mcg/kg/hr, 0 mls/hr Piperacillin Sod/Tazobactam (Sod 4.5 gm/ Sodium Chloride) 100 mls @ 200 mls/hr IVPB Q6H [facility]; Protocol Norepinephrine Bitartrate 4 mg (/ Dextrose) 254 mls @ 15.24 mls/hr IV .[id number] PRN; Protocol PRN Reason: TITRATE PER MD ORDER [id number] Ethyl Esters (Lovaza) 1 gm PO BID [facility] Last Admin: 11/11/18 09:02 Dose: 1 gm Pantoprazole Sodium (Protonix Susp) 40 mg GT DAILY [facility] Last Admin: 11/11/18 09:02 Dose: 40 mg Ticagrelor (Brilinta) 90 mg PO BID [facility] Last Admin: 11/11/18 09:02 Dose: 90 mg Physical Exam - Constitutional Appears: Confused, Cachectic, Chronically Ill - Head Exam Head Exam: ATRAUMATIC, NORMAL INSPECTION, NORMOCEPHALIC - Eye Exam Eye Exam: EOMI, PERRL. absent: Scleral icterus - ENT Exam ENT Exam: Mucous Membranes Dry, Normal External Ear Exam - Neck Exam Neck exam: Negative for: Lymphadenopathy - Respiratory Exam Respiratory Exam: Decreased Breath Sounds, Prolonged Expiratory Phase, Rhonchi - Cardiovascular Exam Cardiovascular Exam: REGULAR RHYTHM, +S1, +S2 - GI/Abdominal Exam GI & Abdominal Exam: Diminished Bowel Sounds, Distended, Soft. absent: Organomegaly, Pulsatile Mass, Rebound, Rigid, Tenderness - Rectal Exam Rectal Exam: Deferred - Exam Exam: NORMAL INSPECTION - Extremities Exam Extremities exam: Positive for: pedal edema, pedal pulses present. Negative for: calf tenderness, tenderness - Back Exam Back exam: absent: CVA tenderness (L), CVA tenderness (R), paraspinal tenderness - Neurological Exam Neurological exam: Altered - Psychiatric Exam Psychiatric exam: Depressed Results - Vital Signs Recent Vital Signs: Last Vital Signs Temp 100.0 F H 11/11/18 10:02 Pulse 65 11/11/18 11:34 Resp 20 11/11/18 11:34 BP 80/44 L 11/11/18 11:34 Pulse Ox 100 11/11/18 11:34 - Labs Result Diagrams: 11/12/18 06:16 11/12/18 06:16 Labs: Laboratory Results - last 24 hr 11/10/18 11/11/18 11/11/18 17:32 04:55 05:23 WBC RBC Hgb Hct MCV MCH MCHC RDW Plt Count MPV Neut % (Auto) Lymph % (Auto) Peach % (Auto) Eos % (Auto) Baso % (Auto) Neut # (Auto) Lymph # (Auto) Peach # (Auto) Eos # (Auto) Baso # (Auto) Neutrophils % (Manual) Band Neutrophils % Lymphocytes % (Manual) Monocytes % (Manual) Platelet Estimate Ovalocytes APTT Puncture Site Rb pCO2 33 L pO2 175 H HCO3 25.2 ABG pH 7.46 H ABG Total CO2 24.5 ABG O2 Saturation 98.9 H ABG Base Excess 0.3 Mario Test Na ABG Potassium 4.0 A-a O2 Difference 69.0 Respiratory Index 0.4 Sodium 137.0 Chloride 105.0 Glucose 147 H Lactate 1.3 Vent Mode Prvc Mechanical Rate 12 FiO2 40.0 Tidal Volume 500 PEEP 5 Potassium Carbon Dioxide Anion Gap BUN Creatinine Est GFR ( Amer) Est GFR (Non-Af Amer) POC Glucose (mg/dL) 206 H 159 H Random Glucose Calcium Phosphorus Magnesium Total Bilirubin AST ALT Alkaline Phosphatase Total Protein Albumin Globulin Albumin/Globulin Ratio Arterial Blood Potassium 4.0 11/11/18 11/11/18 11/11/18 06:09 06:11 06:11 WBC 9.6 RBC 3.23 L Hgb 9.7 L Hct 29.3 L MCV 90.9 MCH 30.1 MCHC 33.1 RDW 14.2 Plt Count 194 MPV 9.9 Neut % (Auto) 84.4 H Lymph % (Auto) 7.1 L Peach % (Auto) 7.0 Eos % (Auto) 1.2 Baso % (Auto) 0.3 Neut # (Auto) 8.1 H Lymph # (Auto) 0.7 L Peach # (Auto) 0.7 Eos # (Auto) 0.1 Baso # (Auto) 0.0 Neutrophils % (Manual) 84 H Band Neutrophils % 3 H Lymphocytes % (Manual) 8 L Monocytes % (Manual) 5 Platelet Estimate Normal Ovalocytes Slight APTT 43 H Puncture Site pCO2 pO2 HCO3 ABG pH ABG Total CO2 ABG O2 Saturation ABG Base Excess Mario Test ABG Potassium A-a O2 Difference Respiratory Index Sodium 136 Chloride 101 Glucose Lactate Vent Mode Mechanical Rate FiO2 Tidal Volume PEEP Potassium 4.0 Carbon Dioxide 27 Anion Gap 12 BUN 32 H Creatinine 0.7 Est GFR ( Amer) > 60 Est GFR (Non-Af Amer) > 60 POC Glucose (mg/dL) Random Glucose 148 H Calcium 9.1 Phosphorus 5.1 H Magnesium 2.7 H Total Bilirubin 2.5 H AST 136 H D ALT 196 H D Alkaline Phosphatase 147 H Total Protein 6.4 Albumin 3.3 L Globulin 3.0 Albumin/Globulin Ratio 1.1 Arterial Blood Potassium 11/11/18 11:45 WBC RBC Hgb Hct MCV MCH MCHC RDW Plt Count MPV Neut % (Auto) Lymph % (Auto) Peach % (Auto) Eos % (Auto) Baso % (Auto) Neut # (Auto) Lymph # (Auto) Peach # (Auto) Eos # (Auto) Baso # (Auto) Neutrophils % (Manual) Band Neutrophils % Lymphocytes % (Manual) Monocytes % (Manual) Platelet Estimate Ovalocytes APTT 80 H D Puncture Site pCO2 pO2 HCO3 ABG pH ABG Total CO2 ABG O2 Saturation ABG Base Excess Mario Test ABG Potassium A-a O2 Difference Respiratory Index Sodium Chloride Glucose Lactate Vent Mode Mechanical Rate FiO2 Tidal Volume PEEP Potassium Carbon Dioxide Anion Gap BUN Creatinine Est GFR ( Amer) Est GFR (Non-Af Amer) POC Glucose (mg/dL) Random Glucose Calcium Phosphorus Magnesium Total Bilirubin AST ALT Alkaline Phosphatase Total Protein Albumin Globulin Albumin/Globulin Ratio Arterial Blood Potassium Assessment & Plan (1) Cardiogenic shock Status: Acute (2) Chest pain Status: Acute Priority: Medium (3) STEMI (ST elevation myocardial infarction) Status: Acute (4) Coronary artery disease Status: Chronic Priority: Low (5) Asthma Status: Acute - Assessment and Plan (Free Text) Assessment: severe decompensated CHF s/p code heart - baloon pump rx blood culture may be contaminant Concern for ? Pneumonia Dr Patterson on board cultures sent / pending
--- NOTE | 2018-11-11 13:44 | RAD ---
Date of service: 11/11/2018 HISTORY: vented COMPARISON: 11/10/2018 FINDINGS: LUNGS: Ill-defined bilateral perihilar pulmonary opacity, right greater than left. Evaluation somewhat limited due to oblique positioning. Not significantly changed from previous examination. PLEURA: Possible small left pleural effusion. No right pleural effusion. No pneumothorax. CARDIOVASCULAR: Normal heart size. Status post CABG. ET tube, NG tube and right IJ multi lumen central venous catheter are all unchanged. NG tube extends to central abdomen. No pulmonary vascular congestion. OSSEOUS STRUCTURES: No significant abnormalities. VISUALIZED UPPER ABDOMEN: Normal. OTHER FINDINGS: None. IMPRESSION: No active disease.
--- NOTE | 2018-11-11 15:00 | CP.PCM.PN ---
Subjective - Date & Time of Evaluation Date of Evaluation: 11/11/18 Time of Evaluation: 12:00 - Subjective Subjective: clinically same Objective - Vital Signs/Intake and Output Vital Signs (last 24 hours): Temp Pulse Resp BP Pulse Ox 100.0 F H 76 17 83/39 L 100 11/11/18 10:02 11/11/18 13:03 11/11/18 13:03 11/11/18 13:03 11/11/18 13:03 Intake and Output: 11/11/18 11/11/18 06:59 18:59 Intake Total 801.5 613.3 Output Total 350 134 Balance 451.5 479.3 - Medications Medications: Current Medications Acetaminophen (Tylenol 650mg/20.3ml Solution Ud) 650 mg PO Q6 PRN PRN Reason: Temperature Last Admin: 11/11/18 09:02 Dose: 650 mg Albuterol/Ipratropium (Duoneb 3 Mg/0.5 Mg (3 Ml) Ud) 3 ml INH RQ8 [facility] Last Admin: 11/11/18 07:51 Dose: 3 ml Aspirin (Ecotrin) 325 mg PO DAILY [facility] Last Admin: 11/11/18 09:02 Dose: 325 mg Heparin Sodium/Sodium Chloride (Heparin 84245 Units/250ml 1/2 Normal Saline) 25,000 units in 250 mls @ 10.234 mls/hr IV .Q24H PRN; Protocol PRN Reason: ADJUST RATE PER PROTOCOL Last Admin: 11/11/18 07:49 Dose: 16 units/kg/hr, 11.696 mls/hr Dexmedetomidine HCl 200 mcg/ (Sodium Chloride) 50 mls @ 3.74 mls/hr IV TITR PRN; Protocol PRN Reason: Agitation Last Titration: 11/11/18 11:00 Dose: 0 mcg/kg/hr, 0 mls/hr Piperacillin Sod/Tazobactam (Sod 4.5 gm/ Sodium Chloride) 100 mls @ 200 mls/hr IVPB Q6H [facility]; Protocol Norepinephrine Bitartrate 4 mg (/ Sodium Chloride) 250 mls @ 15 mls/hr IV .[id number] PRN; Protocol PRN Reason: TITRATE PER MD ORDER Last Admin: 11/11/18 13:03 Dose: 4 mcg/min, 15 mls/hr Milrinone Lactate/Dextrose 20 (mg/ Dextrose) 100 mls @ 8.4 mls/hr IV .[id number] [facility]; Protocol [id number] Ethyl Esters (Lovaza) 1 gm PO BID [facility] Last Admin: 11/11/18 09:02 Dose: 1 gm Pantoprazole Sodium (Protonix Susp) 40 mg GT DAILY [facility] Last Admin: 11/11/18 09:02 Dose: 40 mg Ticagrelor (Brilinta) 90 mg PO BID [facility] Last Admin: 11/11/18 09:02 Dose: 90 mg - Labs Labs: 11/11/18 06:11 11/11/18 06:09 PT 13.5 SECONDS (9.7-12.2) H 11/07/18 05:49 INR 1.2 11/07/18 05:49 APTT 80 SECONDS (21-34) H D 11/11/18 11:45 - Constitutional Appears: Well - Head Exam Head Exam: ATRAUMATIC, NORMAL INSPECTION, NORMOCEPHALIC - Eye Exam Eye Exam: EOMI, Normal appearance, PERRL Pupil Exam: NORMAL ACCOMODATION, PERRL - ENT Exam ENT Exam: Mucous Membranes Moist, Normal Exam - Neck Exam Neck Exam: Full ROM, Normal Inspection. absent: Lymphadenopathy - Respiratory Exam Respiratory Exam: Decreased Breath Sounds - Cardiovascular Exam Cardiovascular Exam: REGULAR RHYTHM, +S1, +S2 - GI/Abdominal Exam GI & Abdominal Exam: Soft, Diminished Bowel Sounds - Rectal Exam Rectal Exam: Deferred
[2018-11-11] MEDS: Milrinone 20 MG in Dextrose 5% In Water 80 ML IV SCH (16:12)
[2018-11-11] MEDS: SODIUM CHLORIDE IVPB SCH ×2 (17:11→23:35)
[2018-11-11] MEDS: PIPERACILLIN IVPB SCH ×2 (17:11→23:35)
[2018-11-11] MEDS: TAZOBACT IVPB SCH ×2 (17:11→23:35)
[2018-11-12] MEDS ORDERED: Metoprolol 1 mg/ml Inj IVP ONE ×2 (01:03→01:10)
[2018-11-12] MEDS: Dexmedetomidine Hydrochloride 200 MCG in Sodium Chloride 0.9% 48 ML IV PRN ×2 (01:40→06:37)
[2018-11-12] MEDS: Milrinone 20 MG in Dextrose 5% In Water 80 ML IV SCH ×2 (03:00→15:30)
[2018-11-12 04:36] LABS: ARTERIAL BLOOD GAS HCO3 25.9 mmol/L (21-28); ARTERIAL BLOOD GAS HEMOGLOBIN 11.6 g/dL (11.7-17.4); ARTERIAL BLOOD GAS O2 SAT 98.5 % (95-98); ARTERIAL BLOOD GAS PCO2 34 mm/Hg (35-45); ARTERIAL BLOOD GAS PH 7.47 (7.35-7.45); ARTERIAL BLOOD GAS PO2 110 mm/Hg (80-100); ARTERIAL BLOOD GAS TCO2 25.7 mmol/L (22-28)
[2018-11-12] MEDS: TAZOBACT IVPB SCH ×4 (05:33→22:56)
[2018-11-12] MEDS: SODIUM CHLORIDE IVPB SCH ×4 (05:33→22:56)
[2018-11-12] MEDS: PIPERACILLIN IVPB SCH ×4 (05:33→22:56)
[2018-11-12] MEDS: Acetaminophen 650mg/20.3ml solution UD PO PRN (05:47)
[2018-11-12 06:20] LABS: BASO % 0.5 % (0.0-2.0); EOS # 0.2 K/uL (0.0-0.7); EOS % 1.9 % (0.0-4.0); HEMOGLOBIN 9.6 g/dL (11.0-16.0); LYMPH # 0.9 K/uL (1.0-4.3); LYMPH % 8.9 % (20.0-40.0); MEAN CELL VOLUME 89.9 fL (81.0-99.0); MEAN CORPUSCULAR HEMOGLOBIN 30.2 pg (27.0-31.0); MEAN CORPUSCULAR HGB CONC 33.6 g/dL (33.0-37.0); MEAN PLATELET VOLUME 9.9 fL (7.2-11.7); MONO # 0.6 K/uL (0.0-0.8); MONO % 5.7 % (0.0-10.0); PLATELET COUNT 245 K/uL (130-400); RED CELL DISTRIBUTION WIDTH 14.1 % (11.5-14.5); WHITE BLOOD COUNT 9.7 K/uL (4.8-10.8)
[2018-11-12 06:39] LABS: ALBUMIN 3.2 g/dL (3.5-5.0); ALT/SGPT 162 U/L (9-52); AST/SGOT 107 U/L (14-36); BLOOD UREA NITROGEN 31 mg/dL (7-17); CALCIUM 8.7 mg/dl (8.6-10.4); GFR NON-AFRICAN AMERICAN > 60
[2018-11-12] MEDS: Albuterol-Ipratrop 3 mg / 0.5 (3 ml) UD INH SCH ×2 (07:48→15:45)
[2018-11-12 08:23] LABS: BANDS 5 % (0-2); EOSINOPHIL 2 % (0-4); LYMPHOCYTE 7 % (20-40); MONOCYTE 5 % (0-10); NEUTROPHIL 81 % (50-75); PLATELET ESTIMATE NORMAL (NORMAL); TOTAL CELLS COUNTED 100
[2018-11-12 08:24] LABS: LARGE PLATELETS PRESENT
--- NOTE | 2018-11-12 08:50 | RAD ---
Date of service: 11/12/2018 HISTORY: Heart failure, intubated COMPARISON: 11/11/2018 FINDINGS: Endotracheal tube terminates in the mid trachea. The nasogastric tube terminates in the stomach. The right IJV line terminates at the cavoatrial junction LUNGS: The lungs are well inflated. There is moderate pulmonary venous congestion. There is diffuse haziness in the lungs. PLEURA: Suspect layering effusions. No pneumothorax. CARDIOVASCULAR: Persistent moderate cardiomegaly. Status post CABG. No aortic atherosclerotic calcifications present. OSSEOUS STRUCTURES: Within normal limits for the patient's age. VISUALIZED UPPER ABDOMEN: Normal. OTHER FINDINGS: None. IMPRESSION: No significant interval change in known congestive heart failure with presumable pulmonary edema and layering effusions. Stable position of support line and tubes.
[2018-11-12] MEDS: Metoprolol Succinate 12.5 mg XL Tab PO SCH (10:00)
--- NOTE | 2018-11-12 10:55 | CP.PCM.PN ---
<Karely Serna - Last Filed: 11/12/18 12:15> Subjective - Date & Time of Evaluation Date of Evaluation: 11/12/18 Time of Evaluation: 07:05 - Subjective Subjective: Karely Serna DO, PGY-2: ICU Progress Note for Dr. Mccauley Patient was seen and examined at bedside. She endorsed no complaints. The patient was taken off Precedex and extubated. She is currently being titrated off Norepinephrine and Milrinone. Overnight, it appears the patient went into a narrow complex tachycardia with a rate of 180 or so that was treated with IV Metoprolol and abated. Otherwise, the patient's ABG showed a pO2/FIO2 of 275 prior to be extubated. Objective - Vital Signs/Intake and Output Vital Signs (last 24 hours): Temp Pulse Resp BP Pulse Ox 100 F H 77 22 113/61 100 11/12/18 08:00 11/12/18 10:22 11/12/18 10:22 11/12/18 10:22 11/12/18 10:22 Intake and Output: 11/12/18 11/12/18 06:59 18:59 Intake Total 1994.0 288.8 Balance 1994.0 288.8 - Medications Medications: Current Medications Acetaminophen (Tylenol 650mg/20.3ml Solution Ud) 650 mg PO Q6 PRN PRN Reason: Temperature Last Admin: 11/12/18 05:47 Dose: 650 mg Albuterol/Ipratropium (Duoneb 3 Mg/0.5 Mg (3 Ml) Ud) 3 ml INH RQ8 [facility] Last Admin: 11/12/18 07:48 Dose: 3 ml Amiodarone HCl (Cordarone) 200 mg PO BID [facility] Aspirin (Ecotrin) 81 mg PO DAILY [facility] Heparin Sodium/Sodium Chloride (Heparin 72598 Units/250ml 1/2 Normal Saline) 25,000 units in 250 mls @ 10.234 mls/hr IV .Q24H PRN; Protocol PRN Reason: ADJUST RATE PER PROTOCOL Last Admin: 11/11/18 23:28 Dose: 16 units/kg/hr, 11.696 mls/hr Dexmedetomidine HCl 200 mcg/ (Sodium Chloride) 50 mls @ 3.74 mls/hr IV TITR PRN; Protocol PRN Reason: Agitation Last Admin: 11/12/18 06:37 Dose: 0.2 mcg/kg/hr, 3.74 mls/hr Piperacillin Sod/Tazobactam (Sod 4.5 gm/ Sodium Chloride) 100 mls @ 200 mls/hr IVPB Q6H [facility]; Protocol Last Admin: 11/12/18 05:33 Dose: 200 mls/hr Norepinephrine Bitartrate 4 mg (/ Sodium Chloride) 250 mls @ 15 mls/hr IV .[id number] PRN; Protocol PRN Reason: TITRATE PER MD ORDER Last Titration: 11/12/18 10:00 Dose: 3 mcg/min, 11.25 mls/hr Milrinone Lactate/Dextrose 20 (mg/ Dextrose) 100 mls @ 2.8 mls/hr IV .Q24H [facility]; Protocol Metoprolol Succinate (Toprol Xl) 12.5 mg PO DAILY [facility] Xigei-0-Nbsm Ethyl Esters (Lovaza) 1 gm PO BID [facility] Last Admin: 11/11/18 17:12 Dose: 1 gm Ticagrelor (Brilinta) 90 mg PO BID [facility] Last Admin: 11/11/18 17:12 Dose: 90 mg - Labs Labs: 11/12/18 06:16 11/12/18 06:16 PT 13.5 SECONDS (9.7-12.2) H 11/07/18 05:49 INR 1.2 11/07/18 05:49 APTT 61 SECONDS (21-34) H D 11/11/18 19:46 - Constitutional Appears: Well, Non-toxic - Head Exam Head Exam: ATRAUMATIC, NORMOCEPHALIC - Eye Exam Eye Exam: EOMI, Normal appearance - ENT Exam ENT Exam: Mucous Membranes Moist, Normal Oropharynx - Neck Exam Neck Exam: Normal Inspection - Respiratory Exam Respiratory Exam: Rales (bilaterally) - Cardiovascular Exam Cardiovascular Exam: RRR, +S1, +S2 - GI/Abdominal Exam GI & Abdominal Exam: Soft, Normal Bowel Sounds. absent: Tenderness, Rebound - Extremities Exam Extremities Exam: Normal Inspection. absent: Calf Tenderness - Neurological Exam Neurological Exam: Alert, Awake Neuro motor strength exam: Left Upper Extremity: 5, Right Upper Extremity: 5, Left Lower Extremity: 5, Right Lower Extremity: 5 - Psychiatric Exam Psychiatric exam: Normal Affect, Normal Mood - Skin Skin Exam: Dry, Intact, Normal Color, Warm Assessment and Plan - Assessment and Plan (Free Text) Assessment: 63 year old female with a past medical history of CABG, CAD, who was admitted for chest pain and found to have an STEMI with restenosis of circumflex (with last stent placed a weeks ago). During catheterization she required IABP and intubation secondary to respiratory failure. She remains intubated , hypotensive, and continued to fail weaning trials. She was noted to have increased secretions on 11/10 and was started on Zosyn empirically. For pressure/ionotropic suppport, she was put on a Levophed drip and Milrinone drip on 11/11. Today, she was extubated. Also, a repeat echocardiogram was ordered and performed at bedside. Around noon, she was noted to have increased respiratory effort and was placed on BIPAP, given a stat dose of 40 mg IVP Lasix and 2 mg of IVP morphine for dyspnea. We will continue to monitor the patient closely in the ICU. 1) Ventilatory associated Pneumonia given increased secretions and fever - Zosyn 4.5 g q6h MIREYA started empirically - Procalcitonin was low, no leukocytosis - Differential for low grade fever would include infection, but drug fever is also a possibility. - Infectious Disease is consulted, Dr. Cristina 2) Respiratory failure secondary to cardiogenic shock - Re-started amiodarone 200 mg BID - Chest X-ray from this morning showing pulmonary vascular congestion - Repeat echocardiogram performed, interpretation pending - Norepinephrine drip; titrating patient off - Milrinone drip; titrating patient off - Precedex drip discontinued - Patient is extubated - Continue with BIPAP and consider placement of advanced airway if patient becomes unstable 3) CAD and atrial fibrillation - Heparin ggt - Aspirin 81 mg - Brillinta 90 mg BID - Lovaza 4) Failure to thrive - Ordered for formal speech language pathologist evaluation post-extubation - Osmolite 40 mls/hr tube 5) One blood culture growing staph Epidermiditis, MDR - Infectious Disease consulted 6) Transaminitis, etiology uncertain - Possibly secondary to episodic hypotension or drug induced (Tylenol) - Will continue to monitor via serial CMP 7) Electrolyte disturbances - Mag 2.5 - Phosphorus 2.0 - Will continue to monitor via serial CMP 8) DVT/GI prophylaxis - SCD - Protonix 20 mg PO Case reviewed and discussed with attending physician, Dr. Mccauley <Justin Mccauley - Last Filed: 11/12/18 18:19> Objective - Vital Signs/Intake and Output Vital Signs (last 24 hours): Temp Pulse Resp BP Pulse Ox 99.3 F 87 20 119/61 98 11/12/18 16:00 11/12/18 17:00 11/12/18 17:00 11/12/18 16:22 11/12/18 17:00 Intake and Output: 11/12/18 11/12/18 06:59 18:59 Intake Total 1995.0 608.1 Output Total 200 Balance 1995.0 408.1 - Medications Medications: Current Medications Acetaminophen (Tylenol 650mg/20.3ml Solution Ud) 650 mg PO Q6 PRN PRN Reason: Temperature Last Admin: 11/12/18 05:47 Dose: 650 mg Albuterol/Ipratropium (Duoneb 3 Mg/0.5 Mg (3 Ml) Ud) 3 ml INH RQ8 [facility] Last Admin: 11/12/18 15:45 Dose: 3 ml Amiodarone HCl (Cordarone) 400 mg PO BID [facility] Last Admin: 11/12/18 17:33 Dose: 400 mg Aspirin (Ecotrin) 81 mg PO DAILY [facility] Last Admin: 11/12/18 11:09 Dose: 81 mg Heparin Sodium/Sodium Chloride (Heparin 72973 Units/250ml 1/2 Normal Saline) 25,000 units in 250 mls @ 10.234 mls/hr IV .Q24H PRN; Protocol PRN Reason: ADJUST RATE PER PROTOCOL Last Admin: 11/11/18 23:28 Dose: 16 units/kg/hr, 11.696 mls/hr Dexmedetomidine HCl 200 mcg/ (Sodium Chloride) 50 mls @ 3.74 mls/hr IV TITR PRN; Protocol PRN Reason: Agitation Last Admin: 11/12/18 06:37 Dose: 0.2 mcg/kg/hr, 3.74 mls/hr Piperacillin Sod/Tazobactam (Sod 4.5 gm/ Sodium Chloride) 100 mls @ 200 mls/hr IVPB Q6H [facility]; Protocol Last Admin: 11/12/18 17:33 Dose: 200 mls/hr Norepinephrine Bitartrate 4 mg (/ Sodium Chloride) 250 mls @ 15 mls/hr IV .[id number] PRN; Protocol PRN Reason: TITRATE PER MD ORDER Last Titration: 11/12/18 10:00 Dose: 3 mcg/min, 11.25 mls/hr Milrinone Lactate/Dextrose 20 (mg/ Dextrose) 100 mls @ 8.4 mls/hr IV .[id number] [facility]; Protocol Last Admin: 11/12/18 15:30 Dose: 0.375 mcg/kg/min, 8.4 mls/hr Metoprolol Succinate (Toprol Xl) 12.5 mg PO DAILY [facility] Last Admin: 11/12/18 10:00 Dose: Not Given Cwdkf-8-Nipc Ethyl Esters (Lovaza) 1 gm PO BID [facility] Last Admin: 11/12/18 17:34 Dose: 1 gm Pantoprazole Sodium (Protonix Ec Tab) 40 mg PO DAILY [facility] Last Admin: 11/12/18 11:10 Dose: 40 mg Ticagrelor (Brilinta) 90 mg PO BID [facility] Last Admin: 11/12/18 17:33 Dose: 90 mg - Labs Labs: 11/12/18 06:16 11/12/18 06:16 PT 13.5 SECONDS (9.7-12.2) H 11/07/18 05:49 INR 1.2 11/07/18 05:49 APTT 61 SECONDS (21-34) H D 11/11/18 19:46 Attending/Attestation - Attestation I have personally seen and examined this patient.: Yes I have fully participated in the care of the patient.: Yes I have reviewed all pertinent clinical information, including history, physical exam and plan: Yes Notes (Text): 11/12/18 18:12 Patient seen and examined in the intensive care unit. Patient extubated after weaning trial and after 2 hours developed shortness of breath and tachycardia and was placed on BiPAP Patient responded to Lasix and morphine with marked improvement Continue antibiotics Repeat echocardiogram noted Continue milrinone
[2018-11-12] MEDS ORDERED: Milrinone 20 MG in Dextrose 5% In Water 80 ML IV SCH (11:00)
[2018-11-12] MEDS: Omega-3-Acid Ethyl Esters 1 GM Cap PO SCH ×2 (11:10→17:34)
[2018-11-12] MEDS: Pantoprazole 40 mg EC Tab PO SCH (11:10)
--- NOTE | 2018-11-12 12:31 | CP.PCM.PN ---
Subjective - Date & Time of Evaluation Date of Evaluation: 11/12/18 Time of Evaluation: 11:45 - Subjective Subjective: clinically same Objective - Vital Signs/Intake and Output Vital Signs (last 24 hours): Temp Pulse Resp BP Pulse Ox 100 F H 98 H 22 113/61 100 11/12/18 08:00 11/12/18 12:13 11/12/18 10:22 11/12/18 10:22 11/12/18 10:22 Intake and Output: 11/12/18 11/12/18 06:59 18:59 Intake Total 1994.0 384.5 Balance 1994.0 384.5 - Medications Medications: Current Medications Acetaminophen (Tylenol 650mg/20.3ml Solution Ud) 650 mg PO Q6 PRN PRN Reason: Temperature Last Admin: 11/12/18 05:47 Dose: 650 mg Albuterol/Ipratropium (Duoneb 3 Mg/0.5 Mg (3 Ml) Ud) 3 ml INH RQ8 MIREYA Last Admin: 11/12/18 07:48 Dose: 3 ml Amiodarone HCl (Cordarone) 200 mg PO BID [facility] Last Admin: 11/12/18 11:09 Dose: 200 mg Aspirin (Ecotrin) 81 mg PO DAILY [facility] Last Admin: 11/12/18 11:09 Dose: 81 mg Heparin Sodium/Sodium Chloride (Heparin 29808 Units/250ml 1/2 Normal Saline) 25,000 units in 250 mls @ 10.234 mls/hr IV .Q24H PRN; Protocol PRN Reason: ADJUST RATE PER PROTOCOL Last Admin: 11/11/18 23:28 Dose: 16 units/kg/hr, 11.696 mls/hr Dexmedetomidine HCl 200 mcg/ (Sodium Chloride) 50 mls @ 3.74 mls/hr IV TITR PRN; Protocol PRN Reason: Agitation Last Admin: 11/12/18 06:37 Dose: 0.2 mcg/kg/hr, 3.74 mls/hr Piperacillin Sod/Tazobactam (Sod 4.5 gm/ Sodium Chloride) 100 mls @ 200 mls/hr IVPB Q6H [facility]; Protocol Last Admin: 11/12/18 05:33 Dose: 200 mls/hr Norepinephrine Bitartrate 4 mg (/ Sodium Chloride) 250 mls @ 15 mls/hr IV .[id number] PRN; Protocol PRN Reason: TITRATE PER MD ORDER Last Titration: 11/12/18 10:00 Dose: 3 mcg/min, 11.25 mls/hr Milrinone Lactate/Dextrose 20 (mg/ Dextrose) 100 mls @ 2.8 mls/hr IV .Q24H [facility]; Protocol Metoprolol Succinate (Toprol Xl) 12.5 mg PO DAILY [facility] Zthof-8-Wruh Ethyl Esters (Lovaza) 1 gm PO BID [facility] Last Admin: 11/12/18 11:10 Dose: 1 gm Pantoprazole Sodium (Protonix Ec Tab) 40 mg PO DAILY [facility] Last Admin: 11/12/18 11:10 Dose: 40 mg Ticagrelor (Brilinta) 90 mg PO BID [facility] Last Admin: 11/12/18 11:09 Dose: 90 mg - Labs Labs: 11/12/18 06:16 11/12/18 06:16 PT 13.5 SECONDS (9.7-12.2) H 11/07/18 05:49 INR 1.2 11/07/18 05:49 APTT 61 SECONDS (21-34) H D 11/11/18 19:46
--- NOTE | 2018-11-12 15:27 | RAD ---
Date of service: 11/12/2018 HISTORY: sob COMPARISON: 11/12/2018 at 6:57 a.m. FINDINGS: LUNGS: Current lung volumes more shallow than before. Endotracheal tube tip no longer seen. Interval increased confluent perihilar airspace opacities more dense on the right than left coalescing areas of pulmonary edema favored. Concomitant underlying infiltrates not excluded. PLEURA: Small bilateral pleural effusions.-increased since prior exam. No pneumothorax seen. CARDIOVASCULAR: No aortic atherosclerotic calcification present. Cardiomegaly and coronary artery bypass surgery changes-similar. Midline sternotomy. Interval increased pulmonary vascular congestion/pulmonary edema. Right internal jugular vein central line tip superior vena cava-similar. OSSEOUS STRUCTURES: Scoliosis and thoraco lumbar spondylosis-similar. VISUALIZED UPPER ABDOMEN: Prior NG tube removed. OTHER FINDINGS: None. IMPRESSION: Interval worsening pulmonary venous congestion-pulmonary edema inferred. Additional findings as above.
--- NOTE | 2018-11-12 16:58 | CP.PCM.PN ---
Subjective - Date & Time of Evaluation Date of Evaluation: 11/12/18 Time of Evaluation: 05:30 - Subjective Subjective: Pt seen and examined in the ICU, pt is intubate and sedated during the history and physical. Objective - Vital Signs/Intake and Output Vital Signs (last 24 hours): Temp Pulse Resp BP Pulse Ox 99.3 F 85 35 H 111/65 98 11/12/18 16:00 11/12/18 16:00 11/12/18 16:00 11/12/18 15:30 11/12/18 16:00 Intake and Output: 11/12/18 11/12/18 06:59 18:59 Intake Total 1995.0 587.5 Output Total 200 Balance 1995.0 387.5 - Medications Medications: Current Medications Acetaminophen (Tylenol 650mg/20.3ml Solution Ud) 650 mg PO Q6 PRN PRN Reason: Temperature Last Admin: 11/12/18 05:47 Dose: 650 mg Albuterol/Ipratropium (Duoneb 3 Mg/0.5 Mg (3 Ml) Ud) 3 ml INH RQ8 [facility]RE[facility] Last Admin: 11/12/18 15:45 Dose: 3 ml Amiodarone HCl (Cordarone) 400 mg PO BID [facility] Aspirin (Ecotrin) 81 mg PO DAILY [facility] Last Admin: 11/12/18 11:09 Dose: 81 mg Heparin Sodium/Sodium Chloride (Heparin 72812 Units/250ml 1/2 Normal Saline) 25,000 units in 250 mls @ 10.234 mls/hr IV .Q24H PRN; Protocol PRN Reason: ADJUST RATE PER PROTOCOL Last Admin: 11/11/18 23:28 Dose: 16 units/kg/hr, 11.696 mls/hr Dexmedetomidine HCl 200 mcg/ (Sodium Chloride) 50 mls @ 3.74 mls/hr IV TITR PRN; Protocol PRN Reason: Agitation Last Admin: 11/12/18 06:37 Dose: 0.2 mcg/kg/hr, 3.74 mls/hr Piperacillin Sod/Tazobactam (Sod 4.5 gm/ Sodium Chloride) 100 mls @ 200 mls/hr IVPB Q6H [facility]; Protocol Last Admin: 11/12/18 12:52 Dose: 200 mls/hr Norepinephrine Bitartrate 4 mg (/ Sodium Chloride) 250 mls @ 15 mls/hr IV .[id number] PRN; Protocol PRN Reason: TITRATE PER MD ORDER Last Titration: 11/12/18 10:00 Dose: 3 mcg/min, 11.25 mls/hr Milrinone Lactate/Dextrose 20 (mg/ Dextrose) 100 mls @ 8.4 mls/hr IV .[id number] [facility]; Protocol Last Admin: 11/12/18 15:30 Dose: 0.375 mcg/kg/min, 8.4 mls/hr Metoprolol Succinate (Toprol Xl) 12.5 mg PO DAILY [facility] Last Admin: 11/12/18 10:00 Dose: Not Given Tymut-8-Uyog Ethyl Esters (Lovaza) 1 gm PO BID [facility] Last Admin: 11/12/18 11:10 Dose: 1 gm Pantoprazole Sodium (Protonix Ec Tab) 40 mg PO DAILY [facility] Last Admin: 11/12/18 11:10 Dose: 40 mg Ticagrelor (Brilinta) 90 mg PO BID [facility] Last Admin: 11/12/18 11:09 Dose: 90 mg - Labs Labs: 11/12/18 06:16 11/12/18 06:16 PT 13.5 SECONDS (9.7-12.2) H 11/07/18 05:49 INR 1.2 11/07/18 05:49 APTT 61 SECONDS (21-34) H D 11/11/18 19:46 - Constitutional Appears: No Acute Distress - Head Exam Head Exam: ATRAUMATIC, NORMOCEPHALIC - ENT Exam ENT Exam: Mucous Membranes Moist - Respiratory Exam Respiratory Exam: Clear to Ausculation Bilateral, NORMAL BREATHING PATTERN. absent: Accessory Muscle Use - Cardiovascular Exam Cardiovascular Exam: +S1, +S2. absent: Diastolic murmur, Murmur - GI/Abdominal Exam GI & Abdominal Exam: Soft, Normal Bowel Sounds - Extremities Exam Extremities Exam: Full ROM. absent: Pedal Edema, Tenderness - Skin Skin Exam: Dry, Intact, Warm Assessment and Plan - Assessment and Plan (Free Text) Assessment: Assessment and Plan (1) Cardiogenic shock Status: Acute (2) Dyslipidemia Status: Acute (3) STEMI (ST elevation myocardial infarction) Status: Acute (4) Coronary artery disease Status: Chronic (5) HTN (hypertension) Status: Acute (6) Hx of CABG Status: Chronic Plan: BNP 6340, improving pressers discontinued Continue heparin drip continue precedex drip 0.2 amio 400 BID milrinone 0.375 Continue Zetia Lovaza ASA 325 Brilinta Toprol 12.5 Pt seen, examined, assessment and plan discussed with Dr Sharif Teague PGY1
--- NOTE | 2018-11-12 17:42 | CP.PCM.PN ---
Subjective - Date & Time of Evaluation Date of Evaluation: 11/12/18 Time of Evaluation: 07:00 - Subjective Subjective: intubated sedted on milnorone drip afeb Objective - Vital Signs/Intake and Output Vital Signs (last 24 hours): Temp Pulse Resp BP Pulse Ox 99.3 F 87 20 119/61 98 11/12/18 16:00 11/12/18 17:00 11/12/18 17:00 11/12/18 16:22 11/12/18 17:00 Intake and Output: 11/12/18 11/12/18 06:59 18:59 Intake Total 1995.0 608.1 Output Total 200 Balance 1995.0 408.1 - Medications Medications: Current Medications Acetaminophen (Tylenol 650mg/20.3ml Solution Ud) 650 mg PO Q6 PRN PRN Reason: Temperature Last Admin: 11/12/18 05:47 Dose: 650 mg Albuterol/Ipratropium (Duoneb 3 Mg/0.5 Mg (3 Ml) Ud) 3 ml INH RQ8 [facility] Last Admin: 11/12/18 15:45 Dose: 3 ml Amiodarone HCl (Cordarone) 400 mg PO BID [facility] Last Admin: 11/12/18 17:33 Dose: 400 mg Aspirin (Ecotrin) 81 mg PO DAILY [facility] Last Admin: 11/12/18 11:09 Dose: 81 mg Heparin Sodium/Sodium Chloride (Heparin 02046 Units/250ml 1/2 Normal Saline) 25,000 units in 250 mls @ 10.234 mls/hr IV .Q24H PRN; Protocol PRN Reason: ADJUST RATE PER PROTOCOL Last Admin: 11/11/18 23:28 Dose: 16 units/kg/hr, 11.696 mls/hr Dexmedetomidine HCl 200 mcg/ (Sodium Chloride) 50 mls @ 3.74 mls/hr IV TITR PRN; Protocol PRN Reason: Agitation Last Admin: 11/12/18 06:37 Dose: 0.2 mcg/kg/hr, 3.74 mls/hr Piperacillin Sod/Tazobactam (Sod 4.5 gm/ Sodium Chloride) 100 mls @ 200 mls/hr IVPB Q6H [facility]; Protocol Last Admin: 11/12/18 17:33 Dose: 200 mls/hr Norepinephrine Bitartrate 4 mg (/ Sodium Chloride) 250 mls @ 15 mls/hr IV .Q16 H40M PRN; Protocol PRN Reason: TITRATE PER MD ORDER Last Titration: 11/12/18 10:00 Dose: 3 mcg/min, 11.25 mls/hr Milrinone Lactate/Dextrose 20 (mg/ Dextrose) 100 mls @ 8.4 mls/hr IV .[id number] [facility]; Protocol Last Admin: 11/12/18 15:30 Dose: 0.375 mcg/kg/min, 8.4 mls/hr Metoprolol Succinate (Toprol Xl) 12.5 mg PO DAILY [facility] Last Admin: 11/12/18 10:00 Dose: Not Given Abuql-0-Jpic Ethyl Esters (Lovaza) 1 gm PO BID [facility] Last Admin: 11/12/18 17:34 Dose: 1 gm Pantoprazole Sodium (Protonix Ec Tab) 40 mg PO DAILY [facility] Last Admin: 11/12/18 11:10 Dose: 40 mg Ticagrelor (Brilinta) 90 mg PO BID [facility] Last Admin: 11/12/18 17:33 Dose: 90 mg - Labs Labs: 11/12/18 06:16 11/12/18 06:16 PT 13.5 SECONDS (9.7-12.2) H 11/07/18 05:49 INR 1.2 11/07/18 05:49 APTT 61 SECONDS (21-34) H D 11/11/18 19:46 - Constitutional Appears: Non-toxic, No Acute Distress, Chronically Ill - Head Exam Head Exam: NORMOCEPHALIC - Eye Exam Eye Exam: absent: Scleral icterus - ENT Exam ENT Exam: Mucous Membranes Dry - Neck Exam Neck Exam: absent: Thyromegaly - Respiratory Exam Respiratory Exam: Decreased Breath Sounds, Rales, Rhonchi - Cardiovascular Exam Cardiovascular Exam: REGULAR RHYTHM, +S1, +S2 - GI/Abdominal Exam GI & Abdominal Exam: Distended, Soft - Rectal Exam Rectal Exam: Deferred - Exam Exam: NORMAL INSPECTION - Extremities Exam Extremities Exam: absent: Pedal Edema - Back Exam Back Exam: absent: CVA tenderness (L), CVA tenderness (R) - Neurological Exam Neurological Exam: Altered - Psychiatric Exam Psychiatric exam: Depressed Assessment and Plan (1) Cardiogenic shock Status: Acute (2) Chest pain Status: Acute (3) STEMI (ST elevation myocardial infarction) Status: Acute (4) Coronary artery disease Status: Chronic (5) Asthma Status: Acute - Assessment and Plan (Free Text) Assessment: cont iv rx as ordered
[2018-11-12] MEDS: [UNRECOGNIZED DRUG - OTHER] IV PRN (20:59)
[2018-11-12 22:45] LABS: ABG ALLEN TEST POS; ARTERIAL BLOOD GAS HCO3 29.5 mmol/L (21-28); ARTERIAL BLOOD GAS O2 SAT 97.5 % (95-98); ARTERIAL BLOOD GAS PCO2 32 mm/Hg (35-45); ARTERIAL BLOOD GAS PH 7.55 (7.35-7.45); ARTERIAL BLOOD GAS PO2 72 mm/Hg (80-100)
[2018-11-13] MEDS: Albuterol-Ipratrop 3 mg / 0.5 (3 ml) UD INH SCH ×3 (01:23→16:10)
[2018-11-13] MEDS: Milrinone 20 MG in Dextrose 5% In Water 80 ML IV SCH ×2 (03:35→13:29)
[2018-11-13] MEDS: SODIUM CHLORIDE IVPB SCH ×3 (05:21→18:29)
[2018-11-13] MEDS: PIPERACILLIN IVPB SCH ×3 (05:21→18:29)
[2018-11-13] MEDS: TAZOBACT IVPB SCH ×3 (05:21→18:29)
[2018-11-13 05:46] LABS: ABG ALLEN TEST POS; ARTERIAL BLOOD GAS HCO3 25.4 mmol/L (21-28); ARTERIAL BLOOD GAS O2 SAT 97.4 % (95-98); ARTERIAL BLOOD GAS PCO2 32 mm/Hg (35-45); ARTERIAL BLOOD GAS PH 7.48 (7.35-7.45); ARTERIAL BLOOD GAS PO2 73 mm/Hg (80-100); ARTERIAL BLOOD GAS TCO2 24.8 mmol/L (22-28)
--- NOTE | 2018-11-13 05:50 | CARD ---
APPROVED REPORT Date of service: 11/12/2018 EXAM: LIMITED Two-dimensional and M-mode echocardiogram. Other Information Quality : GoodRhythm : INDICATION LV Function:Systolic 2D DIMENSIONS IVSd0.7 (0.7-1.1cm)LVDd5.3 (3.9-5.9cm) PWd0.8 (0.7-1.1cm)LVDs4.2 (2.5-4.0cm) FS (%) 20.1 %LVEF (%)40.8 (>50%) LVEF (Kerr's)40.36 % M-Mode DIMENSIONS IVSd0.91 (0.7-1.1cm)LVDd5.73 (4.0-5.6cm) PWd0.81 (0.7-1.1cm)FS (%) 29 % LVDs4.07 (2.0-3.8cm)LVEF (%)45 (>50%) Mitral Valve E/A ratio0.0 TDI E/Lateral E'0.0E/Medial E'0.0 LEFT VENTRICLE The Left Ventricle is moderately dilated. There is normal left ventricular wall thickness. Left ventricle systolic function is mildly impaired. The Ejection Fraction is 40-45%. There is global hypokinesis of the left ventricle. The left ventricular diastolic function is normal. RIGHT VENTRICLE The right ventricle is mildly dilated. There is normal right ventricular wall thickness. Systolic function is mildly reduced. ATRIA The left atrium is mildly dilated. The right atrium is mildly dilated. The interatrial septum is intact with no evidence for an atrial septal defect. AORTIC VALVE The aortic valve is normal in structure. No doppler studies available for interpretation. There is no aortic valvular stenosis. MITRAL VALVE The mitral valve is normal in structure. There is no evidence of mitral valve prolapse. There is no mitral valve stenosis. No doppler study available for analysis. TRICUSPID VALVE The tricuspid valve is normal in structure. No doppler study available for analysis. PULMONIC VALVE The pulmonic valve is not well visualized. No doppler study available for analysis. GREAT VESSELS The aortic root is normal in size. PERICARDIAL EFFUSION There is no significant pericardial effusion. <Conclusion> Left ventricle systolic function is mildly impaired. The Ejection Fraction is 40-45%. Normal valvular studies noted. No doppler studies available for analysis.
[2018-11-13] MEDS ORDERED: Metoprolol 1 mg/ml Inj IVP ONE (05:57)
[2018-11-13 06:10] LABS: BASO % 0.3 % (0.0-2.0); EOS % 0.6 % (0.0-4.0); HEMOGLOBIN 9.2 g/dL (11.0-16.0); LYMPH # 0.6 K/uL (1.0-4.3); LYMPH % 9.2 % (20.0-40.0); MEAN CELL VOLUME 91.9 fL (81.0-99.0); MEAN CORPUSCULAR HEMOGLOBIN 29.5 pg (27.0-31.0); MEAN CORPUSCULAR HGB CONC 32.1 g/dL (33.0-37.0); MEAN PLATELET VOLUME 9.5 fL (7.2-11.7); MONO # 0.4 K/uL (0.0-0.8); MONO % 5.2 % (0.0-10.0); NEUT # 5.9 K/uL (1.8-7.0); NEUT % 84.7 % (50.0-75.0); PLATELET COUNT 221 K/uL (130-400); RBC 3.11 Mil/uL (3.80-5.20); RED CELL DISTRIBUTION WIDTH 14.5 % (11.5-14.5)
[2018-11-13 06:23] LABS: ALB/GLOB RATIO 0.9 (1.0-2.1); ALBUMIN 3.1 g/dL (3.5-5.0); ALT/SGPT 103 U/L (9-52); AST/SGOT 41 U/L (14-36); BLOOD UREA NITROGEN 28 mg/dL (7-17); CALCIUM 8.5 mg/dl (8.6-10.4); GFR NON-AFRICAN AMERICAN > 60
[2018-11-13] MEDS: Acetaminophen 650mg/20.3ml solution UD PO PRN ×2 (06:44→16:20)
--- NOTE | 2018-11-13 08:26 | CP.CCUPN ---
<Karely Serna - Last Filed: 11/13/18 11:39> CCU Subjective - Physician Review Subjective (Free Text): Karely Serna DO, PGY-2: ICU Progress Note for Dr. Mccauley Patient was seen and examined at bedside. Patient was placed on BIPAP and NC intermittently. At around 5:30 AM she went into narrow complex tachycardia that was refractory to IVP Metoprolol 5 mg. The patient was placed on BIPAP and given 2 mg of Morphine with her rate falling from the 150s to 130s. Patient denied any chest pain, nausea, vomiting, or diarrhea. Review of chest X-ray performed this morning showed possible right sided infiltrate and increasing pulmonary congestion. 11/13/18 08:25 11/13/18 08:33 CCU Objective - Vital Signs / Intake & Output Vital Signs (Last 4 hours): Vital Signs Pulse Resp BP Pulse Ox 11/13/18 08:02 142 H 11/13/18 07:00 142 H 36 H 97 11/13/18 06:22 134 H 50 H 88/53 L 95 11/13/18 06:02 101 H 11/13/18 06:00 175 H 46 H 97 11/13/18 05:24 87 37 H 107/55 L 99 11/13/18 05:00 89 24 100 Intake and Output (Last 8hrs): Intake & Output 11/12/18 11/13/18 11/13/18 22:59 06:59 14:59 Intake Total 414.8 464.8 20.6 Output Total 400 Balance 414.8 64.8 20.6 Weight 164 lb Intake: IV 250 100 Intake, IV Amount 164.8 364.8 20.6 Right Distal Port 67.2 67.2 8.4 Internal Jugular Right Forearm 97.6 97.6 12.2 Right Proximal Port 200 Internal Jugular Output: Urine 400 Urine, Voided 400 Other: # Voids Urine, Voided 1 - Physical Exam Head: Positive for: Atraumatic, Normocephalic Pupils: Positive for: PERRL Extroacular Muscles: Positive for: EOMI Conjunctiva: Positive for: Normal Mouth: Positive for: Moist Mucous Membranes Neck: Positive for: Other (intubated ) Respiratory/Chest: Positive for: Good Air Exchange, Accessory Muscle Use, Rales, Tachypneic Cardiovascular: Positive for: Normal S1, S2, Irregular Rhythm, Tachycardic Abdomen: Positive for: Normal Bowel Sounds. Negative for: Tenderness, Distention Upper Extremity: Positive for: Normal Inspection. Negative for: Cyanosis, Edema Lower Extremity: Positive for: Normal Inspection. Negative for: Edema Neurological: Positive for: Other (unable to assess due to pts status, intubated and sedated) Skin: Positive for: Warm, Dry, Normal Color Psychiatric: Positive for: Alert - Medications Active Medications: Active Medications Generic Name Dose Route Start Last Admin Trade Name Freq PRN Reason Stop Dose Admin Acetaminophen 650 mg 11/06/18 20:50 11/13/18 06:44 Tylenol 650mg/20.3ml Solution Ud PO 650 mg Q6 PRN Administration Temperature Acetazolamide 500 mg 11/12/18 23:00 11/13/18 00:00 Diamox 500 Mg Inj IV 11/14/18 11:01 500 mg Q12H MIREYA Administration Albuterol/Ipratropium 3 ml 11/04/18 17:01 11/13/18 07:30 Duoneb 3 Mg/0.5 Mg (3 Ml) Ud INH 3 ml RQ8 MIREYA Administration Amiodarone HCl 400 mg 11/12/18 18:00 11/12/18 17:33 Cordarone PO 400 mg BID MIREYA Administration Aspirin 81 mg 11/12/18 10:45 11/12/18 11:09 Ecotrin PO 81 mg DAILY MIREYA Administration Heparin Sodium/Sodium Chloride 25,000 units in 250 mls @ 10.234 mls/hr 11/08/18 07:29 11/12/18 20:59 Heparin 90399 Units/250ml 1/2 Normal Saline IV 16 units/kg/hr .Q24H PRN 11.696 mls/hr ADJUST RATE PER PROTOCOL Administration Protocol 14 UNITS/KG/HR Dexmedetomidine HCl 200 mcg/ 50 mls @ 3.74 mls/hr 11/10/18 18:51 11/12/18 09:00 Sodium Chloride IV 0 mcg/kg/hr TITR PRN 0 mls/hr Agitation Titration Protocol 0.2 MCG/KG/HR Piperacillin Sod/Tazobactam 100 mls @ 200 mls/hr 11/11/18 17:45 11/13/18 05:21 Sod 4.5 gm/ Sodium Chloride IVPB 200 mls/hr Q6H MIREYA Administration Protocol Norepinephrine Bitartrate 4 mg 250 mls @ 15 mls/hr 11/11/18 12:45 11/12/18 10:05 / Sodium Chloride IV 0 mcg/min .[id number] PRN 0 mls/hr TITRATE PER MD ORDER Titration Protocol 4 MCG/MIN Milrinone Lactate/Dextrose 20 100 mls @ 8.4 mls/hr 11/12/18 13:00 11/13/18 03:35 mg/ Dextrose IV 0.375 mcg/kg/min .[id number] MIREYA 8.4 mls/hr Administration Protocol 0.375 MCG/KG/MIN Potassium Chloride 20 meq in 100 mls @ 50 mls/hr 11/13/18 07:00 11/13/18 07:25 Potassium Chloride 20 Meq/100 Ml IVPB 11/13/18 14:59 50 mls/hr Q2H MIREYA Administration Vancomycin/Sodium Chloride 1 gm in 200 mls @ 133 mls/hr 11/13/18 08:30 Vancomycin 1 Gm/Ns 200 Ml IVPB 11/18/18 08:31 Q12H MIREYA Protocol Metoprolol Succinate 12.5 mg 11/12/18 10:00 11/12/18 10:00 Toprol Xl PO Not Given DAILY MIREYA Upvkc-5-Cprc Ethyl Esters 1 gm 11/04/18 10:00 11/12/18 17:34 Lovaza PO 1 gm BID MIREYA Administration Pantoprazole Sodium 40 mg 11/12/18 11:00 11/12/18 11:10 Protonix Ec Tab PO 40 mg DAILY MIREYA Administration Ticagrelor 90 mg 11/04/18 10:00 11/12/18 17:33 Brilinta PO 90 mg BID MIREYA Administration - Patient Studies Lab Studies: Microbiology Studies 11/10/18 22:49 Blood Culture - Preliminary Blood NO GROWTH AFTER 48 HOURS 11/09/18 16:50 Blood Culture - Preliminary Blood NO GROWTH AFTER 3 DAYS Lab Studies 11/13/18 11/13/18 11/13/18 Range/Units 06:00 06:00 06:00 WBC 7.0 (4.8-10.8) K/uL RBC 3.11 L (3.80-5.20) Mil/uL Hgb 9.2 L (11.0-16.0) g/dL Hct 28.6 L (34.0-47.0) % MCV 91.9 D (81.0-99.0) fL MCH 29.5 (27.0-31.0) pg MCHC 32.1 L (33.0-37.0) g/dL RDW 14.5 (11.5-14.5) % Plt Count 221 (130-400) K/uL MPV 9.5 (7.2-11.7) fL Neut % (Auto) 84.7 H (50.0-75.0) % Lymph % (Auto) 9.2 L (20.0-40.0) % [place] % (Auto) 5.2 (0.0-10.0) % Eos % (Auto) 0.6 (0.0-4.0) % Baso % (Auto) 0.3 (0.0-2.0) % Neut # (Auto) 5.9 (1.8-7.0) K/uL Lymph # (Auto) 0.6 L (1.0-4.3) K/uL [place] # (Auto) 0.4 (0.0-0.8) K/uL Eos # (Auto) 0.0 (0.0-0.7) K/uL Baso # (Auto) 0.0 (0.0-0.2) K/uL APTT 58 H D (21-34) SECONDS Puncture Site pCO2 (35-45) mm/Hg pO2 (80-100) mm/Hg HCO3 (21-28) mmol/L ABG pH (7.35-7.45) ABG Total CO2 (22-28) mmol/L ABG O2 Saturation (95-98) % ABG Base Excess (-2.0-3.0) mmol/L ABG Hemoglobin (11.7-17.4) g/dL ABG Carboxyhemoglobin (0.5-1.5) % POC ABG HHb (Measured) (0.0-5.0) % ABG Methemoglobin (0.0-3.0) % Mario Test ABG Potassium (3.6-5.2) mmol/L A-a O2 Difference mm/Hg Respiratory Index Hgb O2 Saturation (95.0-98.0) % Sodium 138 (132-148) mmol/l Chloride 105 (98-107) mmol/L Glucose (65-105) mg/dl Lactate (0.7-2.1) mmol/L Vent Mode FiO2 % Inspiratory BiPAP Expiratory BiPAP Potassium 2.8 L (3.6-5.2) mmol/L Carbon Dioxide 24 (22-30) mmol/L Anion Gap 12 (10-20) BUN 28 H (7-17) mg/dL Creatinine 0.7 (0.7-1.2) mg/dL Est GFR ( Amer) > 60 Est GFR (Non-Af Amer) > 60 POC Glucose (mg/dL) (65-110) mg/dL Random Glucose 134 H D (65-105) mg/dL Calcium 8.5 L (8.6-10.4) mg/dl Magnesium 2.4 H (1.6-2.3) mg/dL Total Bilirubin 1.6 H (0.2-1.3) mg/dL AST 41 H D (14-36) U/L ALT 103 H D (9-52) U/L Alkaline Phosphatase 113 (38-126) U/L Total Protein 6.3 (6.3-8.3) g/dL Albumin 3.1 L (3.5-5.0) g/dL Globulin 3.3 (2.2-3.9) gm/dL Albumin/Globulin Ratio 0.9 L (1.0-2.1) Arterial Blood Potassium (3.6-5.2) mmol/L 11/13/18 11/13/18 11/12/18 Range/Units 05:19 05:11 22:40 WBC (4.8-10.8) K/uL RBC (3.80-5.20) Mil/uL Hgb (11.0-16.0) g/dL Hct (34.0-47.0) % MCV (81.0-99.0) fL MCH (27.0-31.0) pg MCHC (33.0-37.0) g/dL RDW (11.5-14.5) % Plt Count (130-400) K/uL MPV (7.2-11.7) fL Neut % (Auto) (50.0-75.0) % Lymph % (Auto) (20.0-40.0) % [place] % (Auto) (0.0-10.0) % Eos % (Auto) (0.0-4.0) % Baso % (Auto) (0.0-2.0) % Neut # (Auto) (1.8-7.0) K/uL Lymph # (Auto) (1.0-4.3) K/uL [place] # (Auto) (0.0-0.8) K/uL Eos # (Auto) (0.0-0.7) K/uL Baso # (Auto) (0.0-0.2) K/uL APTT (21-34) SECONDS Puncture Site R rad Lba pCO2 32 L 32 L (35-45) mm/Hg pO2 73 L 72 L (80-100) mm/Hg HCO3 25.4 29.5 H (21-28) mmol/L ABG pH 7.48 H 7.55 H (7.35-7.45) ABG Total CO2 24.8 29.0 H (22-28) mmol/L ABG O2 Saturation 97.4 97.5 (95-98) % ABG Base Excess 0.6 5.9 H (-2.0-3.0) mmol/L ABG Hemoglobin 9.0 L (11.7-17.4) g/dL ABG Carboxyhemoglobin 1.7 H (0.5-1.5) % POC ABG HHb (Measured) 2.5 (0.0-5.0) % ABG Methemoglobin 0.6 (0.0-3.0) % Mario Test Pos Pos ABG Potassium 3.3 L (3.6-5.2) mmol/L A-a O2 Difference 244.0 245.0 mm/Hg Respiratory Index 3.3 3.4 Hgb O2 Saturation 95.3 (95.0-98.0) % Sodium 140.0 (132-148) mmol/l Chloride 109.0 H (98-107) mmol/L Glucose 133 H (65-105) mg/dl Lactate 1.0 (0.7-2.1) mmol/L Vent Mode Bipap FiO2 50.0 50.0 % Inspiratory BiPAP 12 12 Expiratory BiPAP 6 6 Potassium (3.6-5.2) mmol/L Carbon Dioxide (22-30) mmol/L Anion Gap (10-20) BUN (7-17) mg/dL Creatinine (0.7-1.2) mg/dL Est GFR ( Amer) Est GFR (Non-Af Amer) POC Glucose (mg/dL) 149 H (65-110) mg/dL Random Glucose (65-105) mg/dL Calcium (8.6-10.4) mg/dl Magnesium (1.6-2.3) mg/dL Total Bilirubin (0.2-1.3) mg/dL AST (14-36) U/L ALT (9-52) U/L Alkaline Phosphatase (38-126) U/L Total Protein (6.3-8.3) g/dL Albumin (3.5-5.0) g/dL Globulin (2.2-3.9) gm/dL Albumin/Globulin Ratio (1.0-2.1) Arterial Blood Potassium 3.3 L (3.6-5.2) mmol/L 11/12/18 11/12/18 Range/Units 19:03 17:32 WBC (4.8-10.8) K/uL RBC (3.80-5.20) Mil/uL Hgb (11.0-16.0) g/dL Hct (34.0-47.0) % MCV (81.0-99.0) fL MCH (27.0-31.0) pg MCHC (33.0-37.0) g/dL RDW (11.5-14.5) % Plt Count (130-400) K/uL MPV (7.2-11.7) fL Neut % (Auto) (50.0-75.0) % Lymph % (Auto) (20.0-40.0) % [place] % (Auto) (0.0-10.0) % Eos % (Auto) (0.0-4.0) % Baso % (Auto) (0.0-2.0) % Neut # (Auto) (1.8-7.0) K/uL Lymph # (Auto) (1.0-4.3) K/uL [place] # (Auto) (0.0-0.8) K/uL Eos # (Auto) (0.0-0.7) K/uL Baso # (Auto) (0.0-0.2) K/uL APTT 65 H (21-34) SECONDS Puncture Site pCO2 (35-45) mm/Hg pO2 (80-100) mm/Hg HCO3 (21-28) mmol/L ABG pH (7.35-7.45) ABG Total CO2 (22-28) mmol/L ABG O2 Saturation (95-98) % ABG Base Excess (-2.0-3.0) mmol/L ABG Hemoglobin (11.7-17.4) g/dL ABG Carboxyhemoglobin (0.5-1.5) % POC ABG HHb (Measured) (0.0-5.0) % ABG Methemoglobin (0.0-3.0) % Mario Test ABG Potassium (3.6-5.2) mmol/L A-a O2 Difference mm/Hg Respiratory Index Hgb O2 Saturation (95.0-98.0) % Sodium (132-148) mmol/l Chloride (98-107) mmol/L Glucose (65-105) mg/dl Lactate (0.7-2.1) mmol/L Vent Mode FiO2 % Inspiratory BiPAP Expiratory BiPAP Potassium (3.6-5.2) mmol/L Carbon Dioxide (22-30) mmol/L Anion Gap (10-20) BUN (7-17) mg/dL Creatinine (0.7-1.2) mg/dL Est GFR ( Amer) Est GFR (Non-Af Amer) POC Glucose (mg/dL) 150 H (65-110) mg/dL Random Glucose (65-105) mg/dL Calcium (8.6-10.4) mg/dl Magnesium (1.6-2.3) mg/dL Total Bilirubin (0.2-1.3) mg/dL AST (14-36) U/L ALT (9-52) U/L Alkaline Phosphatase (38-126) U/L Total Protein (6.3-8.3) g/dL Albumin (3.5-5.0) g/dL Globulin (2.2-3.9) gm/dL Albumin/Globulin Ratio (1.0-2.1) Arterial Blood Potassium (3.6-5.2) mmol/L Laboratory Results - last 24 hr 11/12/18 11/12/1811/12/19 17:32 19:03 22:40 WBC RBC Hgb Hct MCV MCH MCHC RDW Plt Count MPV Neut % (Auto) Lymph % (Auto) [place] % (Auto) Eos % (Auto) Baso % (Auto) Neut # (Auto) Lymph # (Auto) [place] # (Auto) Eos # (Auto) Baso # (Auto) APTT 65 H Puncture Site Lba pCO2 32 L pO2 72 L HCO3 29.5 H ABG pH 7.55 H ABG Total CO2 29.0 H ABG O2 Saturation 97.5 ABG Base Excess 5.9 H ABG Hemoglobin ABG Carboxyhemoglobin POC ABG HHb (Measured) ABG Methemoglobin Mario Test Pos ABG Potassium 3.3 L A-a O2 Difference 245.0 Respiratory Index 3.4 Hgb O2 Saturation Sodium 140.0 Chloride 109.0 H Glucose 133 H Lactate 1.0 Vent Mode FiO2 50.0 Inspiratory BiPAP 12 Expiratory BiPAP 6 Potassium Carbon Dioxide Anion Gap BUN Creatinine Est GFR ( Amer) Est GFR (Non-Af Amer) POC Glucose (mg/dL) 150 H Random Glucose Calcium Magnesium Total Bilirubin AST ALT Alkaline Phosphatase Total Protein Albumin Globulin Albumin/Globulin Ratio Arterial Blood Potassium 3.3 L 11/13/18 11/13/18 11/13/18 05:11 05:19 06:00 WBC 7.0 RBC 3.11 L Hgb 9.2 L Hct 28.6 L MCV 91.9 D MCH 29.5 MCHC 32.1 L RDW 14.5 Plt Count 221 MPV 9.5 Neut % (Auto) 84.7 H Lymph % (Auto) 9.2 L [place] % (Auto) 5.2 Eos % (Auto) 0.6 Baso % (Auto) 0.3 Neut # (Auto) 5.9 Lymph # (Auto) 0.6 L [place] # (Auto) 0.4 Eos # (Auto) 0.0 Baso # (Auto) 0.0 APTT Puncture Site R rad pCO2 32 L pO2 73 L HCO3 25.4 ABG pH 7.48 H ABG Total CO2 24.8 ABG O2 Saturation 97.4 ABG Base Excess 0.6 ABG Hemoglobin 9.0 L ABG Carboxyhemoglobin 1.7 H POC ABG HHb (Measured) 2.5 ABG Methemoglobin 0.6 Mario Test Pos ABG Potassium A-a O2 Difference 244.0 Respiratory Index 3.3 Hgb O2 Saturation 95.3 Sodium Chloride Glucose Lactate Vent Mode Bipap FiO2 50.0 Inspiratory BiPAP 12 Expiratory BiPAP 6 Potassium Carbon Dioxide Anion Gap BUN Creatinine Est GFR ( Amer) Est GFR (Non-Af Amer) POC Glucose (mg/dL) 149 H Random Glucose Calcium Magnesium Total Bilirubin AST ALT Alkaline Phosphatase Total Protein Albumin Globulin Albumin/Globulin Ratio Arterial Blood Potassium 11/13/18 11/13/18 06:00 06:00 WBC RBC Hgb Hct MCV MCH MCHC RDW Plt Count MPV Neut % (Auto) Lymph % (Auto) [place] % (Auto) Eos % (Auto) Baso % (Auto) Neut # (Auto) Lymph # (Auto) [place] # (Auto) Eos # (Auto) Baso # (Auto) APTT 58 H D Puncture Site pCO2 pO2 HCO3 ABG pH ABG Total CO2 ABG O2 Saturation ABG Base Excess ABG Hemoglobin ABG Carboxyhemoglobin POC ABG HHb (Measured) ABG Methemoglobin Mario Test ABG Potassium A-a O2 Difference Respiratory Index Hgb O2 Saturation Sodium 138 Chloride 105 Glucose Lactate Vent Mode FiO2 Inspiratory BiPAP Expiratory BiPAP Potassium 2.8 L Carbon Dioxide 24 Anion Gap 12 BUN 28 H Creatinine 0.7 Est GFR ( Amer) > 60 Est GFR (Non-Af Amer) > 60 POC Glucose (mg/dL) Random Glucose 134 H D Calcium 8.5 L Magnesium 2.4 H Total Bilirubin 1.6 H AST 41 H D ALT 103 H D Alkaline Phosphatase 113 Total Protein 6.3 Albumin 3.1 L Globulin 3.3 Albumin/Globulin Ratio 0.9 L Arterial Blood Potassium Radiology Impressions: Radiology Impressions Chest X-Ray 11/12/18 07:00 IMPRESSION: No significant interval change in known congestive heart failure with presumable pulmonary edema and layering effusions. Stable position of support line and tubes. Chest X-Ray 11/12/18 11:57 IMPRESSION: Interval worsening pulmonary venous congestion-pulmonary edema inferred. Additional findings as above. Fingerstick Blood Sugar Results: 149 Critical Care Progress Note - Ventilator Checklist Head of Bed 30 Degrees: Yes PUD Prophalyxis: Yes - Extremities/Vascular Does the Patient have a Central Venous Catheter?: Yes Insertion Site: Internal Jugular Vein Does the Patient have a Kelsey Catheter?: No - Prophylaxis GI Prophylaxis GI: PPI - Prophylaxis DVT Prophylaxis DVT: SCDs Assessment/Plan - Assessment and Plan (Free Text) Assessment: 63 year old female with a past medical history of CABG, CAD, who was admitted for chest pain and found to have an STEMI with restenosis of circumflex (with last stent placed a weeks ago). During catheterization she required IABP and intubation secondary to respiratory failure. She remains intubated , hypotensive, and continued to fail weaning trials. She was noted to have increased secretions on 11/10 and was started on Zosyn empirically. Currently, she is extubated. Due to her persistent, 1) Respiratory failure secondary to cardiogenic shock - Re-started amiodarone 400 mg BID per cardiology (currently held per Dr. Mccauley) and Amio drip running at 0.5 mg/min - Chest X-ray from this morning showing worsening of pulmonary vascular co ngestion - Repeat echocardiogram performed and showed no change; estimated EF of 40-45%. - Norepinephrine drip off - Milrinone drip remains on - Patient is extubated - Continue with BIPAP - Dr. Mccauley (loan servicing representative) to insert Ellijay cecelia catheter to assess heart and pulmonary pressures (heparin drip held prior to procedure) - Consider Lasix despite patient's blood pressure being on the low side - Pro BNP elevated at 5640 2) Ventilatory associated Pneumonia given alveolar infiltrates and right sided infiltrate - Zosyn 4.5 g q6h MIREYA started empirically - Vancomycin 1 gram q12h - Will obtain Vancomycin trough 30 minutes before administering fourth dose; target trough should be 10-15; important to note patient is on Zosyn which does concurrently increase vancomycin concentration - Procalcitonin was low, no leukocytosis, afebrile since 11/12/18 at noon - Infectious Disease is consulted, Dr. Cristina 3) CAD and atrial fibrillation - Heparin ggt - Aspirin 81 mg - Brillinta 90 mg BID - Lovaza 4) Failure to thrive - Ordered for formal speech language pathologist evaluation post-extubation - Osmolite 40 mls/hr tube 5) One blood culture growing staph Epidermiditis, MDR - Infectious Disease consulted - Not sensitive to Vancomycin given the CARLOS is 2.0; Repeat blood cultures x 1 were negative, though ideally two blood cultures should be taken from peripheral venous site, 30 minutes apart, from separate site - Patient remains afebrile since 09/11/2019 6) Transaminitis, resolving - Will continue to monitor via serial CMP - hepatitis B and C serologies negative 7) Electrolyte disturbances - Potassium was 2.8 this morning; repleting with K-riders 20 mEq times 3; will recheck BMP at 16:00 today - Will continue to monitor via serial CMP 8) DVT/GI prophylaxis - SCD - Protonix 20 mg PO Case reviewed and discussed with attending physician, Dr. Mccauley - Date & Time Date: 11/13/18 Time: 11:53 <Justin Mccauley - Last Filed: 11/13/18 17:21> CCU Subjective - Physician Review Critical Care Time Spent (in minutes): 60 CCU Objective - Vital Signs / Intake & Output Vital Signs (Last 4 hours): Vital Signs Temp Pulse Resp BP Pulse Ox 11/13/18 16:52 120/78 11/13/18 16:50 120/78 11/13/18 16:33 70 30 H 120/78 100 11/13/18 16:20 102.4 F H 11/13/18 16:03 71 19 125/79 100 11/13/18 15:33 73 29 H 117/82 100 11/13/18 15:03 71 25 H 117/77 99 11/13/18 14:33 71 14 113/76 100 11/13/18 14:14 72 17 106/64 100 11/13/18 14:05 69 27 H 70/42 L 100 11/13/18 14:01 70/42 L 11/13/18 14:00 70 28 H 69/36 L 100 Intake and Output (Last 8hrs): Intake & Output 11/13/18 11/13/18 11/13/18 06:59 14:59 22:59 Intake Total 464.8 1101.7 50 Output Total 400 185 Balance 64.8 916.7 50 Weight 164 lb Intake: IV 100 227 50 Intake, IV Amount 364.8 874.7 Right Distal Port 67.2 33.8 Internal Jugular Right Forearm 97.6 374.1 Right Medial Port 400 Internal Jugular Right Proximal Port 200 66.8 Internal Jugular Output: Urine 400 185 Urethral (Kelsey) 185 Urine, Voided 400 Other: # Voids Urine, Voided 1 - Medications Active Medications: Active Medications Generic Name Dose Route Start Last Admin Trade Name Freq PRN Reason Stop Dose Admin Acetaminophen 650 mg 11/06/18 20:50 11/13/18 16:20 Tylenol 650mg/20.3ml Solution Ud PO 650 mg Q6 PRN Administration Temperature Albuterol/Ipratropium 3 ml 11/04/18 17:01 11/13/18 16:10 Duoneb 3 Mg/0.5 Mg (3 Ml) Ud INH 3 ml RQ8 MIREYA Administration Amiodarone HCl 400 mg 11/12/18 18:00 11/12/18 17:33 Cordarone PO 400 mg BID MIREYA Administration Aspirin 81 mg 11/12/18 10:45 11/13/18 10:49 Ecotrin PO 81 mg DAILY MIREYA Administration Heparin Sodium/Sodium Chloride 25,000 units in 250 mls @ 10.234 mls/hr 11/08/18 07:29 11/13/18 09:45 Heparin 20263 Units/250ml 1/2 Normal Saline IV 0 units/kg/hr .Q24H PRN 0 mls/hr ADJUST RATE PER PROTOCOL Titration Protocol 14 UNITS/KG/HR Dexmedetomidine HCl 200 mcg/ 50 mls @ 3.74 mls/hr 11/10/18 18:51 11/13/18 16:19 Sodium Chloride IV 2 mcg/kg/hr TITR PRN 37.35 mls/hr Agitation Administration Protocol 0.2 MCG/KG/HR Piperacillin Sod/Tazobactam 100 mls @ 200 mls/hr 11/11/18 17:45 11/13/18 10:50 Sod 4.5 gm/ Sodium Chloride IVPB 200 mls/hr Q6H MIREYA Administration Protocol Norepinephrine Bitartrate 4 mg 250 mls @ 15 mls/hr 11/11/18 12:45 11/12/18 10:05 / Sodium Chloride IV 0 mcg/min .[id number] PRN 0 mls/hr TITRATE PER MD ORDER Titration Protocol 4 MCG/MIN Vancomycin/Sodium Chloride 1 gm in 200 mls @ 133 mls/hr 11/13/18 08:30 11/13/18 08:40 Vancomycin 1 Gm/Ns 200 Ml IVPB 11/18/18 08:31 133 mls/hr Q12H MIREYA Administration Protocol Amiodarone HCl 900 mg/ 500 mls @ 33.33 mls/hr 11/13/18 08:40 11/13/18 09:37 Dextrose IV 11/13/18 23:40 33.33 mls/hr .Q15H1M ONE Administration Protocol 1 MG/MIN Amiodarone HCl 900 mg/ 500 mls @ 16.67 mls/hr 11/13/18 15:00 Dextrose IV 11/14/18 14:59 .Q24H ONE Protocol 0.5 MG/MIN Phenylephrine HCl 30 mg/ 250 mls @ 25 mls/hr 11/13/18 13:00 11/13/18 14:12 Dextrose IV 75 mcg/min .Q10H PRN 37.5 mls/hr TITRATE PER MD ORDER Titration Protocol 50 MCG/MIN Furosemide 100 mg/ Sodium 100 mls @ 10 mls/hr 11/13/18 15:30 11/13/18 16:50 Chloride IV 10 mls/hr .Q10H MIREYA Administration Protocol 10 MG/HR Milrinone Lactate/Dextrose 20 100 mls @ 11.21 mls/hr 11/13/18 16:00 11/13/18 16:52 mg/ Sodium Chloride IV 0.5 mcg/kg/min .[id number] MIREYA 11.21 mls/hr Administration Protocol 0.5 MCG/KG/MIN Metoprolol Succinate 12.5 mg 11/12/18 10:00 11/13/18 10:28 Toprol Xl PO Not Given DAILY MIREYA Nyjdo-6-Dorr Ethyl Esters 1 gm 11/04/18 10:00 11/13/18 10:49 Lovaza PO 1 gm BID MIREYA Administration Pantoprazole Sodium 40 mg 11/12/18 11:00 11/13/18 10:49 Protonix Ec Tab PO 40 mg DAILY MIREYA Administration Ticagrelor 90 mg 11/04/18 10:00 11/13/18 10:49 Brilinta PO 90 mg BID MIREYA Administration - Patient Studies Lab Studies: Microbiology Studies 11/09/18 16:50 Blood Culture - Preliminary Blood NO GROWTH AFTER 4 DAYS 11/10/18 22:49 Blood Culture - Preliminary Blood NO GROWTH AFTER 48 HOURS Lab Studies 11/13/18 11/13/18 11/13/18 Range/Units 13:47 12:31 10:35 WBC (4.8-10.8) K/uL RBC (3.80-5.20) Mil/uL Hgb (11.0-16.0) g/dL Hct (34.0-47.0) % MCV (81.0-99.0) fL MCH (27.0-31.0) pg MCHC (33.0-37.0) g/dL RDW (11.5-14.5) % Plt Count (130-400) K/uL MPV (7.2-11.7) fL Neut % (Auto) (50.0-75.0) % Lymph % (Auto) (20.0-40.0) % [place] % (Auto) (0.0-10.0) % Eos % (Auto) (0.0-4.0) % Baso % (Auto) (0.0-2.0) % Neut # (Auto) (1.8-7.0) K/uL Lymph # (Auto) (1.0-4.3) K/uL [place] # (Auto) (0.0-0.8) K/uL Eos # (Auto) (0.0-0.7) K/uL Baso # (Auto) (0.0-0.2) K/uL Neutrophils % (Manual) (50-75) % Lymphocytes % (Manual) (20-40) % Monocytes % (Manual) (0-10) % Platelet Estimate (NORMAL) Polychromasia Hypochromasia (manual) APTT (21-34) SECONDS Puncture Site Lb pCO2 28 L (35-45) mm/Hg pO2 135 H (80-100) mm/Hg HCO3 21.9 (21-28) mmol/L ABG pH 7.44 (7.35-7.45) ABG Total CO2 19.9 L (22-28) mmol/L ABG O2 Saturation 99.0 H (95-98) % ABG Base Excess -3.9 L (-2.0-3.0) mmol/L ABG Hemoglobin 12.8 (11.7-17.4) g/dL ABG Carboxyhemoglobin 1.2 (0.5-1.5) % POC ABG HHb (Measured) 1.0 (0.0-5.0) % ABG Methemoglobin 0.6 (0.0-3.0) % Mario Test Na ABG Potassium (3.6-5.2) mmol/L A-a O2 Difference 400.0 mm/Hg Respiratory Index 3.0 Hgb O2 Saturation 97.2 (95.0-98.0) % Sodium (132-148) mmol/l Chloride (98-107) mmol/L Glucose (65-105) mg/dl Lactate (0.7-2.1) mmol/L Vent Mode FiO2 80.0 % Tidal Volume 500 PEEP 5 Inspiratory BiPAP Expiratory BiPAP Potassium (3.6-5.2) mmol/L Carbon Dioxide (22-30) mmol/L Anion Gap (10-20) BUN (7-17) mg/dL Creatinine (0.7-1.2) mg/dL Est GFR ( Amer) Est GFR (Non-Af Amer) POC Glucose (mg/dL) (65-110) mg/dL Random Glucose (65-105) mg/dL Calcium (8.6-10.4) mg/dl Magnesium (1.6-2.3) mg/dL Total Bilirubin (0.2-1.3) mg/dL AST (14-36) U/L ALT (9-52) U/L Alkaline Phosphatase (38-126) U/L Total Creatine Kinase 98 (30-135) U/L CK-MB (Mass) 1.29 (0.0-3.38) ng/mL Troponin I 0.3470 H* (0.00-0.120) ng/mL NT-Pro-B Natriuret Pep (0-900) pg/mL Total Protein (6.3-8.3) g/dL Albumin (3.5-5.0) g/dL Globulin (2.2-3.9) gm/dL Albumin/Globulin Ratio (1.0-2.1) Procalcitonin (0.19-0.49) NG/ML Arterial Blood Potassium (3.6-5.2) mmol/L Urine Color [place] (YELLOW) Urine Clarity Clear (Clear) Urine pH 7.0 (5.0-8.0) Ur Specific [place] 1.028 (1.003-1.030) Urine Protein 1+ H (NEGATIVE) mg/dL Urine Glucose (UA) Normal (Normal) mg/dL Urine Ketones Negative (NEGATIVE) mg/dL Urine Blood Negative (NEGATIVE) Urine Nitrate Negative (NEGATIVE) Urine Bilirubin Negative (NEGATIVE) Urine Urobilinogen 4.0 H (0.2-1.0) mg/dL Ur Leukocyte Esterase Neg (Negative) Elena/uL Urine WBC (Auto) 2 (0-5) /hpf Urine RBC (Auto) 3 (0-3) /hpf Ur Squamous Epith Cells 2 (0-5) /hpf Urine Bacteria Rare (<OCC) Ur L.pneumophila Ag (NEGATIVE) Mycoplasma pneumon IgM (NEGATIVE) 11/13/18 11/13/18 11/13/18 Range/Units 10:35 08:04 08:04 WBC (4.8-10.8) K/uL RBC (3.80-5.20) Mil/uL Hgb (11.0-16.0) g/dL Hct (34.0-47.0) % MCV (81.0-99.0) fL MCH (27.0-31.0) pg MCHC (33.0-37.0) g/dL RDW (11.5-14.5) % Plt Count (130-400) K/uL MPV (7.2-11.7) fL Neut % (Auto) (50.0-75.0) % Lymph % (Auto) (20.0-40.0) % [place] % (Auto) (0.0-10.0) % Eos % (Auto) (0.0-4.0) % Baso % (Auto) (0.0-2.0) % Neut # (Auto) (1.8-7.0) K/uL Lymph # (Auto) (1.0-4.3) K/uL [place] # (Auto) (0.0-0.8) K/uL Eos # (Auto) (0.0-0.7) K/uL Baso # (Auto) (0.0-0.2) K/uL Neutrophils % (Manual) (50-75) % Lymphocytes % (Manual) (20-40) % Monocytes % (Manual) (0-10) % Platelet Estimate (NORMAL) Polychromasia Hypochromasia (manual) APTT (21-34) SECONDS Puncture Site pCO2 (35-45) mm/Hg pO2 (80-100) mm/Hg HCO3 (21-28) mmol/L ABG pH (7.35-7.45) ABG Total CO2 (22-28) mmol/L ABG O2 Saturation (95-98) % ABG Base Excess (-2.0-3.0) mmol/L ABG Hemoglobin (11.7-17.4) g/dL ABG Carboxyhemoglobin (0.5-1.5) % POC ABG HHb (Measured) (0.0-5.0) % ABG Methemoglobin (0.0-3.0) % Mario Test ABG Potassium (3.6-5.2) mmol/L A-a O2 Difference mm/Hg Respiratory Index Hgb O2 Saturation (95.0-98.0) % Sodium (132-148) mmol/l Chloride (98-107) mmol/L Glucose (65-105) mg/dl Lactate (0.7-2.1) mmol/L Vent Mode FiO2 % Tidal Volume PEEP Inspiratory BiPAP Expiratory BiPAP Potassium (3.6-5.2) mmol/L Carbon Dioxide (22-30) mmol/L Anion Gap (10-20) BUN (7-17) mg/dL Creatinine (0.7-1.2) mg/dL Est GFR ( Amer) Est GFR (Non-Af Amer) POC Glucose (mg/dL) (65-110) mg/dL Random Glucose (65-105) mg/dL Calcium (8.6-10.4) mg/dl Magnesium (1.6-2.3) mg/dL Total Bilirubin (0.2-1.3) mg/dL AST (14-36) U/L ALT (9-52) U/L Alkaline Phosphatase (38-126) U/L Total Creatine Kinase (30-135) U/L CK-MB (Mass) (0.0-3.38) ng/mL Troponin I (0.00-0.120) ng/mL NT-Pro-B Natriuret Pep (0-900) pg/mL Total Protein (6.3-8.3) g/dL Albumin (3.5-5.0) g/dL Globulin (2.2-3.9) gm/dL Albumin/Globulin Ratio (1.0-2.1) Procalcitonin 0.15 L (0.19-0.49) NG/ML Arterial Blood Potassium (3.6-5.2) mmol/L Urine Color (YELLOW) Urine Clarity (Clear) Urine pH (5.0-8.0) Ur Specific [place] (1.003-1.030) Urine Protein (NEGATIVE) mg/dL Urine Glucose (UA) (Normal) mg/dL Urine Ketones (NEGATIVE) mg/dL Urine Blood (NEGATIVE) Urine Nitrate (NEGATIVE) Urine Bilirubin (NEGATIVE) Urine Urobilinogen (0.2-1.0) mg/dL Ur Leukocyte Esterase (Negative) Elena/uL Urine WBC (Auto) (0-5) /hpf Urine RBC (Auto) (0-3) /hpf Ur Squamous Epith Cells (0-5) /hpf Urine Bacteria (<OCC) Ur L.pneumophila Ag Negative (NEGATIVE) Mycoplasma pneumon IgM Negative (NEGATIVE) 11/13/18 11/13/18 11/13/18 Range/Units 06:00 06:00 06:00 WBC 7.0 (4.8-10.8) K/uL RBC 3.11 L (3.80-5.20) Mil/uL Hgb 9.2 L (11.0-16.0) g/dL Hct 28.6 L (34.0-47.0) % MCV 91.9 D (81.0-99.0) fL MCH 29.5 (27.0-31.0) pg MCHC 32.1 L (33.0-37.0) g/dL RDW 14.5 (11.5-14.5) % Plt Count 221 (130-400) K/uL MPV 9.5 (7.2-11.7) fL Neut % (Auto) 84.7 H (50.0-75.0) % Lymph % (Auto) 9.2 L (20.0-40.0) % [place] % (Auto) 5.2 (0.0-10.0) % Eos % (Auto) 0.6 (0.0-4.0) % Baso % (Auto) 0.3 (0.0-2.0) % Neut # (Auto) 5.9 (1.8-7.0) K/uL Lymph # (Auto) 0.6 L (1.0-4.3) K/uL [place] # (Auto) 0.4 (0.0-0.8) K/uL Eos # (Auto) 0.0 (0.0-0.7) K/uL Baso # (Auto) 0.0 (0.0-0.2) K/uL Neutrophils % (Manual) 86 H (50-75) % Lymphocytes % (Manual) 10 L (20-40) % Monocytes % (Manual) 4 (0-10) % Platelet Estimate Normal (NORMAL) Polychromasia Slight Hypochromasia (manual) Slight APTT 58 H D (21-34) SECONDS Puncture Site pCO2 (35-45) mm/Hg pO2 (80-100) mm/Hg HCO3 (21-28) mmol/L ABG pH (7.35-7.45) ABG Total CO2 (22-28) mmol/L ABG O2 Saturation (95-98) % ABG Base Excess (-2.0-3.0) mmol/L ABG Hemoglobin (11.7-17.4) g/dL ABG Carboxyhemoglobin (0.5-1.5) % POC ABG HHb (Measured) (0.0-5.0) % ABG Methemoglobin (0.0-3.0) % Mario Test ABG Potassium (3.6-5.2) mmol/L A-a O2 Difference mm/Hg Respiratory Index Hgb O2 Saturation (95.0-98.0) % Sodium 138 (132-148) mmol/l Chloride 105 (98-107) mmol/L Glucose (65-105) mg/dl Lactate (0.7-2.1) mmol/L Vent Mode FiO2 % Tidal Volume PEEP Inspiratory BiPAP Expiratory BiPAP Potassium 2.8 L (3.6-5.2) mmol/L Carbon Dioxide 24 (22-30) mmol/L Anion Gap 12 (10-20) BUN 28 H (7-17) mg/dL Creatinine 0.7 (0.7-1.2) mg/dL Est GFR ( Amer) > 60 Est GFR (Non-Af Amer) > 60 POC Glucose (mg/dL) (65-110) mg/dL Random Glucose 134 H D (65-105) mg/dL Calcium 8.5 L (8.6-10.4) mg/dl Magnesium 2.4 H (1.6-2.3) mg/dL Total Bilirubin 1.6 H (0.2-1.3) mg/dL AST 41 H D (14-36) U/L ALT 103 H D (9-52) U/L Alkaline Phosphatase 113 (38-126) U/L Total Creatine Kinase (30-135) U/L CK-MB (Mass) (0.0-3.38) ng/mL Troponin I (0.00-0.120) ng/mL NT-Pro-B Natriuret Pep 5640 H (0-900) pg/mL Total Protein 6.3 (6.3-8.3) g/dL Albumin 3.1 L (3.5-5.0) g/dL Globulin 3.3 (2.2-3.9) gm/dL Albumin/Globulin Ratio 0.9 L (1.0-2.1) Procalcitonin (0.19-0.49) NG/ML Arterial Blood Potassium (3.6-5.2) mmol/L Urine Color (YELLOW) Urine Clarity (Clear) Urine pH (5.0-8.0) Ur Specific [place] (1.003-1.030) Urine Protein (NEGATIVE) mg/dL Urine Glucose (UA) (Normal) mg/dL Urine Ketones (NEGATIVE) mg/dL Urine Blood (NEGATIVE) Urine Nitrate (NEGATIVE) Urine Bilirubin (NEGATIVE) Urine Urobilinogen (0.2-1.0) mg/dL Ur Leukocyte Esterase (Negative) Elena/uL Urine WBC (Auto) (0-5) /hpf Urine RBC (Auto) (0-3) /hpf Ur Squamous Epith Cells (0-5) /hpf Urine Bacteria (<OCC) Ur L.pneumophila Ag (NEGATIVE) Mycoplasma pneumon IgM (NEGATIVE) 11/13/18 11/13/18 11/12/18 Range/Units 05:19 05:11 22:40 WBC (4.8-10.8) K/uL RBC (3.80-5.20) Mil/uL Hgb (11.0-16.0) g/dL Hct (34.0-47.0) % MCV (81.0-99.0) fL MCH (27.0-31.0) pg MCHC (33.0-37.0) g/dL RDW (11.5-14.5) % Plt Count (130-400) K/uL MPV (7.2-11.7) fL Neut % (Auto) (50.0-75.0) % Lymph % (Auto) (20.0-40.0) % [place] % (Auto) (0.0-10.0) % Eos % (Auto) (0.0-4.0) % Baso % (Auto) (0.0-2.0) % Neut # (Auto) (1.8-7.0) K/uL Lymph # (Auto) (1.0-4.3) K/uL [place] # (Auto) (0.0-0.8) K/uL Eos # (Auto) (0.0-0.7) K/uL Baso # (Auto) (0.0-0.2) K/uL Neutrophils % (Manual) (50-75) % Lymphocytes % (Manual) (20-40) % Monocytes % (Manual) (0-10) % Platelet Estimate (NORMAL) Polychromasia Hypochromasia (manual) APTT (21-34) SECONDS Puncture Site R rad Lba pCO2 32 L 32 L (35-45) mm/Hg pO2 73 L 72 L (80-100) mm/Hg HCO3 25.4 29.5 H (21-28) mmol/L ABG pH 7.48 H 7.55 H (7.35-7.45) ABG Total CO2 24.8 29.0 H (22-28) mmol/L ABG O2 Saturation 97.4 97.5 (95-98) % ABG Base Excess 0.6 5.9 H (-2.0-3.0) mmol/L ABG Hemoglobin 9.0 L (11.7-17.4) g/dL ABG Carboxyhemoglobin 1.7 H (0.5-1.5) % POC ABG HHb (Measured) 2.5 (0.0-5.0) % ABG Methemoglobin 0.6 (0.0-3.0) % Mario Test Pos Pos ABG Potassium 3.3 L (3.6-5.2) mmol/L A-a O2 Difference 244.0 245.0 mm/Hg Respiratory Index 3.3 3.4 Hgb O2 Saturation 95.3 (95.0-98.0) % Sodium 140.0 (132-148) mmol/l Chloride 109.0 H (98-107) mmol/L Glucose 133 H (65-105) mg/dl Lactate 1.0 (0.7-2.1) mmol/L Vent Mode Bipap FiO2 50.0 50.0 % Tidal Volume PEEP Inspiratory BiPAP 12 12 Expiratory BiPAP 6 6 Potassium (3.6-5.2) mmol/L Carbon Dioxide (22-30) mmol/L Anion Gap (10-20) BUN (7-17) mg/dL Creatinine (0.7-1.2) mg/dL Est GFR ( Amer) Est GFR (Non-Af Amer) POC Glucose (mg/dL) 149 H (65-110) mg/dL Random Glucose (65-105) mg/dL Calcium (8.6-10.4) mg/dl Magnesium (1.6-2.3) mg/dL Total Bilirubin (0.2-1.3) mg/dL AST (14-36) U/L ALT (9-52) U/L Alkaline Phosphatase (38-126) U/L Total Creatine Kinase (30-135) U/L CK-MB (Mass) (0.0-3.38) ng/mL Troponin I (0.00-0.120) ng/mL NT-Pro-B Natriuret Pep (0-900) pg/mL Total Protein (6.3-8.3) g/dL Albumin (3.5-5.0) g/dL Globulin (2.2-3.9) gm/dL Albumin/Globulin Ratio (1.0-2.1) Procalcitonin (0.19-0.49) NG/ML Arterial Blood Potassium 3.3 L (3.6-5.2) mmol/L Urine Color (YELLOW) Urine Clarity (Clear) Urine pH (5.0-8.0) Ur Specific [place] (1.003-1.030) Urine Protein (NEGATIVE) mg/dL Urine Glucose (UA) (Normal) mg/dL Urine Ketones (NEGATIVE) mg/dL Urine Blood (NEGATIVE) Urine Nitrate (NEGATIVE) Urine Bilirubin (NEGATIVE) Urine Urobilinogen (0.2-1.0) mg/dL Ur Leukocyte Esterase (Negative) Elena/uL Urine WBC (Auto) (0-5) /hpf Urine RBC (Auto) (0-3) /hpf Ur Squamous Epith Cells (0-5) /hpf Urine Bacteria (<OCC) Ur L.pneumophila Ag (NEGATIVE) Mycoplasma pneumon IgM (NEGATIVE) 11/12/18 11/12/18 Range/Units 19:03 17:32 WBC (4.8-10.8) K/uL RBC (3.80-5.20) Mil/uL Hgb (11.0-16.0) g/dL Hct (34.0-47.0) % MCV (81.0-99.0) fL MCH (27.0-31.0) pg MCHC (33.0-37.0) g/dL RDW (11.5-14.5) % Plt Count (130-400) K/uL MPV (7.2-11.7) fL Neut % (Auto) (50.0-75.0) % Lymph % (Auto) (20.0-40.0) % [place] % (Auto) (0.0-10.0) % Eos % (Auto) (0.0-4.0) % Baso % (Auto) (0.0-2.0) % Neut # (Auto) (1.8-7.0) K/uL Lymph # (Auto) (1.0-4.3) K/uL [place] # (Auto) (0.0-0.8) K/uL Eos # (Auto) (0.0-0.7) K/uL Baso # (Auto) (0.0-0.2) K/uL Neutrophils % (Manual) (50-75) % Lymphocytes % (Manual) (20-40) % Monocytes % (Manual) (0-10) % Platelet Estimate (NORMAL) Polychromasia Hypochromasia (manual) APTT 65 H (21-34) SECONDS Puncture Site pCO2 (35-45) mm/Hg pO2 (80-100) mm/Hg HCO3 (21-28) mmol/L ABG pH (7.35-7.45) ABG Total CO2 (22-28) mmol/L ABG O2 Saturation (95-98) % ABG Base Excess (-2.0-3.0) mmol/L ABG Hemoglobin (11.7-17.4) g/dL ABG Carboxyhemoglobin (0.5-1.5) % POC ABG HHb (Measured) (0.0-5.0) % ABG Methemoglobin (0.0-3.0) % Mario Test ABG Potassium (3.6-5.2) mmol/L A-a O2 Difference mm/Hg Respiratory Index Hgb O2 Saturation (95.0-98.0) % Sodium (132-148) mmol/l Chloride (98-107) mmol/L Glucose (65-105) mg/dl Lactate (0.7-2.1) mmol/L Vent Mode FiO2 % Tidal Volume PEEP Inspiratory BiPAP Expiratory BiPAP Potassium (3.6-5.2) mmol/L Carbon Dioxide (22-30) mmol/L Anion Gap (10-20) BUN (7-17) mg/dL Creatinine (0.7-1.2) mg/dL Est GFR ( Amer) Est GFR (Non-Af Amer) POC Glucose (mg/dL) 150 H (65-110) mg/dL Random Glucose (65-105) mg/dL Calcium (8.6-10.4) mg/dl Magnesium (1.6-2.3) mg/dL Total Bilirubin (0.2-1.3) mg/dL AST (14-36) U/L ALT (9-52) U/L Alkaline Phosphatase (38-126) U/L Total Creatine Kinase (30-135) U/L CK-MB (Mass) (0.0-3.38) ng/mL Troponin I (0.00-0.120) ng/mL NT-Pro-B Natriuret Pep (0-900) pg/mL Total Protein (6.3-8.3) g/dL Albumin (3.5-5.0) g/dL Globulin (2.2-3.9) gm/dL Albumin/Globulin Ratio (1.0-2.1) Procalcitonin (0.19-0.49) NG/ML Arterial Blood Potassium (3.6-5.2) mmol/L Urine Color (YELLOW) Urine Clarity (Clear) Urine pH (5.0-8.0) Ur Specific [place] (1.003-1.030) Urine Protein (NEGATIVE) mg/dL Urine Glucose (UA) (Normal) mg/dL Urine Ketones (NEGATIVE) mg/dL Urine Blood (NEGATIVE) Urine Nitrate (NEGATIVE) Urine Bilirubin (NEGATIVE) Urine Urobilinogen (0.2-1.0) mg/dL Ur Leukocyte Esterase (Negative) Elena/uL Urine WBC (Auto) (0-5) /hpf Urine RBC (Auto) (0-3) /hpf Ur Squamous Epith Cells (0-5) /hpf Urine Bacteria (<OCC) Ur L.pneumophila Ag (NEGATIVE) Mycoplasma pneumon IgM (NEGATIVE) Laboratory Results - last 24 hr 11/12/18 11/12/18 11/12/18 17:32 19:03 22:40 WBC RBC Hgb Hct MCV MCH MCHC RDW Plt Count MPV Neut % (Auto) Lymph % (Auto) [place] % (Auto) Eos % (Auto) Baso % (Auto) Neut # (Auto) Lymph # (Auto) [place] # (Auto) Eos # (Auto) Baso # (Auto) Neutrophils % (Manual) Lymphocytes % (Manual) Monocytes % (Manual) Platelet Estimate Polychromasia Hypochromasia (manual) APTT 65 H Puncture Site Lba pCO2 32 L pO2 72 L HCO3 29.5 H ABG pH 7.55 H ABG Total CO2 29.0 H ABG O2 Saturation 97.5 ABG Base Excess 5.9 H ABG Hemoglobin ABG Carboxyhemoglobin POC ABG HHb (Measured) ABG Methemoglobin Mario Test Pos ABG Potassium 3.3 L A-a O2 Difference 245.0 Respiratory Index 3.4 Hgb O2 Saturation Sodium 140.0 Chloride 109.0 H Glucose 133 H Lactate 1.0 Vent Mode FiO2 50.0 Tidal Volume PEEP Inspiratory BiPAP 12 Expiratory BiPAP 6 Potassium Carbon Dioxide Anion Gap BUN Creatinine Est GFR ( Amer) Est GFR (Non-Af Amer) POC Glucose (mg/dL) 150 H Random Glucose Calcium Magnesium Total Bilirubin AST ALT Alkaline Phosphatase Total Creatine Kinase CK-MB (Mass) Troponin I NT-Pro-B Natriuret Pep Total Protein Albumin Globulin Albumin/Globulin Ratio Procalcitonin Arterial Blood Potassium 3.3 L Urine Color Urine Clarity Urine pH Ur Specific [place] Urine Protein Urine Glucose (UA) Urine Ketones Urine Blood Urine Nitrate Urine Bilirubin Urine Urobilinogen Ur Leukocyte Esterase Urine WBC (Auto) Urine RBC (Auto) Ur Squamous Epith Cells Urine Bacteria Ur L.pneumophila Ag Mycoplasma pneumon IgM 11/13/18 11/13/18 11/13/18 05:11 05:19 06:00 WBC 7.0 RBC 3.11 L Hgb 9.2 L Hct 28.6 L MCV 91.9 D MCH 29.5 MCHC 32.1 L RDW 14.5 Plt Count 221 MPV 9.5 Neut % (Auto) 84.7 H Lymph % (Auto) 9.2 L [place] % (Auto) 5.2 Eos % (Auto) 0.6 Baso % (Auto) 0.3 Neut # (Auto) 5.9 Lymph # (Auto) 0.6 L [place] # (Auto) 0.4 Eos # (Auto) 0.0 Baso # (Auto) 0.0 Neutrophils % (Manual) 86 H Lymphocytes % (Manual) 10 L Monocytes % (Manual) 4 Platelet Estimate Normal Polychromasia Slight Hypochromasia (manual) Slight APTT Puncture Site R rad pCO2 32 L pO2 73 L HCO3 25.4 ABG pH 7.48 H ABG Total CO2 24.8 ABG O2 Saturation 97.4 ABG Base Excess 0.6 ABG Hemoglobin 9.0 L ABG Carboxyhemoglobin 1.7 H POC ABG HHb (Measured) 2.5 ABG Methemoglobin 0.6 Mario Test Pos ABG Potassium A-a O2 Difference 244.0 Respiratory Index 3.3 Hgb O2 Saturation 95.3 Sodium Chloride Glucose Lactate Vent Mode Bipap FiO2 50.0 Tidal Volume PEEP Inspiratory BiPAP 12 Expiratory BiPAP 6 Potassium Carbon Dioxide Anion Gap BUN Creatinine Est GFR ( Amer) Est GFR (Non-Af Amer) POC Glucose (mg/dL) 149 H Random Glucose Calcium Magnesium Total Bilirubin AST ALT Alkaline Phosphatase Total Creatine Kinase CK-MB (Mass) Troponin I NT-Pro-B Natriuret Pep Total Protein Albumin Globulin Albumin/Globulin Ratio Procalcitonin Arterial Blood Potassium Urine Color Urine Clarity Urine pH Ur Specific [place] Urine Protein Urine Glucose (UA) Urine Ketones Urine Blood Urine Nitrate Urine Bilirubin Urine Urobilinogen Ur Leukocyte Esterase Urine WBC (Auto) Urine RBC (Auto) Ur Squamous Epith Cells Urine Bacteria Ur L.pneumophila Ag Mycoplasma pneumon IgM 11/13/18 11/13/18 11/13/18 06:00 06:00 08:04 WBC RBC Hgb Hct MCV MCH MCHC RDW Plt Count MPV Neut % (Auto) Lymph % (Auto) [place] % (Auto) Eos % (Auto) Baso % (Auto) Neut # (Auto) Lymph # (Auto) [place] # (Auto) Eos # (Auto) Baso # (Auto) Neutrophils % (Manual) Lymphocytes % (Manual) Monocytes % (Manual) Platelet Estimate Polychromasia Hypochromasia (manual) APTT 58 H D Puncture Site pCO2 pO2 HCO3 ABG pH ABG Total CO2 ABG O2 Saturation ABG Base Excess ABG Hemoglobin ABG Carboxyhemoglobin POC ABG HHb (Measured) ABG Methemoglobin Mario Test ABG Potassium A-a O2 Difference Respiratory Index Hgb O2 Saturation Sodium 138 Chloride 105 Glucose Lactate Vent Mode FiO2 Tidal Volume PEEP Inspiratory BiPAP Expiratory BiPAP Potassium 2.8 L Carbon Dioxide 24 Anion Gap 12 BUN 28 H Creatinine 0.7 Est GFR ( Amer) > 60 Est GFR (Non-Af Amer) > 60 POC Glucose (mg/dL) Random Glucose 134 H D Calcium 8.5 L Magnesium 2.4 H Total Bilirubin 1.6 H AST 41 H D ALT 103 H D Alkaline Phosphatase 113 Total Creatine Kinase CK-MB (Mass) Troponin I NT-Pro-B Natriuret Pep 5640 H Total Protein 6.3 Albumin 3.1 L Globulin 3.3 Albumin/Globulin Ratio 0.9 L Procalcitonin Arterial Blood Potassium Urine Color Urine Clarity Urine pH Ur Specific [place] Urine Protein Urine Glucose (UA) Urine Ketones Urine Blood Urine Nitrate Urine Bilirubin Urine Urobilinogen Ur Leukocyte Esterase Urine WBC (Auto) Urine RBC (Auto) Ur Squamous Epith Cells Urine Bacteria Ur L.pneumophila Ag Mycoplasma pneumon IgM Negative 11/13/18 11/13/18 11/13/18 08:04 10:35 10:35 WBC RBC Hgb Hct MCV MCH MCHC RDW Plt Count MPV Neut % (Auto) Lymph % (Auto) [place] % (Auto) Eos % (Auto) Baso % (Auto) Neut # (Auto) Lymph # (Auto) [place] # (Auto) Eos # (Auto) Baso # (Auto) Neutrophils % (Manual) Lymphocytes % (Manual) Monocytes % (Manual) Platelet Estimate Polychromasia Hypochromasia (manual) APTT Puncture Site pCO2 pO2 HCO3 ABG pH ABG Total CO2 ABG O2 Saturation ABG Base Excess ABG Hemoglobin ABG Carboxyhemoglobin POC ABG HHb (Measured) ABG Methemoglobin Mario Test ABG Potassium A-a O2 Difference Respiratory Index Hgb O2 Saturation Sodium Chloride Glucose Lactate Vent Mode FiO2 Tidal Volume PEEP Inspiratory BiPAP Expiratory BiPAP Potassium Carbon Dioxide Anion Gap BUN Creatinine Est GFR ( Amer) Est GFR (Non-Af Amer) POC Glucose (mg/dL) Random Glucose Calcium Magnesium Total Bilirubin AST ALT Alkaline Phosphatase Total Creatine Kinase CK-MB (Mass) Troponin I NT-Pro-B Natriuret Pep Total Protein Albumin Globulin Albumin/Globulin Ratio Procalcitonin 0.15 L Arterial Blood Potassium Urine Color [place] Urine Clarity Clear Urine pH 7.0 Ur Specific [place] 1.028 Urine Protein 1+ H Urine Glucose (UA) Normal Urine Ketones Negative Urine Blood Negative Urine Nitrate Negative Urine Bilirubin Negative Urine Urobilinogen 4.0 H Ur Leukocyte Esterase Neg Urine WBC (Auto) 2 Urine RBC (Auto) 3 Ur Squamous Epith Cells 2 Urine Bacteria Rare Ur L.pneumophila Ag Negative Mycoplasma pneumon IgM 11/13/18 11/13/18 12:31 13:47 WBC RBC Hgb Hct MCV MCH MCHC RDW Plt Count MPV Neut % (Auto) Lymph % (Auto) [place] % (Auto) Eos % (Auto) Baso % (Auto) Neut # (Auto) Lymph # (Auto) [place] # (Auto) Eos # (Auto) Baso # (Auto) Neutrophils % (Manual) Lymphocytes % (Manual) Monocytes % (Manual) Platelet Estimate Polychromasia Hypochromasia (manual) APTT Puncture Site Lb pCO2 28 L pO2 135 H HCO3 21.9 ABG pH 7.44 ABG Total CO2 19.9 L ABG O2 Saturation 99.0 H ABG Base Excess -3.9 L ABG Hemoglobin 12.8 ABG Carboxyhemoglobin 1.2 POC ABG HHb (Measured) 1.0 ABG Methemoglobin 0.6 Mario Test Na ABG Potassium A-a O2 Difference 400.0 Respiratory Index 3.0 Hgb O2 Saturation 97.2 Sodium Chloride Glucose Lactate Vent Mode FiO2 80.0 Tidal Volume 500 PEEP 5 Inspiratory BiPAP Expiratory BiPAP Potassium Carbon Dioxide Anion Gap BUN Creatinine Est GFR ( Amer) Est GFR (Non-Af Amer) POC Glucose (mg/dL) Random Glucose Calcium Magnesium Total Bilirubin AST ALT Alkaline Phosphatase Total Creatine Kinase 98 CK-MB (Mass) 1.29 Troponin I 0.3470 H* NT-Pro-B Natriuret Pep Total Protein Albumin Globulin Albumin/Globulin Ratio Procalcitonin Arterial Blood Potassium Urine Color Urine Clarity Urine pH Ur Specific [place] Urine Protein Urine Glucose (UA) Urine Ketones Urine Blood Urine Nitrate Urine Bilirubin Urine Urobilinogen Ur Leukocyte Esterase Urine WBC (Auto) Urine RBC (Auto) Ur Squamous Epith Cells Urine Bacteria Ur L.pneumophila Ag Mycoplasma pneumon IgM Radiology Impressions: Radiology Impressions Chest X-Ray 11/13/18 07:00 IMPRESSION: Interval increase in right upper lobe consolidation. Patchy infiltrate within the left upper and bilateral lower lobes. Mild pulmonary venous congestion. Chest X-Ray 11/13/18 12:22 IMPRESSION: Interval worsening of right lung opacities since the prior study. Interval worsening of pulmonary vascular congestion. Right pleural effusion appears larger compared to the prior study. Chest X-Ray 11/13/18 14:59 IMPRESSION: Right IJ approach central venous catheter extends to the SVC. Endotracheal tube terminates approximately 4.6 cm above the ofelia. Left IJ approach [place]Cec[place] catheter with distal tip oriented in the expected location of the right pulmonary artery. Nasogastric tube extends expected location of the stomach, distal tip excluded from view. Cardiomegaly. Persistent edema/infection with predominance involving the mid to upper right hemithorax. Edema like pattern. EKG/Cardiology Studies: Cardiology / EKG Studies 11/13/18 11:56 EKG [ELECTROCARDIOGRAM] Stat Comment: Mode Of Transportation: Reason For Exam: tachycardia, flash pulmonary edema Precautions: Fall Prevention 11/13/18 18:00 EKG [ELECTROCARDIOGRAM] Routine Comment: Mode Of Transportation: Reason For Exam: tachycardia Precautions: Fall Prevention Attending/Attestation - Attestation I have personally seen and examined this patient.: Yes I have fully participated in the care of the patient.: Yes I have reviewed all pertinent clinical information: Yes Notes (Text): 11/13/18 17:20 Patient seen and examined in the intensive care unit. Patient reintubated for worsening shortness of breath and not responding to BiPAP [place] catheter inserted under aseptic conditions local anesthesia and found to have elevated wedge pressures Patient started on Lasix drip and pressors Continue milrinone as per cardiology Possible transfer to [facility] Continue ventilatory support Continue antibiotics for now
[2018-11-13 08:30] LABS: LYMPHOCYTE 10 % (20-40); MONOCYTE 4 % (0-10); NEUTROPHIL 86 % (50-75); TOTAL CELLS COUNTED 100
[2018-11-13] MEDS ORDERED: Vancomycin 1 gm/NS 200 ml 1 GM/200 ML BAG IVPB SCH (08:30)
[2018-11-13 08:31] LABS: PLATELET ESTIMATE NORMAL (NORMAL)
[2018-11-13 08:32] LABS: HYPOCHROMIC SLIGHT; POLYCHROMIC SLIGHT
[2018-11-13 09:07] LABS: B-TYPE NATRIURETIC PEPTIDE 5640 pg/mL (0-900)
[2018-11-13 09:45] VITALS: O2SAT 100
[2018-11-13] MEDS: Metoprolol Succinate 12.5 mg XL Tab PO SCH (10:28)
[2018-11-13] MEDS: Pantoprazole 40 mg EC Tab PO SCH (10:49)
[2018-11-13] MEDS: Omega-3-Acid Ethyl Esters 1 GM Cap PO SCH ×2 (10:49→18:29)
[2018-11-13 11:07] LABS: SQUAMOUS EPITHIAL 2 /hpf (0-5); URINE BACTERIA RARE (<OCC); URINE BILIRUBIN NEGATIVE (NEGATIVE); URINE BLOOD NEGATIVE (NEGATIVE); URINE CLARITY Clear (Clear); URINE COLOR Amber (YELLOW); URINE GLUCOSE (UA) NORMAL (Normal); URINE LEUKOCYTE ESTERASE NEG Leu/uL (Negative); URINE PROTEIN 1+ mg/dL (NEGATIVE)
[2018-11-13] MEDS ORDERED: Propofol 10 mg/ml Inj (20 ML) ONE (12:06)
--- NOTE | 2018-11-13 12:21 | RAD ---
HISTORY: heart failure, intubated COMPARISON: Chest x-ray performed 11/12/18 TECHNIQUE: Chest, one view. FINDINGS: Examination limited by habitus. LUNGS: Interval increase in right upper lobe consolidation. Patchy infiltrate within the left upper and bilateral lower lobes. Mild pulmonary venous congestion. PLEURA: No significant pleural effusion identified. No definite pneumothorax . CARDIOVASCULAR: Median sternotomy wires with evidence of CABG. Cardiomegaly. OSSEOUS STRUCTURES: Osseous demineralization. Scoliosis. Degenerative changes. VISUALIZED UPPER ABDOMEN: Unremarkable. OTHER FINDINGS: None. IMPRESSION: Interval increase in right upper lobe consolidation. Patchy infiltrate within the left upper and bilateral lower lobes. Mild pulmonary venous congestion.
[2018-11-13] MEDS ORDERED: Etomidate 20 mg/10ml Inj IV ONE (12:41)
[2018-11-13] MEDS ORDERED: Propofol 10 mg/ml Inj (20 ML) IV ONE (12:42)
[2018-11-13] MEDS ORDERED: DEXTROSE 5% IV PRN (13:00)
[2018-11-13] MEDS ORDERED: PHENYLEPHRINE IV PRN (13:00)
[2018-11-13] MEDS ORDERED: WATER IV PRN (13:00)
[2018-11-13 13:10] LABS: CK-MB 1.29 ng/mL (0.0-3.38); TROPONIN I 0.347 ng/mL (0.00-0.120)
[2018-11-13 13:50] LABS: ARTERIAL BLOOD GAS HCO3 21.9 mmol/L (21-28); ARTERIAL BLOOD GAS HEMOGLOBIN 12.8 g/dL (11.7-17.4); ARTERIAL BLOOD GAS PCO2 28 mm/Hg (35-45); ARTERIAL BLOOD GAS PH 7.44 (7.35-7.45); ARTERIAL BLOOD GAS PO2 135 mm/Hg (80-100); ARTERIAL BLOOD GAS TCO2 19.9 mmol/L (22-28)
--- NOTE | 2018-11-13 14:08 | RAD ---
Date of service: 11/13/2018 HISTORY: et tube placement COMPARISON: Comparison is made with 11/13/2018 FINDINGS: LUNGS: Again noted is hazy opacity at the mid and upper portion of the right lung appears slightly worse compared to the previous exam. The ET tube is seen at appropriate position. Interval worsening of hazy opacity and consolidation at the right lower lung. Interval worsening of pulmonary congestion compared to the prior study. PLEURA: Suspicious for interval worsening of right pleural effusion. CARDIOVASCULAR: Post cardiac surgery changes are noted. There is a right-sided jugular central line in place. OSSEOUS STRUCTURES: No significant abnormalities. VISUALIZED UPPER ABDOMEN: Normal. OTHER FINDINGS: None. IMPRESSION: Interval worsening of right lung opacities since the prior study. Interval worsening of pulmonary vascular congestion. Right pleural effusion appears larger compared to the prior study.
[2018-11-13] MEDS: Dexmedetomidine Hydrochloride 200 MCG in Sodium Chloride 0.9% 48 ML IV PRN ×3 (14:12→17:29)
--- NOTE | 2018-11-13 15:18 | CP.PCM.PN ---
Subjective - Date & Time of Evaluation Date of Evaluation: 11/13/18 Time of Evaluation: 11:45 - Subjective Subjective: clinically same Objective - Vital Signs/Intake and Output Vital Signs (last 24 hours): Temp Pulse Resp BP Pulse Ox 98.9 F 91 H 28 H 70/42 L 100 11/13/18 12:00 11/13/18 13:00 11/13/18 13:00 11/13/18 14:01 11/13/18 13:00 Intake and Output: 11/13/18 11/13/18 06:59 18:59 Intake Total 797.2 1101.7 Output Total 400 185 Balance 397.2 916.7 - Medications Medications: Current Medications Acetaminophen (Tylenol 650mg/20.3ml Solution Ud) 650 mg PO Q6 PRN PRN Reason: Temperature Last Admin: 11/13/18 06:44 Dose: 650 mg Albuterol/Ipratropium (Duoneb 3 Mg/0.5 Mg (3 Ml) Ud) 3 ml INH RQ8 MIREYA Last Admin: 11/13/18 07:30 Dose: 3 ml Amiodarone HCl (Cordarone) 400 mg PO BID MIREYA Last Admin: 11/12/18 17:33 Dose: 400 mg Aspirin (Ecotrin) 81 mg PO DAILY MIREYA Last Admin: 11/13/18 10:49 Dose: 81 mg Heparin Sodium/Sodium Chloride (Heparin 78117 Units/250ml 1/2 Normal Saline) 25,000 units in 250 mls @ 10.234 mls/hr IV .Q24H PRN; Protocol PRN Reason: ADJUST RATE PER PROTOCOL Last Titration: 11/13/18 09:45 Dose: 0 units/kg/hr, 0 mls/hr Dexmedetomidine HCl 200 mcg/ (Sodium Chloride) 50 mls @ 3.74 mls/hr IV TITR PRN; Protocol PRN Reason: Agitation Last Admin: 11/13/18 14:12 Dose: 1.8 mcg/kg/hr, 33.62 mls/hr Piperacillin Sod/Tazobactam (Sod 4.5 gm/ Sodium Chloride) 100 mls @ 200 mls/hr IVPB Q6H MIREYA; Protocol Last Admin: 11/13/18 10:50 Dose: 200 mls/hr Norepinephrine Bitartrate 4 mg (/ Sodium Chloride) 250 mls @ 15 mls/hr IV .[id number] PRN; Protocol PRN Reason: TITRATE PER MD ORDER Last Titration: 11/12/18 10:05 Dose: 0 mcg/min, 0 mls/hr Milrinone Lactate/Dextrose 20 (mg/ Dextrose) 100 mls @ 8.4 mls/hr IV .[id number] MIREYA; Protocol Last Admin: 11/13/18 13:29 Dose: Not Given Vancomycin/Sodium Chloride (Vancomycin 1 Gm/Ns 200 Ml) 1 gm in 200 mls @ 133 mls/hr IVPB Q12H MIREYA; Protocol Stop: 11/18/18 08:31 Last Admin: 11/13/18 08:40 Dose: 133 mls/hr Amiodarone HCl 900 mg/ (Dextrose) 500 mls @ 33.33 mls/hr IV .Q15H1M ONE; Protocol Stop: 11/13/18 23:40 Last Admin: 11/13/18 09:37 Dose: 33.33 mls/hr Amiodarone HCl 900 mg/ (Dextrose) 500 mls @ 16.67 mls/hr IV .Q24H ONE; Protocol Stop: 11/14/18 14:59 Phenylephrine HCl 30 mg/ (Dextrose) 250 mls @ 25 mls/hr IV .Q10H PRN; Protocol PRN Reason: TITRATE PER MD ORDER Last Titration: 11/13/18 14:12 Dose: 75 mcg/min, 37.5 mls/hr Furosemide 100 mg/ Sodium (Chloride) 100 mls @ 10 mls/hr IV .Q10H MIREYA; Protocol Metoprolol Succinate (Toprol Xl) 12.5 mg PO DAILY MIREYA Last Admin: 11/13/18 10:28 Dose: Not Given Mpfnq-4-Hyke Ethyl Esters (Lovaza) 1 gm PO BID MIREYA Last Admin: 11/13/18 10:49 Dose: 1 gm Pantoprazole Sodium (Protonix Ec Tab) 40 mg PO DAILY MIREYA Last Admin: 11/13/18 10:49 Dose: 40 mg Ticagrelor (Brilinta) 90 mg PO BID MIREYA Last Admin: 11/13/18 10:49 Dose: 90 mg - Labs Labs: 11/13/18 06:00 11/13/18 06:00 PT 13.5 SECONDS (9.7-12.2) H 11/07/18 05:49 INR 1.2 11/07/18 05:49 APTT 58 SECONDS (21-34) H D 11/13/18 06:00
--- NOTE | 2018-11-13 15:28 | RAD ---
HISTORY: position for swan cecelia COMPARISON: Multiple prior chest x-rays, most recent performed earlier the same day at 1228 hr TECHNIQUE: Chest, one view. FINDINGS: Right IJ approach central venous catheter extends to the SVC. Endotracheal tube terminates approximately 4.6 cm above the ofelia. Left IJ approach [place]Cecelia catheter with distal tip oriented in the expected location of the right pulmonary artery. Nasogastric tube extends expected location of the stomach, distal tip excluded from view. LUNGS: Persistent edema/infection predominance within the mid to upper right hemithorax. Edema like pattern. No large pleural effusion or definite pneumothorax. CARDIOVASCULAR: Median sternotomy wires with evidence of CABG. Cardiomegaly. Atherosclerotic calcifications. OSSEOUS STRUCTURES: Degenerative changes. Scoliosis. VISUALIZED UPPER ABDOMEN: Unremarkable. OTHER FINDINGS: None. IMPRESSION: Right IJ approach central venous catheter extends to the SVC. Endotracheal tube terminates approximately 4.6 cm above the ofelia. Left IJ approach [place]-Cecelia catheter with distal tip oriented in the expected location of the right pulmonary artery. Nasogastric tube extends expected location of the stomach, distal tip excluded from view. Cardiomegaly. Persistent edema/infection with predominance involving the mid to upper right hemithorax. Edema like pattern.
[2018-11-13] MEDS ORDERED: Furosemide 100 MG in Sodium Chloride 0.9% 90 ML IV SCH (15:30)
--- NOTE | 2018-11-13 16:07 | CP.PCM.PN ---
Subjective - Date & Time of Evaluation Date of Evaluation: 11/13/18 Time of Evaluation: 07:00 - Subjective Subjective: seen on rounds re-intubated cardiogenic shock picture Objective - Vital Signs/Intake and Output Vital Signs (last 24 hours): Temp Pulse Resp BP Pulse Ox 98.9 F 91 H 28 H 70/42 L 100 11/13/18 12:00 11/13/18 13:00 11/13/18 13:00 11/13/18 14:01 11/13/18 13:00 Intake and Output: 11/13/18 11/13/18 06:59 18:59 Intake Total 797.2 1101.7 Output Total 400 185 Balance 397.2 916.7 - Medications Medications: Current Medications Acetaminophen (Tylenol 650mg/20.3ml Solution Ud) 650 mg PO Q6 PRN PRN Reason: Temperature Last Admin: 11/13/18 06:44 Dose: 650 mg Albuterol/Ipratropium (Duoneb 3 Mg/0.5 Mg (3 Ml) Ud) 3 ml INH RQ8 MIREYA Last Admin: 11/13/18 07:30 Dose: 3 ml Amiodarone HCl (Cordarone) 400 mg PO BID MIREYA Last Admin: 11/12/18 17:33 Dose: 400 mg Aspirin (Ecotrin) 81 mg PO DAILY [facility] Last Admin: 11/13/18 10:49 Dose: 81 mg Heparin Sodium/Sodium Chloride (Heparin 97053 Units/250ml 1/2 Normal Saline) 25,000 units in 250 mls @ 10.234 mls/hr IV .Q24H PRN; Protocol PRN Reason: ADJUST RATE PER PROTOCOL Last Titration: 11/13/18 09:45 Dose: 0 units/kg/hr, 0 mls/hr Dexmedetomidine HCl 200 mcg/ (Sodium Chloride) 50 mls @ 3.74 mls/hr IV TITR PRN; Protocol PRN Reason: Agitation Last Admin: 11/13/18 14:12 Dose: 1.8 mcg/kg/hr, 33.62 mls/hr Piperacillin Sod/Tazobactam (Sod 4.5 gm/ Sodium Chloride) 100 mls @ 200 mls/hr IVPB Q6H MIREYA; Protocol Last Admin: 11/13/18 10:50 Dose: 200 mls/hr Norepinephrine Bitartrate 4 mg (/ Sodium Chloride) 250 mls @ 15 mls/hr IV .[id number] PRN; Protocol PRN Reason: TITRATE PER MD ORDER Last Titration: 11/12/18 10:05 Dose: 0 mcg/min, 0 mls/hr Vancomycin/Sodium Chloride (Vancomycin 1 Gm/Ns 200 Ml) 1 gm in 200 mls @ 133 mls/hr IVPB Q12H MIREYA; Protocol Stop: 11/18/18 08:31 Last Admin: 11/13/18 08:40 Dose: 133 mls/hr Amiodarone HCl 900 mg/ (Dextrose) 500 mls @ 33.33 mls/hr IV .Q15H1M ONE; Protocol Stop: 11/13/18 23:40 Last Admin: 11/13/18 09:37 Dose: 33.33 mls/hr Amiodarone HCl 900 mg/ (Dextrose) 500 mls @ 16.67 mls/hr IV .Q24H ONE; Protocol Stop: 11/14/18 14:59 Phenylephrine HCl 30 mg/ (Dextrose) 250 mls @ 25 mls/hr IV .Q10H PRN; Protocol PRN Reason: TITRATE PER MD ORDER Last Titration: 11/13/18 14:12 Dose: 75 mcg/min, 37.5 mls/hr Furosemide 100 mg/ Sodium (Chloride) 100 mls @ 10 mls/hr IV .Q10H MIREYA; Protocol Milrinone Lactate/Dextrose 20 (mg/ Sodium Chloride) 100 mls @ 11.21 mls/hr IV .Q8H56M MIREYA; Protocol Metoprolol Succinate (Toprol Xl) 12.5 mg PO DAILY [facility] Last Admin: 11/13/18 10:28 Dose: Not Given [id number]-8-Cyyf Ethyl Esters (Lovaza) 1 gm PO BID MIREYA Last Admin: 11/13/18 10:49 Dose: 1 gm Pantoprazole Sodium (Protonix Ec Tab) 40 mg PO DAILY [facility] Last Admin: 11/13/18 10:49 Dose: 40 mg Ticagrelor (Brilinta) 90 mg PO BID [facility] Last Admin: 11/13/18 10:49 Dose: 90 mg - Labs Labs: 11/13/18 06:00 11/13/18 06:00 PT 13.5 SECONDS (9.7-12.2) H 02/07/19 05:49 INR 1.2 11/07/18 05:49 APTT 58 SECONDS (21-34) H D 11/13/18 06:00 - Constitutional Appears: Confused - Head Exam Head Exam: NORMOCEPHALIC - Eye Exam Eye Exam: absent: Scleral icterus - ENT Exam ENT Exam: Mucous Membranes Dry - Neck Exam Neck Exam: absent: Lymphadenopathy - Respiratory Exam Respiratory Exam: Decreased Breath Sounds, Rales - Cardiovascular Exam Cardiovascular Exam: Tachycardia, +S1, +S2 - GI/Abdominal Exam GI & Abdominal Exam: Distended, Soft - Rectal Exam Rectal Exam: Deferred - Exam Exam: NORMAL INSPECTION - Extremities Exam Extremities Exam: Pedal Edema - Back Exam Back Exam: absent: CVA tenderness (L), CVA tenderness (R) Assessment and Plan (1) Cardiogenic shock Status: Acute (2) Chest pain Status: Acute (3) STEMI (ST elevation myocardial infarction) Status: Acute (4) Coronary artery disease Status: Chronic (5) Asthma Status: Acute - Assessment and Plan (Free Text) Assessment: poor prognosis from outset
[2018-11-13 16:22] VITALS: TEMP 102.4
--- NOTE | 2018-11-13 17:25 | PCM.PROC ---
Procedures Attestation:: I certify that I have explained the specified Operation(s) or Procedure(s), risks, benefits and reasonable alternatives to the Patient and/or other person responsible. The opportunity was given to ask questions and all questions answered - Intubation Time Out Performed: Yes Sedative: Etomidate Mg Given: 20 Laryngoscope: Lisa ET Tube Size: 7.5 ET Tube Uncuffed: Yes ET Tube Secured at Depth: 22 ET Tube Secured Locarion: Lips ET Tube Placement Confirmation: Visualized Passing Through Cords, Breath Sounds Equal Bilaterally, No Breath Sounds Over Epigastrum, Confirmation w/Capnometry Patient Tolerated Procedure: Well Procedure Immediate Complications: None
[2018-11-13] MEDS ORDERED: Dexmedetomidine Hydrochloride 400 MCG in Sodium Chloride 0.9% 96 ML IV PRN (17:54)
[2018-11-13 18:26] LABS: BLOOD UREA NITROGEN 32 mg/dL (7-17); CALCIUM 8.6 mg/dl (8.6-10.4); GFR NON-AFRICAN AMERICAN > 60
[2018-11-13 18:37] LABS: CK-MB 1.07 ng/mL (0.0-3.38)
[2018-11-13 19:27] VITALS: BP 113/67; PULSE 78; RESP 23
--- NOTE | 2018-11-13 19:50 | CP.PCM.PN ---
Subjective - Date & Time of Evaluation Date of Evaluation: 11/13/18 Time of Evaluation: 13:00 - Subjective Subjective: Pt seen and examined in the ICU. Pt was intubated during the exam. Objective - Vital Signs/Intake and Output Vital Signs (last 24 hours): Temp Pulse Resp BP Pulse Ox 102.4 F H 78 23 113/67 100 11/13/18 16:20 11/13/18 18:33 11/13/18 18:33 11/13/18 18:33 11/13/18 18:33 Intake and Output: 11/13/18 11/14/18 18:59 06:59 Intake Total 1726.8 97.7 Output Total 335 Balance 1391.8 97.7 - Medications Medications: Current Medications Acetaminophen (Tylenol 650mg/20.3ml Solution Ud) 650 mg PO Q6 PRN PRN Reason: Temperature Last Admin: 11/13/18 16:20 Dose: 650 mg Albuterol/Ipratropium (Duoneb 3 Mg/0.5 Mg (3 Ml) Ud) 3 ml INH RQ8 MIREYA Last Admin: 11/13/18 16:10 Dose: 3 ml Amiodarone HCl (Cordarone) 400 mg PO BID MIREYA Last Admin: 11/12/18 17:33 Dose: 400 mg Aspirin (Ecotrin) 81 mg PO DAILY [facility] Last Admin: 11/13/18 10:49 Dose: 81 mg Piperacillin Sod/Tazobactam (Sod 4.5 gm/ Sodium Chloride) 100 mls @ 200 mls/hr IVPB Q6H MIREYA; Protocol Last Admin: 11/13/18 18:29 Dose: 200 mls/hr Norepinephrine Bitartrate 4 mg (/ Sodium Chloride) 250 mls @ 15 mls/hr IV .[id number] PRN; Protocol PRN Reason: TITRATE PER MD ORDER Last Titration: 11/12/18 10:05 Dose: 0 mcg/min, 0 mls/hr Vancomycin/Sodium Chloride (Vancomycin 1 Gm/Ns 200 Ml) 1 gm in 200 mls @ 133 m ls/hr IVPB Q12H MIREYA; Protocol Stop: 11/18/18 08:31 Last Admin: 11/13/18 08:40 Dose: 133 mls/hr Amiodarone HCl 900 mg/ (Dextrose) 500 mls @ 33.33 mls/hr IV .Q15H1M ONE; Protocol Stop: 11/13/18 23:40 Last Admin: 11/13/18 09:37 Dose: 33.33 mls/hr Amiodarone HCl 900 mg/ (Dextrose) 500 mls @ 16.67 mls/hr IV .Q24H ONE; Protocol Stop: 11/14/18 14:59 Last Admin: 11/13/18 18:30 Dose: Not Given Phenylephrine HCl 30 mg/ (Dextrose) 250 mls @ 25 mls/hr IV .Q10H PRN; Protocol PRN Reason: TITRATE PER MD ORDER Last Titration: 11/13/18 17:30 Dose: 50 mcg/min, 25 mls/hr Furosemide 100 mg/ Sodium (Chloride) 100 mls @ 10 mls/hr IV .Q10H MIREYA; Protocol Last Admin: 11/13/18 16:50 Dose: 10 mls/hr Milrinone Lactate/Dextrose 20 (mg/ Sodium Chloride) 100 mls @ 11.21 mls/hr IV .Q8H56M MIREYA; Protocol Last Admin: 11/13/18 16:52 Dose: 0.5 mcg/kg/min, 11.21 mls/hr Dexmedetomidine HCl 400 mcg/ (Sodium Chloride) 102 mls @ 3.81 mls/hr IV TITR PRN; Protocol PRN Reason: Agitation Last Admin: 11/13/18 19:03 Dose: 2 mcg/kg/hr, 38.1 mls/hr Metoprolol Succinate (Toprol Xl) 12.5 mg PO DAILY [facility] Last Admin: 11/13/18 10:28 Dose: Not Given Qwjnc-0-Wipo Ethyl Esters (Lovaza) 1 gm PO BID [facility] Last Admin: 11/13/18 18:29 Dose: 1 gm Pantoprazole Sodium (Protonix Ec Tab) 40 mg PO DAILY [facility] Last Admin: 11/13/18 10:49 Dose: 40 mg Ticagrelor (Brilinta) 90 mg PO BID MIREYA Last Admin: 11/13/18 18:29 Dose: 90 mg - Labs Labs: 11/13/18 06:00 11/13/18 17:47 PT 13.5 SECONDS (9.7-12.2) H 11/07/18 05:49 INR 1.2 11/07/18 05:49 APTT 58 SECONDS (21-34) H D 11/13/18 06:00 - Constitutional Appears: No Acute Distress - Head Exam Head Exam: ATRAUMATIC, NORMOCEPHALIC - Eye Exam Eye Exam: EOMI - ENT Exam ENT Exam: Mucous Membranes Moist - Neck Exam Neck Exam: Full ROM - Respiratory Exam Respiratory Exam: NORMAL BREATHING PATTERN. absent: Accessory Muscle Use - Cardiovascular Exam Cardiovascular Exam: RRR, +S1, +S2 - GI/Abdominal Exam GI & Abdominal Exam: Soft, Normal Bowel Sounds - Extremities Exam Extremities Exam: Full ROM - Back Exam Back Exam: Full ROM - Neurological Exam Additional comments: intubated - Skin Skin Exam: Dry, Intact, Warm Assessment and Plan - Assessment and Plan (Free Text) Assessment: Assessment and Plan (1) Cardiogenic shock Status: Acute (2) Dyslipidemia Status: Acute (3) STEMI (ST elevation myocardial infarction) Status: Acute (4) Coronary artery disease Status: Chronic (5) HTN (hypertension) Status: Acute (6) Hx of CABG Plan: pt intubated swan last catheter BNP 5640, improving Troponins 0.076, 2.54, 8.76, 74.9, 0.3470, 0.4340 ECHO 11/12/18: left ventricular systolic function mildly impaired, EF 40-45% will try to transfer pt to [place] as soon as possible, pt will likely need impella Medications amiodarone ASA 81 milrinone 0.5mcg precedex Lovaza Brilinta Toprol 12.5 Zetia Pt seen, examined, assessment and plan discussed with Dr Sharif Teague PGY1
--- NOTE | 2018-11-14 20:11 | CARD ---
APPROVED REPORT Date of service: 11/13/2018 EKG Measurement Heart [id number] <Conclusion> Sinus tachycardia Otherwise normal ECG
== END 2018-11-13 19:23 | disposition short-term general hospital (02) | DRG 549 ==
LOC: C.ER 12:31 → C.9E 14:31 → C.5S 20:31 → C.9I 11-04 02:14 → OBSVTOIN 11-04 02:30
PROVIDERS: ADMIT Internal Medicine Nephrology; ATTEND Internal Medicine Nephrology
PROC: 02703ZZ Dilation of Coronary Artery, One Artery, Percutaneous Approach (ICD-10-PCS; 2018-11-04)
PROC: 5A02210 Assistance with Cardiac Output using Balloon Pump, Continuous (ICD-10-PCS; 2018-11-04)
PROC: 4A023N7 Measurement of Cardiac Sampling and Pressure, Left Heart, Percutaneous Approach (ICD-10-PCS; 2018-11-04)
PROC: B2151ZZ Fluoroscopy of Left Heart using Low Osmolar Contrast (ICD-10-PCS; 2018-11-04)
PROC: B2111ZZ Fluoroscopy of Multiple Coronary Arteries using Low Osmolar Contrast (ICD-10-PCS; 2018-11-04)
PROC: 0BH17EZ Insertion of Endotracheal Airway into Trachea, Via Natural or Artificial Opening (ICD-10-PCS; principal; 2018-11-05)
PROC: 5A1955Z Respiratory Ventilation, Greater than 96 Consecutive Hours (ICD-10-PCS; 2018-11-05)
PROC: 02HV33Z Insertion of Infusion Device into Superior Vena Cava, Percutaneous Approach (ICD-10-PCS; 2018-11-06)
PROC: B548ZZA Ultrasonography of Superior Vena Cava, Guidance (ICD-10-PCS; 2018-11-06)
PROC: 0BH17EZ Insertion of Endotracheal Airway into Trachea, Via Natural or Artificial Opening (ICD-10-PCS; 2018-11-13)
PROC: 5A1935Z Respiratory Ventilation, Less than 24 Consecutive Hours (ICD-10-PCS; 2018-11-13)
DX: I21.3 ST elevation (STEMI) myocardial infarction of unspecified site (principal); I50.23 Acute on chronic systolic (congestive) heart failure; J18.9 Pneumonia, unspecified organism; J96.01 Acute respiratory failure with hypoxia; R57.0 Cardiogenic shock; I48.92 Unspecified atrial flutter; I11.0 Hypertensive heart disease with heart failure; E78.5 Hyperlipidemia, unspecified; F41.9 Anxiety disorder, unspecified; I25.82 Chronic total occlusion of coronary artery; I47.1 Supraventricular tachycardia; I48.91 Unspecified atrial fibrillation; E77.8 Other disorders of glycoprotein metabolism; J45.909 Unspecified asthma, uncomplicated; R62.7 Adult failure to thrive; R79.1 Abnormal coagulation profile; Z79.01 Long term (current) use of anticoagulants; Z87.11 Personal history of peptic ulcer disease; Z95.1 Presence of aortocoronary bypass graft; I25.119 Atherosclerotic heart disease of native coronary artery with unspecified angina pectoris; I25.730 Atherosclerosis of nonautologous biological coronary artery bypass graft(s) with unstable angina pectoris